=== PATIENT | female | born 1930 | race Caucasian/White ===

== ENCOUNTER 2017-07-19 23:34 | Inpatient (IN) ==
--- OUTSIDE RECORDS SUMMARY | 2017-07-20 01:23 | External Medical Summary ---
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 Problem Mitral Regurgitation 424.0 Active Problem Coronary Artery Disease 414.01 Active Problem Hypertension, Benign 401.1 Active Problem Cardiomegaly 429.3 Active Problem S/P Aortic Valve Replacement V43.3 Active Problem Hyperlipidemia 272.4 Active Problem Mitral valve regurgitation I34.0 Active Problem Pleural Effusion 511.9 Active Problem Tricuspid valve regurgitation, 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 Problem Palpitations 785.1 Active Problem CAD (coronary artery disease) I25.10 Active Problem LVH (left ventricular hypertrophy) I51.7 Active Problem Hypertension I10 Active Problem Dyspnea R06.00 Active Problem Palpitations R00.2 Active Problem S/P Mitral Valve Replacement V43.3 Active Problem Cardiac arrest 427.5 Active Assessment H/O mitral valve replacement Z95.2 Active Problem Cardiac arrest I46.9 Active Problem Shortness Of Breath 786.05 Active Assessment CHF (congestive heart failure) I50.9 Active Problem Aortic valve stenosis I35.0 Active Assessment Pacemaker Z95.0 Active Problem S/P AVR Z95.2 Active Problem Pleural effusion J90 Active Problem Hyperlipidemia E78.5 Active Assessment S/P AVR Z95.2 Active Problem Complete Heart Block 426.0 Active Assessment Aortic valve stenosis I35.0 Active Problem Pacemaker Z95.0 Active Assessment Hypertension I10 Active Problem Pulmonary Hypertension, Chronic, 416.9 Active Unspecified Assessment LVH (left ventricular hypertrophy) I51.7 Active Problem 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 Active Assessment Mitral valve regurgitation I34.0 Active Problem CHF (congestive heart failure) I50.9 Active Assessment CAD (coronary artery disease) I25.10 Active Problem H/O mitral valve replacement Z95.2 Active Problem Complete heart block I44.2 Active Problem Pulmonary hypertension I27.2 Active Medications Medication Code Code Instructions Start End Status Dosage System Date Date Potassium Chloride [facility] 26144-04 10 MEQ Orally 2 tablets 99-30 Twice a day Aspir-Low [facility] 30482-98 81 MG Orally 1 tablet 04-18 Once a day Amlodipine Besylate [facility] 30619-88 5 MG Orally 1 tablet 01-20 Once a day Haloperidol [facility] 09417-70 0.5 MG Orally 1 /2 51-01 Once a day tablets Hydrochlorothiazide [facility] 43439-70 25 MG Orally 1/2 tablet 56-01 Once a day Metoprolol Tartrate [facility] 93898-66 50MG Orally 1 10/22 18-01 Twice a day tablets Lisinopril [facility] 54015-83 20 MG Orally 1 tablet 68-01 Once a day Procedures Procedure Coding System Code Date Office Visit, Est Pt., Level 4 CPT-4 17352 Nov 24, 2015 [facility] Program PM Dual, Staff CPT-4 84878 Nov 24, 2015 Vital Signs Date/Time: Nov 24, 2015 BMI 23.23 Index Weight 127 lbs Height 62 in Cardiac Monitoring Heart Rate 86 /min Oximetry 98% % Blood Pressure Diastolic 84 mm Hg Blood Pressure Systolic 160 mm Hg Results No Known Results Summary Purpose eClinicalWorks Submission
--- OUTSIDE RECORDS SUMMARY | 2017-07-20 01:23 | External Medical Summary | Continuity of Care Document ---
:1930 Author Organization [facility] [employer] Phone Unavailable Care Team Providers Name Role Phone GABBY FIELDS DO Primary Care Physician Insurance Providers Guarantor Jac Moulton Address [address] [place] [address] Payer Blue Cross Plan 65 Select Policy Number [id number] Subscriber's Name Jac Moulton Relationship 01 Self / Same As Patient Group Number [id number] Effective Date 16 Payer [place] Medicare Policy Number [id number] Subscriber's Name Jac Moulton Relationship 01 Self / Same As Patient Effective Date 16 Advance Directives Directive Response Recorded Date/Time Patient Resuscitation Status Full Code 03/29/16 10:00am Advance Directives No 03/29/16 10:00am Living Will No 03/29/16 10:00am Health Care Power of [employer] Division Manager No 03/29/16 10:00am Problems No problem information available. Medications Current Home Medications Medication Dose Units Route Directions Days Qty Instructions Start Date Amlodipine Besylate 5 5 Mg Oral Daily 03/16/16 Mg Tab Aspirin (Aspirin 81) 81 Daily 03/16/16 Mg Tab Haloperidol (Bulk) 0.5 Mg Three Times A 03/16/16 (Haloperidol) 1 Pow Pow Day Hydrochlorothiazide Daily 03/28/16 12.5 Mg Tab Lisinopril 20 Mg Tab 20 Mg Oral Daily 03/16/16 Metoprolol Tartrate 50 25 Mg Oral Daily 03/16/16 Mg Tab Mirtazapine 15 Mg Tab 15 Mg Oral Daily 03/16/16 Potassium Chloride 10 10 Meq Oral Daily 03/16/16 Meq Inj Trimethoprim 100 Mg Tab 100 Mg Oral Daily 03/16/16 Social History Social History Problem Response Recorded Date/Time Onset Date Status Smoking Status Never smoker 03/29/2016 10:00am Not Applicable Not Applicable Query Response Start Date Stop Date Smoking Status Never smoker Hospital Discharge Instructions No hospital discharge instructions. Plan of Care Discharge Date 03/29/16 1:25pm Prescriptions See Medication Section Functional Status Query Response Date Recorded Overall Activities Daily Living Independ/No setup help March 29, 2016 10:00am Ability/Staff Support Memory Description Short term intact March 29, 2016 10:00am intermediate teacher intact Allergies, Adverse Reactions, Alerts Allergen Type Severity Reaction Status Last Updated Sulfa Antibiotics Allergy Unknown Active 03/22/16 Immunizations Query Response on File Recorded Date/Time Pneumonia Vaccine Received Yes 03/29/16 10:00am Had a Tetanus Toxoid Vaccination less than 10yrs Yes 03/29/16 10:00am ago Vital Signs Acute Vital Signs Vital Response Date/Time Blood Pressure 146/79 mm Hg 03/29/2016 1:13pm Blood Pressure Mean 102 mm Hg 03/29/2016 12:40pm Blood Pressure Mean 101 mm Hg 03/29/2016 1:13pm Temperature (Fahrenheit) 98.4 degrees F (96.0 - 99.9) 03/29/2016 12:43pm Temperature (Calculated Celsius) 36.54465 degrees C 03/29/2016 12:43pm Temperature Source Oral 03/29/2016 12:43pm Temp 98.4 degrees F (96.0 - 99.9) 03/29/2016 12:43pm Temperature (Calculated Celsius) 36.22966 degrees C 03/29/2016 12:43pm Pulse Pulse Rate (adult) 68 bpm (60 - 100) 03/29/2016 1:13pm Pulse Rate (adult) 70 bpm (60 - 100) 03/29/2016 12:40pm Respiratory Rate 16 breaths per minute (10 - 20) 03/29/2016 1:13pm Respiratory Rate 16 bpm (10 - 20) 03/29/2016 12:40pm Height (Feet) 5 ft 03/29/2016 10:00am Height (Inches) 0.0 in. 03/29/2016 10:00am Weight (Pounds) 127.0 lbs 03/29/2016 10:00am Height 5 ft 0 in 03/29/2016 10:00am Weight 127 lb 03/29/2016 10:00am Body Mass Index 24.8 kg/m^2 03/29/2016 10:00am Ambulatory Vital Signs Vital Response Date/Time Height 5 ft 03/22/2016 4:23pm Weight 128 lbs 03/22/2016 4:23pm Temperature, Oral 98.1 degrees F 03/22/2016 4:23pm Blood Pressure, Sitting, Left Arm 139/81 mm Hg 03/22/2016 4:23pm Pulse Rate 90 bpm 03/22/2016 4:23pm Respiration Rate 18 bpm 03/22/2016 4:23pm Body Surface Area 1.58 m2 03/22/2016 4:23pm Body Mass Index 25.0 kg/m2 03/22/2016 4:23pm Pulse Oximetry Pulse Oximetry 03/22/2016 4:23pm Results No known relevant diagnostic tests, laboratory data and/or discharge summary. Procedures Procedure Status Date Provider(s) BX BREAST 1ST LESION US IMAG Completed 03/16/16 BRANDON MULLIGAN M.D. Simple mastectomy of left breast Completed 03/29/16 BRANDON MULLIGAN M.D. Encounters Encounter Location Arrival/Admit Date Discharge/Depart Date Attending Provider Departed Venessa Rodríguez 03/29/16 10:00am 03/29/16 1:25pm BRANDON MULLIGAN Surgical [facility] Anneliese Anand M.D. Care Office Visit BRANDON MULLIGAN 03/22/16 4:00pm BRANDON MULLIGAN M.D. Registered Brandon Mulligan 03/22/16 4:00pm BRANDON MULLIGAN M.D. Departed Clinic Venessa Rodríguez 03/16/16 4:17pm 03/16/16 5:30pm BRANDON MULLIGAN Mem Anneliese Anand M.D. Office Visit BRANDON MULLIGAN 03/16/16 2:45pm BRANDON MULLIGAN M.D. Registered Venessa Rodríguez 03/16/16 12:02pm GABBY FIELDS [facility].
--- OUTSIDE RECORDS SUMMARY | 2017-07-20 01:23 | External Medical Summary ---
:1930 Author Organization [facility] Address [address] [place] [address] Care Team Providers Name Role Phone Amanda Correa Unavailable Unavailable PROBLEMS Type Condition ICD9-CM [id number] Onset Condition SNOMED Code Code Code Dates Status Problem S/P AVR Z95.2 Active 790892723729803 Problem Hyperlipidemia E78.5 Active 08405983 Problem Aortic valve I35.0 Active 05531143 stenosis Problem Atherosclerotic I25.10 Active 198555375761926 heart disease of [place] coronary artery without angina pectoris Problem Asystole I46.9 Active 845325922 Problem Palpitations R00.2 Active 87735067 Problem Pleural effusion J90 Active 06264479 Problem Cardiac arrest I46.9 Active 995282719 Problem Dyspnea R06.00 Active 828871461 Problem Complete heart I44.2 Active 49542466 block Problem Pulmonary I27.2 Active 16714122 hypertension Assessment Atherosclerotic I25.10 Dec, Active 967908394163372 heart disease of 2017 [place] coronary artery without angina pectoris Problem Pacemaker Z95.0 Active 254078575 Problem Mitral valve I34.0 Active 53000378 regurgitation Problem Tricuspid valve I36.1 Active 906355338 regurgitation, nonrheumatic Problem CHF (congestive I50.9 Active 55682652 heart failure) Problem Hypertension I10 Active 47080306 Problem H/O mitral valve Z95.2 Active 095110791133894 replacement Problem LVH (left I51.7 Active 1918558 ventricular hypertrophy) ALLERGIES Substance Reaction Event Type Date Status Sulfa Unknown Drug Allergy Dec, Active Iodine Unknown Drug Allergy Dec, Active SOCIAL HISTORY No smoking Hx information available PLAN OF CARE VITAL SIGNS Height 62 in 2017-01-14 Weight 126.00 lbs 2017-01-14 BMI 23.04 kg/m2 2017-01-14 Oximetry 97 % 2017-01-14 Heart Rate 74 /min 2017-01-14 Blood pressure systolic 120 mm Hg 2017-01-14 Blood pressure diastolic 68 mm Hg 2017-01-14 MEDICATIONS Medication Instructions Dosage Frequency Start End Duration Status Date Date Metoprolol Tartrate 50 Orally Twice a 1 1/2 12h Active MG day tablets Hydrochlorothiazide 25 Orally Once a 1 capsule 24h Active MG day Lisinopril 20 MG Orally Once a 1 tablet 24h Active day Hydralazine HCl 25 MG Orally Twice a 1 tablet 12h Active day Haloperidol 0.5 MG Orally Once a 1 tablet 24h Active day Potassium Chloride 10 Orally Twice a 2 tablets 12h Active MEQ day Amlodipine Besylate 5 Orally Once a 1 tablet 24h Active MG day Aspir-Low 81 MG Orally Once a 1 tablet 24h Active day RESULTS No Results PROCEDURES Procedure Date Ordered Related Diagnosis Body Site Ofc Program PM Dual, Staff January 14, 2017 Office Visit, Est Pt., Level 3 January 14, 2017 IMMUNIZATIONS No Known Immunizations
--- OUTSIDE RECORDS SUMMARY | 2017-07-20 01:23 | External Medical Summary ---
:1930 Author Organization [facility] Address [address] [place] [address] Care Team Providers Name Role Phone Amanda Correa Unavailable Unavailable PROBLEMS Type Condition ICD9-CM [id number] Onset Condition SNOMED Code Code Code Dates Status Problem S/P AVR Z95.2 Active 592087606349560 Problem Hyperlipidemia E78.5 Active 64264692 Problem Aortic valve I35.0 Active 91645885 stenosis Problem Atherosclerotic I25.10 Active 779318491928938 heart disease of [place] coronary artery without angina pectoris Problem Asystole I46.9 Active 581695713 Problem Palpitations R00.2 Active 46601510 Problem Pleural effusion J90 Active 32699908 Problem Cardiac arrest I46.9 Active 222461056 Problem Dyspnea R06.00 Active 656805659 Problem Complete heart I44.2 Active 03263589 block Problem Pulmonary I27.2 Active 79207627 hypertension Problem Pacemaker Z95.0 Active 779271545 Problem Mitral valve I34.0 Active 38103487 regurgitation Problem Tricuspid valve I36.1 Active 372758113 regurgitation, nonrheumatic Problem CHF (congestive I50.9 Active 28362700 heart failure) Problem Hypertension I10 Active 89299142 Problem H/O mitral valve Z95.2 Active 341861106009656 replacement Problem LVH (left I51.7 Active 6570125 ventricular hypertrophy) ALLERGIES Unknown Allergies SOCIAL HISTORY No smoking Hx information available PLAN OF CARE VITAL SIGNS MEDICATIONS Unknown Medications RESULTS No Results PROCEDURES No Known procedures IMMUNIZATIONS No Known Immunizations
--- OUTSIDE RECORDS SUMMARY | 2017-07-20 01:23 | External Medical Summary | Continuity of Care Document ---
:1930 Author Organization [facility] [employer] Phone Unavailable Care Team Providers Name Role Phone GABBY FIELDS DO Primary Care Physician Insurance Providers Guarantor Jac Moulton Address [address] [place] [address] Payer Blue Cross Plan 65 Select Policy Number [id number] Subscriber's Name Jac Moulton Relationship 01 Self / Same As Patient Group Number [id number] Effective Date 16 Payer [place] Medicare Policy Number [id number] Subscriber's Name Jac Moulton Relationship 01 Self / Same As Patient Effective Date 16 Problems No problem information available. Medications Current [...] Smoking Status Never smoker Hospital Discharge Instructions Current inpatient/outpatient. Discharge instructions are currently unavailable. Plan of Care Current inpatient/outpatient. The plan of care is currently unavailable Functional Status No functional status results. Allergies, Adverse Reactions, Alerts Allergen Type Severity Reaction Status Last Updated Sulfa Antibiotics ([id number]) Allergy Unknown Active 03/22/16 Immunizations No immunization records. Vital Signs Acute Vital Signs Vital Response Date/Time Blood Pressure 146/79 mm Hg 03/29/2016 1:13pm Blood Pressure Mean 102 mm Hg 03/29/2016 12:40pm Blood Pressure Mean 101 mm Hg 03/29/2016 1:13pm Temperature (Fahrenheit) 98.4 degrees F (96.0 - 99.9) 03/29/2016 12:43pm Temperature (Calculated Celsius) 36.07115 degrees C 03/29/2016 12:43pm Temperature Source Oral 03/29/2016 12:43pm Temp 98.4 degrees F (96.0 - 99.9) 03/29/2016 12:43pm Temperature (Calculated Celsius) 36.65444 degrees C 03/29/2016 12:43pm Pulse Pulse Rate (adult) 68 bpm (60 - 100) 03/29/2016 1:13pm Pulse Rate (adult) 70 bpm (60 - 100) 03/29/2016 12:40pm Respiratory Rate 16 breaths per minute (10 - 20) 03/29/2016 1:13pm Respiratory Rate 16 bpm (10 - 20) 03/29/2016 12:40pm Height (Feet) 5 ft 03/29/2016 10:00am Height (Inches) 0.0 in. 03/29/2016 10:00am Weight (Pounds) 127.0 lbs 03/29/2016 10:00am Ambulatory Vital Signs Vital Response Date/Time Height 5 ft 07/09/2016 2:17pm Weight 128 lbs 07/09/2016 2:17pm Temperature, Oral 98.1 degrees F 07/09/2016 2:17pm Blood Pressure, Sitting, Left Arm 111/71 mm Hg 07/09/2016 2:17pm Pulse Rate 80 bpm 07/09/2016 2:17pm Respiration Rate 16 bpm 07/09/2016 2:17pm Body Surface Area 1.58 m2 07/09/2016 2:17pm Body Mass Index 25.0 kg/m2 07/09/2016 2:17pm Pulse Oximetry Pulse Oximetry 07/09/2016 2:17pm Results Laboratory Results Test Name Result Units Flags Reference Collection Result Comments Date/Time Date/Time White Blood Count 6.6 K/uL 5.0-10.0 04/18/2016 04/18/2016 2:16pm 2:35pm Red Blood Count 4.21 M/uL 4.20-5.40 04/18/2016 04/18/2016 2:16pm 2:35pm Hemoglobin 12.8 g/dL 12.0-16.0 04/18/2016 04/18/2016 2:16pm 2:35pm Hematocrit 38.7 % 38.0-47.0 04/18/2016 04/18/2016 2:16pm 2:35pm Mean Corpuscular 91.9 fL 82.0-100.0 04/18/2016 04/18/2016 Volume 2:16pm 2:35pm Mean Corpuscular 30.4 pg 26.0-33.0 04/18/2016 04/18/2016 Hemoglobin 2:16pm 2:35pm Mean Corpuscular 33.1 g/dL 31.0-36.0 04/18/2016 04/18/2016 Hemoglobin Concent 2:16pm 2:35pm Red Cell 13.6 % 11.5-14.5 04/18/2016 04/18/2016 Distribution Width 2:16pm 2:35pm RDW Standard 46.0 fL 36.4-46.3 04/18/2016 04/18/2016 Deviation 2:16pm 2:35pm Platelet Count 233 K/uL 130-400 04/18/2016 04/18/2016 2:16pm 2:35pm Mean Platelet 9.8 fL 7.0-11.0 04/18/2016 04/18/2016 Volume 2:16pm 2:35pm Neutrophils (%) 63.0 % 42.0-75.0 04/18/2016 04/18/2016 (Auto) 2:16pm 2:35pm Lymphocytes (%) 23.5 % 16.0-44.0 04/18/2016 04/18/2016 (Auto) 2:16pm 2:35pm Monocytes (%) 9.9 % H 2.0-9.0 04/18/2016 04/18/2016 (Auto) 2:16pm 2:35pm Eosinophils (%) 2.0 % 0-7.0 04/18/2016 04/18/2016 (Auto) 2:16pm 2:35pm Basophils (%) 1.1 % H 0-1 04/18/2016 04/18/2016 (Auto) 2:16pm 2:35pm Immature 0.5 % 0-0.5 04/18/2016 04/18/2016 Granulocyte % 2:16pm 2:35pm (Auto) Nucleated Red Blood 0.0 /100WBC 0-0 04/18/2016 04/18/2016 Cells % 2:16pm 2:35pm Neutrophils # 4.1 K/uL 1.9-8.0 04/18/2016 04/18/2016 (Auto) 2:16pm 2:35pm Lymphocytes # 1.5 K/uL 0.9-5.2 04/18/2016 04/18/2016 (Auto) 2:16pm 2:35pm Monocytes # (Auto) 0.7 K/uL 0.16-1.0 04/18/2016 04/18/2016 2:16pm 2:35pm Eosinophils # 0.1 K/uL 0-0.8 04/18/2016 04/18/2016 (Auto) 2:16pm 2:35pm Basophils # (Auto) 0.1 K/uL 0-0.2 04/18/2016 04/18/2016 2:16pm 2:35pm Immature 0.03 K/uL 0-0.40 04/18/2016 04/18/2016 Granulocyte # 2:16pm 2:35pm (Auto) Nucleated Red Blood 0.00 K/uL 0.0-0.012 04/18/2016 04/18/2016 Cells # 2:16pm 2:35pm Random Glucose 118 mg/dL H 65-115 04/18/2016 04/18/2016 2:16pm 3:42pm Blood Urea Nitrogen 25 mg/dL 8-25 04/18/2016 04/18/2016 2:16pm 3:42pm Creatinine 0.76 mg/dL L 0.9-1.6 04/18/2016 04/18/2016 2:16pm 3:42pm Glomerular 71.82 mL/min 04/18/2016 04/18/2016 MULTIPLY RESULT BY 1.210 IF THE PATIENT IS -ITALIAN
Filtration Rate 2:16pm 3:42pm Units are mL/min/1.73 m2
Calc
> 60 Normal kidney function
30-59 Moderately decreased kidney function
15-29 Severely decreased kidney function
<15 End-stage kidney failure
BUN/Creatinine 32.9 04/18/2016 04/18/2016 Ratio 2:16pm 3:42pm Sodium Level 136 mEq/L 133-145 04/18/2016 04/18/2016 2:16pm 3:42pm Potassium Level 4.4 mEq/L 3.5-5.1 04/18/2016 04/18/2016 2:16pm 3:42pm Chloride Level 98 mEq/L 98-116 04/18/2016 04/18/2016 2:16pm 3:42pm Carbon Dioxide 32 mEq/L 22-34 04/18/2016 04/18/2016 Level 2:16pm 3:42pm Anion Gap 10.4 6-13 04/18/2016 04/18/2016 2:16pm 3:42pm Calcium Level 9.5 mg/dL 8.2-10.6 04/18/2016 04/18/2016 2:16pm 3:42pm Total Protein 7.3 gm/dL 6.0-8.4 04/18/2016 04/18/2016 2:16pm 3:42pm Albumin 4.0 gm/dL 3.2-5.0 04/18/2016 04/18/2016 2:16pm 3:42pm Globulin 3.3 gm/dL H 2.0-3.0 04/18/2016 04/18/2016 2:16pm 3:42pm Albumin/Globulin 1.2 L 1.4-2.4 04/18/2016 04/18/2016 Ratio 2:16pm 3:42pm Total Bilirubin 0.6 mg/dL 0.1-1.3 04/18/2016 04/18/2016 2:16pm 3:42pm Alkaline 90 U/L 35-125 04/18/2016 04/18/2016 Phosphatase 2:16pm 3:42pm Aspartate Amino 22 U/L 5-40 04/18/2016 04/18/2016 Transf (AST/SGOT) 2:16pm 3:42pm Alanine 17 U/L 5-40 04/18/2016 04/18/2016 Aminotransferase 2:16pm 3:42pm (ALT/SGPT) Procedures Procedure Status Date Provider(s) BX BREAST 1ST LESION US IMAG Completed 03/16/16 OSITO MULLIGAN M.D. PARTIAL MASTECTOMY Completed 03/29/16 OSITO MULLIGAN M.D. Encounters Encounter Location Arrival/Admit Date Discharge/Depart Date Attending Provider Office Visit OSITO MULLIGAN 07/09/16 2:15pm OSITO MULLIGAN M.D. Registered Osito Mulligan 07/09/16 2:15pm OSITO MULLIGAN M.D. Registered Venessa Rodríguez 04/18/16 2:25pm SARBJIT SUAREZ Mem. [facility] S. MAngel Discharged Venessa Rodríguez 04/18/16 2:16pm 07/27/16 11:59pm SARBJIT SUAREZ Recurring [facility]. [facility] Office Visit OSITO MULLIGAN 04/10/16 2:45pm OSITO MULLIGAN M.D. Departed Venessa Rodríguez 03/29/16 10:00am 03/29/16 1:25pm OSITO MULLIGAN Surgical Day Mem. Anneliese Anand M.D. Care Office Visit OSITO MULLIGAN 03/22/16 4:00pm OSITO MULLIGAN M.D. Departed Clinic Venessa Rodríguez 03/16/16 4:17pm 03/16/16 5:30pm OSITO MULLIGAN Mem. [facility] Office Visit SOITO MULLIGAN 03/16/16 2:45pm OSITO MULLIGAN M.D. 03/16/16 12:02pm GABBY FIELDS Referred [facility] N. DO Recent Diagnosis Encounter for examination following surgery
--- OUTSIDE RECORDS SUMMARY | 2017-07-20 01:23 | External Medical Summary ---
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 Active Assessment S/P Mitral Valve Replacement V43.3 Active Problem Pulmonary Hypertension, Chronic, 416.9 Active Unspecified Assessment Complete Heart Block 426.0 Active Assessment 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 Active Problem Complete Heart Block 426.0 Active Problem Shortness Of Breath 786.05 Active Problem Palpitations 785.1 Active Problem S/P Mitral Valve Replacement V43.3 Active Problem Cardiac arrest 427.5 Active Assessment Aortic Valve Stenosis 424.1 Active Problem Aortic Valve Stenosis 424.1 Active Assessment Hypertension, Benign 401.1 Active Assessment S/P Aortic Valve Replacement V43.3 Active Problem Tricuspid valve disorders, 424.2 Active specified as nonrheumatic Problem Coronary Artery Disease 414.01 Active Problem Congestive Heart Failure, 428.0 Active Unspecified Problem Hypertension, Benign 401.1 Active Problem Mitral Regurgitation 424.0 Active Problem Cardiomegaly 429.3 Active Medications Medication Code Code Instructions Start End Status Dosage System Date Date Metoprolol Tartrate [facility] 33858-59 50 MG Orally 1-1/2 33-01 Twice [place] [address]-48 20 MG Orally 1 tablet 68-01 [place] [address]-54 25 MG Orally 1/2 tablet 56-01 [place] [address]-63 5 MG Orally 1 tablet 01-20 Once a day Procedures Procedure Coding System Code Date Office Visit, Est Pt., Level 4 CPT-4 87739 May 18, 2015 Ofc Program PM Dual, Staff CPT-4 57123 May 18, 2015 Vital Signs Date/Time: May 18, 2015 BMI 22.68 Index Weight 124 lbs Height 62 in Cardiac Monitoring Heart Rate 86 /min Oximetry 94 % Blood Pressure Diastolic 62 mm Hg Blood Pressure Systolic 134 mm Hg Results No Known Results Summary Purpose eClinicalWorks Submission
--- OUTSIDE RECORDS SUMMARY | 2017-07-20 01:23 | External Medical Summary | Continuity of Care Document ---
:1930 Author Organization [facility] [employer] Phone Unavailable Care Team Providers Name Role Phone GABBY FIELDS DO Primary Care Physician Insurance Providers Guarantor Jac Moulton Address [address] [place] [address] Payer Blue [employer] Plan 65 Select Policy Number [id number] Subscriber's Name Jac Moulton Relationship 01 Self / Same As Patient Group Number [id number] Effective Date 16 Payer [employer] Medicare Policy Number [id number] Subscriber's Name Jac Moulton Relationship 01 Self [...] No hospital discharge instructions. Plan of Care Prescriptions See Medication Section Functional Status No functional status results. Allergies, Adverse Reactions, Alerts Allergen Type Severity Reaction Status Last Updated Sulfa Antibiotics ([id number]) Allergy Unknown Active 03/22/16 Immunizations No immunization records. Vital Signs Acute Vital Signs Vital Response Date/Time Blood Pressure 146/79 mm Hg 03/29/2016 1:13pm Blood Pressure Mean 102 mm Hg 03/29/2016 12:40pm Blood Pressure Mean 101 mm Hg 03/29/2016 1:13pm Temperature (Fahrenheit) 98.4 degrees F (96.0 - 99.9) 03/29/2016 12:43pm Temperature (Calculated Celsius) 36.14206 degrees C 03/29/2016 12:43pm Temperature Source Oral 03/29/2016 12:43pm Temp 98.4 degrees F (96.0 - 99.9) 03/29/2016 12:43pm Temperature (Calculated Celsius) 36.90987 degrees C 03/29/2016 12:43pm Pulse Pulse Rate [...] Result Comments Date/Time Date/Time White Blood Count 6.1 K/uL 5.0-10.0 10/25/2016 10/25/2016 1:44pm 2:17pm Red Blood Count 4.14 M/uL L 4.20-5.40 10/25/2016 10/25/2016 1:44pm 2:17pm Hemoglobin 12.7 g/dL 12.0-16.0 10/25/2016 10/25/2016 1:44pm 2:17pm Hematocrit 38.4 % 38.0-47.0 10/25/2016 10/25/2016 1:44pm 2:17pm Mean Corpuscular 92.8 fL 82.0-100.0 10/25/2016 10/25/2016 Volume 1:44pm 2:17pm Mean Corpuscular 30.7 pg 26.0-33.0 10/25/2016 10/25/2016 Hemoglobin 1:44pm 2:17pm Mean Corpuscular 33.1 g/dL 31.0-36.0 10/25/2016 10/25/2016 Hemoglobin Concent 1:44pm 2:17pm Red Cell 13.3 % 11.5-14.5 10/25/2016 10/25/2016 Distribution Width 1:44pm 2:17pm RDW Standard 45.4 fL 36.4-46.3 10/25/2016 10/25/2016 Deviation 1:44pm 2:17pm Platelet Count 202 K/uL 130-400 10/25/2016 10/25/2016 1:44pm 2:17pm Mean Platelet 9.8 fL 7.0-11.0 10/25/2016 10/25/2016 Volume 1:44pm 2:17pm Neutrophils (%) 65.1 % 42.0-75.0 10/25/2016 10/25/2016 (Auto) 1:44pm 2:17pm Lymphocytes (%) 22.6 % 16.0-44.0 10/25/2016 10/25/2016 (Auto) 1:44pm 2:17pm Monocytes (%) 9.7 % H 2.0-9.0 10/25/2016 10/25/2016 (Auto) 1:44pm 2:17pm Eosinophils (%) 1.3 % 0-7.0 10/25/2016 10/25/2016 (Auto) 1:44pm 2:17pm Basophils (%) 1.0 % 0-1 10/25/2016 10/25/2016 (Auto) 1:44pm 2:17pm Immature 0.3 % 0-0.5 10/25/2016 10/25/2016 Granulocyte % 1:44pm 2:17pm (Auto) Nucleated Red Blood 0.0 /100WBC 0-0 10/25/2016 10/25/2016 Cells % 1:44pm 2:17pm Neutrophils # 3.9 K/uL 1.9-8.0 10/25/2016 10/25/2016 (Auto) 1:44pm 2:17pm Lymphocytes # 1.4 K/uL 0.9-5.2 10/25/2016 10/25/2016 (Auto) 1:44pm 2:17pm Monocytes # (Auto) 0.6 K/uL 0.16-1.0 10/25/2016 10/25/2016 1:44pm 2:17pm Eosinophils # 0.1 K/uL 0-0.8 10/25/2016 10/25/2016 (Auto) 1:44pm 2:17pm Basophils # (Auto) 0.1 K/uL 0-0.2 10/25/2016 10/25/2016 1:44pm 2:17pm Immature 0.02 K/uL 0-0.40 10/25/2016 10/25/2016 Granulocyte # 1:44pm 2:17pm (Auto) Nucleated Red Blood 0.00 K/uL 0.0-0.012 10/25/2016 10/25/2016 Cells # 1:44pm 2:17pm Random Glucose 121 mg/dL H 65-115 10/25/2016 10/25/2016 1:44pm 2:28pm Blood Urea Nitrogen 28 mg/dL H 8-25 10/25/2016 10/25/2016 1:44pm 2:28pm Creatinine 0.77 mg/dL L 0.9-1.6 10/25/2016 10/25/2016 1:44pm 2:28pm Glomerular 70.75 mL/min 10/25/2016 10/25/2016 MULTIPLY RESULT BY 1.210 IF THE PATIENT IS -MACAN[place]
Filtration Rate 1:44pm 2:28pm Units are mL/min/1.73 m2
Calc
> 60 Normal kidney function
30-59 Moderately decreased kidney function
15-29 Severely decreased kidney function
<15 End-stage kidney failure
BUN/Creatinine 36.4 10/25/2016 10/25/2016 Ratio 1:44pm 2:28pm Sodium Level 136 mEq/L 133-145 10/25/2016 10/25/2016 1:44pm 2:28pm Potassium Level 4.2 mEq/L 3.5-5.1 10/25/2016 10/25/2016 1:44pm 2:28pm Chloride Level 101 mEq/L 98-116 10/25/2016 10/25/2016 1:44pm 2:28pm Carbon Dioxide 31 mEq/L 22-34 10/25/2016 10/25/2016 Level 1:44pm 2:28pm Anion Gap 8.2 6-13 10/25/2016 10/25/2016 1:44pm 2:28pm Calcium Level 9.0 mg/dL 8.2-10.6 10/25/2016 10/25/2016 1:44pm 2:28pm Total Protein 7.6 gm/dL 6.0-8.4 10/25/2016 10/25/2016 1:44pm 2:28pm Albumin 4.4 gm/dL 3.2-5.0 10/25/2016 10/25/2016 1:44pm 2:28pm Globulin 3.2 gm/dL H 2.0-3.0 10/25/2016 10/25/2016 1:44pm 2:28pm Albumin/Globulin 1.4 1.4-2.4 10/25/2016 10/25/2016 Ratio 1:44pm 2:28pm Total Bilirubin 0.4 mg/dL 0.1-1.3 10/25/2016 10/25/2016 1:44pm 2:28pm Alkaline 100 U/L 35-125 10/25/2016 10/25/2016 Phosphatase 1:44pm 2:28pm Aspartate Amino 23 U/L 5-40 10/25/2016 10/25/2016 Transf (AST/SGOT) 1:44pm 2:28pm Alanine 18 U/L 5-40 10/25/2016 10/25/2016 Aminotransferase 1:44pm 2:28pm (ALT/SGPT) Procedures Procedure Status Date Provider(s) BX BREAST 1ST LESION US IMAG Completed 03/16/16 OSITO MULLIGAN M.D. PARTIAL MASTECTOMY Completed 03/29/16 OSITO MULLIGAN M.D. Encounters Encounter Location Arrival/Admit Date Discharge/Depart Date Attending Provider Discharged Venessa Rodríguez 10/25/16 1:44pm 02/02/17 11:59pm SARBJIT SUAREZ Recurring [facility] S. M.D. Office Visit OSITO MULLIGAN 07/09/16 2:15pm OSITO MULLIGAN M.D. Registered Osito Mulligan 07/09/16 2:15pm OSITO MULLIGAN M.D. Registered Venessa Rodríguez 04/18/16 2:25pm SARBJIT SUAREZ [facility]. [facility] S. M.DRachana Discharged Venessa Rodríguez 04/18/16 2:16pm 07/27/16 11:59pm SARBJIT SUAREZ Recurring [facility] S. M.D. Office Visit OSITO MULLIGAN 04/10/16 2:45pm OSITO MULLIGAN M.D. Departed Venessa Rodríguez 03/29/16 10:00am 03/29/16 1:25pm OSITO MULLIGAN Surgical Day [facility] O M.Tanya Care Office Visit OSITO MULLIGAN 03/22/16 4:00pm OSITO MULLIGAN M.D. Departed Clinic Venessa Rodríguez 03/16/16 4:17pm 03/16/16 5:30pm [facility] OSITO MULLIGAN 03/16/16 2:45pm OSITO MULLIGAN M.D. 03/16/16 12:02pm GABBY FIELDS Referred [facility]. [facility] N. DO
--- OUTSIDE RECORDS SUMMARY | 2017-07-20 01:23 | External Medical Summary ---
:1930 Author Organization [facility] Address [address] [place] [address] Care Team Providers Name Role Phone Eliza Greenfield Unavailable Unavailable PROBLEMS Type Condition ICD9-CM Code [id number] Onset Condition SNOMED Code Code Dates Status Problem OA (osteoarthritis) M19.90 Active 978530542 Problem Valvular heart I38 Active 883129 disease Problem Hyperlipidemia E78.5 Active 85113916 Problem Insomnia, G47.00 Active 798474874 unspecified type Problem Psychosis F29 Active 05207488 Problem Depressive disorder F32.9 Active 48056459 Problem HTN (hypertension) I10 Active 94255734 Problem Alzheimers disease 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 64618400 Problem 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, possible Problem Hyperlipidemia 272.4 Active 73659885 Problem Valvular heart 424.90 Active 400203 disease Problem Osteoarthritis 715.90 Active 854023674 Problem [place] II diagnosis 799.9 Active 41657251 deferred Problem Unspecified 298.9 Active 50437691 psychosis Problem Varicose veins 454.9 Active 993724369 Problem Alzheimer's disease 331.0 Active 05921881 Problem HTN (hypertension) 401.9 Active 66683616 Problem Depressive 311 Active 39509776 disorder, not elsewhere classified ALLERGIES No Information SOCIAL HISTORY Never Assessed PLAN OF CARE VITAL SIGNS MEDICATIONS Unknown Medications RESULTS No Results PROCEDURES No Known procedures IMMUNIZATIONS No Known Immunizations MEDICAL (GENERAL) HISTORY Type Description Date Medical History Hypertension, Varicose Veins, valvular heart disease, hyperlipidemia, osteoarthritis, dysrhythmia, possibly atrial fibrillation (has a pacemaker) Surgical History 2 open heart surgeries - 2 valves, bladder, hysterectomy, surgery for intestine block, cataract surgery R eye Hospitalization History January 2013, [facility] for Psychosis NOS
--- OUTSIDE RECORDS SUMMARY | 2017-07-20 01:23 | External Medical Summary ---
:1930 Author Organization [employer] Care Team Providers Name Role Phone Eloisa Polanco Provider Role Unavailable Allergies, Adverse Reactions, Alerts Substance Reaction Event Type N.K.D.A. 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, possible Assessment Valvular heart disease I38 Active Assessment Hyperlipidemia E78.5 Active Problem Psychosis F29 Active Problem Valvular heart disease I38 Active Problem Hyperlipidemia E78.5 Active Problem Depressive disorder F32.9 Active Problem HTN (hypertension) I10 Active Assessment Psychosis F29 Active Problem Osteoarthritis 715.90 Active Assessment Depressive disorder F32.9 Active Assessment 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 Alzheimer's disease, possible Problem Varicose veins 454.9 Active Problem HTN (hypertension) 401.9 Active Problem Hyperlipidemia 272.4 Active Problem [place] II diagnosis deferred 799.9 Active Assessment OA (osteoarthritis) M19.90 Active Problem Valvular heart disease 424.90 Active Problem Unspecified psychosis 298.9 Active Medications Medication Code Code Instructions Start End Status Dosage System Date Date Hydrochlorothiazide NDC 22602-2 12.5 MG Orally 1 tablet 820-11 Once a day Lisinopril NDC 02131-0 20 MG Orally 1 tablet 268-01 Once a day Potassium Chloride NDC 39601-3 Orally Two 2 tablets 077-14 times daily Aspirin Childrens NDC 18006-1 81 MG Orally 1 tablet 218-07 Once a day Haloperidol NDC 99703-1 0.5MG Orally 2.5 tablets 327-01 Once a day at bedtime Amlodipine Besylate NDC 76004-9 5 MG Orally 1 tablet 101-20 Once a day Metoprolol Tartrate NDC 83827-6 50 MG Orally 1.5 tablets 733-01 Twice a day at breakfast and 1.5 tablets at HS Procedures Procedure Coding System Code Date Office Visit, Est Pt., Level 4 CPT-4 31944 Jul 16, 2016 Vital Signs Date/Time: Jul 16, 2016 Blood Pressure Diastolic 84 sit; 144 mm Hg Blood Pressure Systolic 156 mm Hg Weight 127.8 lbs Cardiac Monitoring Heart Rate 95/95 /min Results No Known Results Summary Purpose [employer] Submission
--- OUTSIDE RECORDS SUMMARY | 2017-07-20 01:23 | External Medical Summary ---
:1930 Author Organization [employer] Care Team Providers Name Role Phone Tiffany Kaur Provider Role Unavailable Allergies, Adverse Reactions, Alerts Substance Reaction Event Type N.K.D.A. Info Not Available Non Drug Allergy Problems Problem Type Condition Code Onset Dates Condition Status Assessment Unspecified psychosis 298.9 Active Problem Hyperlipidemia 272.4 Active Problem Osteoarthritis 715.90 Active Problem Alzheimer's disease 331.0 Active Problem Unspecified psychosis 298.9 Active Problem Depressive disorder, not elsewhere 311 Active classified Problem Varicose veins 454.9 Active Problem Valvular heart disease 424.90 Active Problem [place] II diagnosis deferred 799.9 Active Problem HTN (hypertension) 401.9 Active Assessment Osteoarthritis 715.90 Active Assessment Hyperlipidemia 272.4 Active Assessment HTN (hypertension) 401.9 Active Assessment [place] II diagnosis deferred 799.9 Active Assessment Valvular heart disease 424.90 Active Assessment Alzheimer's disease 331.0 Active Assessment Varicose veins 454.9 Active Assessment Depressive disorder, not elsewhere 311 Active classified Medications Medication Code Code Instructions Start End Status Dosage System Date Date Amlodipine Besylate NDC 05463-9 5 MG Orally 1 tablet 101-20 Once a day Hydrochlorothiazide NDC 21749-5 12.5 MG Orally 1 tablet 820-11 Once a day Metoprolol Tartrate NDC 25446-2 50 MG Orally 1.5 tablets 733-01 Twice a day at breakfast and 1.5 tablets at HS Haloperidol NDC 03736-6 0.5MG Orally take three 327-01 Once a day at tablets by bedtime mouth once daily at bedtime Lisinopril NDC 21729-4 20 MG Orally 1 tablet 268-01 Once a day Aspirin Childrens NDC 57808-5 81 MG Orally 1 tablet 218-07 Once a day Potassium Chloride NDC 89999-8 Orally Two 2 tablets 077-14 times daily Procedures Procedure Coding System Code Date Office Visit, Est Pt., Level 4 CPT-4 59062 Jun 13, 2015 Vital Signs Date/Time: Jun 13, 2015 Blood Pressure Diastolic 84 sit; 153 mm Hg Blood Pressure Systolic 153 mm Hg Weight 130 lbs Cardiac Monitoring Heart Rate 86/86 /min Results No Known Results Summary Purpose [employer] Submission
--- OUTSIDE RECORDS SUMMARY | 2017-07-20 01:23 | External Medical Summary ---
:1930 Author Organization [employer] Care Team Providers Name Role Phone Amanda Correa Provider Role Unavailable Allergies No Known Allergies Problems Problem Type Condition Code Onset Dates [...] V43.3 Active Problem Cardiac arrest 427.5 Active Problem Cardiac arrest I46.9 Active Problem Shortness Of Breath 786.05 Active Problem Aortic valve stenosis I35.0 Active Problem S/P AVR Z95.2 Active Problem Pleural effusion J90 Active Problem Hyperlipidemia E78.5 Active Problem Complete Heart Block 426.0 Active Problem Pacemaker Z95.0 Active Problem Pulmonary Hypertension, Chronic, 416.9 Active Unspecified Problem 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
--- OUTSIDE RECORDS SUMMARY | 2017-07-20 01:23 | External Medical Summary ---
:1930 [facility] Care Team Providers Name Role Phone Tiffany Kaur Provider Role Unavailable Allergies, Adverse Reactions, Alerts Substance Reaction Event Type N.K.D.A. 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 Alzheimer's disease, possible Assessment Depressive disorder F32.9 Active Assessment HTN (hypertension) I10 Active Problem Psychosis F29 Active Assessment Valvular heart disease I38 Active Problem Valvular heart disease I38 Active Problem Hyperlipidemia E78.5 Active Problem Depressive disorder F32.9 Active Problem HTN (hypertension) I10 Active Assessment Psychosis F29 Active Problem Osteoarthritis 715.90 Active Assessment 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 Alzheimer's disease, possible Assessment Alzheimers disease 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 Problem Varicose veins 454.9 Active Problem HTN (hypertension) 401.9 Active Problem Hyperlipidemia 272.4 Active Problem Valvular heart disease 424.90 Active Medications Medication Code Code Instructions Start End Status Dosage System Date Date Potassium Chloride NDC 50005-6 Orally Two 2 tablets 077-14 times daily Metoprolol Tartrate NDC 02005-1 50 MG Orally 1.5 tablets 733-01 Twice a day at breakfast and 1.5 tablets at HS Amlodipine Besylate NDC 67804-3 5 MG Orally 1 tablet 101-20 Once a day Aspirin Childrens NDC 73952-8 81 MG Orally 1 tablet 218-07 Once a day Lisinopril NDC 23950-1 20 MG Orally 1 tablet 268-01 Once a day Haloperidol NDC 79192-2 0.5MG Orally 2.5 tablets 327-01 Once a day at bedtime Hydrochlorothiazide [facility] 68849-7 12.5 MG Orally 1 tablet 820-11 Once a day Procedures Procedure Coding System Code Date Office Visit, Est Pt., Level 4 CPT-4 28836 January 02, 2016 Vital Signs Date/Time: January 02, 2016 Blood Pressure Diastolic 73 sit; 126 mm Hg Blood Pressure Systolic 135 mm Hg Weight 126.2 lbs Cardiac Monitoring Heart Rate 88/88 /min Results No Known Results Summary Purpose eClinicalWorks Submission
--- OUTSIDE RECORDS SUMMARY | 2017-07-20 01:23 | External Medical Summary ---
:1930 Author Organization [facility] Address [address] [place] [address] Care Team Providers Name Role Phone Eloisa Polanco Unavailable Unavailable PROBLEMS Type Condition ICD9-CM Code HJI22-HS Onset Condition SNOMED Code Code Dates Status Problem OA (osteoarthritis) M19.90 Active 629780121 Problem Valvular heart I38 Active 620489 disease Problem Hyperlipidemia E78.5 Active 41243038 Problem Insomnia, G47.00 Active 696274923 unspecified type Problem Psychosis F29 Active 89115517 Problem Depressive disorder F32.9 Active 31440716 Problem HTN (hypertension) I10 Active 83384261 Problem Alzheimers disease 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 26688089 Problem 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 899805790 neurocognitive disorder due to Alzheimer's disease, possible Problem Hyperlipidemia 272.4 Active 39352508 Problem Valvular heart 424.90 Active 038686 disease Problem Osteoarthritis 715.90 Active 013665859 Problem [place] II diagnosis 799.9 Active 66522102 deferred Problem Unspecified 298.9 Active 26697148 psychosis Problem Varicose veins 454.9 Active 453859424 Problem Alzheimer's disease 331.0 Active 38531851 Problem HTN (hypertension) 401.9 Active 17207143 Problem Depressive 311 Active 33439285 disorder, not elsewhere classified ALLERGIES Unknown Allergies SOCIAL HISTORY No smoking Hx information available PLAN OF CARE VITAL SIGNS MEDICATIONS Medication Instructions Dosage Frequency Start End Date Duration Status Date Haloperidol Orally Once a day 1 tablet 30 days Active 0.5MG at bedtime RESULTS No Results PROCEDURES No Known procedures IMMUNIZATIONS No Known Immunizations
--- OUTSIDE RECORDS SUMMARY | 2017-07-20 01:23 | External Medical Summary ---
:1930 Author Organization [facility] Address [address] [place] [address] Care Team Providers Name Role Phone Amanda Correa Unavailable Unavailable PROBLEMS Type Condition ICD9-CM [id number]-OS Onset Condition SNOMED Code Code Code Dates Status Problem LVH (left I51.7 Active 6784326 ventricular hypertrophy) Problem Aortic valve I35.0 Active 81151731 stenosis Problem S/P AVR Z95.2 Active 685509447550996 Problem Asystole I46.9 Active 394818607 Problem Cardiac arrest I46.9 Active 723595152 Problem Pleural effusion J90 Active 36723845 Problem Hyperlipidemia E78.5 Active 18397888 Problem Dyspnea R06.00 Active 090824053 Problem Palpitations R00.2 Active 52921623 Problem Complete heart I44.2 Active 48170256 block Problem Pulmonary I27.2 Active 99229064 hypertension Problem Pacemaker Z95.0 Active 912424342 Problem Mitral valve I34.0 Active 49170686 regurgitation Problem 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
--- OUTSIDE RECORDS SUMMARY | 2017-07-20 01:23 | External Medical Summary ---
:1930 Author Organization [employer] Care Team Providers Name Role Phone Amanda Correa Provider Role Unavailable Allergies No Known Allergies Problems Problem Type Condition ICD-9 Code Onset Dates Condition Status Problem S/P Aortic Valve Replacement V43.3 Active Problem Pleural Effusion 511.9 Active Problem Hyperlipidemia 272.4 Active Problem 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 Active Problem Pulmonary Hypertension, Chronic, 416.9 Active Unspecified Problem Complete Heart Block 426.0 Active Problem Shortness Of Breath 786.05 Active Problem Palpitations 785.1 Active Problem S/P Mitral Valve Replacement V43.3 Active Problem Cardiac arrest 427.5 Active Problem Aortic Valve Stenosis 424.1 Active Problem Tricuspid valve disorders, 424.2 Active specified as nonrheumatic Problem Coronary Artery Disease 414.01 Active Problem Congestive Heart Failure, 428.0 Active Unspecified Problem Hypertension, Benign 401.1 Active Problem Mitral Regurgitation 424.0 Active Problem Cardiomegaly 429.3 Active Medications No Known Medications Results No Known Results Summary Purpose [employer] Submission
--- OUTSIDE RECORDS SUMMARY | 2017-07-20 01:23 | External Medical Summary ---
:1930 Author Organization [employer] Care Team Providers Name Role Phone Tiffany Kaur Provider Role Unavailable Allergies No Known Allergies Problems Problem Type Condition Code Onset Dates Condition Status Assessment Depressive disorder, not elsewhere 311 Active classified Problem Hyperlipidemia 272.4 Active Problem Osteoarthritis 715.90 Active Problem Alzheimer's disease 331.0 Active Problem Unspecified psychosis 298.9 Active Problem Depressive disorder, not elsewhere 311 Active classified Problem Varicose veins 454.9 Active Problem Valvular heart disease 424.90 Active Problem [place] II diagnosis deferred 799.9 Active Problem HTN (hypertension) 401.9 Active Medications Medication Code System Code Instructions Start Date End Date Status Dosage Haloperidol [facility] 04658-603 0.5MG Orally Once take three 7-01 a day at bedtime tablets by mouth once daily at bedtime Results No Known Results Summary Purpose [employer]ClinicalWorks Submission
--- OUTSIDE RECORDS SUMMARY | 2017-07-20 01:23 | External Medical Summary ---
:1930 Author Organization [facility] Address [address] [place] [address] Care Team Providers Name Role Phone Eliza Greenfield Unavailable Unavailable PROBLEMS Type Condition ICD9-CM Code [id number] Onset Condition SNOMED Code Code Dates Status Problem OA (osteoarthritis) M19.90 Active 926217175 Problem Valvular heart I38 Active 085046 disease Problem Hyperlipidemia E78.5 Active 18034589 Problem Insomnia, G47.00 Active 045727467 unspecified type Problem Psychosis F29 Active 49507625 Problem Depressive disorder F32.9 Active 52871397 Problem HTN (hypertension) I10 Active 14014033 Problem Alzheimers disease 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 23174404 Problem 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 218671238 neurocognitive disorder due to Alzheimer's disease, possible Problem Hyperlipidemia 272.4 Active 99621327 Problem Valvular heart 424.90 Active 137876 disease Problem Osteoarthritis 715.90 Active 697481489 Problem [place] II diagnosis 799.9 Active 11688396 deferred Problem Unspecified 298.9 Active 03580643 psychosis Problem Varicose veins 454.9 Active 438262289 Problem Alzheimer's disease 331.0 Active 44285926 Problem HTN (hypertension) 401.9 Active 56327908 Problem Depressive 311 Active 73683893 disorder, not elsewhere classified ALLERGIES Substance Reaction Event Type Date Status N.K.D.A. Unknown Non Drug Allergy Apr, Unknown SOCIAL HISTORY No smoking Hx information available PLAN OF CARE Activity Details Follow Up 3 Months Reason:null VITAL SIGNS Weight 128.0 lbs 2017-05-20 Heart Rate 95/93 /min 2017-05-20 Blood pressure systolic 144 mm Hg 2017-05-20 Blood pressure diastolic 81 sit 151 mm Hg 2017-05-20 MEDICATIONS Medication Instructions Dosage Frequency Start End Duration Status Date Date Aspirin Childrens 81 Orally Once a 1 tablet 24h Active MG day Metoprolol Tartrate Orally Twice a 1.5 tablets 12h Active 50 MG day at breakfast and 1.5 tablets at HS Potassium Chloride 10 Orally Two 2 tablets Active MEQ times daily Lisinopril 20 MG Orally Once a 1 tablet 24h Active day Hydrochlorothiazide Orally Once a 1 tablet 24h Active 12.5 MG day HydrOXYzine HCl 25 MG Orally Daily 1-2 tablets 30 day(s) Active at bedtime Amlodipine Besylate 5 Orally Once a 1 tablet 24h Active MG day Haloperidol 0.5 mg Orally Once a 1 tablet 30 days Active day at bedtime RESULTS No Results PROCEDURES Procedure Date Ordered Related Diagnosis Body Site Office Visit, Est Pt., Level 4 May 20, 2017 IMMUNIZATIONS No Known Immunizations
--- OUTSIDE RECORDS SUMMARY | 2017-07-20 01:24 | External Medical Summary ---
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 Problem Hyperlipidemia E78.5 Active 98498113 Problem Insomnia, G47.00 Active 754376095 unspecified type Problem Psychosis F29 Active 95360288 Problem Depressive disorder F32.9 Active 14857106 Problem HTN (hypertension) I10 Active 49311190 Problem Alzheimers disease 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 75218931 Problem 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, possible Problem Hyperlipidemia 272.4 Active 70581696 Problem Valvular heart 424.90 Active 960100 disease Problem Osteoarthritis 715.90 Active 299622705 Problem [place] II diagnosis 799.9 Active 05628880 deferred Problem Unspecified 298.9 Active 21081220 psychosis Problem Varicose veins 454.9 Active 847328078 Problem Alzheimer's disease 331.0 Active 38907484 Problem HTN (hypertension) 401.9 Active 31899292 Problem Depressive 311 Active 38033028 disorder, not elsewhere classified ALLERGIES Unknown Allergies SOCIAL HISTORY No smoking Hx information available PLAN OF CARE VITAL SIGNS MEDICATIONS Unknown Medications RESULTS No Results PROCEDURES No Known procedures IMMUNIZATIONS No Known Immunizations
[2017-07-20] MEDS ORDERED: HALOPERIDOL 0.5 MG TABLET PO PRN (02:44)
[2017-07-20] MEDS ORDERED: HALOPERIDOL 5 MG/ML INJECTION IM PRN (02:44)
[2017-07-20] MEDS ORDERED: LORazepam 0.5 MG TABLET PO PRN (02:44)
--- NOTE | 2017-07-20 11:44 | History & Physical Report ---
<Sita Negron - Last Filed: 07/20/17 11:40> History of Present Illness Date: 07/20/17 Chief complaint: Confusion, Behavioral changes HPI: Anay is a pleasant 87 yo WF who was admitted following assessment at [facility] for behavioral changes and auditory hallucinations. She has been on Haldol, and the dose was decreased by 75% several months ago. Since then, her behaviors have continued to worsen to the point that she is very paranoid and suspicious of her family. She has been refusing to take her medication. She has also been reporting hearing 'spirits' that encourage her to go to a building in [place]. She has been admitted for further evaluation and stabilization of her mental health concerns. A medical management consult has been requested from our service. Review of Systems ROS unobtainable: due to mental status Review of systems: Patient is alert. She will not give me much information, so unable to obtain a ROS. Denies any acute pain. [facility] Patient Stated Medical History Dementia Yes Hypertension Yes Insomnia Surgical History: PPM Family History: None reported. Unable to obtain from pt. - Social History Smoking status: Never smoker Household members: spouse Current residence: Apartment/Private Home Medications Home Medications Medication Instructions Recorded Confirmed Type HydrOXYzine [Atarax] 25 mg PO HS PRN 07/20/17 07/20/17 History cephALEXin [Keflex] 500 mg PO TID 07/20/17 07/20/17 History Allergies Allergy/AdvReac Type Severity Reaction Status Date / Time No Known Allergies Allergy Verified 07/20/17 02:33 Exam Vital Signs: Temperature 97.6 F 07/20/17 09:27 Pulse Rate 85 07/20/17 09:27 Respiratory Rate 18 07/20/17 09:27 Blood Pressure 139/64 07/20/17 09:27 Pulse Oximetry 97 07/20/17 09:27 Height/Weight/BMI: Height 1.65 m Weight 55.7 kg Body Mass Index 20.4 - Constitutional Present: no acute distress, well nourished, thin - Routine HEENT Exam Head: Present: normocephalic, atraumatic Eye: Present: EOMI, PERRL ENT: Present: mucous membranes moist - Routine Neck Exam Present: supple, full ROM - Routine Respiratory Exam Present: CTA bilaterally. Absent: rales, rhonchi, wheezes, crackles - Routine Cardiovascular Exam Present: RRR, S1, S2, murmur - Routine Abdominal Exam Present: soft, normoactive bowel sounds, non distended, non tender - Routine Extremities Exam Present: edema (Chronic, Mild), non tender, normal capillary refill - Routine Back/Spine/Pelvis Exam Back/Spine: Present: full ROM - Routine Skin Exam Present: intact, dry, warm - Routine Neurological Exam Present: alert, moving all extremities. Absent: oriented X3 - Routine Psychiatric Exam Absent: normal affect, normal thought process, cooperative, good insight, good judgment Comments: She is calm, but unwilling to participate fully in exam. Results - Labs Labs: From [place] WBC 5.7 HGB 12.9 HCT 38.0 PLT 159 NA 135 K 3.7 Chl 102 BUN 26 SCr 0.84 Glu 188 UA + UTI Assessment and Plan (1) Dementia with behavioral disturbance Current visit: Yes Status: Acute (2) Paranoia Current visit: Yes Status: Acute (3) Auditory hallucinations Current visit: Yes Status: Acute (4) HTN (hypertension) Current visit: Yes Status: Chronic (5) Insomnia Current visit: Yes Status: Chronic (6) UTI (urinary tract infection) Current visit: Yes Status: Acute DVT Prophylaxis: other GI Prophylaxis: other Resuscitation Status: Full Code Assessment and Plan: Plan: PCP. Dr. Aram Jones 07/20/17 Admit to [facility] under the care of psychiatry for evaluation and management of her mental health concerns. She is safe for unit activities. Continue Keflex for UTI. I have reviewed [facility] records- Urine culture not resulted. BP is mildly high- monitor for now. Given LE mild edema, we could consider gentle diuresis. No documented hx of HF. She is currently refusing PO meds- she did get a dose of Ceftriaxone at - we may need to change to injectable if she does not take the medication. We will plan to recheck Saturday. Will continue to follow with you. Thank you for the Consult. - Time spent with patient Time with patient PN: 35 minutes Hospital Course Summary Disclaimer: The visit summary below is not to be considered part of the above Progress Note. Hospital Course: 07/20/17 11:57 07/20/17 Admit to [facility] under the care of psychiatry for evaluation and management of her mental health concerns. She is safe for unit activities. Continue Keflex for UTI. I have reviewed [facility] records- Urine culture not resulted. BP is mildly high- monitor for now. Given LE mild edema, we could consider gentle diuresis. No documented hx of HF. She is currently refusing PO meds- she did get a dose of Ceftriaxone at - we may need to change to injectable if she does not take the medication. We will plan to recheck Saturday. Will continue to follow with you. Thank you for the Consult. <Gerri Wooten - Last Filed: 07/20/17 17:30> History of Present Illness Date: 07/20/17 Exam Vital Signs: Temperature 97.1 F 07/20/17 16:23 Pulse Rate 91 07/20/17 16:23 Respiratory Rate 22 07/20/17 16:23 Blood Pressure 123/62 07/20/17 16:23 Pulse Oximetry 99 07/20/17 16:23 Height/Weight/BMI: Height 1.65 m Weight 55.7 kg Body Mass Index 20.4 Assessment and Plan (1) Dementia with behavioral disturbance Current visit: Yes Status: Acute (2) Paranoia Current visit: Yes Status: Acute (3) Auditory hallucinations Current visit: Yes Status: Acute (4) HTN (hypertension) Current visit: Yes Status: Chronic (5) Insomnia Current visit: Yes Status: Chronic (6) UTI (urinary tract infection) Current visit: Yes Status: Acute Assessment and Plan: I have independently evaluated and examined this patient. I reviewed the chart, the patient's history, and the PRESS OPERATOR ASSISTANT/PA's documented findings as above. We discussed and formulated the assessment and plan as above with additions as below: Mrs. Moulton was seen in the day room. She denied any concerns at the time of evaluation including dysuria or abdominal pain. She did not describe hallucinations or concerns about other locations. She reported that her blood pressure has always been perfect off medication and that she lives in [place], [place]. The patient was present and alert. Speech was fluent with a Romansh accent. Facial structure symmetric, EOMI, tongue midline. Respirations nonlabored, good airflow, breath sounds clear Regular rhythm, S1-S2 Abdomen soft, no suprapubic tenderness Sensation intact 4 extremities, MAEW with symmetric power, no tremor Degenerative changes in the small joints of the hands. [facility] records reviewed, no CT head or other imaging. Neuro exam unremarkable, will defer imaging to Dr. Pleitez. Pyuria noted, A1C and TSH ok. mild protein yue. malnutrition with prealb 14.7. ECG reviewed by myself-paced Add nutritional supplements; BP stable at this time. Monitor medication use. Hospital Course Summary Disclaimer: The visit summary below is not to be considered part of the above Progress Note.
--- NOTE | 2017-07-20 12:46 | 24 Hour Neuropsychiatic Eval ---
Date of Admission: 07/20/17 01:11 Chief complaint: "I have not been feeling well" History of Present Illness: HPI: 87 Y/O CF with a hx of dementia and frequent UTI's BB family from home for increasing confusion, AH, and self care failure. Family reports the pt has started refusing her Haldol and has increasing confusion, paranoia and AH over the past two weeks. On face to face the pt is guarded and is a poor historian. She is oriented x 2 but believes she is in [place]. She denies any S/i. STRESSORS: Pt has not been taking meds and son is concerned may not be dispensing them correctly. She also has a UTI PSYCH ROS: Pt does reports feeling depressed. She reports problems with sleep , energy and motivation and realized she is more confused which is concerning to her. She denies any kisha or psychosis at this time but states she has been talking to spirits. She does appear anxious. PAST PSYCH: Unclear at this time. Pt reportedly was cut back on her Haldol recently but her med list has not yet been verified. [facility] Patient Stated Medical History Dementia Yes Hypertension Yes Surgical History: PPM - Social History Smoking status: Never smoker Current residence: Apartment/Private Home Review of Systems - Psychiatric Psychiatric: Present: abnormal sleep pattern, anxiety, auditory hallucinations, behavioral changes, depression, hallucinations Mental Status Exam Vitals: Last Vital Signs Temp 97.6 F 07/20/17 09:27 Pulse 85 07/20/17 09:27 Resp 18 07/20/17 09:27 BP 139/64 07/20/17 09:27 Pulse Ox 97 07/20/17 09:27 Height: 1.65 m Weight: 55.7 kg - Mental Status Exam Muscle Strength/Tone: Normal Dressing: Casual Grooming: Good Attitude: Cooperative Motor Activity: Retardation Eye Contact: Fair Speech: Slowed Volume: Soft Rhythm: Appropriate Rhythm Orientation: Disoriented to place, Oriented to person, Oriented to time Mood: Depressed Affect: Anxious Rate of Thoughts: Delayed Thought Organization: [place] Associations: Flight of Ideas Abstract Reasoning: Poor abstract reasoning Thought Content: Delusions Perception/Psychotic: Hx psychosis, not current Fund of Knowledge: Poor fund of knowledge Memory: Poor-immediate Suicidal Ideation: None Homicidal Ideation: None Insight: Poor Judgement: Poor Impulse Control: Poor - Laboratory Laboratory Results - last 24 hr 07/20/17 07:50 Hemoglobin A1c 5.2 L Prealbumin 14.7 L TSH 3.87 Assessment and Plan (1) Major neurocognitive disorder Problem details: with behavioral disturbance Current visit: Yes Status: Acute
[2017-07-20] MEDS ORDERED: ACETAMINOPHEN 325 MG TABLET PO PRN (15:21)
[2017-07-20] MEDS: ACETAMINOPHEN 325 MG TABLET PO PRN (15:26)
--- NOTE | 2017-07-21 09:39 | Progress Note ---
Progress Note: [facility]- Urine cx reviewed. + E.Coli UTI, [place] sensitive. > 100k. Continue Keflex.
--- NOTE | 2017-07-21 11:30 | Neuropsych Progress Note ---
[facility] Subjective Date: 07/21/17 - Sujective/Severity of Illness Medications: Acetaminophen (Tylenol) 325 - 650 mg PO Q5H PRN PRN Reason: Discomfort Cephalexin HCl (Keflex) 500 mg PO TID JENNIFER Stop: 07/27/17 21:00 Last Admin: 07/21/17 08:48 Dose: 500 mg Haloperidol (Haldol) 0.5 mg PO Q6H PRN PRN Reason: Extreme agitation Haloperidol Lactate (Haldol) 0.5 mg IM Q6H PRN PRN Reason: Extreme agitation Hydroxyzine HCl (Atarax) 25 mg PO HS PRN PRN Reason: Insomnia Last Admin: 07/20/17 20:35 Dose: 25 mg Lorazepam (Ativan) 0.5 mg PO Q6H PRN PRN Reason: Extreme agitation Lorazepam (Ativan Inj) 0.5 mg IM Q6H PRN PRN Reason: Extreme agitation Subjective: Pt seen and chart examined. Nursing reports pt remains paranoid and delusional. Continues to talk to spirits and has not been eating well or drinking because she believes the water is poisoned. On face to face the pt is pleasant but guarded. She states she is doing well and voices no concerns. Has been taking meds Start Time: 11:00 Stop Time: 11:15 Mental Status Exam Vitals: Last Vital Signs Temp 97.1 F 07/21/17 09:00 Pulse 97 07/21/17 09:00 Resp 16 07/21/17 09:00 BP 146/67 H 07/21/17 09:00 Pulse Ox 98 07/21/17 09:00 Height: 1.65 m Weight: 55.7 kg - Mental Status Exam Muscle Strength/Tone: Normal Dressing: Casual Grooming: Good Attitude: Cooperative Motor Activity: Retardation Eye Contact: Fair Speech: Slowed Volume: Soft Rhythm: Appropriate Rhythm Orientation: Disoriented to place, Oriented to person, Oriented to time Mood: Depressed Rate of Thoughts: Delayed Thought Organization: [place] Associations: Flight of Ideas Abstract Reasoning: Poor abstract reasoning Thought Content: Delusions Perception/Psychotic: Hx psychosis, not current Fund of Knowledge: Poor fund of knowledge Memory: Poor-immediate Suicidal Ideation: None Homicidal Ideation: None Insight: Poor Judgement: Poor Impulse Control: Poor Assessment and Plan (1) Major neurocognitive disorder Problem details: with behavioral disturbance Current visit: Yes Status: Acute Hospital Course Summary Disclaimer: The visit summary below is not to be considered part of the above Progress Note. Hospital Course: 07/20/17 11:57 07/20/17 Admit to [facility] under the care of psychiatry for evaluation and management of her mental health concerns. She is safe for unit activities. Continue Keflex for UTI. I have reviewed [facility] records- Urine culture not resulted. BP is mildly high- monitor for now. Given LE mild edema, we could consider gentle diuresis. No documented hx of HF. She is currently refusing PO meds- she did get a dose of Ceftriaxone at - we may need to change to injectable if she does not take the medication. We will plan to recheck Saturday. Will continue to follow with you. Thank you for the Consult. 07/21/17 11:29 Pt remains paranoid and delusional. Will start Haldol 0.5mg PO BID.
[2017-07-21] MEDS: HALOPERIDOL 1 MG/0.5 ML ORAL LIQUID PO SCH (21:29)
[2017-07-22] MEDS: HALOPERIDOL 1 MG/0.5 ML ORAL LIQUID PO SCH ×2 (10:13→19:39)
[2017-07-22 10:36] VITALS: BMI 20.2
--- NOTE | 2017-07-22 23:19 | Neuropsych Progress Note ---
[facility] Subjective Date: 07/22/17 - Sujective/Severity of Illness Medications: Acetaminophen (Tylenol) 325 - 650 mg PO Q5H PRN PRN Reason: Discomfort Cephalexin HCl (Keflex) 500 mg PO TID [facility] Stop: 07/27/17 21:00 Last Admin: 07/22/17 19:39 Dose: 500 mg Haloperidol (Haldol) 0.5 mg PO Q6H PRN PRN Reason: Extreme agitation Haloperidol Decanoate (Haldol Liquid) 0.5 mg PO BID JENNIFER Last Admin: 07/22/17 19:39 Dose: 0.5 mg Haloperidol Lactate (Haldol) 0.5 mg IM Q6H PRN PRN Reason: Extreme agitation Haloperidol Lactate (Haldol) 0.5 mg IM BID PRN PRN Reason: If patient refuses PO Hydroxyzine HCl (Atarax) 25 mg PO HS PRN PRN Reason: Insomnia Last Admin: 07/22/17 19:40 Dose: 25 mg Lorazepam (Ativan) 0.5 mg PO Q6H PRN PRN Reason: Extreme agitation Last Admin: 07/22/17 14:10 Dose: 0.5 mg Lorazepam (Ativan Inj) 0.5 mg IM Q6H PRN PRN Reason: Extreme agitation Subjective: Patient seen and chart reviewed. Case discussed with treatment team. On interview, patient is not impolite but is guarded/paranoid. She is eating/ drinking only minimally as she is concerned that we/staff are attempting to poison her. She does accuse me of this during the interview as well. Patient denies any SI, HI or AVH. I spoke with patient's , who stated that she had been refusing medications at home and eating little. He agreed that we may give injections as necessary to ensure adherence with antipsychotic. Nursing staff report patient has been refusing medications. When offered a pill vs. injection, she agreed to take pill (Haldol) but then attempted to spit it out in drink. Nurse was able to get patient to take Keflex and Ativan earlier today. Patient has reported to staff that she has AH of spirits talking to her. Patient slept 4.5 hours overnight. VSS. Patient is eating well. Psychotropic PRNs required in the past 24 hours: Ativan 0.5mg PO x1. Start Time: 18:00 Stop Time: 18:20 Mental Status Exam Vitals: Last Vital Signs Temp 97.6 F 07/22/17 21:04 Pulse 89 07/22/17 22:53 Resp 14 07/22/17 22:53 BP 169/74 H 07/22/17 22:53 Pulse Ox 100 07/22/17 21:04 Height: 1.65 m Weight: 55.338 kg - Mental Status Exam Muscle Strength/Tone: Normal Dressing: Casual Grooming: Good Attitude: Uncooperative, Guarded, Suspicious Motor Activity: Retardation Eye Contact: Poor Speech: Slowed Volume: Soft Rhythm: Appropriate Rhythm Orientation: Disoriented to place, Oriented to person, Oriented to time Mood: Fearful Affect: Hostile Rate of Thoughts: Delayed Thought Organization: [place] Associations: Illogical Abstract Reasoning: Poor abstract reasoning Thought Content: Delusions, Paranoia Current Hallucinations: Auditory Language: Naming Intact Fund of Knowledge: Poor fund of knowledge Memory: Poor-immediate Suicidal Ideation: Denies Homicidal Ideation: Denies Insight: Poor Judgement: Poor Impulse Control: Poor - Laboratory Result Diagrams: 07/22/17 06:59 07/22/17 06:59 Laboratory Results - last 24 hr 07/20/17 07/20/17 07/22/17 07:50 07:50 06:59 WBC 6.0 RBC 4.10 Hgb 12.4 Hct 37.0 MCV 90.2 MCH 30.2 MCHC 33.5 RDW Std Deviation 44.3 Plt Count 183 MPV 10.5 Immature Gran % (Auto) 0.3 Neut % (Auto) 59.4 Lymph % (Auto) 23.8 [place] % (Auto) 13.5 H Eos % (Auto) 2.5 Baso % (Auto) 0.5 Neut # (Auto) 3.6 Lymph # (Auto) 1.4 [place] # (Auto) 0.8 Eos # (Auto) 0.2 Baso # (Auto) 0.0 Abs Immat Gran (auto) 0.02 Turbidity Sodium Potassium Chloride Carbon Dioxide Anion Gap BUN Creatinine GFR Calculation BUN/Creatinine Ratio Glucose Calculated Osmolality Calcium Total Bilirubin Icterus Index AST ALT Alkaline Phosphatase Total Protein Albumin Globulin Albumin/Globulin Ratio Vitamin B12 > 1000 H Folate > 20.0 H Specimen Hemolysis RPR Non-reactive 07/22/17 06:59 WBC RBC Hgb Hct MCV MCH MCHC RDW Std Deviation Plt Count MPV Immature Gran % (Auto) Neut % (Auto) Lymph % (Auto) [place] % (Auto) Eos % (Auto) Baso % (Auto) Neut # (Auto) Lymph # (Auto) [place] # (Auto) Eos # (Auto) Baso # (Auto) Abs Immat Gran (auto) Turbidity < 20 Sodium 141 Potassium 4.0 Chloride 106 Carbon Dioxide 30 Anion Gap 5 BUN 18.0 H Creatinine 0.7 GFR Calculation 79 BUN/Creatinine Ratio 26 Glucose 100 Calculated Osmolality 273 Calcium 9.1 Total Bilirubin 0.60 Icterus Index < 2 AST 30 ALT 37 Alkaline Phosphatase 88 Total Protein 6.7 Albumin 3.3 L Globulin 3.4 Albumin/Globulin Ratio 1.0 L Vitamin B12 Folate Specimen Hemolysis < 15 RPR Assessment and Plan (1) Major neurocognitive disorder Problem details: with behavioral disturbance Current visit: Yes Status: Acute Hospital Course Summary Disclaimer: The visit summary below is not to be considered part of the above Progress Note. Hospital Course: 07/20/17 11:57 07/20/17 Admit to [facility] under the care of psychiatry for evaluation and management of her mental health concerns. She is safe for unit activities. Continue Keflex for UTI. I have reviewed [facility] records- Urine culture not resulted. BP is mildly high- monitor for now. Given LE mild edema, we could consider gentle diuresis. No documented hx of HF. She is currently refusing PO meds- she did get a dose of Ceftriaxone at - we may need to change to injectable if she does not take the medication. We will plan to recheck Saturday. Will continue to follow with you. Thank you for the Consult. 07/21/17 11:29 Pt remains paranoid and delusional. Will start Haldol 0.5mg PO BID. 07/22/17 Psych: Continue Haldol 0.5mg PO BID. Discussed risks/benefits with and obtained informed consent to continue Haldol, which she has tolerated well before. Discussed with giving injections to ensure adherence and he agreed to give IM Haldol if patient refuses PO. Hospitalist treating UTI as above. Have asked nursing to provide prepackaged food/drink as available to ensure adequate PO intake and prevent dehydration. Monitor mood, behavior and response to treatment.
[2017-07-23] MEDS: HALOPERIDOL 1 MG/0.5 ML ORAL LIQUID PO SCH ×3 (04:11→20:03)
--- NOTE | 2017-07-23 18:22 | Neuropsych Progress Note ---
[facility] Subjective Date: 07/23/17 - Sujective/Severity of Illness Medications: Acetaminophen (Tylenol) 325 - 650 mg PO Q5H PRN PRN Reason: Discomfort Cephalexin HCl (Keflex) 500 mg PO TID PENDING SALE TO [facility] Stop: 07/27/17 21:00 Last Admin: 07/23/17 15:31 Dose: 500 mg Haloperidol (Haldol) 0.5 mg PO Q6H PRN PRN Reason: Extreme agitation Haloperidol Decanoate (Haldol Liquid) 0.5 mg PO BID JENNIFER Last Admin: 07/23/17 09:14 Dose: 0.5 mg Haloperidol Lactate (Haldol) 0.5 mg IM Q6H PRN PRN Reason: Extreme agitation Haloperidol Lactate (Haldol) 0.5 mg IM BID PRN PRN Reason: If patient refuses PO Hydroxyzine HCl (Atarax) 25 mg PO HS PRN PRN Reason: Insomnia Last Admin: 07/22/17 19:40 Dose: 25 mg Lorazepam (Ativan) 0.5 mg PO Q6H PRN PRN Reason: Extreme agitation Last Admin: 07/22/17 14:10 Dose: 0.5 mg Lorazepam (Ativan Inj) 0.5 mg IM Q6H PRN PRN Reason: Extreme agitation Subjective: Patient seen and chart reviewed. Case discussed with treatment team. On interview, patient is paranoid and accuses everyone of trying to poison her. Her son is at her bedside and attempts to talk her out of delusional thoughts to no avail; I explained the nature of her delusions and treatment plan to her son. She accuses me of trying to poison her as well and of being "the top demon. " She will drink bottled water brought by her family and has been adherent with medications (mouth checks done after) per nursing staff. Patient denies any SI or HI. She does endorse AH of spirits talking to her and telling her how we are trying to poison her. I spoke with patient's on 07/22, who stated that she had been refusing medications at home and eating little. He agreed that we may give injections as necessary to ensure adherence with antipsychotic. Patient slept 7.5 hours overnight. VSS. Patient is not eating well as she is paranoid re: food. Encourage prepackaged food/drink to avoid dehydration. Psychotropic PRNs required in the past 24 hours: None. Start Time: 17:00 Stop Time: 17:20 Mental Status Exam Vitals: Last Vital Signs Temp 99.0 F 07/23/17 14:00 Pulse 89 07/23/17 14:00 Resp 22 07/23/17 14:00 BP 149/67 H 07/23/17 14:00 Pulse Ox 99 07/23/17 14:00 Height: 1.65 m Weight: 55.338 kg - Mental Status Exam Muscle Strength/Tone: Normal Dressing: Casual Grooming: Good Attitude: Uncooperative, Guarded, Suspicious Motor Activity: Retardation Eye Contact: Poor Speech: Slowed Volume: Soft Rhythm: Appropriate Rhythm Orientation: Disoriented to place, Disoriented to situation, Oriented to person , Oriented to time (Month and year only) Mood: Irritable, Fearful Affect: Hostile Rate of Thoughts: Delayed Thought Organization: Disorganized, [place] Associations: Illogical Abstract Reasoning: Poor abstract reasoning Thought Content: Delusions, Paranoia Perception/Psychotic: Psychotic Current Hallucinations: Auditory Language: Naming Impaired Fund of Knowledge: Poor fund of knowledge Memory: Poor-immediate Suicidal Ideation: Denies Homicidal Ideation: Denies Insight: Poor Judgement: Poor Impulse Control: Poor - Laboratory Result Diagrams: 07/22/17 06:59 07/22/17 06:59 Laboratory Results - last 24 hr 07/20/17 07:50 Triglycerides 64 Cholesterol 160 LDL Cholesterol, Calc 96.2 VLDL Cholesterol 12.8 HDL Cholesterol 51 Cholesterol/HDL Ratio 3.1 Assessment and Plan (1) Major neurocognitive disorder Problem details: with behavioral disturbance Current visit: Yes Status: Acute Hospital Course Summary Disclaimer: The visit summary below is not to be considered part of the above Progress Note. Hospital Course: 07/20/17 11:57 07/20/17 Admit to [facility] under the care of psychiatry for evaluation and management of her mental health concerns. She is safe for unit activities. Continue Keflex for UTI. I have reviewed [facility] records- Urine culture not resulted. BP is mildly high- monitor for now. Given LE mild edema, we could consider gentle diuresis. No documented hx of HF. She is currently refusing PO meds- she did get a dose of Ceftriaxone at - we may need to change to injectable if she does not take the medication. We will plan to recheck Saturday. Will continue to follow with you. Thank you for the Consult. 07/21/17 11:29 Pt remains paranoid and delusional. Will start Haldol 0.5mg PO BID. 07/22/17 Psych: Continue Haldol 0.5mg PO BID. Discussed risks/benefits with and obtained informed consent to continue Haldol, which she has tolerated well before. Discussed with giving injections to ensure adherence and he agreed to give IM Haldol if patient refuses PO. Hospitalist treating UTI as above. Have asked nursing to provide prepackaged food/drink as available to ensure adequate PO intake and prevent dehydration. Monitor mood, behavior and response to treatment. 07/23/17 Psych: Continue current care with mouth checks and giving patient option between PO and IM antipsychotic. Monitor symptoms as patient is adherent with psychotropic meds. Continue steps to minimize risk of dehydration.
[2017-07-24] MEDS ORDERED: INFLUENZA VAC High Dose 2017-18 (Fluzone HD*) (>=65yo) 0.5ml IM ONE (08:49)
[2017-07-24] MEDS ORDERED: BISACODYL 10 MG SUPPOSITORY RECTALLY PRN (10:30)
[2017-07-24] MEDS: HALOPERIDOL 1 MG/0.5 ML ORAL LIQUID PO SCH ×3 (10:37→21:18)
[2017-07-24] MEDS: HALOPERIDOL 5 MG/ML INJECTION IM PRN (21:28)
--- NOTE | 2017-07-24 21:40 | Neuropsych Progress Note ---
[facility] Subjective Date: 07/24/17 - Sujective/Severity of Illness Medications: Acetaminophen (Tylenol) 325 - 650 mg PO Q5H PRN PRN Reason: Discomfort Bisacodyl (Dulcolax) 10 mg RECTALLY DAILY PRN PRN Reason: Constipation Last Admin: 07/24/17 17:28 Dose: 10 mg Cephalexin HCl (Keflex) 500 mg PO TID JENNIFER Stop: 07/27/17 21:00 Last Admin: 07/24/17 21:18 Dose: Not Given Haloperidol (Haldol) 0.5 mg PO Q6H PRN PRN Reason: Extreme agitation Haloperidol Decanoate (Haldol Liquid) 0.5 mg PO BID JENNIFER Last Admin: 07/24/17 21:18 Dose: Not Given Haloperidol Lactate (Haldol) 0.5 mg IM Q6H PRN PRN Reason: Extreme agitation Haloperidol Lactate (Haldol) 0.5 mg IM BID PRN PRN Reason: If patient refuses PO Last Admin: 07/24/17 21:28 Dose: 0.5 mg Hydroxyzine HCl (Atarax) 25 mg PO HS PRN PRN Reason: Insomnia Last Admin: 07/22/17 19:40 Dose: 25 mg Lorazepam (Ativan) 0.5 mg PO Q6H PRN PRN Reason: Extreme agitation Last Admin: 07/22/17 14:10 Dose: 0.5 mg Lorazepam (Ativan Inj) 0.5 mg IM Q6H PRN PRN Reason: Extreme agitation Subjective: Patient seen and chart reviewed. Case discussed with treatment team. On interview, patient is paranoid and accuses everyone of trying to poison her. She does remember seeing me at [facility] and then yesterday without prompting. She will drink bottled water and eat food brought by her family and has been adherent with medications (mouth checks done after) per nursing staff. Patient denies any SI or HI. She does endorse AH of spirits talking to her and telling her how we are trying to poison her. I spoke with patient's on 07/22, who stated that she had been refusing medications at home and eating little. He agreed that we may give injections as necessary to ensure adherence with antipsychotic. Patient was not given IM antipsychotic this AM and so I asked nursing staff to give her a total of 1mg Haldol IM tonight with plan to continue 0.5mg IM BID tomorrow (if she refuses PO). Will discuss giving IM antibiotics with hospitalist as patient is refusing PO antibiotics. Nursing staff report patient wanted to get dressed overnight because she was going to (due to being poisoned) but then was later found naked in her room in the night. Patient slept 8.5 hours overnight. VSS. Encourage prepackaged food/drink to avoid dehydration. Psychotropic PRNs required in the past 24 hours: None. Start Time: 18:20 Stop Time: 18:40 Mental Status Exam Vitals: Last Vital Signs Temp 98.2 F 07/24/17 21:25 Pulse 98 07/24/17 21:25 Resp 16 07/24/17 21:25 BP 154/79 H 07/24/17 21:25 Pulse Ox 98 07/24/17 21:25 Height: 1.65 m Weight: 55.338 kg - Mental Status Exam Muscle Strength/Tone: Normal Dressing: Casual Grooming: Fair Attitude: Uncooperative, Guarded, Suspicious Motor Activity: Retardation Eye Contact: Poor Speech: Slowed Volume: Soft Rhythm: Appropriate Rhythm Orientation: Disoriented to place, Disoriented to situation, Oriented to person , Oriented to time (Month and year only) Mood: Irritable (Irritable affect), Fearful Rate of Thoughts: Delayed Thought Organization: Disorganized, [place] Associations: Illogical Abstract Reasoning: Poor abstract reasoning Thought Content: Delusions, Paranoia Perception/Psychotic: Psychotic Current Hallucinations: Auditory Language: Naming Impaired Fund of Knowledge: Poor fund of knowledge Memory: Poor-immediate Suicidal Ideation: Denies Homicidal Ideation: Denies Insight: Poor Judgement: Poor Impulse Control: Poor - Laboratory Result Diagrams: 07/22/17 06:59 07/22/17 06:59 Assessment and Plan (1) Major neurocognitive disorder Problem details: with behavioral disturbance Current visit: Yes Status: Acute Hospital Course Summary Disclaimer: The visit summary below is not to be considered part of the above Progress Note. Hospital Course: 07/20/17 11:57 07/20/17 Admit to [facility] under the care of psychiatry for evaluation and management of her mental health concerns. She is safe for unit activities. Continue Keflex for UTI. I have reviewed [facility] records- Urine culture not resulted. BP is mildly high- monitor for now. Given LE mild edema, we could consider gentle diuresis. No documented hx of HF. She is currently refusing PO meds- she did get a dose of Ceftriaxone at - we may need to change to injectable if she does not take the medication. We will plan to recheck Saturday. Will continue to follow with you. Thank you for the Consult. 07/21/17 11:29 Pt remains paranoid and delusional. Will start Haldol 0.5mg PO BID. 07/22/17 Psych: Continue Haldol 0.5mg PO BID. Discussed risks/benefits with and obtained informed consent to continue Haldol, which she has tolerated well before. Discussed with giving injections to ensure adherence and he agreed to give IM Haldol if patient refuses PO. Hospitalist treating UTI as above. Have asked nursing to provide prepackaged food/drink as available to ensure adequate PO intake and prevent dehydration. Monitor mood, behavior and response to treatment. 07/23/17 Psych: Continue current care with mouth checks and giving patient option between PO and IM antipsychotic. Monitor symptoms as patient is adherent with psychotropic meds. Continue steps to minimize risk of dehydration. 07/24/17 Psych: Have asked nursing staff to ensure IM administration of Haldol if patient refuses and to give make-up dose for missed dose this morning. May consider increasing total daily dose of Haldol tomorrow. Will discuss possible IM antibiotics with hospitalist as patient is refusing PO.
[2017-07-25] MEDS: HALOPERIDOL 1 MG/0.5 ML ORAL LIQUID PO SCH ×2 (11:12→20:53)
--- NOTE | 2017-07-25 21:05 | Neuropsych Progress Note ---
[facility] Subjective Date: 07/25/17 - Sujective/Severity of Illness Medications: Acetaminophen (Tylenol) 325 - 650 mg PO Q5H PRN PRN Reason: Discomfort Bisacodyl (Dulcolax) 10 mg RECTALLY DAILY PRN PRN Reason: Constipation Last Admin: 07/24/17 17:28 Dose: 10 mg Cephalexin HCl (Keflex) 500 mg PO TID JENNIFER Stop: 07/27/17 21:00 Last Admin: 07/25/17 20:53 Dose: 500 mg Haloperidol (Haldol) 0.5 mg PO Q6H PRN PRN Reason: Extreme agitation Haloperidol Decanoate (Haldol Liquid) 0.5 mg PO BID JENNIFER Last Admin: 07/25/17 20:53 Dose: 0.5 mg Haloperidol Lactate (Haldol) 0.5 mg IM Q6H PRN PRN Reason: Extreme agitation Haloperidol Lactate (Haldol) 0.5 mg IM BID PRN PRN Reason: If patient refuses PO Last Admin: 07/24/17 21:28 Dose: 0.5 mg Hydroxyzine HCl (Atarax) 25 mg PO HS PRN PRN Reason: Insomnia Last Admin: 07/22/17 19:40 Dose: 25 mg Lorazepam (Ativan) 0.5 mg PO Q6H PRN PRN Reason: Extreme agitation Last Admin: 07/22/17 14:10 Dose: 0.5 mg Lorazepam (Ativan Inj) 0.5 mg IM Q6H PRN PRN Reason: Extreme agitation Subjective: Patient seen and chart reviewed. Case discussed with treatment team. On interview, patient is paranoid and refusing most of dinner, though she will eat prepackaged food (chips, milk carton). Seems to be dehydrated due to little , dark urine. Discussed with dietary, who will assist in providing prepackaged foods and wrapped foods from kitchen in an effort to help her feel more comfortable eating. Patient is now getting IM Haldol if she refuses PO. She was reportedly refusing meds at home as well and believed was attempting to poison her. Patient denies any SI or HI. She does endorse AH of spirits talking to her and telling her how we are trying to poison her. Patient slept well overnight. VSS. Encourage prepackaged food/drink to avoid dehydration. Psychotropic PRNs required in the past 24 hours: None. Start Time: 18:00 Stop Time: 18:20 Mental Status Exam Vitals: Last Vital Signs Temp 97.4 F 07/25/17 16:00 Pulse 97 07/25/17 16:00 Resp 18 07/25/17 16:00 BP 131/59 07/25/17 16:00 Pulse Ox 99 07/25/17 16:00 Height: 1.65 m Weight: 55.338 kg - Mental Status Exam Muscle Strength/Tone: Normal Dressing: Casual Grooming: Fair Attitude: Uncooperative, Guarded, Suspicious Motor Activity: Retardation Eye Contact: Poor Speech: Slowed Volume: Soft Rhythm: Appropriate Rhythm Orientation: Disoriented to place, Disoriented to situation, Oriented to person , Oriented to time (Month and year only) Mood: Irritable (Irritable affect), Fearful Rate of Thoughts: Delayed Thought Organization: Disorganized, [place] Associations: Illogical Abstract Reasoning: Poor abstract reasoning Thought Content: Delusions, Paranoia Perception/Psychotic: Psychotic Current Hallucinations: Auditory Language: Naming Impaired Fund of Knowledge: Poor fund of knowledge Memory: Poor-immediate Suicidal Ideation: Denies Homicidal Ideation: Denies Insight: Poor Judgement: Poor Impulse Control: Poor - Laboratory Result Diagrams: 07/22/17 06:59 07/22/17 06:59 Laboratory Results - last 24 hr 07/25/17 05:17 Ur Collection Type Urine, clean catch Urine Color Yellow Urine Clarity Clear Urine pH 5.5 Ur Specific [place] 1.010 L Urine Protein Negative Urine Glucose (UA) Negative Urine Ketones Negative Urine Occult Blood Trace-intact Urine Nitrate Negative Urine Bilirubin Negative Urine Urobilinogen 1.0 Ur Leukocyte Esterase 1+ A Urine RBC None seen Urine WBC 5-10 H Ur Squamous Epith Cells 5-10 Urine Bacteria None seen Ur Culture Indicated? Cult not indicated Assessment and Plan (1) Major neurocognitive disorder Problem details: with behavioral disturbance Current visit: Yes Status: Acute Hospital Course Summary Disclaimer: The visit summary below is not to be considered part of the above Progress Note. Hospital Course: 07/20/17 11:57 07/20/17 Admit to [facility] under the care of psychiatry for evaluation and management of her mental health concerns. She is safe for unit activities. Continue Keflex for UTI. I have reviewed [facility] records- Urine culture not resulted. BP is mildly high- monitor for now. Given LE mild edema, we could consider gentle diuresis. No documented hx of HF. She is currently refusing PO meds- she did get a dose of Ceftriaxone at - we may need to change to injectable if she does not take the medication. We will plan to recheck Saturday. Will continue to follow with you. Thank you for the Consult. 07/21/17 11:29 Pt remains paranoid and delusional. Will start Haldol 0.5mg PO BID. 07/22/17 Psych: Continue Haldol 0.5mg PO BID. Discussed risks/benefits with and obtained informed consent to continue Haldol, which she has tolerated well before. Discussed with giving injections to ensure adherence and he agreed to give IM Haldol if patient refuses PO. Hospitalist treating UTI as above. Have asked nursing to provide prepackaged food/drink as available to ensure adequate PO intake and prevent dehydration. Monitor mood, behavior and response to treatment. 07/23/17 Psych: Continue current care with mouth checks and giving patient option between PO and IM antipsychotic. Monitor symptoms as patient is adherent with psychotropic meds. Continue steps to minimize risk of dehydration. 07/24/17 Psych: Have asked nursing staff to ensure IM administration of Haldol if patient refuses and to give make-up dose for missed dose this morning. May consider increasing total daily dose of Haldol tomorrow. Will discuss possible IM antibiotics with hospitalist as patient is refusing PO. 07/25/17 Psych: Need to ensure patient is eating/drinking adequately and make effort to provide as much prepackaged food as possible while she reliably gets Haldol (IM if PO refused). Hospitalist is not planning further antibiotic treatment. Monitor mood, behavior and response to treatment.
[2017-07-26] MEDS: HALOPERIDOL 1 MG/0.5 ML ORAL LIQUID PO SCH ×2 (11:35→19:43)
--- NOTE | 2017-07-26 19:42 | Neuropsych Progress Note ---
[facility] Subjective Date: 07/26/17 - Sujective/Severity of Illness Medications: Acetaminophen (Tylenol) 325 - 650 mg PO Q5H PRN PRN Reason: Discomfort Bisacodyl (Dulcolax) 10 mg RECTALLY DAILY PRN PRN Reason: Constipation Last Admin: 07/24/17 17:28 Dose: 10 mg Haloperidol (Haldol) 0.5 mg PO Q6H PRN PRN Reason: Extreme agitation Haloperidol Decanoate (Haldol Liquid) 0.5 mg PO BID JENNIFER Last Admin: 07/26/17 11:35 Dose: 0.5 mg Haloperidol Lactate (Haldol) 0.5 mg IM Q6H PRN PRN Reason: Extreme agitation Haloperidol Lactate (Haldol) 0.5 mg IM BID PRN PRN Reason: If patient refuses PO Last Admin: 07/24/17 21:28 Dose: 0.5 mg Hydroxyzine HCl (Atarax) 25 mg PO HS PRN PRN Reason: Insomnia Last Admin: 07/22/17 19:40 Dose: 25 mg Lorazepam (Ativan) 0.5 mg PO Q6H PRN PRN Reason: Extreme agitation Last Admin: 07/22/17 14:10 Dose: 0.5 mg Lorazepam (Ativan Inj) 0.5 mg IM Q6H PRN PRN Reason: Extreme agitation Subjective: Patient seen and chart reviewed. Case discussed with treatment team. On interview, patient continues to be paranoid and speak little to me (as she believes I am also attempting to feed her rat poison). However, we have observed a significant increase in her PO intake, some foods prepackaged but foods such as her dinner tray as well that are not prepackaged. This tells me that her paranoia is decreasing with ensured adherence with Haldol via mouth checks and injections if necessary. Patient denies any SI or HI. She has endorsed AH of spirits talking to her and telling her how we are trying to poison her - however, does not answer my interview questions. Patient slept well overnight. VSS. Encourage prepackaged food/drink to avoid dehydration. Psychotropic PRNs required in the past 24 hours: None. Start Time: 17:20 Stop Time: 17:40 Mental Status Exam Vitals: Last Vital Signs Temp 96.8 F 07/26/17 16:51 Pulse 86 07/26/17 16:51 Resp 16 07/26/17 16:51 BP 164/73 H 07/26/17 16:51 Pulse Ox 100 07/26/17 16:51 Height: 1.65 m Weight: 55.338 kg - Mental Status Exam Muscle Strength/Tone: Normal Dressing: Casual Grooming: Fair Attitude: Uncooperative, Guarded, Suspicious Motor Activity: Retardation Eye Contact: Poor Speech: Slowed Volume: Soft Rhythm: Appropriate Rhythm Orientation: Disoriented to place, Disoriented to situation, Oriented to person , Oriented to time (Month and year only) Mood: Irritable (Irritable affect) Rate of Thoughts: Delayed Thought Organization: Organized, [place] Associations: Illogical Abstract Reasoning: Poor abstract reasoning Thought Content: Delusions, Paranoia Perception/Psychotic: Psychotic Current Hallucinations: Auditory (possible) Language: Naming Impaired Fund of Knowledge: Poor fund of knowledge Memory: Poor-immediate Suicidal Ideation: Denies Homicidal Ideation: Denies Insight: Poor Judgement: Poor Impulse Control: Poor (though improving) - Laboratory Result Diagrams: 07/22/17 06:59 07/22/17 06:59 Assessment and Plan (1) Major neurocognitive disorder Problem details: with behavioral disturbance Current visit: Yes Status: Acute Hospital Course Summary Disclaimer: The visit summary below is not to be considered part of the above Progress Note. Hospital Course: 07/20/17 11:57 07/20/17 Admit to [facility] under the care of psychiatry for evaluation and management of her mental health concerns. She is safe for unit activities. Continue Keflex for UTI. I have reviewed [facility] records- Urine culture not resulted. BP is mildly high- monitor for now. Given LE mild edema, we could consider gentle diuresis. No documented hx of HF. She is currently refusing PO meds- she did get a dose of Ceftriaxone at - we may need to change to injectable if she does not take the medication. We will plan to recheck Saturday. Will continue to follow with you. Thank you for the Consult. 07/21/17 11:29 Pt remains paranoid and delusional. Will start Haldol 0.5mg PO BID. 07/22/17 Psych: Continue Haldol 0.5mg PO BID. Discussed risks/benefits with and obtained informed consent to continue Haldol, which she has tolerated well before. Discussed with giving injections to ensure adherence and he agreed to give IM Haldol if patient refuses PO. Hospitalist treating UTI as above. Have asked nursing to provide prepackaged food/drink as available to ensure adequate PO intake and prevent dehydration. Monitor mood, behavior and response to treatment. 07/23/17 Psych: Continue current care with mouth checks and giving patient option between PO and IM antipsychotic. Monitor symptoms as patient is adherent with psychotropic meds. Continue steps to minimize risk of dehydration. 07/24/17 Psych: Have asked nursing staff to ensure IM administration of Haldol if patient refuses and to give make-up dose for missed dose this morning. May consider increasing total daily dose of Haldol tomorrow. Will discuss possible IM antibiotics with hospitalist as patient is refusing PO. 07/25/17 Psych: Need to ensure patient is eating/drinking adequately and make effort to provide as much prepackaged food as possible while she reliably gets Haldol (IM if PO refused). Hospitalist is not planning further antibiotic treatment. Monitor mood, behavior and response to treatment. 07/26/17 Psych: Patient has increased PO intake and is now eating some foods that are not prepackaged, which shows me Haldol is effective. Continue mouth checks and IM injections if necessary. Continue to monitor symptoms and may increase Haldol over weekend as she was previously stabilized on a total of 1.5mg daily.
[2017-07-27] MEDS: HALOPERIDOL 1 MG/0.5 ML ORAL LIQUID PO SCH ×2 (10:21→10:38)
[2017-07-27] MEDS: HALOPERIDOL 5 MG/ML INJECTION IM PRN (10:37)
--- NOTE | 2017-07-27 10:43 | Neuropsych Progress Note ---
[facility] Subjective Date: 07/28/17 - Sujective/Severity of Illness Medications: Acetaminophen (Tylenol) 325 - 650 mg PO Q5H PRN PRN Reason: Discomfort Bisacodyl (Dulcolax) 10 mg RECTALLY DAILY PRN PRN Reason: Constipation Last Admin: 07/24/17 17:28 Dose: 10 mg Haloperidol (Haldol) 0.5 mg PO Q6H PRN PRN Reason: Extreme agitation Haloperidol Decanoate (Haldol Liquid) 0.5 mg PO BID JENNIFER Last Admin: 07/27/17 10:38 Dose: Not Given Haloperidol Lactate (Haldol) 0.5 mg IM Q6H PRN PRN Reason: Extreme agitation Haloperidol Lactate (Haldol) 0.5 mg IM BID PRN PRN Reason: If patient refuses PO Last Admin: 07/27/17 10:37 Dose: 0.5 mg Hydroxyzine HCl (Atarax) 25 mg PO HS PRN PRN Reason: Insomnia Last Admin: 07/26/17 19:43 Dose: 25 mg Lorazepam (Ativan) 0.5 mg PO Q6H PRN PRN Reason: Extreme agitation Last Admin: 07/22/17 14:10 Dose: 0.5 mg Lorazepam (Ativan Inj) 0.5 mg IM Q6H PRN PRN Reason: Extreme agitation Subjective: Patient seen and chart reviewed. Case discussed with treatment team. On interview, patient continues to be paranoid but is a little less irritable. She is willing to eat some food (though she still tells me there is rat poison in it). She describes her mood as "not too good" but does not answer most other questions. We have observed a significant increase in her PO intake, some foods prepackaged but foods such as her dinner tray as well that are not prepackaged. This tells me that her paranoia is decreasing with ensured adherence with Haldol via mouth checks and injections if necessary. Per staff, she has seemed less paranoid and less perseverative on delusions with them. Patient denies any SI or HI. She has endorsed AH of spirits talking to her and telling her how we are trying to poison her - however, does not answer my question about this today. Patient slept 7 hours overnight. VSS. Encourage prepackaged food/drink to avoid dehydration. Psychotropic PRNs required in the past 24 hours: None. Start Time: 11:10 Stop Time: 11:30 Mental Status Exam Vitals: Last Vital Signs Temp 98.2 F 07/27/17 08:00 Pulse 95 07/27/17 08:00 Resp 20 07/27/17 08:00 BP 169/71 H 07/27/17 08:00 Pulse Ox 98 07/27/17 08:00 Height: 1.65 m Weight: 55.338 kg - Mental Status Exam Muscle Strength/Tone: Normal Dressing: Casual Grooming: Fair Attitude: Uncooperative, Guarded, Suspicious Motor Activity: Retardation Eye Contact: Poor Speech: Slowed Volume: Soft Rhythm: Appropriate Rhythm Orientation: Disoriented to place, Disoriented to situation, Oriented to person , Oriented to time (Month and year only) Mood: Other ("Not too good") Affect: Hostile (less than previous) Rate of Thoughts: Delayed Thought Organization: Organized, [place] Associations: Illogical Abstract Reasoning: Poor abstract reasoning Thought Content: Delusions, Paranoia Perception/Psychotic: Psychotic Current Hallucinations: Auditory (possible) Language: Naming Impaired Fund of Knowledge: Poor fund of knowledge Memory: Poor-immediate Suicidal Ideation: Denies Homicidal Ideation: Denies Insight: Poor Judgement: Poor Impulse Control: Poor (though improving) - Laboratory Result Diagrams: 07/22/17 06:59 07/22/17 06:59 Assessment and Plan (1) Major neurocognitive disorder Problem details: with behavioral disturbance Current visit: Yes Status: Acute Hospital Course Summary Disclaimer: The visit summary below is not to be considered part of the above Progress Note. Hospital Course: 07/20/17 11:57 07/20/17 Admit to [facility] under the care of psychiatry for evaluation and management of her mental health concerns. She is safe for unit activities. Continue Keflex for UTI. I have reviewed [facility] records- Urine culture not resulted. BP is mildly high- monitor for now. Given LE mild edema, we could consider gentle diuresis. No documented hx of HF. She is currently refusing PO meds- she did get a dose of Ceftriaxone at - we may need to change to injectable if she does not take the medication. We will plan to recheck Saturday. Will continue to follow with you. Thank you for the Consult. 07/21/17 11:29 Pt remains paranoid and delusional. Will start Haldol 0.5mg PO BID. 07/22/17 Psych: Continue Haldol 0.5mg PO BID. Discussed risks/benefits with and obtained informed consent to continue Haldol, which she has tolerated well before. Discussed with giving injections to ensure adherence and he agreed to give IM Haldol if patient refuses PO. Hospitalist treating UTI as above. Have asked nursing to provide prepackaged food/drink as available to ensure adequate PO intake and prevent dehydration. Monitor mood, behavior and response to treatment. 07/23/17 Psych: Continue current care with mouth checks and giving patient option between PO and IM antipsychotic. Monitor symptoms as patient is adherent with psychotropic meds. Continue steps to minimize risk of dehydration. 07/24/17 Psych: Have asked nursing staff to ensure IM administration of Haldol if patient refuses and to give make-up dose for missed dose this morning. May consider increasing total daily dose of Haldol tomorrow. Will discuss possible IM antibiotics with hospitalist as patient is refusing PO. 07/25/17 Psych: Need to ensure patient is eating/drinking adequately and make effort to provide as much prepackaged food as possible while she reliably gets Haldol (IM if PO refused). Hospitalist is not planning further antibiotic treatment. Monitor mood, behavior and response to treatment. 07/26/17 Psych: Patient has increased PO intake and is now eating some foods that are not prepackaged, which shows me Haldol is effective. Continue mouth checks and IM injections if necessary. Continue to monitor symptoms and may increase Haldol over weekend as she was previously stabilized on a total of 1.5mg daily. 07/27/17 Psych: Patient improving overall and increasing PO intake, not as perseverative/delusional on unit though continues to be with me. Will plan to increase Haldol tomorrow.
[2017-07-28] MEDS: HALOPERIDOL 1 MG/0.5 ML ORAL LIQUID PO SCH ×2 (06:23→21:07)
--- NOTE | 2017-07-28 15:44 | Neuropsych Progress Note ---
[facility] Subjective Date: 07/28/17 - Sujective/Severity of Illness Medications: Acetaminophen (Tylenol) 325 - 650 mg PO Q5H PRN PRN Reason: Discomfort Bisacodyl (Dulcolax) 10 mg RECTALLY DAILY PRN PRN Reason: Constipation Last Admin: 07/24/17 17:28 Dose: 10 mg Haloperidol (Haldol) 0.5 mg PO Q6H PRN PRN Reason: Extreme agitation Haloperidol Decanoate (Haldol Liquid) 0.5 mg PO BID JENNIFER Last Admin: 07/28/17 06:23 Dose: Not Given Haloperidol Lactate (Haldol) 0.5 mg IM Q6H PRN PRN Reason: Extreme agitation Haloperidol Lactate (Haldol) 0.5 mg IM BID PRN PRN Reason: If patient refuses PO Last Admin: 07/27/17 10:37 Dose: 0.5 mg Hydroxyzine HCl (Atarax) 25 mg PO HS PRN PRN Reason: Insomnia Last Admin: 07/26/17 19:43 Dose: 25 mg Lorazepam (Ativan) 0.5 mg PO Q6H PRN PRN Reason: Extreme agitation Last Admin: 07/22/17 14:10 Dose: 0.5 mg Lorazepam (Ativan Inj) 0.5 mg IM Q6H PRN PRN Reason: Extreme agitation Subjective: Patient seen and chart reviewed. On interview, patient is eating and her oldest son is there beside her; we reviewed progress and treatment plan. He agrees she has made some progress as well but he feels she is mildly suspicious even of him. She continues to talk about being poisoned but has been eating more regularly, even food from the cafeteria. She denies SI but says it would be better if she were just gone instead of being poisoned. She continues to endorse AH of voices telling her we are poisoning her but denies command hallucinations. Patient denies any HI. Patient denies any adverse side effects related to psychotropic medications. Nursing staff report patient attempted to spit out HS meds again and has been more difficult to reassure over the past 24 hours. Patient slept 11 hours overnight. VSS. Psychotropic PRNs required in the past 24 hours: none. Start Time: 13:40 Stop Time: 14:00 Mental Status Exam Vitals: Last Vital Signs Temp 98.9 F 07/28/17 14:53 Pulse 94 07/28/17 14:53 Resp 14 07/28/17 14:53 BP 131/66 07/28/17 14:53 Pulse Ox 99 07/28/17 14:53 Height: 1.65 m Weight: 55.338 kg - Mental Status Exam Muscle Strength/Tone: Normal Dressing: Casual Grooming: Fair Attitude: Guarded, Suspicious, Other (more cooperative than previously) Motor Activity: Retardation Eye Contact: Fair Speech: Slowed Volume: Soft Rhythm: Appropriate Rhythm Orientation: Disoriented to place, Disoriented to situation, Oriented to person , Oriented to time (Month and year only) Mood: Other ("Not too good") Affect: Hostile (less than previous) Rate of Thoughts: Delayed Thought Organization: Perseverations (on being poisoned), [place] Associations: Illogical Abstract Reasoning: Poor abstract reasoning Thought Content: Delusions, Paranoia Perception/Psychotic: Psychotic Current Hallucinations: Auditory (continues to endorse; non-command) Language: Naming Impaired Fund of Knowledge: Poor fund of knowledge Memory: Poor-immediate Suicidal Ideation: Denies Homicidal Ideation: Denies Insight: Poor Judgement: Poor Impulse Control: Poor (though improving) - Laboratory Result Diagrams: 07/22/17 06:59 07/22/17 06:59 Assessment and Plan (1) Major neurocognitive disorder Problem details: with behavioral disturbance Current visit: Yes Status: Acute Hospital Course Summary Disclaimer: The visit summary below is not to be considered part of the above Progress Note. Hospital Course: 07/20/17 11:57 07/20/17 Admit to [facility] under the care of psychiatry for evaluation and management of her mental health concerns. She is safe for unit activities. Continue Keflex for UTI. I have reviewed [facility] records- Urine culture not resulted. BP is mildly high- monitor for now. Given LE mild edema, we could consider gentle diuresis. No documented hx of HF. She is currently refusing PO meds- she did get a dose of Ceftriaxone at - we may need to change to injectable if she does not take the medication. We will plan to recheck Saturday. Will continue to follow with you. Thank you for the Consult. 07/21/17 11:29 Pt remains paranoid and delusional. Will start Haldol 0.5mg PO BID. 07/22/17 Psych: Continue Haldol 0.5mg PO BID. Discussed risks/benefits with and obtained informed consent to continue Haldol, which she has tolerated well before. Discussed with giving injections to ensure adherence and he agreed to give IM Haldol if patient refuses PO. Hospitalist treating UTI as above. Have asked nursing to provide prepackaged food/drink as available to ensure adequate PO intake and prevent dehydration. Monitor mood, behavior and response to treatment. 07/23/17 Psych: Continue current care with mouth checks and giving patient option between PO and IM antipsychotic. Monitor symptoms as patient is adherent with psychotropic meds. Continue steps to minimize risk of dehydration. 07/24/17 Psych: Have asked nursing staff to ensure IM administration of Haldol if patient refuses and to give make-up dose for missed dose this morning. May consider increasing total daily dose of Haldol tomorrow. Will discuss possible IM antibiotics with hospitalist as patient is refusing PO. 07/25/17 Psych: Need to ensure patient is eating/drinking adequately and make effort to provide as much prepackaged food as possible while she reliably gets Haldol (IM if PO refused). Hospitalist is not planning further antibiotic treatment. Monitor mood, behavior and response to treatment. 07/26/17 Psych: Patient has increased PO intake and is now eating some foods that are not prepackaged, which shows me Haldol is effective. Continue mouth checks and IM injections if necessary. Continue to monitor symptoms and may increase Haldol over weekend as she was previously stabilized on a total of 1.5mg daily. 07/27/17 Psych: Patient improving overall and increasing PO intake, not as perseverative/delusional on unit though continues to be with me. Will plan to increase Haldol tomorrow. 07/28/17 Psych: Increase Haldol to 0.5mg in AM and 1mg at HS; patient to be given IM meds if she refuses PO. Monitor mood, behavior and response.
[2017-07-28] MEDS ORDERED: HALOPERIDOL 5 MG/ML INJECTION IM PRN ×2 (15:47→15:48)
[2017-07-29] MEDS: HALOPERIDOL 1 MG/0.5 ML ORAL LIQUID PO SCH ×2 (09:01→20:43)
[2017-07-29] MEDS ORDERED: BENZTROPINE 1 MG TABLET PO ONE (19:26)
--- NOTE | 2017-07-29 22:06 | Neuropsych Progress Note ---
[facility] Subjective Date: 07/30/17 - Sujective/Severity of Illness Medications: Acetaminophen (Tylenol) 325 - 650 mg PO Q5H PRN PRN Reason: Discomfort Benztropine Mesylate (Cogentin) 0.5 mg PO O ONE Stop: 07/29/17 19:27 Last Admin: 07/29/17 20:43 Dose: 0.5 mg Bisacodyl (Dulcolax) 10 mg RECTALLY DAILY PRN PRN Reason: Constipation Last Admin: 07/24/17 17:28 Dose: 10 mg Haloperidol (Haldol) 0.5 mg PO Q6H PRN PRN Reason: Extreme agitation Haloperidol Decanoate (Haldol Liquid) 1 mg PO HS JENNIFER Last Admin: 07/29/17 20:43 Dose: 1 mg Haloperidol Decanoate (Haldol Liquid) 0.5 mg PO DAILY [facility] Last Admin: 07/29/17 09:01 Dose: 0.5 mg Haloperidol Lactate (Haldol) 0.5 mg IM Q6H PRN PRN Reason: Extreme agitation Haloperidol Lactate (Haldol) 1 mg IM HS PRN PRN Reason: If patient refuses PO Haloperidol Lactate (Haldol) 0.5 mg IM DAILY PRN PRN Reason: If patient refuses PO Hydroxyzine HCl (Atarax) 25 mg PO HS PRN PRN Reason: Insomnia Last Admin: 07/28/17 21:06 Dose: 25 mg Lorazepam (Ativan) 0.5 mg PO Q6H PRN PRN Reason: Extreme agitation Last Admin: 07/22/17 14:10 Dose: 0.5 mg Lorazepam (Ativan Inj) 0.5 mg IM Q6H PRN PRN Reason: Extreme agitation Subjective: Patient seen and chart reviewed. On interview, patient is eating dinner (more than seen previously). She is more engaging with me tonight (though still being slightly paranoid) and allows me to examine her (previously she has always kept arms very close to her and crossed in hostile fashion). Patient complains of some difficulty swallowing and seems to have mild stiffness on exam of UEs - will give Cogentin 0.5mg PO and watch for improvement. She continues to talk about being poisoned but has been eating more regularly, even food from the cafeteria. She denies SI or HI. She continues to endorse AH of voices telling her we are poisoning her but denies command hallucinations. Nursing staff report patient slept quite late this morning and then refused lunch due to it being poisoned. Patient slept 11 hours overnight. VSS. Psychotropic PRNs required in the past 24 hours: none. Start Time: 18:00 Stop Time: 18:20 Mental Status Exam Vitals: Last Vital Signs Temp 97.4 F 07/29/17 14:00 Pulse 83 07/29/17 14:00 Resp 16 07/29/17 14:00 BP 157/68 H 07/29/17 14:00 Pulse Ox 99 07/29/17 14:00 Height: 1.65 m Weight: 55.1 kg - Mental Status Exam Muscle Strength/Tone: Normal Dressing: Casual Grooming: Fair Attitude: Guarded, Suspicious, Other (more cooperative than previously) Motor Activity: Retardation Eye Contact: Fair Speech: Slowed Volume: Soft Rhythm: Appropriate Rhythm Orientation: Disoriented to place, Disoriented to situation, Oriented to person , Oriented to time (Month and year only) Mood: Other ("Not good") Affect: Hostile (improved from previous) Rate of Thoughts: Delayed Thought Organization: Perseverations (on being poisoned), [place] Associations: Illogical Abstract Reasoning: Poor abstract reasoning Thought Content: Delusions, Paranoia Perception/Psychotic: Psychotic Current Hallucinations: Auditory (continues to endorse; non-command) Language: Naming Impaired Fund of Knowledge: Poor fund of knowledge Memory: Poor-immediate Suicidal Ideation: Denies Homicidal Ideation: Denies Insight: Poor Judgement: Poor Impulse Control: Fair - Laboratory Result Diagrams: 07/22/17 06:59 07/22/17 06:59 Assessment and Plan (1) Major neurocognitive disorder Problem details: with behavioral disturbance Current visit: Yes Status: Acute Hospital Course Summary Disclaimer: The visit summary below is not to be considered part of the above Progress Note. Hospital Course: 07/20/17 11:57 07/20/17 Admit to [facility] under the care of psychiatry for evaluation and management of her mental health concerns. She is safe for unit activities. Continue Keflex for UTI. I have reviewed [facility] records- Urine culture not resulted. BP is mildly high- monitor for now. Given LE mild edema, we could consider gentle diuresis. No documented hx of HF. She is currently refusing PO meds- she did get a dose of Ceftriaxone at - we may need to change to injectable if she does not take the medication. We will plan to recheck Saturday. Will continue to follow with you. Thank you for the Consult. 07/21/17 11:29 Pt remains paranoid and delusional. Will start Haldol 0.5mg PO BID. 07/22/17 Psych: Continue Haldol 0.5mg PO BID. Discussed risks/benefits with and obtained informed consent to continue Haldol, which she has tolerated well before. Discussed with giving injections to ensure adherence and he agreed to give IM Haldol if patient refuses PO. Hospitalist treating UTI as above. Have asked nursing to provide prepackaged food/drink as available to ensure adequate PO intake and prevent dehydration. Monitor mood, behavior and response to treatment. 07/23/17 Psych: Continue current care with mouth checks and giving patient option between PO and IM antipsychotic. Monitor symptoms as patient is adherent with psychotropic meds. Continue steps to minimize risk of dehydration. 07/24/17 Psych: Have asked nursing staff to ensure IM administration of Haldol if patient refuses and to give make-up dose for missed dose this morning. May consider increasing total daily dose of Haldol tomorrow. Will discuss possible IM antibiotics with hospitalist as patient is refusing PO. 07/25/17 Psych: Need to ensure patient is eating/drinking adequately and make effort to provide as much prepackaged food as possible while she reliably gets Haldol (IM if PO refused). Hospitalist is not planning further antibiotic treatment. Monitor mood, behavior and response to treatment. 07/26/17 Psych: Patient has increased PO intake and is now eating some foods that are not prepackaged, which shows me Haldol is effective. Continue mouth checks and IM injections if necessary. Continue to monitor symptoms and may increase Haldol over weekend as she was previously stabilized on a total of 1.5mg daily. 07/27/17 Psych: Patient improving overall and increasing PO intake, not as perseverative/delusional on unit though continues to be with me. Will plan to increase Haldol tomorrow. 07/28/17 Psych: Increase Haldol to 0.5mg in AM and 1mg at HS; patient to be given IM meds if she refuses PO. Monitor mood, behavior and response. 07/29/17 Psych: Will give Cogentin 0.5mg PO x1 now to see if possible EPS resolves. Continue current care otherwise in the time being. If does have EPS, will need to decide whether to add concomitant Cogentin or change to 2nd generation antipsychotic.
[2017-07-30] MEDS: HALOPERIDOL 1 MG/0.5 ML ORAL LIQUID PO SCH ×2 (10:17→20:17)
[2017-07-30] MEDS ORDERED: BENZTROPINE 1 MG TABLET PO ONE (17:15)
--- NOTE | 2017-07-30 17:25 | Progress Note ---
Subjective: Patient is seen today sitting at the breakfast table. For the most part she is confused. She speaks very softly and is difficult to understand. She does report that she is not eating because she thinks someone is poisoning her food. She has no other complaints at this time other than right knee pain. Objective Vital signs: Temperature 96.5 F L 07/30/17 08:00 Pulse Rate 91 07/30/17 08:00 Respiratory Rate 20 07/30/17 08:00 Blood Pressure 146/69 H 07/30/17 08:00 Pulse Oximetry 99 07/30/17 08:00 Height/Weight/BMI: Height 1.65 m Weight 55.1 kg Body Mass Index 20.2 - Constitutional Present: no acute distress, well developed, thin - Routine Respiratory Exam Present: CTA bilaterally. Absent: wheezes - Routine Cardiovascular Exam Present: RRR, S1, S2. Absent: murmur - Routine Abdominal Exam Present: soft, normoactive bowel sounds, non distended. Absent: tenderness - Routine Extremities Exam Present: no edema, normal capillary refill - Routine Skin Exam Present: dry, warm - Routine Neurological Exam Present: alert. Absent: oriented X3 - Routine Lymphatic Exam Lymphatic: Absent: adenopathy - Routine Psychiatric Exam Present: normal affect Results - Labs CBC & Chem 7: 07/22/17 06:59 07/22/17 06:59 Assessment and Plan (1) Dementia with behavioral disturbance Current visit: Yes Status: Acute (2) Paranoia Current visit: Yes Status: Acute (3) Auditory hallucinations Current visit: Yes Status: Acute (4) HTN (hypertension) Current visit: Yes Status: Chronic (5) Insomnia Current visit: Yes Status: Chronic (6) UTI (urinary tract infection) Current visit: Yes Status: Acute Assessment and Plan: Impression Dementia with behavioral disturbance Paranoia Auditory hallucinations Hypertension Insomnia Plan Overall patient is stable. Her previous labs are normal. I see no reason to repeat any labs at this time. Her blood pressures average 150s/70s. Given her age, I don't feel intervention is necessary at this point. Will continue to follow patient throughout her stay. Hospital Course Summary Disclaimer: The visit summary below is not to be considered part of the above Progress Note. Hospital Course: Impression Dementia with behavioral disturbance Paranoia Auditory hallucinations Hypertension Insomnia 07/20/17 Admit to [facility] under the care of psychiatry for evaluation and management of her mental health concerns. She is safe for unit activities. I have reviewed [facility] records- Urine culture not resulted. BP is mildly high- monitor for now. Given LE mild edema, we could consider gentle diuresis. No documented hx of HF. She is currently refusing PO meds- she did get a dose of Ceftriaxone at - we may need to change to injectable if she does not take the medication. 07/21/17 11:29 Pt remains paranoid and delusional. Will start Haldol 0.5mg PO BID. 07/22/17 Psych: Continue Haldol 0.5mg PO BID. Discussed risks/benefits with and obtained informed consent to continue Haldol, which she has tolerated well before. Discussed with giving injections to ensure adherence and he agreed to give IM Haldol if patient refuses PO. Hospitalist treating UTI as above. Have asked nursing to provide prepackaged food/drink as available to ensure adequate PO intake and prevent dehydration. Monitor mood, behavior and response to treatment. 07/23/17 Psych: Continue current care with mouth checks and giving patient option between PO and IM antipsychotic. Monitor symptoms as patient is adherent with psychotropic meds. Continue steps to minimize risk of dehydration. 07/24/17 Psych: Have asked nursing staff to ensure IM administration of Haldol if patient refuses and to give make-up dose for missed dose this morning. May consider increasing total daily dose of Haldol tomorrow. Will discuss possible IM antibiotics with hospitalist as patient is refusing PO. 07/25/17 Psych: Need to ensure patient is eating/drinking adequately and make effort to provide as much prepackaged food as possible while she reliably gets Haldol (IM if PO refused). Hospitalist is not planning further antibiotic treatment. Monitor mood, behavior and response to treatment. 07/26/17 Psych: Patient has increased PO intake and is now eating some foods that are not prepackaged, which shows me Haldol is effective. Continue mouth checks and IM injections if necessary. Continue to monitor symptoms and may increase Haldol over weekend as she was previously stabilized on a total of 1.5mg daily. 07/27/17 Psych: Patient improving overall and increasing PO intake, not as perseverative/delusional on unit though continues to be with me. Will plan to increase Haldol tomorrow. 07/28/17 Psych: Increase Haldol to 0.5mg in AM and 1mg at HS; patient to be given IM meds if she refuses PO. Monitor mood, behavior and response. 07/30/17 17:25 Overall patient is stable. Her previous labs are normal. I see no reason to repeat any labs at this time. Her blood pressures average 150s/70s. Given her age, I don't feel intervention is necessary at this point. Will continue to follow patient throughout her stay.
--- NOTE | 2017-07-30 22:33 | Neuropsych Progress Note ---
[facility] Subjective Date: 07/30/17 - Sujective/Severity of Illness Medications: Acetaminophen (Tylenol) 325 - 650 mg PO Q5H PRN PRN Reason: Discomfort Bisacodyl (Dulcolax) 10 mg RECTALLY DAILY PRN PRN Reason: Constipation Last Admin: 07/24/17 17:28 Dose: 10 mg Haloperidol (Haldol) 0.5 mg PO Q6H PRN PRN Reason: Extreme agitation Haloperidol Decanoate (Haldol Liquid) 1 mg PO HS JENNIFER Last Admin: 07/30/17 20:17 Dose: 1 mg Haloperidol Decanoate (Haldol Liquid) 0.5 mg PO DAILY JENN[facility]ER Last Admin: 07/30/17 10:17 Dose: Not Given Haloperidol Lactate (Haldol) 0.5 mg IM Q6H PRN PRN Reason: Extreme agitation Haloperidol Lactate (Haldol) 1 mg IM HS PRN PRN Reason: If patient refuses PO Haloperidol Lactate (Haldol) 0.5 mg IM DAILY PRN PRN Reason: If patient refuses PO Last Admin: 07/30/17 10:15 Dose: 0.5 mg Hydroxyzine HCl (Atarax) 25 mg PO HS PRN PRN Reason: Insomnia Last Admin: 07/28/17 21:06 Dose: 25 mg Lorazepam (Ativan) 0.5 mg PO Q6H PRN PRN Reason: Extreme agitation Last Admin: 07/22/17 14:10 Dose: 0.5 mg Lorazepam (Ativan Inj) 0.5 mg IM Q6H PRN PRN Reason: Extreme agitation Subjective: Patient seen and chart reviewed. On interview, patient is eating dinner (more than seen previously). She is more engaging with me tonight (though still being slightly paranoid) and allows me to examine her (first allowed me to yesterday). she states she is eating because this is her last meal and the place will be blown up soon, including me. Patient states the odd sensation in her throat has resolved but still appears to have mild stiffness on exam of UEs - will give Cogentin 0.5mg PO again and watch for improvement as it was not documented last evening. She continues to talk about being poisoned but has been eating more regularly, even food from the cafeteria. She denies SI or HI. She now denies AH as she has previously reported. Patient slept well overnight. VSS. Nursing notes from today: "Pt was cooperative with assessment, cares and more cooperative with medications than in previous shifts. Pt did have to have her medication given IM the first time today after giving her the option to take the medication by mouth. Pt ate much better today having little for breakfast and 50% of her meal for lunch and the same for dinner. Pt is still speaking under her breath that all the food is poisoned. No PRN medications have been given today. Pt is currently in the dining room with staff present." Start Time: 18:00 Stop Time: 18:20 Mental Status Exam Vitals: Last Vital Signs Temp 98.4 F 07/30/17 20:56 Pulse 84 07/30/17 20:56 Resp 20 07/30/17 20:56 BP 151/67 H 07/30/17 20:56 Pulse Ox 99 07/30/17 20:56 Height: 1.65 m Weight: 55.1 kg - Mental Status Exam Muscle Strength/Tone: Normal Dressing: Casual Grooming: Fair Attitude: Guarded, Suspicious, Other (more cooperative than previously) Motor Activity: Retardation Eye Contact: Fair Speech: Slowed Volume: Soft Rhythm: Appropriate Rhythm Orientation: Disoriented to situation, Oriented to person, Oriented to place, Oriented to time (Month and year only) Mood: Other ("sad", restricted affect but is not hostile as previously) Rate of Thoughts: Delayed Thought Organization: Perseverations (on being poisoned), [place] Associations: Illogical Abstract Reasoning: Poor abstract reasoning Thought Content: Delusions, Paranoia Perception/Psychotic: Psychotic Current Hallucinations: Auditory (continues to endorse; non-command) Language: Naming Impaired Fund of Knowledge: Poor fund of knowledge Memory: Poor-immediate Suicidal Ideation: Denies Homicidal Ideation: Denies Insight: Poor Judgement: Poor Impulse Control: Fair - Laboratory Result Diagrams: 07/22/17 06:59 07/22/17 06:59 Assessment and Plan (1) Major neurocognitive disorder Problem details: with behavioral disturbance Current visit: Yes Status: Acute Hospital Course Summary Disclaimer: The visit summary below is not to be considered part of the above Progress Note. Hospital Course: 07/20/17 11:57 07/20/17 Admit to [facility] under the care of psychiatry for evaluation and management of her mental health concerns. She is safe for unit activities. Continue Keflex for UTI. I have reviewed [facility] records- Urine culture not resulted. BP is mildly high- monitor for now. Given LE mild edema, we could consider gentle diuresis. No documented hx of HF. She is currently refusing PO meds- she did get a dose of Ceftriaxone at - we may need to change to injectable if she does not take the medication. We will plan to recheck Saturday. Will continue to follow with you. Thank you for the Consult. 07/21/17 11:29 Pt remains paranoid and delusional. Will start Haldol 0.5mg PO BID. 07/22/17 Psych: Continue Haldol 0.5mg PO BID. Discussed risks/benefits with and obtained informed consent to continue Haldol, which she has tolerated well before. Discussed with giving injections to ensure adherence and he agreed to give IM Haldol if patient refuses PO. Hospitalist treating UTI as above. Have asked nursing to provide prepackaged food/drink as available to ensure adequate PO intake and prevent dehydration. Monitor mood, behavior and response to treatment. 07/23/17 Psych: Continue current care with mouth checks and giving patient option between PO and IM antipsychotic. Monitor symptoms as patient is adherent with psychotropic meds. Continue steps to minimize risk of dehydration. 07/24/17 Psych: Have asked nursing staff to ensure IM administration of Haldol if patient refuses and to give make-up dose for missed dose this morning. May consider increasing total daily dose of Haldol tomorrow. Will discuss possible IM antibiotics with hospitalist as patient is refusing PO. 07/25/17 Psych: Need to ensure patient is eating/drinking adequately and make effort to provide as much prepackaged food as possible while she reliably gets Haldol (IM if PO refused). Hospitalist is not planning further antibiotic treatment. Monitor mood, behavior and response to treatment. 07/26/17 Psych: Patient has increased PO intake and is now eating some foods that are not prepackaged, which shows me Haldol is effective. Continue mouth checks and IM injections if necessary. Continue to monitor symptoms and may increase Haldol over weekend as she was previously stabilized on a total of 1.5mg daily. 07/27/17 Psych: Patient improving overall and increasing PO intake, not as perseverative/delusional on unit though continues to be with me. Will plan to increase Haldol tomorrow. 07/28/17 Psych: Increase Haldol to 0.5mg in AM and 1mg at HS; patient to be given IM meds if she refuses PO. Monitor mood, behavior and response. 07/29/17 Psych: Will give Cogentin 0.5mg PO x1 now to see if possible EPS resolves. Continue current care otherwise in the time being. If does have EPS, will need to decide whether to add concomitant Cogentin or change to 2nd generation antipsychotic. 07/30/17 Psych: Will again challenge with Cogentin and decide whether 2nd generation antipsychotic may be appropriate; will review all other possible medical records re: previous diagnoses, treatment.
[2017-07-31] MEDS: HALOPERIDOL 1 MG/0.5 ML ORAL LIQUID PO SCH ×3 (09:31→21:34)
[2017-07-31] MEDS: Bisacodyl EC TAB 5 MG TABLET PO PRN (16:56)
--- NOTE | 2017-07-31 18:06 | Neuropsych Progress Note ---
[facility] Subjective Date: 07/31/17 - Sujective/Severity of Illness Medications: Acetaminophen (Tylenol) 325 - 650 mg PO Q5H PRN PRN Reason: Discomfort Bisacodyl (Dulcolax) 10 mg RECTALLY DAILY PRN PRN Reason: Constipation Last Admin: 07/24/17 17:28 Dose: 10 mg Bisacodyl (Dulcolax) 10 mg PO DAILY PRN PRN Reason: Constipation Last Admin: 07/31/17 16:56 Dose: 10 mg Haloperidol (Haldol) 0.5 mg PO Q6H PRN PRN Reason: Extreme agitation Haloperidol Decanoate (Haldol Liquid) 1 mg PO HS JENNIFER Last Admin: 07/30/17 20:17 Dose: 1 mg Haloperidol Decanoate (Haldol Liquid) 0.5 mg PO DAILY JENNIFER Last Admin: 07/31/17 09:31 Dose: 0.5 mg Haloperidol Lactate (Haldol) 0.5 mg IM Q6H PRN PRN Reason: Extreme agitation Haloperidol Lactate (Haldol) 1 mg IM HS PRN PRN Reason: If patient refuses PO Haloperidol Lactate (Haldol) 0.5 mg IM DAILY PRN PRN Reason: If patient refuses PO Last Admin: 07/30/17 10:15 Dose: 0.5 mg Hydroxyzine HCl (Atarax) 25 mg PO HS PRN PRN Reason: Insomnia Last Admin: 07/28/17 21:06 Dose: 25 mg Lorazepam (Ativan) 0.5 mg PO Q6H PRN PRN Reason: Extreme agitation Last Admin: 07/22/17 14:10 Dose: 0.5 mg Lorazepam (Ativan Inj) 0.5 mg IM Q6H PRN PRN Reason: Extreme agitation Subjective: Patient seen and chart reviewed. Case discussed with treatment team. On interview, patient will speak and engage with me even though she believes everyone here is poisoning her food to keep her sick in the hospital so we can make more money. Patient allows me to examine her UE and does seem to have some possible EPS - will now schedule Cogentin and monitor. Reviewed records from patient's hospitalization in January 2013; she was stabilized on Haldol 0.5mg PO q AM and 1mg PO q HS at that time. SLUMS was 20/ 30 at that time. We are limited in treatment options as patient often refuses PO and has to be given IM medication, though a second generation antipsychotic would be preferable. Her family has asked that we do not hide any medication in her food/drink so as not to reinforce her delusions. Patient denies any SI or HI. She continues to endorse AH of spirits talking to her. Nursing staff report patient still seems to be limiting PO intake due to contaminatory delusions. Patient slept well overnight. VSS. Psychotropic PRNs required in the past 24 hours: none. Start Time: 17:40 Stop Time: 18:00 Mental Status Exam Vitals: Last Vital Signs Temp 97.1 F 07/31/17 08:00 Pulse 88 07/31/17 08:00 Resp 16 07/31/17 08:00 BP 164/77 H 07/31/17 08:00 Pulse Ox 99 07/31/17 08:00 Height: 1.65 m Weight: 51.8 kg - Mental Status Exam Muscle Strength/Tone: Normal Dressing: Casual Grooming: Fair Attitude: Suspicious, Other (more cooperative than previously) Motor Activity: Retardation Eye Contact: Fair Speech: Slowed Volume: Soft Rhythm: Appropriate Rhythm Orientation: Disoriented to situation, Oriented to person, Oriented to place, Oriented to time (Month and year only) Mood: Other (Irritable affect, mildly hostile) Rate of Thoughts: Delayed Thought Organization: Perseverations (on being poisoned), [place] Associations: Illogical Abstract Reasoning: Poor abstract reasoning Thought Content: Delusions, Paranoia Perception/Psychotic: Psychotic Current Hallucinations: Auditory (continues to endorse; non-command) Language: Naming Impaired Fund of Knowledge: Poor fund of knowledge Memory: Poor-immediate Suicidal Ideation: Denies Homicidal Ideation: Denies Insight: Poor Judgement: Poor Impulse Control: Fair - Laboratory Result Diagrams: 07/22/17 06:59 07/22/17 06:59 Assessment and Plan (1) 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 Hospital Course: 07/20/17 11:57 07/20/17 Admit to [facility] under the care of psychiatry for evaluation and management of her mental health concerns. She is safe for unit activities. Continue Keflex for UTI. I have reviewed [facility] records- Urine culture not resulted. BP is mildly high- monitor for now. Given LE mild edema, we could consider gentle diuresis. No documented hx of HF. She is currently refusing PO meds- she did get a dose of Ceftriaxone at - we may need to change to injectable if she does not take the medication. We will plan to recheck Saturday. Will continue to follow with you. Thank you for the Consult. 07/21/17 11:29 Pt remains paranoid and delusional. Will start Haldol 0.5mg PO BID. 07/22/17 Psych: Continue Haldol 0.5mg PO BID. Discussed risks/benefits with and obtained informed consent to continue Haldol, which she has tolerated well before. Discussed with giving injections to ensure adherence and he agreed to give IM Haldol if patient refuses PO. Hospitalist treating UTI as above. Have asked nursing to provide prepackaged food/drink as available to ensure adequate PO intake and prevent dehydration. Monitor mood, behavior and response to treatment. 07/23/17 Psych: Continue current care with mouth checks and giving patient option between PO and IM antipsychotic. Monitor symptoms as patient is adherent with psychotropic meds. Continue steps to minimize risk of dehydration. 07/24/17 Psych: Have asked nursing staff to ensure IM administration of Haldol if patient refuses and to give make-up dose for missed dose this morning. May consider increasing total daily dose of Haldol tomorrow. Will discuss possible IM antibiotics with hospitalist as patient is refusing PO. 07/25/17 Psych: Need to ensure patient is eating/drinking adequately and make effort to provide as much prepackaged food as possible while she reliably gets Haldol (IM if PO refused). Hospitalist is not planning further antibiotic treatment. Monitor mood, behavior and response to treatment. 07/26/17 Psych: Patient has increased PO intake and is now eating some foods that are not prepackaged, which shows me Haldol is effective. Continue mouth checks and IM injections if necessary. Continue to monitor symptoms and may increase Haldol over weekend as she was previously stabilized on a total of 1.5mg daily. 07/27/17 Psych: Patient improving overall and increasing PO intake, not as perseverative/delusional on unit though continues to be with me. Will plan to increase Haldol tomorrow. 07/28/17 Psych: Increase Haldol to 0.5mg in AM and 1mg at HS; patient to be given IM meds if she refuses PO. Monitor mood, behavior and response. 07/29/17 Psych: Will give Cogentin 0.5mg PO x1 now to see if possible EPS resolves. Continue current care otherwise in the time being. If does have EPS, will need to decide whether to add concomitant Cogentin or change to 2nd generation antipsychotic. 07/30/17 Psych: Will again challenge with Cogentin and decide whether 2nd generation antipsychotic may be appropriate; will review all other possible medical records re: previous diagnoses, treatment. 07/31/17 Psych: Will continue current antipsychotic dose as still requiring IM at times though 2nd generation would be preferable if she were willingly adherent. Family has asked that we not put medications in food. Will schedule Cogentin 0.5mg PO BID and monitor for EPS. Will check EKG to monitor QTc for the time being. Patient improving as evidenced by willingness to eat some and engage more during interview, but progress is slow. Dose limited by possible EPS right now.
[2017-07-31] MEDS: BENZTROPINE 1 MG TABLET PO SCH ×2 (20:15→21:35)
[2017-08-01] MEDS: HALOPERIDOL 1 MG/0.5 ML ORAL LIQUID PO SCH ×2 (08:07→21:50)
[2017-08-01] MEDS: BENZTROPINE 1 MG TABLET PO SCH ×2 (08:07→21:49)
[2017-08-01] MEDS: Bisacodyl EC TAB 5 MG TABLET PO PRN (12:07)
--- NOTE | 2017-08-01 18:02 | Neuropsych Progress Note ---
[facility] Subjective Date: 08/01/17 - Sujective/Severity of Illness Medications: Acetaminophen (Tylenol) 325 - 650 mg PO Q5H PRN PRN Reason: Discomfort Benztropine Mesylate (Cogentin) 0.5 mg PO BID [facility] Last Admin: 08/01/17 08:07 Dose: 0.5 mg Bisacodyl (Dulcolax) 10 mg RECTALLY DAILY PRN PRN Reason: Constipation Last Admin: 07/24/17 17:28 Dose: 10 mg Bisacodyl (Dulcolax) 10 mg PO DAILY PRN PRN Reason: Constipation Last Admin: 08/01/17 12:07 Dose: 10 mg Haloperidol (Haldol) 0.5 mg PO Q6H PRN PRN Reason: Extreme agitation Haloperidol Decanoate (Haldol Liquid) 1 mg PO HS [facility] Last Admin: 07/31/17 21:34 Dose: Not Given Haloperidol Decanoate (Haldol Liquid) 0.5 mg PO DAILY [facility] Last Admin: 08/01/17 08:07 Dose: 0.5 mg Haloperidol Lactate (Haldol) 0.5 mg IM Q6H PRN PRN Reason: Extreme agitation Haloperidol Lactate (Haldol) 1 mg IM HS PRN PRN Reason: If patient refuses PO Last Admin: 07/31/17 21:00 Dose: 1 mg Haloperidol Lactate (Haldol) 0.5 mg IM DAILY PRN PRN Reason: If patient refuses PO Last Admin: 07/30/17 10:15 Dose: 0.5 mg Hydroxyzine HCl (Atarax) 25 mg PO HS PRN PRN Reason: Insomnia Last Admin: 07/28/17 21:06 Dose: 25 mg Lorazepam (Ativan) 0.5 mg PO Q6H PRN PRN Reason: Extreme agitation Last Admin: 07/22/17 14:10 Dose: 0.5 mg Lorazepam (Ativan Inj) 0.5 mg IM Q6H PRN PRN Reason: Extreme agitation Subjective: Patient seen and chart reviewed. Case discussed with treatment team. On interview, patient will speak and engage with me even though she believes everyone here is poisoning her (food, spraying clothing, etc). On one hand she is improving by willingness to engage, participated in SW group today, willing to eat some, etc. but paranoid delusions seem unchanged since admission and she still requires Haldol to be given IM sometimes. No difference in movement noticed with scheduled Cogentin today so will d/c for now and monitor. Reviewed records from patient's hospitalization in January 2013; she was stabilized on Haldol 0.5mg PO q AM and 1mg PO q HS at that time. SLUMS was 20/ 30 at that time. We are limited in treatment options as patient often refuses PO and has to be given IM medication at times, though a second generation antipsychotic would be preferable. Her family has asked that we do not hide any medication in her food/drink so as not to reinforce her delusions. Patient denies any SI or HI. She continues to endorse AH of spirits talking to her. Nursing staff report patient still seems to be limiting PO intake due to contaminatory delusions. Patient slept 8 overnight. VSS. Psychotropic PRNs required in the past 24 hours : none. Start Time: 16:20 Stop Time: 16:40 Mental Status Exam Vitals: Last Vital Signs Temp 97.2 F 08/01/17 16:00 Pulse 87 08/01/17 16:00 Resp 15 08/01/17 16:00 BP 160/77 H 08/01/17 16:00 Pulse Ox 100 08/01/17 16:00 Height: 1.65 m Weight: 51.8 kg - Mental Status Exam Muscle Strength/Tone: Rigid (mild - does not seem to be EPS) Dressing: Casual Grooming: Fair Attitude: Suspicious, Other (more cooperative than previously) Motor Activity: Retardation Eye Contact: Fair Speech: Slowed Volume: Soft Rhythm: Appropriate Rhythm Orientation: Disoriented to situation, Oriented to person, Oriented to place, Oriented to time (Month and year only) Mood: Other (Irritable affect, mildly hostile) Rate of Thoughts: Delayed Thought Organization: Perseverations (on being poisoned), [place] Associations: Illogical Abstract Reasoning: Poor abstract reasoning Thought Content: Delusions, Paranoia Perception/Psychotic: Psychotic Current Hallucinations: Auditory (continues to endorse; non-command) Language: Naming Impaired Fund of Knowledge: Poor fund of knowledge Memory: Poor-immediate Suicidal Ideation: Denies Homicidal Ideation: Denies Insight: Poor Judgement: Poor Impulse Control: Fair - Laboratory Result Diagrams: 07/22/17 06:59 07/22/17 06:59 Assessment and Plan (1) 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 Hospital Course: 07/20/17 11:57 07/20/17 Admit to [facility] under the care of psychiatry for evaluation and management of her mental health concerns. She is safe for unit activities. Continue Keflex for UTI. I have reviewed [facility] records- Urine culture not resulted. BP is mildly high- monitor for now. Given LE mild edema, we could consider gentle diuresis. No documented hx of HF. She is currently refusing PO meds- she did get a dose of Ceftriaxone at - we may need to change to injectable if she does not take the medication. We will plan to recheck Saturday. Will continue to follow with you. Thank you for the Consult. 07/21/17 11:29 Pt remains paranoid and delusional. Will start Haldol 0.5mg PO BID. 07/22/17 Psych: Continue Haldol 0.5mg PO BID. Discussed risks/benefits with and obtained informed consent to continue Haldol, which she has tolerated well before. Discussed with giving injections to ensure adherence and he agreed to give IM Haldol if patient refuses PO. Hospitalist treating UTI as above. Have asked nursing to provide prepackaged food/drink as available to ensure adequate PO intake and prevent dehydration. Monitor mood, behavior and response to treatment. 07/23/17 Psych: Continue current care with mouth checks and giving patient option between PO and IM antipsychotic. Monitor symptoms as patient is adherent with psychotropic meds. Continue steps to minimize risk of dehydration. 07/24/17 Psych: Have asked nursing staff to ensure IM administration of Haldol if patient refuses and to give make-up dose for missed dose this morning. May consider increasing total daily dose of Haldol tomorrow. Will discuss possible IM antibiotics with hospitalist as patient is refusing PO. 07/25/17 Psych: Need to ensure patient is eating/drinking adequately and make effort to provide as much prepackaged food as possible while she reliably gets Haldol (IM if PO refused). Hospitalist is not planning further antibiotic treatment. Monitor mood, behavior and response to treatment. 07/26/17 Psych: Patient has increased PO intake and is now eating some foods that are not prepackaged, which shows me Haldol is effective. Continue mouth checks and IM injections if necessary. Continue to monitor symptoms and may increase Haldol over weekend as she was previously stabilized on a total of 1.5mg daily. 07/27/17 Psych: Patient improving overall and increasing PO intake, not as perseverative/delusional on unit though continues to be with me. Will plan to increase Haldol tomorrow. 07/28/17 Psych: Increase Haldol to 0.5mg in AM and 1mg at HS; patient to be given IM meds if she refuses PO. Monitor mood, behavior and response. 07/29/17 Psych: Will give Cogentin 0.5mg PO x1 now to see if possible EPS resolves. Continue current care otherwise in the time being. If does have EPS, will need to decide whether to add concomitant Cogentin or change to 2nd generation antipsychotic. 07/30/17 Psych: Will again challenge with Cogentin and decide whether 2nd generation antipsychotic may be appropriate; will review all other possible medical records re: previous diagnoses, treatment. 07/31/17 Psych: Will continue current antipsychotic dose as still requiring IM at times though 2nd generation would be preferable if she were willingly adherent. Family has asked that we not put medications in food. Will schedule Cogentin 0.5mg PO BID and monitor for EPS. Will check EKG to monitor QTc for the time being. Patient improving as evidenced by willingness to eat some and engage more during interview, but progress is slow. Dose limited by possible EPS right now. 08/01/17 Psych: Will discontinue scheduled Cogentin as patient does not seem to have EPS but will continue to monitor as I increase Haldol to 1mg PO BID. Patient to be given IM if refuses PO. Will f/u on EKG ordered 07/31.
[2017-08-01] MEDS ORDERED: HALOPERIDOL 5 MG/ML INJECTION IM PRN (18:05)
[2017-08-02] MEDS: BENZTROPINE 1 MG TABLET PO SCH ×3 (09:19→19:45)
[2017-08-02] MEDS: HALOPERIDOL 1 MG/0.5 ML ORAL LIQUID PO SCH ×3 (09:20→19:46)
--- NOTE | 2017-08-02 10:12 | Progress Note ---
Subjective: Anay is seen today in follow up while she is getting dressed. She is has no complaints of pain or shortness of breath. Nursing staff reports patient is somewhat resistant to Po intake at times and she states it is "posion". BP remains mildly elevated. Objective Vital signs: Temperature 98.2 F 08/02/17 08:00 Pulse Rate 89 08/02/17 08:00 Respiratory Rate 16 08/02/17 08:00 Blood Pressure 170/68 H 08/02/17 08:00 Pulse Oximetry 91 08/02/17 08:00 Height/Weight/BMI: Height 1.65 m Weight 52.5 kg Body Mass Index 20.2 - Constitutional Present: no acute distress, well nourished, well developed - Routine HEENT Exam Eye: Present: EOMI ENT: Present: mucous membranes moist, dentition normal - Routine Respiratory Exam Present: CTA bilaterally. Absent: wheezes - Routine Cardiovascular Exam Present: RRR, S1, S2. Absent: murmur - Routine Abdominal Exam Present: soft, normoactive bowel sounds, non distended. Absent: tenderness - Routine Extremities Exam Present: normal capillary refill - Routine Skin Exam Present: intact, dry, warm - Routine Neurological Exam Present: alert, CN II-XII intact, moving all extremities - Routine Lymphatic Exam Lymphatic: Absent: adenopathy - Routine Psychiatric Exam Present: cooperative Results - Labs CBC & Chem 7: 07/22/17 06:59 07/22/17 06:59 Assessment and Plan (1) Dementia with behavioral disturbance Current visit: Yes Status: Acute (2) Paranoia Current visit: Yes Status: Acute (3) Auditory hallucinations Current visit: Yes Status: Acute (4) HTN (hypertension) Current visit: Yes Status: Chronic (5) Insomnia Current visit: Yes Status: Chronic (6) UTI (urinary tract infection) Current visit: Yes Status: Acute Assessment and Plan: Impression Dementia with behavioral disturbance Paranoia Auditory hallucinations Hypertension Insomnia Plan Overall patient is medically stable. BP remains 150- 170's systolic. At this point would not treat given age. Prealbumin low- encourage nutritional supplementation Psychiatric notes reviewed Hospital Course Summary Disclaimer: The visit summary below is not to be considered part of the above Progress Note. Hospital Course: 07/20/17 11:57 07/20/17 Admit to [facility] under the care of psychiatry for evaluation and management of her mental health concerns. She is safe for unit activities. Continue Keflex for UTI. I have reviewed [facility] records- Urine culture not resulted. BP is mildly high- monitor for now. Given LE mild edema, we could consider gentle diuresis. No documented hx of HF. She is currently refusing PO meds- she did get a dose of Ceftriaxone at - we may need to change to injectable if she does not take the medication. We will plan to recheck Saturday. Will continue to follow with you. Thank you for the Consult. 07/21/17 11:29 Pt remains paranoid and delusional. Will start Haldol 0.5mg PO BID. 07/22/17 Psych: Continue Haldol 0.5mg PO BID. Discussed risks/benefits with and obtained informed consent to continue Haldol, which she has tolerated well before. Discussed with giving injections to ensure adherence and he agreed to give IM Haldol if patient refuses PO. Hospitalist treating UTI as above. Have asked nursing to provide prepackaged food/drink as available to ensure adequate PO intake and prevent dehydration. Monitor mood, behavior and response to treatment. 07/23/17 Psych: Continue current care with mouth checks and giving patient option between PO and IM antipsychotic. Monitor symptoms as patient is adherent with psychotropic meds. Continue steps to minimize risk of dehydration. 07/24/17 Psych: Have asked nursing staff to ensure IM administration of Haldol if patient refuses and to give make-up dose for missed dose this morning. May consider increasing total daily dose of Haldol tomorrow. Will discuss possible IM antibiotics with hospitalist as patient is refusing PO. 07/25/17 Psych: Need to ensure patient is eating/drinking adequately and make effort to provide as much prepackaged food as possible while she reliably gets Haldol (IM if PO refused). Hospitalist is not planning further antibiotic treatment. Monitor mood, behavior and response to treatment. 07/26/17 Psych: Patient has increased PO intake and is now eating some foods that are not prepackaged, which shows me Haldol is effective. Continue mouth checks and IM injections if necessary. Continue to monitor symptoms and may increase Haldol over weekend as she was previously stabilized on a total of 1.5mg daily. 07/27/17 Psych: Patient improving overall and increasing PO intake, not as perseverative/delusional on unit though continues to be with me. Will plan to increase Haldol tomorrow. 07/28/17 Psych: Increase Haldol to 0.5mg in AM and 1mg at HS; patient to be given IM meds if she refuses PO. Monitor mood, behavior and response. 07/29/17 Psych: Will give Cogentin 0.5mg PO x1 now to see if possible EPS resolves. Continue current care otherwise in the time being. If does have EPS, will need to decide whether to add concomitant Cogentin or change to 2nd generation antipsychotic. 07/30/17 Psych: Will again challenge with Cogentin and decide whether 2nd generation antipsychotic may be appropriate; will review all other possible medical records re: previous diagnoses, treatment. 07/31/17 Psych: Will continue current antipsychotic dose as still requiring IM at times though 2nd generation would be preferable if she were willingly adherent. Family has asked that we not put medications in food. Will schedule Cogentin 0.5mg PO BID and monitor for EPS. Will check EKG to monitor QTc for the time being. Patient improving as evidenced by willingness to eat some and engage more during interview, but progress is slow. Dose limited by possible EPS right now. 08/01/17 Psych: Will discontinue scheduled Cogentin as patient does not seem to have EPS but will continue to monitor as I increase Haldol to 1mg PO BID. Patient to be given IM if refuses PO. Will f/u on EKG ordered 07/31.
--- NOTE | 2017-08-02 17:44 | Neuropsych Progress Note ---
[facility] Subjective Date: 08/02/17 - Sujective/Severity of Illness Medications: Acetaminophen (Tylenol) 325 - 650 mg PO Q5H PRN PRN Reason: Discomfort Benztropine Mesylate (Cogentin) 0.5 mg PO BID [facility] Last Admin: 08/02/17 09:39 Dose: Not Given Bisacodyl (Dulcolax) 10 mg RECTALLY DAILY PRN PRN Reason: Constipation Last Admin: 07/24/17 17:28 Dose: 10 mg Bisacodyl (Dulcolax) 10 mg PO DAILY PRN PRN Reason: Constipation Last Admin: 08/01/17 12:07 Dose: 10 mg Haloperidol (Haldol) 0.5 mg PO Q6H PRN PRN Reason: Extreme agitation Haloperidol Decanoate (Haldol Liquid) 1 mg PO BID [facility] Last Admin: 08/02/17 09:53 Dose: Not Given Haloperidol Lactate (Haldol) 0.5 mg IM Q6H PRN PRN Reason: Extreme agitation Haloperidol Lactate (Haldol) 1 mg IM BID PRN PRN Reason: If patient refuses PO Last Admin: 08/02/17 09:33 Dose: 1 mg Lorazepam (Ativan) 0.5 mg PO Q6H PRN PRN Reason: Extreme agitation Last Admin: 07/22/17 14:10 Dose: 0.5 mg Lorazepam (Ativan Inj) 0.5 mg IM Q6H PRN PRN Reason: Extreme agitation Subjective: Patient seen and chart reviewed. Case discussed with treatment team. On interview, patient will speak and engage with me even though she believes everyone here is poisoning her (food, spraying clothing, etc). On one hand she is improving by willingness to engage, participated in SW group today, willing to eat some, etc. but paranoid delusions seem unchanged since admission and she still requires Haldol to be given IM sometimes. Patient has still gotten Cogentin and EPS improved today - will continue. Reviewed records from patient's hospitalization in January 2013; she was stabilized on Haldol 0.5mg PO q AM and 1mg PO q HS at that time. SLUMS was 20/ 30 at that time. It was documented in clinic notes that SLUMS was 16/30 in October 2016. Attempted to repeat SLUMS today and patient refused to participate. Family meeting held with patient's 2 sons. Ulices is acting as medical DPOA and spokesperson for family. Reviewed diagnosis, treatment plan as well as prognosis. They agree there has been some improvement as she is less perseverative about delusions. They state that patient's is also developing dementia and they are not able to manage at home independently any longer, and would like for us to look into options for placement after discharge. We are limited in treatment options as patient often refuses PO and has to be given IM medication at times, though a second generation antipsychotic would be preferable. Her family has asked that we do not hide any medication in her food/drink so as not to reinforce her delusions. Patient denies any SI or HI. She continues to endorse AH of spirits talking to her. Nursing staff report patient still seems to be limiting PO intake due to contaminatory delusions but speaks about it less frequently than before. Patient slept well overnight. VSS. Psychotropic PRNs required in the past 24 hours: none. Start Time: 16:00 Stop Time: 16:50 Mental Status Exam Vitals: Last Vital Signs Temp 98.2 F 08/02/17 16:00 Pulse 84 08/02/17 16:00 Resp 16 08/02/17 16:00 BP 149/69 H 08/02/17 16:00 Pulse Ox 100 08/02/17 16:00 Height: 1.65 m Weight: 52.5 kg - Mental Status Exam Muscle Strength/Tone: Normal (with scheduled Cogentin) Dressing: Casual Grooming: Fair Attitude: Suspicious, Other (more cooperative than previously) Motor Activity: Retardation Eye Contact: Fair Speech: Slowed Volume: Soft Rhythm: Appropriate Rhythm Orientation: Disoriented to situation, Oriented to person, Oriented to place, Oriented to time (Month and year only) Mood: Other (Reporst mood is "not good," Restricted affect but less hostile today) Rate of Thoughts: Delayed Thought Organization: Perseverations (on being poisoned), [place] Associations: Illogical Abstract Reasoning: Poor abstract reasoning Thought Content: Delusions, Paranoia Perception/Psychotic: Psychotic Current Hallucinations: Auditory (continues to endorse; non-command) Language: Naming Impaired Fund of Knowledge: Poor fund of knowledge (will not participate in [employer] - last documented [employer] in October 2016) Memory: Poor-immediate Suicidal Ideation: Denies Homicidal Ideation: Denies Insight: Poor Judgement: Poor Impulse Control: Fair - Laboratory Result Diagrams: 07/22/17 06:59 07/22/17 06:59 Assessment and Plan (1) Major neurocognitive disorder Problem details: with behavioral disturbance, Alzheimer's, moderate severity Current visit: Yes Status: Acute Hospital Course Summary Disclaimer: The visit summary below is not to be considered part of the above Progress Note. Hospital Course: 07/20/17 11:57 07/20/17 Admit to [facility] under the care of psychiatry for evaluation and management of her mental health concerns. She is safe for unit activities. Continue Keflex for UTI. I have reviewed [facility] records- Urine culture not resulted. BP is mildly high- monitor for now. Given LE mild edema, we could consider gentle diuresis. No documented hx of HF. She is currently refusing PO meds- she did get a dose of Ceftriaxone at - we may need to change to injectable if she does not take the medication. We will plan to recheck Saturday. Will continue to follow with you. Thank you for the Consult. 07/21/17 11:29 Pt remains paranoid and delusional. Will start Haldol 0.5mg PO BID. 07/22/17 Psych: Continue Haldol 0.5mg PO BID. Discussed risks/benefits with and obtained informed consent to continue Haldol, which she has tolerated well before. Discussed with giving injections to ensure adherence and he agreed to give IM Haldol if patient refuses PO. Hospitalist treating UTI as above. Have asked nursing to provide prepackaged food/drink as available to ensure adequate PO intake and prevent dehydration. Monitor mood, behavior and response to treatment. 07/23/17 Psych: Continue current care with mouth checks and giving patient option between PO and IM antipsychotic. Monitor symptoms as patient is adherent with psychotropic meds. Continue steps to minimize risk of dehydration. 07/24/17 Psych: Have asked nursing staff to ensure IM administration of Haldol if patient refuses and to give make-up dose for missed dose this morning. May consider increasing total daily dose of Haldol tomorrow. Will discuss possible IM antibiotics with hospitalist as patient is refusing PO. 07/25/17 Psych: Need to ensure patient is eating/drinking adequately and make effort to provide as much prepackaged food as possible while she reliably gets Haldol (IM if PO refused). Hospitalist is not planning further antibiotic treatment. Monitor mood, behavior and response to treatment. 07/26/17 Psych: Patient has increased PO intake and is now eating some foods that are not prepackaged, which shows me Haldol is effective. Continue mouth checks and IM injections if necessary. Continue to monitor symptoms and may increase Haldol over weekend as she was previously stabilized on a total of 1.5mg daily. 07/27/17 Psych: Patient improving overall and increasing PO intake, not as perseverative/delusional on unit though continues to be with me. Will plan to increase Haldol tomorrow. 07/28/17 Psych: Increase Haldol to 0.5mg in AM and 1mg at HS; patient to be given IM meds if she refuses PO. Monitor mood, behavior and response. 07/29/17 Psych: Will give Cogentin 0.5mg PO x1 now to see if possible EPS resolves. Continue current care otherwise in the time being. If does have EPS, will need to decide whether to add concomitant Cogentin or change to 2nd generation antipsychotic. 07/30/17 Psych: Will again challenge with Cogentin and decide whether 2nd generation antipsychotic may be appropriate; will review all other possible medical records re: previous diagnoses, treatment. 07/31/17 Psych: Will continue current antipsychotic dose as still requiring IM at times though 2nd generation would be preferable if she were willingly adherent. Family has asked that we not put medications in food. Will schedule Cogentin 0.5mg PO BID and monitor for EPS. Will check EKG to monitor QTc for the time being. Patient improving as evidenced by willingness to eat some and engage more during interview, but progress is slow. Dose limited by possible EPS right now. 08/01/17 Psych: Increase Haldol to 1mg PO BID. Patient to be given IM if refuses PO. Will f/u on EKG ordered 07/31. 08/02/17 Psych: Continue Haldol 1mg PO BID as well as Cogentin 0.5mg PO BID due to EPS. Patient to be given IM if refuses PO.
[2017-08-03] MEDS: BENZTROPINE 1 MG TABLET PO SCH ×2 (08:20→19:41)
[2017-08-03] MEDS: HALOPERIDOL 1 MG/0.5 ML ORAL LIQUID PO SCH ×2 (08:21→19:41)
--- NOTE | 2017-08-03 10:23 | Neuropsych Progress Note ---
[facility] Subjective Date: 08/03/17 - Sujective/Severity of Illness Medications: Acetaminophen (Tylenol) 325 - 650 mg PO Q5H PRN PRN Reason: Discomfort Benztropine Mesylate (Cogentin) 0.5 mg PO BID [facility] Last Admin: 08/03/17 08:20 Dose: 0.5 mg Bisacodyl (Dulcolax) 10 mg RECTALLY DAILY PRN PRN Reason: Constipation Last Admin: 07/24/17 17:28 Dose: 10 mg Bisacodyl (Dulcolax) 10 mg PO DAILY PRN PRN Reason: Constipation Last Admin: 08/01/17 12:07 Dose: 10 mg Haloperidol (Haldol) 0.5 mg PO Q6H PRN PRN Reason: Extreme agitation Haloperidol Decanoate (Haldol Liquid) 1 mg PO BID [facility] Last Admin: 08/03/17 08:21 Dose: 1 mg Haloperidol Lactate (Haldol) 0.5 mg IM Q6H PRN PRN Reason: Extreme agitation Haloperidol Lactate (Haldol) 1 mg IM BID PRN PRN Reason: If patient refuses PO Last Admin: 08/02/17 09:33 Dose: 1 mg Lorazepam (Ativan) 0.5 mg PO Q6H PRN PRN Reason: Extreme agitation Last Admin: 07/22/17 14:10 Dose: 0.5 mg Lorazepam (Ativan Inj) 0.5 mg IM Q6H PRN PRN Reason: Extreme agitation Subjective: Patient seen and chart reviewed. Nursing reports pt remains paranoid and delusional. Continues to believe the food and water is poisoned. She did take her meds yesterday. On face to face the pt remains paranoid. Believes the staff is poisoning the food to keep people here longer so they can make money on them. She reports her mood is stable. She denies any pain. Start Time: 10:15 Stop Time: 10:30 Mental Status Exam Vitals: Last Vital Signs Temp 97.7 F 08/03/17 08:00 Pulse 89 08/03/17 08:00 Resp 16 08/03/17 08:00 BP 137/72 08/03/17 08:00 Pulse Ox 97 08/03/17 08:00 Height: 1.65 m Weight: 52.5 kg - Mental Status Exam Muscle Strength/Tone: Normal (with scheduled Cogentin) Dressing: Casual Grooming: Fair Attitude: Suspicious, Other (more cooperative than previously) Motor Activity: Retardation Eye Contact: Fair Speech: Slowed Volume: Soft Rhythm: Appropriate Rhythm Orientation: Disoriented to situation, Oriented to person, Oriented to place, Oriented to time (Month and year only) Mood: Other (Reporst mood is "not good," Restricted affect but less hostile today) Rate of Thoughts: Delayed Thought Organization: Perseverations (on being poisoned), [place] Associations: Illogical Abstract Reasoning: Poor abstract reasoning Thought Content: Delusions, Paranoia Perception/Psychotic: Psychotic Current Hallucinations: Auditory (continues to endorse; non-command) Language: Naming Impaired Fund of Knowledge: Poor fund of knowledge (will not participate in [employer] - last documented [employer] in October 2016) Memory: Poor-immediate Suicidal Ideation: Denies Homicidal Ideation: Denies Insight: Poor Judgement: Poor Impulse Control: Fair - Laboratory Result Diagrams: 07/22/17 06:59 07/22/17 06:59 Assessment and Plan (1) Major neurocognitive disorder Problem details: with behavioral disturbance, Alzheimer's, moderate severity Current visit: Yes Status: Acute Hospital Course Summary Disclaimer: The visit summary below is not to be considered part of the above Progress Note. Hospital Course: 07/20/17 11:57 07/20/17 Admit to [facility] under the care of psychiatry for evaluation and management of her mental health concerns. She is safe for unit activities. Continue Keflex for UTI. I have reviewed [facility] records- Urine culture not resulted. BP is mildly high- monitor for now. Given LE mild edema, we could consider gentle diuresis. No documented hx of HF. She is currently refusing PO meds- she did get a dose of Ceftriaxone at - we may need to change to injectable if she does not take the medication. We will plan to recheck Saturday. Will continue to follow with you. Thank you for the Consult. 07/21/17 11:29 Pt remains paranoid and delusional. Will start Haldol 0.5mg PO BID. 07/22/17 Psych: Continue Haldol 0.5mg PO BID. Discussed risks/benefits with and obtained informed consent to continue Haldol, which she has tolerated well before. Discussed with giving injections to ensure adherence and he agreed to give IM Haldol if patient refuses PO. Hospitalist treating UTI as above. Have asked nursing to provide prepackaged food/drink as available to ensure adequate PO intake and prevent dehydration. Monitor mood, behavior and response to treatment. 07/23/17 Psych: Continue current care with mouth checks and giving patient option between PO and IM antipsychotic. Monitor symptoms as patient is adherent with psychotropic meds. Continue steps to minimize risk of dehydration. 07/24/17 Psych: Have asked nursing staff to ensure IM administration of Haldol if patient refuses and to give make-up dose for missed dose this morning. May consider increasing total daily dose of Haldol tomorrow. Will discuss possible IM antibiotics with hospitalist as patient is refusing PO. 07/25/17 Psych: Need to ensure patient is eating/drinking adequately and make effort to provide as much prepackaged food as possible while she reliably gets Haldol (IM if PO refused). Hospitalist is not planning further antibiotic treatment. Monitor mood, behavior and response to treatment. 07/26/17 Psych: Patient has increased PO intake and is now eating some foods that are not prepackaged, which shows me Haldol is effective. Continue mouth checks and IM injections if necessary. Continue to monitor symptoms and may increase Haldol over weekend as she was previously stabilized on a total of 1.5mg daily. 07/27/17 Psych: Patient improving overall and increasing PO intake, not as perseverative/delusional on unit though continues to be with me. Will plan to increase Haldol tomorrow. 07/28/17 Psych: Increase Haldol to 0.5mg in AM and 1mg at HS; patient to be given IM meds if she refuses PO. Monitor mood, behavior and response. 07/29/17 Psych: Will give Cogentin 0.5mg PO x1 now to see if possible EPS resolves. Continue current care otherwise in the time being. If does have EPS, will need to decide whether to add concomitant Cogentin or change to 2nd generation antipsychotic. 07/30/17 Psych: Will again challenge with Cogentin and decide whether 2nd generation antipsychotic may be appropriate; will review all other possible medical records re: previous diagnoses, treatment. 07/31/17 Psych: Will continue current antipsychotic dose as still requiring IM at times though 2nd generation would be preferable if she were willingly adherent. Family has asked that we not put medications in food. Will schedule Cogentin 0.5mg PO BID and monitor for EPS. Will check EKG to monitor QTc for the time being. Patient improving as evidenced by willingness to eat some and engage more during interview, but progress is slow. Dose limited by possible EPS right now. 08/01/17 Psych: Increase Haldol to 1mg PO BID. Patient to be given IM if refuses PO. Will f/u on EKG ordered 07/31. 08/02/17 Psych: Continue Haldol 1mg PO BID as well as Cogentin 0.5mg PO BID due to EPS. Patient to be given IM if refuses PO. 08/03/17 10:23 Remains paranoid with poor appetite. Continue current care
[2017-08-04] MEDS: BENZTROPINE 1 MG TABLET PO SCH ×3 (01:12→20:21)
--- NOTE | 2017-08-04 10:44 | Neuropsych Progress Note ---
[facility] Subjective Date: 08/04/17 - Sujective/Severity of Illness Medications: Acetaminophen (Tylenol) 325 - 650 mg PO Q5H PRN PRN Reason: Discomfort Benztropine Mesylate (Cogentin) 0.5 mg PO BID [facility] Last Admin: 08/04/17 01:12 Dose: Not Given Bisacodyl (Dulcolax) 10 mg RECTALLY DAILY PRN PRN Reason: Constipation Last Admin: 07/24/17 17:28 Dose: 10 mg Bisacodyl (Dulcolax) 10 mg PO DAILY PRN PRN Reason: Constipation Last Admin: 08/01/17 12:07 Dose: 10 mg Haloperidol (Haldol) 0.5 mg PO Q6H PRN PRN Reason: Extreme agitation Haloperidol Decanoate (Haldol Liquid) 1 mg PO BID [facility] Last Admin: 08/03/17 19:41 Dose: 1 mg Haloperidol Lactate (Haldol) 0.5 mg IM Q6H PRN PRN Reason: Extreme agitation Haloperidol Lactate (Haldol) 1 mg IM BID PRN PRN Reason: If patient refuses PO Last Admin: 08/02/17 09:33 Dose: 1 mg Lorazepam (Ativan) 0.5 mg PO Q6H PRN PRN Reason: Extreme agitation Last Admin: 07/22/17 14:10 Dose: 0.5 mg Lorazepam (Ativan Inj) 0.5 mg IM Q6H PRN PRN Reason: Extreme agitation Subjective: Patient seen and chart reviewed. Nursing reports pt remains paranoid and believes staff is poisoning her food and her appetite is poor. Slept well and no behaviors noted. On face to face the pt is seen resting in bed. She states she does believe staff is poisoning the food but states she will continue to take her meds. Denies pain. Start Time: 10:15 Stop Time: 10:30 Mental Status Exam Vitals: Last Vital Signs Temp 97.6 F 08/03/17 21:24 Pulse 80 08/03/17 21:24 Resp 18 08/03/17 21:24 BP 163/69 H 08/03/17 21:24 Pulse Ox 98 08/03/17 21:24 Height: 1.65 m Weight: 52.5 kg - Mental Status Exam Muscle Strength/Tone: Normal (with scheduled Cogentin) Dressing: Casual Grooming: Fair Attitude: Suspicious, Other (more cooperative than previously) Motor Activity: Retardation Eye Contact: Fair Speech: Slowed Volume: Soft Rhythm: Appropriate Rhythm Orientation: Disoriented to situation, Oriented to person, Oriented to place, Oriented to time (Month and year only) Mood: Other (Reporst mood is "not good," Restricted affect but less hostile today) Rate of Thoughts: Delayed Thought Organization: Perseverations (on being poisoned), [place] Associations: Illogical Abstract Reasoning: Poor abstract reasoning Thought Content: Delusions, Paranoia Perception/Psychotic: Psychotic Current Hallucinations: Auditory (continues to endorse; non-command) Language: Naming Impaired Fund of Knowledge: Poor fund of knowledge (will not participate in [employer] - last documented Ruck[employer] in October 2016) Memory: Poor-immediate Suicidal Ideation: Denies Homicidal Ideation: Denies Insight: Poor Judgement: Poor Impulse Control: Fair - Laboratory Result Diagrams: 07/22/17 06:59 07/22/17 06:59 Laboratory Results - last 24 hr 08/03/17 19:45 Ur Collection Type Urine, clean catch Urine Color Yellow Urine Clarity Cloudy Urine pH 5.0 Ur Specific [place] 1.025 Urine Protein Trace A Urine Glucose (UA) Negative Urine Ketones 1+ A Urine Occult Blood 1+ A Urine Nitrate Negative Urine Bilirubin 1+ A Urine Urobilinogen 1.0 Ur Leukocyte Esterase 2+ A Urine RBC 5-10 H Urine WBC 50-200 H Urine WBC Clumps Few Ur Squamous Epith Cells >50 Ur Transition Epith Cell 0-1 Urine Bacteria 1+ H Ur Culture Indicated? Cult not indicated Assessment and Plan (1) Major neurocognitive disorder Problem details: with behavioral disturbance, Alzheimer's, moderate severity Current visit: Yes Status: Acute Hospital Course Summary Disclaimer: The visit summary below is not to be considered part of the above Progress Note. Hospital Course: 07/20/17 11:57 07/20/17 Admit to [facility] under the care of psychiatry for evaluation and management of her mental health concerns. She is safe for unit activities. Continue Keflex for UTI. I have reviewed [facility] records- Urine culture not resulted. BP is mildly high- monitor for now. Given LE mild edema, we could consider gentle diuresis. No documented hx of HF. She is currently refusing PO meds- she did get a dose of Ceftriaxone at - we may need to change to injectable if she does not take the medication. We will plan to recheck Saturday. Will continue to follow with you. Thank you for the Consult. 07/21/17 11:29 Pt remains paranoid and delusional. Will start Haldol 0.5mg PO BID. 07/22/17 Psych: Continue Haldol 0.5mg PO BID. Discussed risks/benefits with and obtained informed consent to continue Haldol, which she has tolerated well before. Discussed with giving injections to ensure adherence and he agreed to give IM Haldol if patient refuses PO. Hospitalist treating UTI as above. Have asked nursing to provide prepackaged food/drink as available to ensure adequate PO intake and prevent dehydration. Monitor mood, behavior and response to treatment. 07/23/17 Psych: Continue current care with mouth checks and giving patient option between PO and IM antipsychotic. Monitor symptoms as patient is adherent with psychotropic meds. Continue steps to minimize risk of dehydration. 07/24/17 Psych: Have asked nursing staff to ensure IM administration of Haldol if patient refuses and to give make-up dose for missed dose this morning. May consider increasing total daily dose of Haldol tomorrow. Will discuss possible IM antibiotics with hospitalist as patient is refusing PO. 07/25/17 Psych: Need to ensure patient is eating/drinking adequately and make effort to provide as much prepackaged food as possible while she reliably gets Haldol (IM if PO refused). Hospitalist is not planning further antibiotic treatment. Monitor mood, behavior and response to treatment. 07/26/17 Psych: Patient has increased PO intake and is now eating some foods that are not prepackaged, which shows me Haldol is effective. Continue mouth checks and IM injections if necessary. Continue to monitor symptoms and may increase Haldol over weekend as she was previously stabilized on a total of 1.5mg daily. 07/27/17 Psych: Patient improving overall and increasing PO intake, not as perseverative/delusional on unit though continues to be with me. Will plan to increase Haldol tomorrow. 07/28/17 Psych: Increase Haldol to 0.5mg in AM and 1mg at HS; patient to be given IM meds if she refuses PO. Monitor mood, behavior and response. 07/29/17 Psych: Will give Cogentin 0.5mg PO x1 now to see if possible EPS resolves. Continue current care otherwise in the time being. If does have EPS, will need to decide whether to add concomitant Cogentin or change to 2nd generation antipsychotic. 07/30/17 Psych: Will again challenge with Cogentin and decide whether 2nd generation antipsychotic may be appropriate; will review all other possible medical records re: previous diagnoses, treatment. 07/31/17 Psych: Will continue current antipsychotic dose as still requiring IM at times though 2nd generation would be preferable if she were willingly adherent. Family has asked that we not put medications in food. Will schedule Cogentin 0.5mg PO BID and monitor for EPS. Will check EKG to monitor QTc for the time being. Patient improving as evidenced by willingness to eat some and engage more during interview, but progress is slow. Dose limited by possible EPS right now. 08/01/17 Psych: Increase Haldol to 1mg PO BID. Patient to be given IM if refuses PO. Will f/u on EKG ordered 07/31. 08/02/17 Psych: Continue Haldol 1mg PO BID as well as Cogentin 0.5mg PO BID due to EPS. Patient to be given IM if refuses PO. 08/03/17 10:23 Remains paranoid with poor appetite. Continue current care 08/04/17 10:43 Pt remains paranoid with poor appetite. Continue current care
[2017-08-04] MEDS: HALOPERIDOL 1 MG/0.5 ML ORAL LIQUID PO SCH ×2 (11:46→20:22)
--- NOTE | 2017-08-04 17:03 | Progress Note ---
Subjective: Patient is seen in follow up. She has been ambulating in [place] with staff. She is alert, but will not talk to me. Appears very suspicious. Her chart is reviewed. she continues to express that her food and meds are poisoned. Objective Vital signs: Temperature 97.2 F 08/04/17 16:00 Pulse Rate 89 08/04/17 16:00 Respiratory Rate 20 08/04/17 16:00 Blood Pressure 163/79 H 08/04/17 16:00 Pulse Oximetry 100 08/04/17 16:00 Height/Weight/BMI: Height 1.65 m Weight 52.5 kg Body Mass Index 20.2 - Constitutional Present: no acute distress, thin - Routine HEENT Exam Head: Present: normocephalic, atraumatic Eye: Present: EOMI, PERRL - Routine Respiratory Exam Present: CTA bilaterally. Absent: rhonchi, wheezes, crackles - Routine Cardiovascular Exam Present: RRR, S1, S2 - Routine Abdominal Exam Present: soft, non distended. Absent: rebound, guarding - Routine Extremities Exam Present: no edema, non tender - Routine Musculoskeletal Exam Musculoskeletal: Present: no clubbing or cyanosis, normal strength, moving extremities well - Routine Skin Exam Present: intact, dry, warm - Routine Neurological Exam Present: alert, abnormal gait - Routine Psychiatric Exam Present: paranoid. Absent: normal affect, cooperative Results - Labs CBC & Chem 7: 07/22/17 06:59 07/22/17 06:59 Labs: Abnormal Lab Results 08/03/17 19:45 Ur Collection Type Urine, clean catch Urine Color Yellow Urine Clarity Cloudy Urine pH 5.0 Ur Specific [place] 1.025 Urine Protein Trace A Urine Glucose (UA) Negative Urine Ketones 1+ A Urine Occult Blood 1+ A Urine Nitrate Negative Urine Bilirubin 1+ A Urine Urobilinogen 1.0 Ur Leukocyte Esterase 2+ A Urine RBC 5-10 H Urine WBC 50-200 H Urine WBC Clumps Few Ur Squamous Epith Cells >50 Ur Transition Epith Cell 0-1 Urine Bacteria 1+ H Ur Culture Indicated? Cult not indicated Assessment and Plan (1) Dementia with behavioral disturbance Current visit: Yes Status: Acute (2) Paranoia Current visit: Yes Status: Acute (3) Auditory hallucinations Current visit: Yes Status: Acute (4) HTN (hypertension) Current visit: Yes Status: Chronic (5) Insomnia Current visit: Yes Status: Chronic (6) UTI (urinary tract infection) Current visit: Yes Status: Acute Resuscitation Status: Full Code Assessment and Plan: Impression Dementia with behavioral disturbance Paranoia Auditory hallucinations Hypertension Insomnia Plan Patient continues to have fairly significant HTN. Will start low dose metoprolol- unsure if she will take, It appears she may have a UTI, but urine is not a good clean catch. Will order another UA to confirm. She remains paranoid. Weight continues to trend down- encourage PO intake. Add Megace as she is down almost 10 pounds in the last two weeks. Repeat labs in AM. Hospital Course Summary Disclaimer: The visit summary below is not to be considered part of the above Progress Note. Hospital Course: 07/20/17 11:57 07/20/17 Admit to [facility] under the care of psychiatry for evaluation and management of her mental health concerns. She is safe for unit activities. Continue Keflex for UTI. I have reviewed [facility] records- Urine culture not resulted. BP is mildly high- monitor for now. Given LE mild edema, we could consider gentle diuresis. No documented hx of HF. She is currently refusing PO meds- she did get a dose of Ceftriaxone at - we may need to change to injectable if she does not take the medication. We will plan to recheck Saturday. Will continue to follow with you. Thank you for the Consult. 07/21/17 11:29 Pt remains paranoid and delusional. Will start Haldol 0.5mg PO BID. 07/22/17 Psych: Continue Haldol 0.5mg PO BID. Discussed risks/benefits with and obtained informed consent to continue Haldol, which she has tolerated well before. Discussed with giving injections to ensure adherence and he agreed to give IM Haldol if patient refuses PO. Hospitalist treating UTI as above. Have asked nursing to provide prepackaged food/drink as available to ensure adequate PO intake and prevent dehydration. Monitor mood, behavior and response to treatment. 07/23/17 Psych: Continue current care with mouth checks and giving patient option between PO and IM antipsychotic. Monitor symptoms as patient is adherent with psychotropic meds. Continue steps to minimize risk of dehydration. 07/24/17 Psych: Have asked nursing staff to ensure IM administration of Haldol if patient refuses and to give make-up dose for missed dose this morning. May consider increasing total daily dose of Haldol tomorrow. Will discuss possible IM antibiotics with hospitalist as patient is refusing PO. 07/25/17 Psych: Need to ensure patient is eating/drinking adequately and make effort to provide as much prepackaged food as possible while she reliably gets Haldol (IM if PO refused). Hospitalist is not planning further antibiotic treatment. Monitor mood, behavior and response to treatment. 07/26/17 Psych: Patient has increased PO intake and is now eating some foods that are not prepackaged, which shows me Haldol is effective. Continue mouth checks and IM injections if necessary. Continue to monitor symptoms and may increase Haldol over weekend as she was previously stabilized on a total of 1.5mg daily. 07/27/17 Psych: Patient improving overall and increasing PO intake, not as perseverative/delusional on unit though continues to be with me. Will plan to increase Haldol tomorrow. 07/28/17 Psych: Increase Haldol to 0.5mg in AM and 1mg at HS; patient to be given IM meds if she refuses PO. Monitor mood, behavior and response. 07/29/17 Psych: Will give Cogentin 0.5mg PO x1 now to see if possible EPS resolves. Continue current care otherwise in the time being. If does have EPS, will need to decide whether to add concomitant Cogentin or change to 2nd generation antipsychotic. 07/30/17 Psych: Will again challenge with Cogentin and decide whether 2nd generation antipsychotic may be appropriate; will review all other possible medical records re: previous diagnoses, treatment. 07/31/17 Psych: Will continue current antipsychotic dose as still requiring IM at times though 2nd generation would be preferable if she were willingly adherent. Family has asked that we not put medications in food. Will schedule Cogentin 0.5mg PO BID and monitor for EPS. Will check EKG to monitor QTc for the time being. Patient improving as evidenced by willingness to eat some and engage more during interview, but progress is slow. Dose limited by possible EPS right now. 08/01/17 Psych: Increase Haldol to 1mg PO BID. Patient to be given IM if refuses PO. Will f/u on EKG ordered 07/31. 08/02/17 Psych: Continue Haldol 1mg PO BID as well as Cogentin 0.5mg PO BID due to EPS. Patient to be given IM if refuses PO. 08/03/17 10:23 Remains paranoid with poor appetite. Continue current care 08/04/17 10:43 Pt remains paranoid with poor appetite. Continue current care 08/04/17 17:05 Patient continues to have fairly significant HTN. Will start low dose metoprolol- unsure if she will take, It appears she may have a UTI, but urine is not a good clean catch. Will order another UA to confirm. She remains paranoid. Weight continues to trend down- encourage PO intake. Repeat labs in AM.
[2017-08-05] MEDS: BENZTROPINE 1 MG TABLET PO SCH ×3 (08:00→22:51)
[2017-08-05] MEDS: HALOPERIDOL 1 MG/0.5 ML ORAL LIQUID PO SCH ×2 (08:01→10:20)
[2017-08-05] MEDS: MEGESTROL 800mg/20ml ORAL LIQUID PO SCH (08:02)
--- NOTE | 2017-08-05 08:08 | Progress Note ---
<Gretel Chahal - Last Filed: 08/05/17 08:06> Progress Note: Potassium low at 3.5. Previously 4.0. Give Kcl 20 mEq once today. Repeat BMP later this week. She was started on Megace yesterday. UA that was previously ordered is canceled as pt has no urinary sxs or other sxs to suggest need for UA. She likely has asymptomatic bacteruria which doesn't require tx. Her BP's are reasonable for an 87 y.o. and she is refusing meds. DC metoprolol. <Nash Tineo - Last Filed: 08/05/17 17:08> Progress Note: Nursing called. BP in 180s. No orthostatic drop. Will try low dose Norvasc 2.5mg daily. Less likely to cause orthostasis than metoprolol.
[2017-08-05] MEDS ORDERED: HALOPERIDOL 1 MG/0.5 ML ORAL LIQUID PO PRN (10:15)
[2017-08-05] MEDS: HALOPERIDOL 1 MG TABLET PO SCH ×3 (10:19→22:51)
--- NOTE | 2017-08-05 17:25 | Neuropsych Progress Note ---
[facility] Subjective Date: 08/05/17 - Sujective/Severity of Illness Medications: Acetaminophen (Tylenol) 325 - 650 mg PO Q5H PRN PRN Reason: Discomfort Amlodipine Besylate (Norvasc) 2.5 mg PO DAILY [facility] Benztropine Mesylate (Cogentin) 0.5 mg PO BID [facility] Last Admin: 08/05/17 08:00 Dose: 0.5 mg Bisacodyl (Dulcolax) 10 mg RECTALLY DAILY PRN PRN Reason: Constipation Last Admin: 07/24/17 17:28 Dose: 10 mg Bisacodyl (Dulcolax) 10 mg PO DAILY PRN PRN Reason: Constipation Last Admin: 08/01/17 12:07 Dose: 10 mg Haloperidol (Haldol) 0.5 mg PO Q6H PRN PRN Reason: Extreme agitation Haloperidol (Haldol) 1 mg PO BID [facility] Last Admin: 08/05/17 10:19 Dose: 1 mg Haloperidol Decanoate (Haldol Liquid) 1 mg PO BID PRN PRN Reason: IF PT REQUESTS LIQUID Haloperidol Lactate (Haldol) 0.5 mg IM Q6H PRN PRN Reason: Extreme agitation Haloperidol Lactate (Haldol) 1 mg IM BID PRN PRN Reason: If patient refuses PO Last Admin: 08/02/17 09:33 Dose: 1 mg Lorazepam (Ativan) 0.5 mg PO Q6H PRN PRN Reason: Extreme agitation Last Admin: 07/22/17 14:10 Dose: 0.5 mg Lorazepam (Ativan Inj) 0.5 mg IM Q6H PRN PRN Reason: Extreme agitation Megestrol Acetate (Megace) 400 mg PO DAILY [facility] Last Admin: 08/05/17 08:02 Dose: Not Given Subjective: Patient seen and chart reviewed.Nursing reports pt did a little better today. Staff ate with pt and she ate 75% of lunch and took her meds. Sleeping well. On face to face the pt is paranoid and confused. She reports that this senior grant writer is demon possessed and that there were soldiers in the building. She denies any pain. Tolerating meds Start Time: 17:15 Stop Time: 17:30 Mental Status Exam Vitals: Last Vital Signs Temp 97.0 F 08/05/17 16:00 Pulse 89 08/05/17 16:00 Resp 20 08/05/17 16:00 BP 182/79 H 08/05/17 16:00 Pulse Ox 99 08/05/17 16:00 Height: 1.65 m Weight: 52.5 kg - Mental Status Exam Muscle Strength/Tone: Normal (with scheduled Cogentin) Dressing: Casual Grooming: Fair Attitude: Suspicious, Other (more cooperative than previously) Motor Activity: Retardation Eye Contact: Fair Speech: Slowed Volume: Soft Rhythm: Appropriate Rhythm Orientation: Disoriented to situation, Oriented to person, Oriented to place, Oriented to time (Month and year only) Mood: Other (Reporst mood is "not good," Restricted affect but less hostile today) Rate of Thoughts: Delayed Thought Organization: Perseverations (on being poisoned), [place] Associations: Illogical Abstract Reasoning: Poor abstract reasoning Thought Content: Delusions, Paranoia Perception/Psychotic: Psychotic Current Hallucinations: Auditory (continues to endorse; non-command) Language: Naming Impaired Fund of Knowledge: Poor fund of knowledge (will not participate in [employer] - last documented [employer] in October 2016) Memory: Poor-immediate Suicidal Ideation: Denies Homicidal Ideation: Denies Insight: Poor Judgement: Poor Impulse Control: Fair - Laboratory Result Diagrams: 08/05/17 06:18 08/05/17 06:18 Laboratory Results - last 24 hr 08/05/17 08/05/17 06:18 06:18 WBC 4.4 L RBC 3.96 L Hgb 11.9 L Hct 36.3 MCV 91.7 MCH 30.1 MCHC 32.8 RDW Std Deviation 45.2 Plt Count 179 MPV 10.5 Immature Gran % (Auto) 0.0 Neut % (Auto) 58.3 Lymph % (Auto) 25.7 [place] % (Auto) 11.9 H Eos % (Auto) 3.4 Baso % (Auto) 0.7 Neut # (Auto) 2.6 Lymph # (Auto) 1.1 [place] # (Auto) 0.5 Eos # (Auto) 0.2 Baso # (Auto) 0.0 Abs Immat Gran (auto) 0.00 Turbidity < 20 Sodium 143 Potassium 3.5 L Chloride 107 Carbon Dioxide 31 H Anion Gap 5 BUN 12.0 Creatinine 0.6 L GFR Calculation 94 BUN/Creatinine Ratio 20 Glucose 92 Calculated Osmolality 275 Calcium 8.8 Phosphorus 3.2 Magnesium 1.8 Icterus Index < 2 Albumin 3.1 L Specimen Hemolysis < 15 Assessment and Plan (1) Major neurocognitive disorder Problem details: with behavioral disturbance, Alzheimer's, moderate severity Current visit: Yes Status: Acute Hospital Course Summary Disclaimer: The visit summary below is not to be considered part of the above Progress Note. Hospital Course: 07/20/17 11:57 07/20/17 Admit to [facility] under the care of psychiatry for evaluation and management of her mental health concerns. She is safe for unit activities. Continue Keflex for UTI. I have reviewed [facility] records- Urine culture not resulted. BP is mildly high- monitor for now. Given LE mild edema, we could consider gentle diuresis. No documented hx of HF. She is currently refusing PO meds- she did get a dose of Ceftriaxone at - we may need to change to injectable if she does not take the medication. We will plan to recheck Saturday. Will continue to follow with you. Thank you for the Consult. 07/21/17 11:29 Pt remains paranoid and delusional. Will start Haldol 0.5mg PO BID. 07/22/17 Psych: Continue Haldol 0.5mg PO BID. Discussed risks/benefits with and obtained informed consent to continue Haldol, which she has tolerated well before. Discussed with giving injections to ensure adherence and he agreed to give IM Haldol if patient refuses PO. Hospitalist treating UTI as above. Have asked nursing to provide prepackaged food/drink as available to ensure adequate PO intake and prevent dehydration. Monitor mood, behavior and response to treatment. 07/23/17 Psych: Continue current care with mouth checks and giving patient option between PO and IM antipsychotic. Monitor symptoms as patient is adherent with psychotropic meds. Continue steps to minimize risk of dehydration. 07/24/17 Psych: Have asked nursing staff to ensure IM administration of Haldol if patient refuses and to give make-up dose for missed dose this morning. May consider increasing total daily dose of Haldol tomorrow. Will discuss possible IM antibiotics with hospitalist as patient is refusing PO. 07/25/17 Psych: Need to ensure patient is eating/drinking adequately and make effort to provide as much prepackaged food as possible while she reliably gets Haldol (IM if PO refused). Hospitalist is not planning further antibiotic treatment. Monitor mood, behavior and response to treatment. 07/26/17 Psych: Patient has increased PO intake and is now eating some foods that are not prepackaged, which shows me Haldol is effective. Continue mouth checks and IM injections if necessary. Continue to monitor symptoms and may increase Haldol over weekend as she was previously stabilized on a total of 1.5mg daily. 07/27/17 Psych: Patient improving overall and increasing PO intake, not as perseverative/delusional on unit though continues to be with me. Will plan to increase Haldol tomorrow. 07/28/17 Psych: Increase Haldol to 0.5mg in AM and 1mg at HS; patient to be given IM meds if she refuses PO. Monitor mood, behavior and response. 07/29/17 Psych: Will give Cogentin 0.5mg PO x1 now to see if possible EPS resolves. Continue current care otherwise in the time being. If does have EPS, will need to decide whether to add concomitant Cogentin or change to 2nd generation antipsychotic. 07/30/17 Psych: Will again challenge with Cogentin and decide whether 2nd generation antipsychotic may be appropriate; will review all other possible medical records re: previous diagnoses, treatment. 07/31/17 Psych: Will continue current antipsychotic dose as still requiring IM at times though 2nd generation would be preferable if she were willingly adherent. Family has asked that we not put medications in food. Will schedule Cogentin 0.5mg PO BID and monitor for EPS. Will check EKG to monitor QTc for the time being. Patient improving as evidenced by willingness to eat some and engage more during interview, but progress is slow. Dose limited by possible EPS right now. 08/01/17 Psych: Increase Haldol to 1mg PO BID. Patient to be given IM if refuses PO. Will f/u on EKG ordered 07/31. 08/02/17 Psych: Continue Haldol 1mg PO BID as well as Cogentin 0.5mg PO BID due to EPS. Patient to be given IM if refuses PO. 08/03/17 10:23 Remains paranoid with poor appetite. Continue current care 08/04/17 10:43 Pt remains paranoid with poor appetite. Continue current care 08/04/17 17:05 Patient continues to have fairly significant HTN. Will start low dose metoprolol- unsure if she will take, It appears she may have a UTI, but urine is not a good clean catch. Will order another UA to confirm. She remains paranoid. Weight continues to trend down- encourage PO intake. Repeat labs in AM. 08/05/17 17:24 Eating better but remains paranoid. Continue current care
[2017-08-05] MEDS: AMLODIPINE 2.5 MG TABLET PO SCH (17:47)
[2017-08-06] MEDS: AMLODIPINE 2.5 MG TABLET PO SCH (09:45)
[2017-08-06] MEDS: BENZTROPINE 1 MG TABLET PO SCH ×2 (09:45→21:25)
[2017-08-06] MEDS: HALOPERIDOL 1 MG TABLET PO SCH ×2 (09:46→21:26)
[2017-08-06] MEDS: MEGESTROL 800mg/20ml ORAL LIQUID PO SCH (09:46)
--- NOTE | 2017-08-06 16:46 | Neuropsych Progress Note ---
[facility] Subjective Date: 08/06/17 - Sujective/Severity of Illness Medications: Acetaminophen (Tylenol) 325 - 650 mg PO Q5H PRN PRN Reason: Discomfort Amlodipine Besylate (Norvasc) 2.5 mg PO DAILY [facility] Last Admin: 08/06/17 09:45 Dose: 2.5 mg Benztropine Mesylate (Cogentin) 0.5 mg PO BID [facility] Last Admin: 08/06/17 09:45 Dose: 0.5 mg Bisacodyl (Dulcolax) 10 mg RECTALLY DAILY PRN PRN Reason: Constipation Last Admin: 07/24/17 17:28 Dose: 10 mg Bisacodyl (Dulcolax) 10 mg PO DAILY PRN PRN Reason: Constipation Last Admin: 08/01/17 12:07 Dose: 10 mg Haloperidol (Haldol) 0.5 mg PO Q6H PRN PRN Reason: Extreme agitation Haloperidol (Haldol) 1 mg PO BID [facility] Last Admin: 08/06/17 09:46 Dose: 1 mg Haloperidol Decanoate (Haldol Liquid) 1 mg PO BID PRN PRN Reason: IF PT REQUESTS LIQUID Last Admin: 08/05/17 20:05 Dose: 1 mg Haloperidol Lactate (Haldol) 0.5 mg IM Q6H PRN PRN Reason: Extreme agitation Haloperidol Lactate (Haldol) 1 mg IM BID PRN PRN Reason: If patient refuses PO Last Admin: 08/02/17 09:33 Dose: 1 mg Lorazepam (Ativan) 0.5 mg PO Q6H PRN PRN Reason: Extreme agitation Last Admin: 07/22/17 14:10 Dose: 0.5 mg Lorazepam (Ativan Inj) 0.5 mg IM Q6H PRN PRN Reason: Extreme agitation Megestrol Acetate (Megace) 400 mg PO DAILY [facility] Last Admin: 08/06/17 09:46 Dose: 400 mg Subjective: Patient seen and chart reviewed. Nursing reports pt slept well and no behaviors noted. Remains paranoid and has poor appetite. On face to face the pt is pleasant but guarded. She states she is doing well and voices no concerns. Continues to believe we are poisoning the food but seems less concerned about it. Compliant with meds. Denies pain. Start Time: 16:30 Stop Time: 16:45 Mental Status Exam Vitals: Last Vital Signs Temp 97.2 F 08/06/17 16:00 Pulse 85 08/06/17 16:00 Resp 18 08/06/17 16:00 BP 129/78 08/06/17 16:00 Pulse Ox 99 08/06/17 16:00 Height: 1.65 m Weight: 52.5 kg - Mental Status Exam Muscle Strength/Tone: Normal (with scheduled Cogentin) Dressing: Casual Grooming: Fair Attitude: Suspicious, Other (more cooperative than previously) Motor Activity: Retardation Eye Contact: Fair Speech: Slowed Volume: Soft Rhythm: Appropriate Rhythm Orientation: Disoriented to situation, Oriented to person, Oriented to place, Oriented to time (Month and year only) Mood: Other (Reporst mood is "not good," Restricted affect but less hostile today) Rate of Thoughts: Delayed Thought Organization: Perseverations (on being poisoned), [place] Associations: Illogical Abstract Reasoning: Poor abstract reasoning Thought Content: Delusions, Paranoia Perception/Psychotic: Psychotic Current Hallucinations: Auditory (continues to endorse; non-command) Language: Naming Impaired Fund of Knowledge: Poor fund of knowledge (will not participate in [employer] - last documented [employer] in October 2016) Memory: Poor-immediate Suicidal Ideation: Denies Homicidal Ideation: Denies Insight: Poor Judgement: Poor Impulse Control: Fair - Laboratory Result Diagrams: 08/05/17 06:18 08/05/17 06:18 Assessment and Plan (1) Major neurocognitive disorder Problem details: with behavioral disturbance, Alzheimer's, moderate severity Current visit: Yes Status: Acute Hospital Course Summary Disclaimer: The visit summary below is not to be considered part of the above Progress Note. Hospital Course: 07/20/17 11:57 07/20/17 Admit to [facility] under the care of psychiatry for evaluation and management of her mental health concerns. She is safe for unit activities. Continue Keflex for UTI. I have reviewed [facility] records- Urine culture not resulted. BP is mildly high- monitor for now. Given LE mild edema, we could consider gentle diuresis. No documented hx of HF. She is currently refusing PO meds- she did get a dose of Ceftriaxone at - we may need to change to injectable if she does not take the medication. We will plan to recheck Saturday. Will continue to follow with you. Thank you for the Consult. 07/21/17 11:29 Pt remains paranoid and delusional. Will start Haldol 0.5mg PO BID. 07/22/17 Psych: Continue Haldol 0.5mg PO BID. Discussed risks/benefits with and obtained informed consent to continue Haldol, which she has tolerated well before. Discussed with giving injections to ensure adherence and he agreed to give IM Haldol if patient refuses PO. Hospitalist treating UTI as above. Have asked nursing to provide prepackaged food/drink as available to ensure adequate PO intake and prevent dehydration. Monitor mood, behavior and response to treatment. 07/23/17 Psych: Continue current care with mouth checks and giving patient option between PO and IM antipsychotic. Monitor symptoms as patient is adherent with psychotropic meds. Continue steps to minimize risk of dehydration. 07/24/17 Psych: Have asked nursing staff to ensure IM administration of Haldol if patient refuses and to give make-up dose for missed dose this morning. May consider increasing total daily dose of Haldol tomorrow. Will discuss possible IM antibiotics with hospitalist as patient is refusing PO. 07/25/17 Psych: Need to ensure patient is eating/drinking adequately and make effort to provide as much prepackaged food as possible while she reliably gets Haldol (IM if PO refused). Hospitalist is not planning further antibiotic treatment. Monitor mood, behavior and response to treatment. 07/26/17 Psych: Patient has increased PO intake and is now eating some foods that are not prepackaged, which shows me Haldol is effective. Continue mouth checks and IM injections if necessary. Continue to monitor symptoms and may increase Haldol over weekend as she was previously stabilized on a total of 1.5mg daily. 07/27/17 Psych: Patient improving overall and increasing PO intake, not as perseverative/delusional on unit though continues to be with me. Will plan to increase Haldol tomorrow. 07/28/17 Psych: Increase Haldol to 0.5mg in AM and 1mg at HS; patient to be given IM meds if she refuses PO. Monitor mood, behavior and response. 07/29/17 Psych: Will give Cogentin 0.5mg PO x1 now to see if possible EPS resolves. Continue current care otherwise in the time being. If does have EPS, will need to decide whether to add concomitant Cogentin or change to 2nd generation antipsychotic. 07/30/17 Psych: Will again challenge with Cogentin and decide whether 2nd generation antipsychotic may be appropriate; will review all other possible medical records re: previous diagnoses, treatment. 07/31/17 Psych: Will continue current antipsychotic dose as still requiring IM at times though 2nd generation would be preferable if she were willingly adherent. Family has asked that we not put medications in food. Will schedule Cogentin 0.5mg PO BID and monitor for EPS. Will check EKG to monitor QTc for the time being. Patient improving as evidenced by willingness to eat some and engage more during interview, but progress is slow. Dose limited by possible EPS right now. 08/01/17 Psych: Increase Haldol to 1mg PO BID. Patient to be given IM if refuses PO. Will f/u on EKG ordered 07/31. 08/02/17 Psych: Continue Haldol 1mg PO BID as well as Cogentin 0.5mg PO BID due to EPS. Patient to be given IM if refuses PO. 08/03/17 10:23 Remains paranoid with poor appetite. Continue current care 08/04/17 10:43 Pt remains paranoid with poor appetite. Continue current care 08/04/17 17:05 Patient continues to have fairly significant HTN. Will start low dose metoprolol- unsure if she will take, It appears she may have a UTI, but urine is not a good clean catch. Will order another UA to confirm. She remains paranoid. Weight continues to trend down- encourage PO intake. Repeat labs in AM. 08/05/17 17:24 Eating better but remains paranoid. Continue current care 08/06/17 16:46 Remains paranoid. Continue current care
[2017-08-07] MEDS: BENZTROPINE 1 MG TABLET PO SCH ×2 (09:39→20:44)
[2017-08-07] MEDS: HALOPERIDOL 1 MG TABLET PO SCH ×2 (09:40→20:44)
[2017-08-07] MEDS: MEGESTROL 800mg/20ml ORAL LIQUID PO SCH (09:40)
[2017-08-07] MEDS: AMLODIPINE 2.5 MG TABLET PO SCH (09:50)
--- NOTE | 2017-08-07 19:55 | Neuropsych Progress Note ---
[facility] Subjective Date: 08/07/17 - Sujective/Severity of Illness Medications: Acetaminophen (Tylenol) 325 - 650 mg PO Q5H PRN PRN Reason: Discomfort Amlodipine Besylate (Norvasc) 2.5 mg PO DAILY [facility] Last Admin: 08/07/17 09:50 Dose: 2.5 mg Benztropine Mesylate (Cogentin) 0.5 mg PO BID [facility] Last Admin: 08/07/17 09:39 Dose: 0.5 mg Bisacodyl (Dulcolax) 10 mg RECTALLY DAILY PRN PRN Reason: Constipation Last Admin: 07/24/17 17:28 Dose: 10 mg Bisacodyl (Dulcolax) 10 mg PO DAILY PRN PRN Reason: Constipation Last Admin: 08/01/17 12:07 Dose: 10 mg Haloperidol (Haldol) 0.5 mg PO Q6H PRN PRN Reason: Extreme agitation Haloperidol (Haldol) 1 mg PO BID [facility] Last Admin: 08/07/17 09:40 Dose: 1 mg Haloperidol Decanoate (Haldol Liquid) 1 mg PO BID PRN PRN Reason: IF PT REQUESTS LIQUID Last Admin: 08/05/17 20:05 Dose: 1 mg Haloperidol Lactate (Haldol) 0.5 mg IM Q6H PRN PRN Reason: Extreme agitation Haloperidol Lactate (Haldol) 1 mg IM BID PRN PRN Reason: If patient refuses PO Last Admin: 08/02/17 09:33 Dose: 1 mg Lorazepam (Ativan) 0.5 mg PO Q6H PRN PRN Reason: Extreme agitation Last Admin: 07/22/17 14:10 Dose: 0.5 mg Lorazepam (Ativan Inj) 0.5 mg IM Q6H PRN PRN Reason: Extreme agitation Megestrol Acetate (Megace) 400 mg PO DAILY [facility] Last Admin: 08/07/17 09:40 Dose: 400 mg Subjective: Patient seen and chart reviewed. Nursing reports pt slept well and no behaviors noted. Remains paranoid and has poor appetite. On face to face the pt states she is doing well. She states she continues to believe the food is poisoned and now her blood is poisoned. She denies feeling depressed and she reports tolerating her meds Start Time: 17:00 Stop Time: 17:15 Mental Status Exam Vitals: Last Vital Signs Temp 97.7 F 08/07/17 16:00 Pulse 91 08/07/17 16:00 Resp 18 08/07/17 16:00 BP 133/69 08/07/17 16:00 Pulse Ox 100 08/07/17 16:00 Height: 1.65 m Weight: 52.5 kg - Mental Status Exam Muscle Strength/Tone: Normal (with scheduled Cogentin) Dressing: Casual Grooming: Fair Attitude: Suspicious, Other (more cooperative than previously) Motor Activity: Retardation Eye Contact: Fair Speech: Slowed Volume: Soft Rhythm: Appropriate Rhythm Orientation: Disoriented to situation, Oriented to person, Oriented to place, Oriented to time (Month and year only) Mood: Other (Reporst mood is "not good," Restricted affect but less hostile today) Rate of Thoughts: Delayed Thought Organization: Perseverations (on being poisoned), [place] Associations: Illogical Abstract Reasoning: Poor abstract reasoning Thought Content: Delusions, Paranoia Perception/Psychotic: Psychotic Current Hallucinations: Auditory (continues to endorse; non-command) Language: Naming Impaired Fund of Knowledge: Poor fund of knowledge (will not participate in [employer] - last documented [employer] in October 2016) Memory: Poor-immediate Suicidal Ideation: Denies Homicidal Ideation: Denies Insight: Poor Judgement: Poor Impulse Control: Fair - Laboratory Result Diagrams: 08/05/17 06:18 08/05/17 06:18 Assessment and Plan (1) Major neurocognitive disorder Problem details: with behavioral disturbance, Alzheimer's, moderate severity Current visit: Yes Status: Acute Hospital Course Summary Disclaimer: The visit summary below is not to be considered part of the above Progress Note. Hospital Course: 07/20/17 11:57 07/20/17 Admit to [facility] under the care of psychiatry for evaluation and management of her mental health concerns. She is safe for unit activities. Continue Keflex for UTI. I have reviewed [facility] records- Urine culture not resulted. BP is mildly high- monitor for now. Given LE mild edema, we could consider gentle diuresis. No documented hx of HF. She is currently refusing PO meds- she did get a dose of Ceftriaxone at - we may need to change to injectable if she does not take the medication. We will plan to recheck Saturday. Will continue to follow with you. Thank you for the Consult. 07/21/17 11:29 Pt remains paranoid and delusional. Will start Haldol 0.5mg PO BID. 07/22/17 Psych: Continue Haldol 0.5mg PO BID. Discussed risks/benefits with and obtained informed consent to continue Haldol, which she has tolerated well before. Discussed with giving injections to ensure adherence and he agreed to give IM Haldol if patient refuses PO. Hospitalist treating UTI as above. Have asked nursing to provide prepackaged food/drink as available to ensure adequate PO intake and prevent dehydration. Monitor mood, behavior and response to treatment. 07/23/17 Psych: Continue current care with mouth checks and giving patient option between PO and IM antipsychotic. Monitor symptoms as patient is adherent with psychotropic meds. Continue steps to minimize risk of dehydration. 07/24/17 Psych: Have asked nursing staff to ensure IM administration of Haldol if patient refuses and to give make-up dose for missed dose this morning. May consider increasing total daily dose of Haldol tomorrow. Will discuss possible IM antibiotics with hospitalist as patient is refusing PO. 07/25/17 Psych: Need to ensure patient is eating/drinking adequately and make effort to provide as much prepackaged food as possible while she reliably gets Haldol (IM if PO refused). Hospitalist is not planning further antibiotic treatment. Monitor mood, behavior and response to treatment. 07/26/17 Psych: Patient has increased PO intake and is now eating some foods that are not prepackaged, which shows me Haldol is effective. Continue mouth checks and IM injections if necessary. Continue to monitor symptoms and may increase Haldol over weekend as she was previously stabilized on a total of 1.5mg daily. 07/27/17 Psych: Patient improving overall and increasing PO intake, not as perseverative/delusional on unit though continues to be with me. Will plan to increase Haldol tomorrow. 07/28/17 Psych: Increase Haldol to 0.5mg in AM and 1mg at HS; patient to be given IM meds if she refuses PO. Monitor mood, behavior and response. 07/29/17 Psych: Will give Cogentin 0.5mg PO x1 now to see if possible EPS resolves. Continue current care otherwise in the time being. If does have EPS, will need to decide whether to add concomitant Cogentin or change to 2nd generation antipsychotic. 07/30/17 Psych: Will again challenge with Cogentin and decide whether 2nd generation antipsychotic may be appropriate; will review all other possible medical records re: previous diagnoses, treatment. 07/31/17 Psych: Will continue current antipsychotic dose as still requiring IM at times though 2nd generation would be preferable if she were willingly adherent. Family has asked that we not put medications in food. Will schedule Cogentin 0.5mg PO BID and monitor for EPS. Will check EKG to monitor QTc for the time being. Patient improving as evidenced by willingness to eat some and engage more during interview, but progress is slow. Dose limited by possible EPS right now. 08/01/17 Psych: Increase Haldol to 1mg PO BID. Patient to be given IM if refuses PO. Will f/u on EKG ordered 07/31. 08/02/17 Psych: Continue Haldol 1mg PO BID as well as Cogentin 0.5mg PO BID due to EPS. Patient to be given IM if refuses PO. 08/03/17 10:23 Remains paranoid with poor appetite. Continue current care 08/04/17 10:43 Pt remains paranoid with poor appetite. Continue current care 08/04/17 17:05 Patient continues to have fairly significant HTN. Will start low dose metoprolol- unsure if she will take, It appears she may have a UTI, but urine is not a good clean catch. Will order another UA to confirm. She remains paranoid. Weight continues to trend down- encourage PO intake. Repeat labs in AM. 08/05/17 17:24 Eating better but remains paranoid. Continue current care 08/06/17 16:46 Remains paranoid. Continue current care 08/07/17 19:55 Remains paranoid. Continue Haldol
[2017-08-08] MEDS ORDERED: TRAZODONE 50 MG TABLET PO ONE (01:38)
[2017-08-08] MEDS: AMLODIPINE 2.5 MG TABLET PO SCH (11:53)
[2017-08-08] MEDS: BENZTROPINE 1 MG TABLET PO SCH ×2 (11:53→20:00)
[2017-08-08] MEDS: HALOPERIDOL 1 MG TABLET PO SCH ×2 (11:54→20:01)
[2017-08-08] MEDS: MEGESTROL 800mg/20ml ORAL LIQUID PO SCH (11:54)
--- NOTE | 2017-08-08 19:40 | Neuropsych Progress Note ---
[facility] Subjective Date: 08/08/17 - Sujective/Severity of Illness Medications: Acetaminophen (Tylenol) 325 - 650 mg PO Q5H PRN PRN Reason: Discomfort Amlodipine Besylate (Norvasc) 2.5 mg PO DAILY [facility] Last Admin: 08/08/17 11:53 Dose: 2.5 mg Benztropine Mesylate (Cogentin) 0.5 mg PO BID [facility] Last Admin: 08/08/17 11:53 Dose: 0.5 mg Bisacodyl (Dulcolax) 10 mg RECTALLY DAILY PRN PRN Reason: Constipation Last Admin: 07/24/17 17:28 Dose: 10 mg Bisacodyl (Dulcolax) 10 mg PO DAILY PRN PRN Reason: Constipation Last Admin: 08/01/17 12:07 Dose: 10 mg Haloperidol (Haldol) 0.5 mg PO Q6H PRN PRN Reason: Extreme agitation Haloperidol (Haldol) 1 mg PO BID [facility] Last Admin: 08/08/17 11:54 Dose: 1 mg Haloperidol Decanoate (Haldol Liquid) 1 mg PO BID PRN PRN Reason: IF PT REQUESTS LIQUID Last Admin: 08/05/17 20:05 Dose: 1 mg Haloperidol Lactate (Haldol) 0.5 mg IM Q6H PRN PRN Reason: Extreme agitation Haloperidol Lactate (Haldol) 1 mg IM BID PRN PRN Reason: If patient refuses PO Last Admin: 08/02/17 09:33 Dose: 1 mg Lorazepam (Ativan) 0.5 mg PO Q6H PRN PRN Reason: Extreme agitation Last Admin: 07/22/17 14:10 Dose: 0.5 mg Lorazepam (Ativan Inj) 0.5 mg IM Q6H PRN PRN Reason: Extreme agitation Megestrol Acetate (Megace) 400 mg PO DAILY [facility] Last Admin: 08/08/17 11:54 Dose: 400 mg Subjective: Patient seen and chart reviewed. Nursing reports pt ate a little better today. Pt continues to be hesitant to take meds but has been compliant. Had some issues falling asleep. On face to face the pt is pleasant but confused. She denies any pain. Remains paranoid but appears less focused on it. Tolerating meds Start Time: 17:45 Stop Time: 18:00 Mental Status Exam Vitals: Last Vital Signs Temp 97.6 F 08/08/17 16:00 Pulse 79 08/08/17 16:00 Resp 18 08/08/17 16:00 BP 127/66 08/08/17 16:00 Pulse Ox 99 08/08/17 16:00 Height: 1.65 m Weight: 52.5 kg - Mental Status Exam Muscle Strength/Tone: Normal (with scheduled Cogentin) Dressing: Casual Grooming: Fair Attitude: Suspicious, Other (more cooperative than previously) Motor Activity: Retardation Eye Contact: Fair Speech: Slowed Volume: Soft Rhythm: Appropriate Rhythm Orientation: Disoriented to situation, Oriented to person, Oriented to place, Oriented to time (Month and year only) Mood: Other (Reporst mood is "not good," Restricted affect but less hostile today) Rate of Thoughts: Delayed Thought Organization: Perseverations (on being poisoned), [place] Associations: Illogical Abstract Reasoning: Poor abstract reasoning Thought Content: Delusions, Paranoia Perception/Psychotic: Psychotic Current Hallucinations: Auditory (continues to endorse; non-command) Language: Naming Impaired Fund of Knowledge: Poor fund of knowledge (will not participate in [employer] - last documented [employer] in October 2016) Memory: Poor-immediate Suicidal Ideation: Denies Homicidal Ideation: Denies Insight: Poor Judgement: Poor Impulse Control: Fair - Laboratory Result Diagrams: 08/05/17 06:18 08/08/17 05:47 Laboratory Results - last 24 hr 08/08/17 05:47 Turbidity < 20 Sodium 143 Potassium 3.9 Chloride 109 H Carbon Dioxide 29 Anion Gap 5 BUN 15.0 Creatinine 0.7 GFR Calculation 79 BUN/Creatinine Ratio 21 Glucose 94 Calculated Osmolality 276 Calcium 8.8 Icterus Index < 2 Specimen Hemolysis < 15 Assessment and Plan (1) Major neurocognitive disorder Problem details: with behavioral disturbance, Alzheimer's, moderate severity Current visit: Yes Status: Acute Hospital Course Summary Disclaimer: The visit summary below is not to be considered part of the above Progress Note. Hospital Course: 07/20/17 11:57 07/20/17 Admit to [facility] under the care of psychiatry for evaluation and management of her mental health concerns. She is safe for unit activities. Continue Keflex for UTI. I have reviewed [facility] records- Urine culture not resulted. BP is mildly high- monitor for now. Given LE mild edema, we could consider gentle diuresis. No documented hx of HF. She is currently refusing PO meds- she did get a dose of Ceftriaxone at - we may need to change to injectable if she does not take the medication. We will plan to recheck Saturday. Will continue to follow with you. Thank you for the Consult. 07/21/17 11:29 Pt remains paranoid and delusional. Will start Haldol 0.5mg PO BID. 07/22/17 Psych: Continue Haldol 0.5mg PO BID. Discussed risks/benefits with and obtained informed consent to continue Haldol, which she has tolerated well before. Discussed with giving injections to ensure adherence and he agreed to give IM Haldol if patient refuses PO. Hospitalist treating UTI as above. Have asked nursing to provide prepackaged food/drink as available to ensure adequate PO intake and prevent dehydration. Monitor mood, behavior and response to treatment. 07/23/17 Psych: Continue current care with mouth checks and giving patient option between PO and IM antipsychotic. Monitor symptoms as patient is adherent with psychotropic meds. Continue steps to minimize risk of dehydration. 07/24/17 Psych: Have asked nursing staff to ensure IM administration of Haldol if patient refuses and to give make-up dose for missed dose this morning. May consider increasing total daily dose of Haldol tomorrow. Will discuss possible IM antibiotics with hospitalist as patient is refusing PO. 07/25/17 Psych: Need to ensure patient is eating/drinking adequately and make effort to provide as much prepackaged food as possible while she reliably gets Haldol (IM if PO refused). Hospitalist is not planning further antibiotic treatment. Monitor mood, behavior and response to treatment. 07/26/17 Psych: Patient has increased PO intake and is now eating some foods that are not prepackaged, which shows me Haldol is effective. Continue mouth checks and IM injections if necessary. Continue to monitor symptoms and may increase Haldol over weekend as she was previously stabilized on a total of 1.5mg daily. 07/27/17 Psych: Patient improving overall and increasing PO intake, not as perseverative/delusional on unit though continues to be with me. Will plan to increase Haldol tomorrow. 07/28/17 Psych: Increase Haldol to 0.5mg in AM and 1mg at HS; patient to be given IM meds if she refuses PO. Monitor mood, behavior and response. 07/29/17 Psych: Will give Cogentin 0.5mg PO x1 now to see if possible EPS resolves. Continue current care otherwise in the time being. If does have EPS, will need to decide whether to add concomitant Cogentin or change to 2nd generation antipsychotic. 07/30/17 Psych: Will again challenge with Cogentin and decide whether 2nd generation antipsychotic may be appropriate; will review all other possible medical records re: previous diagnoses, treatment. 07/31/17 Psych: Will continue current antipsychotic dose as still requiring IM at times though 2nd generation would be preferable if she were willingly adherent. Family has asked that we not put medications in food. Will schedule Cogentin 0.5mg PO BID and monitor for EPS. Will check EKG to monitor QTc for the time being. Patient improving as evidenced by willingness to eat some and engage more during interview, but progress is slow. Dose limited by possible EPS right now. 08/01/17 Psych: Increase Haldol to 1mg PO BID. Patient to be given IM if refuses PO. Will f/u on EKG ordered 07/31. 08/02/17 Psych: Continue Haldol 1mg PO BID as well as Cogentin 0.5mg PO BID due to EPS. Patient to be given IM if refuses PO. 08/03/17 10:23 Remains paranoid with poor appetite. Continue current care 08/04/17 10:43 Pt remains paranoid with poor appetite. Continue current care 08/04/17 17:05 Patient continues to have fairly significant HTN. Will start low dose metoprolol- unsure if she will take, It appears she may have a UTI, but urine is not a good clean catch. Will order another UA to confirm. She remains paranoid. Weight continues to trend down- encourage PO intake. Repeat labs in AM. 08/05/17 17:24 Eating better but remains paranoid. Continue current care 08/06/17 16:46 Remains paranoid. Continue current care 08/07/17 19:55 Remains paranoid. Continue Haldol 08/08/17 19:39 Pt remains paranoid. I do not want to increase Haldol at this time due to fear of increased EPS but will continue Haldol due to fear of compliance issues. Recommend Second Generation antipsychotic when compliance issues improve and as an OP
[2017-08-09] MEDS: BENZTROPINE 1 MG TABLET PO SCH ×2 (08:26→20:07)
[2017-08-09] MEDS: AMLODIPINE 2.5 MG TABLET PO SCH (08:26)
[2017-08-09] MEDS: HALOPERIDOL 1 MG TABLET PO SCH ×2 (08:27→20:07)
[2017-08-09] MEDS: MEGESTROL 800mg/20ml ORAL LIQUID PO SCH (08:27)
[2017-08-09] MEDS: Bisacodyl EC TAB 5 MG TABLET PO PRN (13:14)
--- NOTE | 2017-08-09 18:18 | Progress Note ---
Progress Note: Patient's chart reviewed - nurses notes, labs, vitals and psych notes. NO concerns or changes at this time. Will schedule CBC for 08/12 to f-u low hgb.
--- NOTE | 2017-08-09 18:24 | Neuropsych Progress Note ---
[facility] Subjective Date: 08/09/17 - Sujective/Severity of Illness Medications: Acetaminophen (Tylenol) 325 - 650 mg PO Q5H PRN PRN Reason: Discomfort Amlodipine Besylate (Norvasc) 2.5 mg PO DAILY [facility] Last Admin: 08/09/17 08:26 Dose: 2.5 mg Benztropine Mesylate (Cogentin) 0.5 mg PO BID [facility] Last Admin: 08/09/17 08:26 Dose: 0.5 mg Bisacodyl (Dulcolax) 10 mg RECTALLY DAILY PRN PRN Reason: Constipation Last Admin: 07/24/17 17:28 Dose: 10 mg Bisacodyl (Dulcolax) 10 mg PO DAILY PRN PRN Reason: Constipation Last Admin: 08/09/17 13:14 Dose: 10 mg Haloperidol (Haldol) 0.5 mg PO Q6H PRN PRN Reason: Extreme agitation Haloperidol (Haldol) 1 mg PO BID [facility] Last Admin: 08/09/17 08:27 Dose: 1 mg Haloperidol Decanoate (Haldol Liquid) 1 mg PO BID PRN PRN Reason: IF PT REQUESTS LIQUID Last Admin: 08/05/17 20:05 Dose: 1 mg Haloperidol Lactate (Haldol) 0.5 mg IM Q6H PRN PRN Reason: Extreme agitation Haloperidol Lactate (Haldol) 1 mg IM BID PRN PRN Reason: If patient refuses PO Last Admin: 08/02/17 09:33 Dose: 1 mg Lorazepam (Ativan) 0.5 mg PO Q6H PRN PRN Reason: Extreme agitation Last Admin: 07/22/17 14:10 Dose: 0.5 mg Lorazepam (Ativan Inj) 0.5 mg IM Q6H PRN PRN Reason: Extreme agitation Megestrol Acetate (Megace) 400 mg PO DAILY [facility] Last Admin: 08/09/17 08:27 Dose: 400 mg Subjective: Patient seen and chart reviewed. Nursing reports pt remains paranoid and delusional. She did eat supper well tonight that the family brought in. On face to face the pt states she is doing well and voices no concerns. Tolerating meds. Remains paranoid Start Time: 18:15 Stop Time: 18:30 Mental Status Exam Vitals: Last Vital Signs Temp 98.1 F 08/09/17 16:00 Pulse 89 08/09/17 16:00 Resp 18 08/09/17 16:00 BP 137/71 08/09/17 16:00 Pulse Ox 99 08/09/17 16:00 Height: 1.65 m Weight: 53.8 kg - Mental Status Exam Muscle Strength/Tone: Normal (with scheduled Cogentin) Dressing: Casual Grooming: Fair Attitude: Suspicious, Other (more cooperative than previously) Motor Activity: Retardation Eye Contact: Fair Speech: Slowed Volume: Soft Rhythm: Appropriate Rhythm Orientation: Disoriented to situation, Oriented to person, Oriented to place, Oriented to time (Month and year only) Mood: Other (Reporst mood is "not good," Restricted affect but less hostile today) Rate of Thoughts: Delayed Thought Organization: Perseverations (on being poisoned), [place] Associations: Illogical Abstract Reasoning: Poor abstract reasoning Thought Content: Delusions, Paranoia Perception/Psychotic: Psychotic Current Hallucinations: Auditory (continues to endorse; non-command) Language: Naming Impaired Fund of Knowledge: Poor fund of knowledge (will not participate in [employer] - last documented [employer] in October 2016) Memory: Poor-immediate Suicidal Ideation: Denies Homicidal Ideation: Denies Insight: Poor Judgement: Poor Impulse Control: Fair - Laboratory Result Diagrams: 08/05/17 06:18 08/08/17 05:47 Assessment and Plan (1) Major neurocognitive disorder Problem details: with behavioral disturbance, Alzheimer's, moderate severity Current visit: Yes Status: Acute Hospital Course Summary Disclaimer: The visit summary below is not to be considered part of the above Progress Note. Hospital Course: 07/20/17 11:57 07/20/17 Admit to [facility] under the care of psychiatry for evaluation and management of her mental health concerns. She is safe for unit activities. Continue Keflex for UTI. I have reviewed [facility] records- Urine culture not resulted. BP is mildly high- monitor for now. Given LE mild edema, we could consider gentle diuresis. No documented hx of HF. She is currently refusing PO meds- she did get a dose of Ceftriaxone at - we may need to change to injectable if she does not take the medication. We will plan to recheck Saturday. Will continue to follow with you. Thank you for the Consult. 07/21/17 11:29 Pt remains paranoid and delusional. Will start Haldol 0.5mg PO BID. 07/22/17 Psych: Continue Haldol 0.5mg PO BID. Discussed risks/benefits with and obtained informed consent to continue Haldol, which she has tolerated well before. Discussed with giving injections to ensure adherence and he agreed to give IM Haldol if patient refuses PO. Hospitalist treating UTI as above. Have asked nursing to provide prepackaged food/drink as available to ensure adequate PO intake and prevent dehydration. Monitor mood, behavior and response to treatment. 07/23/17 Psych: Continue current care with mouth checks and giving patient option between PO and IM antipsychotic. Monitor symptoms as patient is adherent with psychotropic meds. Continue steps to minimize risk of dehydration. 07/24/17 Psych: Have asked nursing staff to ensure IM administration of Haldol if patient refuses and to give make-up dose for missed dose this morning. May consider increasing total daily dose of Haldol tomorrow. Will discuss possible IM antibiotics with hospitalist as patient is refusing PO. 07/25/17 Psych: Need to ensure patient is eating/drinking adequately and make effort to provide as much prepackaged food as possible while she reliably gets Haldol (IM if PO refused). Hospitalist is not planning further antibiotic treatment. Monitor mood, behavior and response to treatment. 07/26/17 Psych: Patient has increased PO intake and is now eating some foods that are not prepackaged, which shows me Haldol is effective. Continue mouth checks and IM injections if necessary. Continue to monitor symptoms and may increase Haldol over weekend as she was previously stabilized on a total of 1.5mg daily. 07/27/17 Psych: Patient improving overall and increasing PO intake, not as perseverative/delusional on unit though continues to be with me. Will plan to increase Haldol tomorrow. 07/28/17 Psych: Increase Haldol to 0.5mg in AM and 1mg at HS; patient to be given IM meds if she refuses PO. Monitor mood, behavior and response. 07/29/17 Psych: Will give Cogentin 0.5mg PO x1 now to see if possible EPS resolves. Continue current care otherwise in the time being. If does have EPS, will need to decide whether to add concomitant Cogentin or change to 2nd generation antipsychotic. 07/30/17 Psych: Will again challenge with Cogentin and decide whether 2nd generation antipsychotic may be appropriate; will review all other possible medical records re: previous diagnoses, treatment. 07/31/17 Psych: Will continue current antipsychotic dose as still requiring IM at times though 2nd generation would be preferable if she were willingly adherent. Family has asked that we not put medications in food. Will schedule Cogentin 0.5mg PO BID and monitor for EPS. Will check EKG to monitor QTc for the time being. Patient improving as evidenced by willingness to eat some and engage more during interview, but progress is slow. Dose limited by possible EPS right now. 08/01/17 Psych: Increase Haldol to 1mg PO BID. Patient to be given IM if refuses PO. Will f/u on EKG ordered 07/31. 08/02/17 Psych: Continue Haldol 1mg PO BID as well as Cogentin 0.5mg PO BID due to EPS. Patient to be given IM if refuses PO. 08/03/17 10:23 Remains paranoid with poor appetite. Continue current care 08/04/17 10:43 Pt remains paranoid with poor appetite. Continue current care 08/04/17 17:05 Patient continues to have fairly significant HTN. Will start low dose metoprolol- unsure if she will take, It appears she may have a UTI, but urine is not a good clean catch. Will order another UA to confirm. She remains paranoid. Weight continues to trend down- encourage PO intake. Repeat labs in AM. 08/05/17 17:24 Eating better but remains paranoid. Continue current care 08/06/17 16:46 Remains paranoid. Continue current care 08/07/17 19:55 Remains paranoid. Continue Haldol 08/08/17 19:39 Pt remains paranoid. I do not want to increase Haldol at this time due to fear of increased EPS but will continue Haldol due to fear of compliance issues. Recommend Second Generation antipsychotic when compliance issues improve and as an OP 08/09/17 18:24 Continue current care
[2017-08-10] MEDS: AMLODIPINE 2.5 MG TABLET PO SCH (09:04)
[2017-08-10] MEDS: BENZTROPINE 1 MG TABLET PO SCH ×2 (09:04→20:03)
[2017-08-10] MEDS: HALOPERIDOL 1 MG TABLET PO SCH ×2 (09:05→20:03)
[2017-08-10] MEDS: MEGESTROL 800mg/20ml ORAL LIQUID PO SCH (09:15)
--- NOTE | 2017-08-10 11:00 | Neuropsych Progress Note ---
[facility] Subjective Date: 08/10/17 - Sujective/Severity of Illness Medications: Acetaminophen (Tylenol) 325 - 650 mg PO Q5H PRN PRN Reason: Discomfort Amlodipine Besylate (Norvasc) 2.5 mg PO DAILY [facility] Last Admin: 08/10/17 09:04 Dose: 2.5 mg Benztropine Mesylate (Cogentin) 0.5 mg PO BID [facility] Last Admin: 08/10/17 09:04 Dose: 0.5 mg Bisacodyl (Dulcolax) 10 mg RECTALLY DAILY PRN PRN Reason: Constipation Last Admin: 07/24/17 17:28 Dose: 10 mg Bisacodyl (Dulcolax) 10 mg PO DAILY PRN PRN Reason: Constipation Last Admin: 08/09/17 13:14 Dose: 10 mg Haloperidol (Haldol) 0.5 mg PO Q6H PRN PRN Reason: Extreme agitation Haloperidol (Haldol) 1 mg PO BID [facility] Last Admin: 08/10/17 09:05 Dose: 1 mg Haloperidol Decanoate (Haldol Liquid) 1 mg PO BID PRN PRN Reason: IF PT REQUESTS LIQUID Last Admin: 08/05/17 20:05 Dose: 1 mg Haloperidol Lactate (Haldol) 0.5 mg IM Q6H PRN PRN Reason: Extreme agitation Haloperidol Lactate (Haldol) 1 mg IM BID PRN PRN Reason: If patient refuses PO Last Admin: 08/02/17 09:33 Dose: 1 mg Lorazepam (Ativan) 0.5 mg PO Q6H PRN PRN Reason: Extreme agitation Last Admin: 07/22/17 14:10 Dose: 0.5 mg Lorazepam (Ativan Inj) 0.5 mg IM Q6H PRN PRN Reason: Extreme agitation Megestrol Acetate (Megace) 400 mg PO DAILY [facility] Last Admin: 08/10/17 09:15 Dose: Not Given Subjective: Patient seen and chart reviewed. Nursing reports pt remains paranoid and delusional. Sleeping well and appetite is fair. Did take her meds with some reassurance. On face to face the pt states she is doing well. She is slow to respond and continues to talk about staff poisoning the food and drinks. Denies S/I. Start Time: 09:30 Stop Time: 09:45 Mental Status Exam Vitals: Last Vital Signs Temp 97.4 F 08/10/17 08:00 Pulse 89 08/10/17 08:00 Resp 20 08/10/17 08:00 BP 126/76 08/10/17 08:00 Pulse Ox 100 08/10/17 08:00 Height: 1.65 m Weight: 53.8 kg - Mental Status Exam Muscle Strength/Tone: Normal (with scheduled Cogentin) Dressing: Casual Grooming: Fair Attitude: Suspicious, Other (more cooperative than previously) Motor Activity: Retardation Eye Contact: Fair Speech: Slowed Volume: Soft Rhythm: Appropriate Rhythm Orientation: Disoriented to situation, Oriented to person, Oriented to place, Oriented to time (Month and year only) Mood: Other (Reporst mood is "not good," Restricted affect but less hostile today) Rate of Thoughts: Delayed Thought Organization: Perseverations (on being poisoned), [place] Associations: Illogical Abstract Reasoning: Poor abstract reasoning Thought Content: Delusions, Paranoia Perception/Psychotic: Psychotic Current Hallucinations: Auditory (continues to endorse; non-command) Language: Naming Impaired Fund of Knowledge: Poor fund of knowledge (will not participate in [place] - last documented [place] in October 2016) Memory: Poor-immediate Suicidal Ideation: Denies Homicidal Ideation: Denies Insight: Poor Judgement: Poor Impulse Control: Fair - Laboratory Result Diagrams: 08/05/17 06:18 08/08/17 05:47 Assessment and Plan (1) Major neurocognitive disorder Problem details: with behavioral disturbance, Alzheimer's, moderate severity Current visit: Yes Status: Acute Hospital Course Summary Disclaimer: The visit summary below is not to be considered part of the above Progress Note. Hospital Course: 07/20/17 11:57 07/20/17 Admit to [facility] under the care of psychiatry for evaluation and management of her mental health concerns. She is safe for unit activities. Continue Keflex for UTI. I have reviewed [facility] records- Urine culture not resulted. BP is mildly high- monitor for now. Given LE mild edema, we could consider gentle diuresis. No documented hx of HF. She is currently refusing PO meds- she did get a dose of Ceftriaxone at - we may need to change to injectable if she does not take the medication. We will plan to recheck Saturday. Will continue to follow with you. Thank you for the Consult. 07/21/17 11:29 Pt remains paranoid and delusional. Will start Haldol 0.5mg PO BID. 07/22/17 Psych: Continue Haldol 0.5mg PO BID. Discussed risks/benefits with and obtained informed consent to continue Haldol, which she has tolerated well before. Discussed with giving injections to ensure adherence and he agreed to give IM Haldol if patient refuses PO. Hospitalist treating UTI as above. Have asked nursing to provide prepackaged food/drink as available to ensure adequate PO intake and prevent dehydration. Monitor mood, behavior and response to treatment. 07/23/17 Psych: Continue current care with mouth checks and giving patient option between PO and IM antipsychotic. Monitor symptoms as patient is adherent with psychotropic meds. Continue steps to minimize risk of dehydration. 07/24/17 Psych: Have asked nursing staff to ensure IM administration of Haldol if patient refuses and to give make-up dose for missed dose this morning. May consider increasing total daily dose of Haldol tomorrow. Will discuss possible IM antibiotics with hospitalist as patient is refusing PO. 07/25/17 Psych: Need to ensure patient is eating/drinking adequately and make effort to provide as much prepackaged food as possible while she reliably gets Haldol (IM if PO refused). Hospitalist is not planning further antibiotic treatment. Monitor mood, behavior and response to treatment. 07/26/17 Psych: Patient has increased PO intake and is now eating some foods that are not prepackaged, which shows me Haldol is effective. Continue mouth checks and IM injections if necessary. Continue to monitor symptoms and may increase Haldol over weekend as she was previously stabilized on a total of 1.5mg daily. 07/27/17 Psych: Patient improving overall and increasing PO intake, not as perseverative/delusional on unit though continues to be with me. Will plan to increase Haldol tomorrow. 07/28/17 Psych: Increase Haldol to 0.5mg in AM and 1mg at HS; patient to be given IM meds if she refuses PO. Monitor mood, behavior and response. 07/29/17 Psych: Will give Cogentin 0.5mg PO x1 now to see if possible EPS resolves. Continue current care otherwise in the time being. If does have EPS, will need to decide whether to add concomitant Cogentin or change to 2nd generation antipsychotic. 07/30/17 Psych: Will again challenge with Cogentin and decide whether 2nd generation antipsychotic may be appropriate; will review all other possible medical records re: previous diagnoses, treatment. 07/31/17 Psych: Will continue current antipsychotic dose as still requiring IM at times though 2nd generation would be preferable if she were willingly adherent. Family has asked that we not put medications in food. Will schedule Cogentin 0.5mg PO BID and monitor for EPS. Will check EKG to monitor QTc for the time being. Patient improving as evidenced by willingness to eat some and engage more during interview, but progress is slow. Dose limited by possible EPS right now. 08/01/17 Psych: Increase Haldol to 1mg PO BID. Patient to be given IM if refuses PO. Will f/u on EKG ordered 07/31. 08/02/17 Psych: Continue Haldol 1mg PO BID as well as Cogentin 0.5mg PO BID due to EPS. Patient to be given IM if refuses PO. 08/03/17 10:23 Remains paranoid with poor appetite. Continue current care 08/04/17 10:43 Pt remains paranoid with poor appetite. Continue current care 08/04/17 17:05 Patient continues to have fairly significant HTN. Will start low dose metoprolol- unsure if she will take, It appears she may have a UTI, but urine is not a good clean catch. Will order another UA to confirm. She remains paranoid. Weight continues to trend down- encourage PO intake. Repeat labs in AM. 08/05/17 17:24 Eating better but remains paranoid. Continue current care 08/06/17 16:46 Remains paranoid. Continue current care 08/07/17 19:55 Remains paranoid. Continue Haldol 08/08/17 19:39 Pt remains paranoid. I do not want to increase Haldol at this time due to fear of increased EPS but will continue Haldol due to fear of compliance issues. Recommend Second Generation antipsychotic when compliance issues improve and as an OP 08/09/17 18:24 Continue current care 08/10/17 10:59 Pt remains paranoid. Continue current care
[2017-08-11] MEDS: BENZTROPINE 1 MG TABLET PO SCH ×2 (09:25→19:46)
[2017-08-11] MEDS: HALOPERIDOL 1 MG TABLET PO SCH ×2 (09:25→19:46)
[2017-08-11] MEDS: AMLODIPINE 2.5 MG TABLET PO SCH (09:25)
[2017-08-11] MEDS: MEGESTROL 800mg/20ml ORAL LIQUID PO SCH (09:26)
--- NOTE | 2017-08-11 11:57 | Neuropsych Progress Note ---
[facility] Subjective Date: 08/11/17 - Sujective/Severity of Illness Medications: Acetaminophen (Tylenol) 325 - 650 mg PO Q5H PRN PRN Reason: Discomfort Amlodipine Besylate (Norvasc) 2.5 mg PO DAILY [facility] Last Admin: 08/11/17 09:25 Dose: 2.5 mg Benztropine Mesylate (Cogentin) 0.5 mg PO BID [facility] Last Admin: 08/11/17 09:25 Dose: 0.5 mg Bisacodyl (Dulcolax) 10 mg RECTALLY DAILY PRN PRN Reason: Constipation Last Admin: 07/24/17 17:28 Dose: 10 mg Bisacodyl (Dulcolax) 10 mg PO DAILY PRN PRN Reason: Constipation Last Admin: 08/09/17 13:14 Dose: 10 mg Haloperidol (Haldol) 0.5 mg PO Q6H PRN PRN Reason: Extreme agitation Haloperidol (Haldol) 1 mg PO BID [facility] Last Admin: 08/11/17 09:25 Dose: 1 mg Haloperidol Decanoate (Haldol Liquid) 1 mg PO BID PRN PRN Reason: IF PT REQUESTS LIQUID Last Admin: 08/05/17 20:05 Dose: 1 mg Haloperidol Lactate (Haldol) 0.5 mg IM Q6H PRN PRN Reason: Extreme agitation Haloperidol Lactate (Haldol) 1 mg IM BID PRN PRN Reason: If patient refuses PO Last Admin: 08/02/17 09:33 Dose: 1 mg Lorazepam (Ativan) 0.5 mg PO Q6H PRN PRN Reason: Extreme agitation Last Admin: 07/22/17 14:10 Dose: 0.5 mg Lorazepam (Ativan Inj) 0.5 mg IM Q6H PRN PRN Reason: Extreme agitation Megestrol Acetate (Megace) 400 mg PO DAILY [facility] Last Admin: 08/11/17 09:26 Dose: Not Given Subjective: Patient seen and chart reviewed. Nursing reports pt remains paranoid and delusional but is sleeping well and no behaviors noted. Family has been bringing in meals and she is eating well. On face to face the pt is guarded. She states she is doingwell. She is slow to respond to questions. Denies S/I. Tolerating meds Start Time: 11:15 Stop Time: 11:30 Mental Status Exam Vitals: Last Vital Signs Temp 98.2 F 08/10/17 20:49 Pulse 84 08/11/17 08:00 Resp 18 08/11/17 08:00 BP 126/54 08/11/17 08:00 Pulse Ox 99 08/11/17 08:00 Height: 1.65 m Weight: 54.3 kg - Mental Status Exam Muscle Strength/Tone: Normal (with scheduled Cogentin) Dressing: Casual Grooming: Fair Attitude: Suspicious, Other (more cooperative than previously) Motor Activity: Retardation Eye Contact: Fair Speech: Slowed Volume: Soft Rhythm: Appropriate Rhythm Orientation: Disoriented to situation, Oriented to person, Oriented to place, Oriented to time (Month and year only) Mood: Other (Reporst mood is "not good," Restricted affect but less hostile today) Rate of Thoughts: Delayed Thought Organization: Perseverations (on being poisoned), [place] Associations: Illogical Abstract Reasoning: Poor abstract reasoning Thought Content: Delusions, Paranoia Perception/Psychotic: Psychotic Current Hallucinations: Auditory (continues to endorse; non-command) Language: Naming Impaired Fund of Knowledge: Poor fund of knowledge (will not participate in [place] - last documented [facility] in October 2016) Memory: Poor-immediate Suicidal Ideation: Denies Homicidal Ideation: Denies Insight: Poor Judgement: Poor Impulse Control: Fair - Laboratory Result Diagrams: 08/05/17 06:18 08/08/17 05:47 Assessment and Plan (1) Major neurocognitive disorder Problem details: with behavioral disturbance, Alzheimer's, moderate severity Current visit: Yes Status: Acute Hospital Course Summary Disclaimer: The visit summary below is not to be considered part of the above Progress Note. Hospital Course: 07/20/17 11:57 07/20/17 Admit to [facility] under the care of psychiatry for evaluation and management of her mental health concerns. She is safe for unit activities. Continue Keflex for UTI. I have reviewed [facility] records- Urine culture not resulted. BP is mildly high- monitor for now. Given LE mild edema, we could consider gentle diuresis. No documented hx of HF. She is currently refusing PO meds- she did get a dose of Ceftriaxone at - we may need to change to injectable if she does not take the medication. We will plan to recheck Saturday. Will continue to follow with you. Thank you for the Consult. 07/21/17 11:29 Pt remains paranoid and delusional. Will start Haldol 0.5mg PO BID. 07/22/17 Psych: Continue Haldol 0.5mg PO BID. Discussed risks/benefits with and obtained informed consent to continue Haldol, which she has tolerated well before. Discussed with giving injections to ensure adherence and he agreed to give IM Haldol if patient refuses PO. Hospitalist treating UTI as above. Have asked nursing to provide prepackaged food/drink as available to ensure adequate PO intake and prevent dehydration. Monitor mood, behavior and response to treatment. 07/23/17 Psych: Continue current care with mouth checks and giving patient option between PO and IM antipsychotic. Monitor symptoms as patient is adherent with psychotropic meds. Continue steps to minimize risk of dehydration. 07/24/17 Psych: Have asked nursing staff to ensure IM administration of Haldol if patient refuses and to give make-up dose for missed dose this morning. May consider increasing total daily dose of Haldol tomorrow. Will discuss possible IM antibiotics with hospitalist as patient is refusing PO. 07/25/17 Psych: Need to ensure patient is eating/drinking adequately and make effort to provide as much prepackaged food as possible while she reliably gets Haldol (IM if PO refused). Hospitalist is not planning further antibiotic treatment. Monitor mood, behavior and response to treatment. 07/26/17 Psych: Patient has increased PO intake and is now eating some foods that are not prepackaged, which shows me Haldol is effective. Continue mouth checks and IM injections if necessary. Continue to monitor symptoms and may increase Haldol over weekend as she was previously stabilized on a total of 1.5mg daily. 07/27/17 Psych: Patient improving overall and increasing PO intake, not as perseverative/delusional on unit though continues to be with me. Will plan to increase Haldol tomorrow. 07/28/17 Psych: Increase Haldol to 0.5mg in AM and 1mg at HS; patient to be given IM meds if she refuses PO. Monitor mood, behavior and response. 07/29/17 Psych: Will give Cogentin 0.5mg PO x1 now to see if possible EPS resolves. Continue current care otherwise in the time being. If does have EPS, will need to decide whether to add concomitant Cogentin or change to 2nd generation antipsychotic. 07/30/17 Psych: Will again challenge with Cogentin and decide whether 2nd generation antipsychotic may be appropriate; will review all other possible medical records re: previous diagnoses, treatment. 07/31/17 Psych: Will continue current antipsychotic dose as still requiring IM at times though 2nd generation would be preferable if she were willingly adherent. Family has asked that we not put medications in food. Will schedule Cogentin 0.5mg PO BID and monitor for EPS. Will check EKG to monitor QTc for the time being. Patient improving as evidenced by willingness to eat some and engage more during interview, but progress is slow. Dose limited by possible EPS right now. 08/01/17 Psych: Increase Haldol to 1mg PO BID. Patient to be given IM if refuses PO. Will f/u on EKG ordered 07/31. 08/02/17 Psych: Continue Haldol 1mg PO BID as well as Cogentin 0.5mg PO BID due to EPS. Patient to be given IM if refuses PO. 08/03/17 10:23 Remains paranoid with poor appetite. Continue current care 08/04/17 10:43 Pt remains paranoid with poor appetite. Continue current care 08/04/17 17:05 Patient continues to have fairly significant HTN. Will start low dose metoprolol- unsure if she will take, It appears she may have a UTI, but urine is not a good clean catch. Will order another UA to confirm. She remains paranoid. Weight continues to trend down- encourage PO intake. Repeat labs in AM. 08/05/17 17:24 Eating better but remains paranoid. Continue current care 08/06/17 16:46 Remains paranoid. Continue current care 08/07/17 19:55 Remains paranoid. Continue Haldol 08/08/17 19:39 Pt remains paranoid. I do not want to increase Haldol at this time due to fear of increased EPS but will continue Haldol due to fear of compliance issues. Recommend Second Generation antipsychotic when compliance issues improve and as an OP 08/09/17 18:24 Continue current care 08/10/17 10:59 Pt remains paranoid. Continue current care 08/11/17 11:57 Remains paranoid. Continue Haldol and will look to switch to second generation when compliance improves
[2017-08-12] MEDS: HALOPERIDOL 1 MG TABLET PO SCH ×3 (05:41→19:54)
[2017-08-12] MEDS: BENZTROPINE 1 MG TABLET PO SCH ×3 (05:41→19:54)
[2017-08-12] MEDS: MEGESTROL 800mg/20ml ORAL LIQUID PO SCH (08:22)
[2017-08-12] MEDS: AMLODIPINE 2.5 MG TABLET PO SCH (08:22)
--- NOTE | 2017-08-12 18:59 | Neuropsych Progress Note ---
[facility] Subjective Date: 08/12/17 - Sujective/Severity of Illness Medications: Acetaminophen (Tylenol) 325 - 650 mg PO Q5H PRN PRN Reason: Discomfort Amlodipine Besylate (Norvasc) 2.5 mg PO DAILY [facility] Last Admin: 08/12/17 08:22 Dose: 2.5 mg Benztropine Mesylate (Cogentin) 0.5 mg PO BID [facility] Last Admin: 08/12/17 08:22 Dose: 0.5 mg Bisacodyl (Dulcolax) 10 mg RECTALLY DAILY PRN PRN Reason: Constipation Last Admin: 07/24/17 17:28 Dose: 10 mg Bisacodyl (Dulcolax) 10 mg PO DAILY PRN PRN Reason: Constipation Last Admin: 08/09/17 13:14 Dose: 10 mg Haloperidol (Haldol) 0.5 mg PO Q6H PRN PRN Reason: Extreme agitation Haloperidol (Haldol) 1 mg PO BID [facility] Last Admin: 08/12/17 08:22 Dose: 1 mg Haloperidol Decanoate (Haldol Liquid) 1 mg PO BID PRN PRN Reason: IF PT REQUESTS LIQUID Last Admin: 08/05/17 20:05 Dose: 1 mg Haloperidol Lactate (Haldol) 0.5 mg IM Q6H PRN PRN Reason: Extreme agitation Haloperidol Lactate (Haldol) 1 mg IM BID PRN PRN Reason: If patient refuses PO Last Admin: 08/02/17 09:33 Dose: 1 mg Lorazepam (Ativan) 0.5 mg PO Q6H PRN PRN Reason: Extreme agitation Last Admin: 07/22/17 14:10 Dose: 0.5 mg Lorazepam (Ativan Inj) 0.5 mg IM Q6H PRN PRN Reason: Extreme agitation Megestrol Acetate (Megace) 400 mg PO DAILY [facility] Last Admin: 08/12/17 08:22 Dose: 400 mg Subjective: Patient seen and chart reviewed. Nursing reports pt remains paranoid but did eat better today with some reassurance. Has done well on the unit. On face to face the pt appears a little brighter today and her speech is more spontaneous. She remains guarded but voices no concerns. Tolerating meds Start Time: 17:30 Stop Time: 17:45 Mental Status Exam Vitals: Last Vital Signs Temp 96.9 F 08/12/17 15:53 Pulse 86 08/12/17 15:53 Resp 16 08/12/17 15:53 BP 142/67 H 08/12/17 15:53 Pulse Ox 100 08/12/17 15:53 Height: 1.65 m Weight: 54.3 kg - Mental Status Exam Muscle Strength/Tone: Normal (with scheduled Cogentin) Dressing: Casual Grooming: Fair Attitude: Suspicious, Other (more cooperative than previously) Motor Activity: Retardation Eye Contact: Fair Speech: Slowed Volume: Soft Rhythm: Appropriate Rhythm Orientation: Disoriented to situation, Oriented to person, Oriented to place, Oriented to time (Month and year only) Mood: Other (Reporst mood is "not good," Restricted affect but less hostile today) Rate of Thoughts: Delayed Thought Organization: Perseverations (on being poisoned), [place] Associations: Illogical Abstract Reasoning: Poor abstract reasoning Thought Content: Delusions, Paranoia Perception/Psychotic: Psychotic Current Hallucinations: Auditory (continues to endorse; non-command) Language: Naming Impaired Fund of Knowledge: Poor fund of knowledge (will not participate in [employer] - last documented [employer] in October 2016) Memory: Poor-immediate Suicidal Ideation: Denies Homicidal Ideation: Denies Insight: Poor Judgement: Poor Impulse Control: Fair - Laboratory Result Diagrams: 08/12/17 06:59 08/08/17 05:47 Laboratory Results - last 24 hr 08/12/17 06:59 WBC 4.9 RBC 3.71 L Hgb 11.1 L Hct 34.1 L MCV 91.9 MCH 29.9 MCHC 32.6 RDW Std Deviation 46.9 Plt Count 176 MPV 10.3 Immature Gran % (Auto) 0.2 Neut % (Auto) 48.6 Lymph % (Auto) 32.3 [place] % (Auto) 14.0 H Eos % (Auto) 3.7 Baso % (Auto) 1.2 Neut # (Auto) 2.4 Lymph # (Auto) 1.6 [place] # (Auto) 0.7 Eos # (Auto) 0.2 Baso # (Auto) 0.1 Abs Immat Gran (auto) 0.01 Assessment and Plan (1) Major neurocognitive disorder Problem details: with behavioral disturbance, Alzheimer's, moderate severity Current visit: Yes Status: Acute Hospital Course Summary Disclaimer: The visit summary below is not to be considered part of the above Progress Note. Hospital Course: 07/20/17 11:57 07/20/17 Admit to [facility] under the care of psychiatry for evaluation and management of her mental health concerns. She is safe for unit activities. Continue Keflex for UTI. I have reviewed [facility] records- Urine culture not resulted. BP is mildly high- monitor for now. Given LE mild edema, we could consider gentle diuresis. No documented hx of HF. She is currently refusing PO meds- she did get a dose of Ceftriaxone at - we may need to change to injectable if she does not take the medication. We will plan to recheck Saturday. Will continue to follow with you. Thank you for the Consult. 07/21/17 11:29 Pt remains paranoid and delusional. Will start Haldol 0.5mg PO BID. 07/22/17 Psych: Continue Haldol 0.5mg PO BID. Discussed risks/benefits with and obtained informed consent to continue Haldol, which she has tolerated well before. Discussed with giving injections to ensure adherence and he agreed to give IM Haldol if patient refuses PO. Hospitalist treating UTI as above. Have asked nursing to provide prepackaged food/drink as available to ensure adequate PO intake and prevent dehydration. Monitor mood, behavior and response to treatment. 07/23/17 Psych: Continue current care with mouth checks and giving patient option between PO and IM antipsychotic. Monitor symptoms as patient is adherent with psychotropic meds. Continue steps to minimize risk of dehydration. 07/24/17 Psych: Have asked nursing staff to ensure IM administration of Haldol if patient refuses and to give make-up dose for missed dose this morning. May consider increasing total daily dose of Haldol tomorrow. Will discuss possible IM antibiotics with hospitalist as patient is refusing PO. 07/25/17 Psych: Need to ensure patient is eating/drinking adequately and make effort to provide as much prepackaged food as possible while she reliably gets Haldol (IM if PO refused). Hospitalist is not planning further antibiotic treatment. Monitor mood, behavior and response to treatment. 07/26/17 Psych: Patient has increased PO intake and is now eating some foods that are not prepackaged, which shows me Haldol is effective. Continue mouth checks and IM injections if necessary. Continue to monitor symptoms and may increase Haldol over weekend as she was previously stabilized on a total of 1.5mg daily. 07/27/17 Psych: Patient improving overall and increasing PO intake, not as perseverative/delusional on unit though continues to be with me. Will plan to increase Haldol tomorrow. 07/28/17 Psych: Increase Haldol to 0.5mg in AM and 1mg at HS; patient to be given IM meds if she refuses PO. Monitor mood, behavior and response. 07/29/17 Psych: Will give Cogentin 0.5mg PO x1 now to see if possible EPS resolves. Continue current care otherwise in the time being. If does have EPS, will need to decide whether to add concomitant Cogentin or change to 2nd generation antipsychotic. 07/30/17 Psych: Will again challenge with Cogentin and decide whether 2nd generation antipsychotic may be appropriate; will review all other possible medical records re: previous diagnoses, treatment. 07/31/17 Psych: Will continue current antipsychotic dose as still requiring IM at times though 2nd generation would be preferable if she were willingly adherent. Family has asked that we not put medications in food. Will schedule Cogentin 0.5mg PO BID and monitor for EPS. Will check EKG to monitor QTc for the time being. Patient improving as evidenced by willingness to eat some and engage more during interview, but progress is slow. Dose limited by possible EPS right now. 08/01/17 Psych: Increase Haldol to 1mg PO BID. Patient to be given IM if refuses PO. Will f/u on EKG ordered 07/31. 08/02/17 Psych: Continue Haldol 1mg PO BID as well as Cogentin 0.5mg PO BID due to EPS. Patient to be given IM if refuses PO. 08/03/17 10:23 Remains paranoid with poor appetite. Continue current care 08/04/17 10:43 Pt remains paranoid with poor appetite. Continue current care 08/04/17 17:05 Patient continues to have fairly significant HTN. Will start low dose metoprolol- unsure if she will take, It appears she may have a UTI, but urine is not a good clean catch. Will order another UA to confirm. She remains paranoid. Weight continues to trend down- encourage PO intake. Repeat labs in AM. 08/05/17 17:24 Eating better but remains paranoid. Continue current care 08/06/17 16:46 Remains paranoid. Continue current care 08/07/17 19:55 Remains paranoid. Continue Haldol 08/08/17 19:39 Pt remains paranoid. I do not want to increase Haldol at this time due to fear of increased EPS but will continue Haldol due to fear of compliance issues. Recommend Second Generation antipsychotic when compliance issues improve and as an OP 08/09/17 18:24 Continue current care 08/10/17 10:59 Pt remains paranoid. Continue current care 08/11/17 11:57 Remains paranoid. Continue Haldol and will look to switch to second generation when compliance improves 08/12/17 18:58 Remains paranoid but slightly improved today. Continue current care
[2017-08-13] MEDS: BENZTROPINE 1 MG TABLET PO SCH ×3 (06:37→20:11)
[2017-08-13] MEDS: HALOPERIDOL 1 MG TABLET PO SCH ×3 (06:37→20:11)
[2017-08-13] MEDS: AMLODIPINE 2.5 MG TABLET PO SCH (08:38)
[2017-08-13] MEDS: MEGESTROL 800mg/20ml ORAL LIQUID PO SCH (08:41)
--- NOTE | 2017-08-13 10:43 | Progress Note ---
- Date 08/13/17 Subjective: Patient was resting in bed but opened her eyes and said "Good Morning" when I entered the room. She did not say anything further. She was in no acute distress. She slept well last night and has been cooperative with cares. Oral intake is variable. Nursing staff deny seeing any new urinary symptoms such as urgency, complaints of burning, or frequency. She has a history of hesitancy. Objective Vital signs: Temperature 97.1 F 08/13/17 08:00 Pulse Rate 99 08/13/17 08:00 Respiratory Rate 16 08/13/17 08:00 Blood Pressure 156/72 H 08/13/17 08:00 Pulse Oximetry 99 08/13/17 08:00 Height/Weight/BMI: Height 1.65 m Weight 54.3 kg Body Mass Index 20.2 - Constitutional Present: no acute distress - Routine HEENT Exam ENT: Present: mucous membranes dry - Routine Respiratory Exam Present: CTA bilaterally - Routine Cardiovascular Exam Present: RRR, S1, S2 - Routine Abdominal Exam Present: soft, normoactive bowel sounds, non distended, non tender - Routine Extremities Exam Present: no edema - Routine Skin Exam Present: intact, dry, warm - Routine Neurological Exam Present: alert - Routine Psychiatric Exam Present: cooperative Results - Labs CBC & Chem 7: 08/12/17 06:59 08/08/17 05:47 Assessment and Plan (1) Dementia with behavioral disturbance Current visit: Yes Status: Acute (2) Paranoia Current visit: Yes Status: Acute (3) Auditory hallucinations Current visit: Yes Status: Acute (4) Insomnia Current visit: Yes Status: Chronic (5) UTI (urinary tract infection) Current visit: Yes Status: Acute Assessment and Plan: Impression Dementia with behavioral disturbance Paranoia Auditory hallucinations Hypertension Insomnia Mild normocytic anemia Plan BP is moderately elevated but improved from earlier in hospitalization. Continue low-dose amlodipine. No urinary sx [place] [facility] [place]. Weight is increasing since starting Megace. Recent labs are stable - hgb slightly low at 11.1. Dr. Pleitez's notes reviewed - continue Haldol; paranoia slightly improved. Hospital Course Summary Disclaimer: The visit summary below is not to be considered part of the above Progress Note. Hospital Course: 07/20/17 11:57 07/20/17 Admit to [facility] under the care of psychiatry for evaluation and management of her mental health concerns. She is safe for unit activities. Continue Keflex for UTI. I have reviewed [facility] records- Urine culture not resulted. BP is mildly high- monitor for now. Given LE mild edema, we could consider gentle diuresis. No documented hx of HF. She is currently refusing PO meds- she did get a dose of Ceftriaxone at - we may need to change to injectable if she does not take the medication. We will plan to recheck Saturday. Will continue to follow with you. Thank you for the Consult. 07/21/17 11:29 Pt remains paranoid and delusional. Will start Haldol 0.5mg PO BID. 07/22/17 Psych: Continue Haldol 0.5mg PO BID. Discussed risks/benefits with and obtained informed consent to continue Haldol, which she has tolerated well before. Discussed with giving injections to ensure adherence and he agreed to give IM Haldol if patient refuses PO. Hospitalist treating UTI as above. Have asked nursing to provide prepackaged food/drink as available to ensure adequate PO intake and prevent dehydration. Monitor mood, behavior and response to treatment. 07/23/17 Psych: Continue current care with mouth checks and giving patient option between PO and IM antipsychotic. Monitor symptoms as patient is adherent with psychotropic meds. Continue steps to minimize risk of dehydration. 07/24/17 Psych: Have asked nursing staff to ensure IM administration of Haldol if patient refuses and to give make-up dose for missed dose this morning. May consider increasing total daily dose of Haldol tomorrow. Will discuss possible IM antibiotics with hospitalist as patient is refusing PO. 07/25/17 Psych: Need to ensure patient is eating/drinking adequately and make effort to provide as much prepackaged food as possible while she reliably gets Haldol (IM if PO refused). Hospitalist is not planning further antibiotic treatment. Monitor mood, behavior and response to treatment. 07/26/17 Psych: Patient has increased PO intake and is now eating some foods that are not prepackaged, which shows me Haldol is effective. Continue mouth checks and IM injections if necessary. Continue to monitor symptoms and may increase Haldol over weekend as she was previously stabilized on a total of 1.5mg daily. 07/27/17 Psych: Patient improving overall and increasing PO intake, not as perseverative/delusional on unit though continues to be with me. Will plan to increase Haldol tomorrow. 07/28/17 Psych: Increase Haldol to 0.5mg in AM and 1mg at HS; patient to be given IM meds if she refuses PO. Monitor mood, behavior and response. 07/29/17 Psych: Will give Cogentin 0.5mg PO x1 now to see if possible EPS resolves. Continue current care otherwise in the time being. If does have EPS, will need to decide whether to add concomitant Cogentin or change to 2nd generation antipsychotic. 07/30/17 Psych: Will again challenge with Cogentin and decide whether 2nd generation antipsychotic may be appropriate; will review all other possible medical records re: previous diagnoses, treatment. 07/31/17 Psych: Will continue current antipsychotic dose as still requiring IM at times though 2nd generation would be preferable if she were willingly adherent. Family has asked that we not put medications in food. Will schedule Cogentin 0.5mg PO BID and monitor for EPS. Will check EKG to monitor QTc for the time being. Patient improving as evidenced by willingness to eat some and engage more during interview, but progress is slow. Dose limited by possible EPS right now. 08/01/17 Psych: Increase Haldol to 1mg PO BID. Patient to be given IM if refuses PO. Will f/u on EKG ordered 07/31. 08/02/17 Psych: Continue Haldol 1mg PO BID as well as Cogentin 0.5mg PO BID due to EPS. Patient to be given IM if refuses PO. 08/03/17 10:23 Remains paranoid with poor appetite. Continue current care 08/04/17 10:43 Pt remains paranoid with poor appetite. Continue current care 08/04/17 17:05 Patient continues to have fairly significant HTN. Will start low dose metoprolol- unsure if she will take, It appears she may have a UTI, but urine is not a good clean catch. Will order another UA to confirm. She remains paranoid. Weight continues to trend down- encourage PO intake. Repeat labs in AM. 08/05/17 17:24 Eating better but remains paranoid. Continue current care 08/06/17 16:46 Remains paranoid. Continue current care 08/07/17 19:55 Remains paranoid. Continue Haldol 08/08/17 19:39 Pt remains paranoid. I do not want to increase Haldol at this time due to fear of increased EPS but will continue Haldol due to fear of compliance issues. Recommend Second Generation antipsychotic when compliance issues improve and as an OP 08/09/17 18:24 Continue current care 08/10/17 10:59 Pt remains paranoid. Continue current care 08/11/17 11:57 Remains paranoid. Continue Haldol and will look to switch to second generation when compliance improves 08/12/17 18:58 Remains paranoid but slightly improved today. Continue current care 08/13/17 BP is moderately elevated but improved from earlier in hospitalization. Continue low-dose amlodipine. No urinary sx per [facility] staff. Weight is increasing since starting Megace. Recent labs are stable - hgb slightly low at 11.1.
--- NOTE | 2017-08-13 18:56 | Neuropsych Progress Note ---
[facility] Subjective Date: 08/13/17 - Sujective/Severity of Illness Medications: Acetaminophen (Tylenol) 325 - 650 mg PO Q5H PRN PRN Reason: Discomfort Amlodipine Besylate (Norvasc) 2.5 mg PO DAILY [facility] Last Admin: 08/13/17 08:38 Dose: 2.5 mg Benztropine Mesylate (Cogentin) 0.5 mg PO BID [facility] Last Admin: 08/13/17 08:37 Dose: 0.5 mg Bisacodyl (Dulcolax) 10 mg RECTALLY DAILY PRN PRN Reason: Constipation Last Admin: 07/24/17 17:28 Dose: 10 mg Bisacodyl (Dulcolax) 10 mg PO DAILY PRN PRN Reason: Constipation Last Admin: 08/09/17 13:14 Dose: 10 mg Haloperidol (Haldol) 0.5 mg PO Q6H PRN PRN Reason: Extreme agitation Haloperidol (Haldol) 1 mg PO BID [facility] Last Admin: 08/13/17 08:37 Dose: 1 mg Haloperidol Decanoate (Haldol Liquid) 1 mg PO BID PRN PRN Reason: IF PT REQUESTS LIQUID Last Admin: 08/05/17 20:05 Dose: 1 mg Haloperidol Lactate (Haldol) 0.5 mg IM Q6H PRN PRN Reason: Extreme agitation Haloperidol Lactate (Haldol) 1 mg IM BID PRN PRN Reason: If patient refuses PO Last Admin: 08/02/17 09:33 Dose: 1 mg Lorazepam (Ativan) 0.5 mg PO Q6H PRN PRN Reason: Extreme agitation Last Admin: 07/22/17 14:10 Dose: 0.5 mg Lorazepam (Ativan Inj) 0.5 mg IM Q6H PRN PRN Reason: Extreme agitation Megestrol Acetate (Megace) 400 mg PO DAILY [facility] Last Admin: 08/13/17 08:41 Dose: Not Given Subjective: Patient seen and chart reviewed. Nursing reports pt remains paranoid but did eat better today. Has done well on the unit. On face to face the pt states she is feeling okay. She is pleasant but guarded. Denies feeling depressed. Denies S/I but remains paranoid Start Time: 18:00 Stop Time: 18:15 Mental Status Exam Vitals: Last Vital Signs Temp 98.7 F 08/13/17 16:00 Pulse 87 08/13/17 16:00 Resp 16 08/13/17 16:00 BP 143/58 H 08/13/17 16:00 Pulse Ox 98 08/13/17 16:00 Height: 1.65 m Weight: 54.3 kg - Mental Status Exam Muscle Strength/Tone: Normal (with scheduled Cogentin) Dressing: Casual Grooming: Fair Attitude: Suspicious, Other (more cooperative than previously) Motor Activity: Retardation Eye Contact: Fair Speech: Slowed Volume: Soft Rhythm: Appropriate Rhythm Orientation: Disoriented to situation, Oriented to person, Oriented to place, Oriented to time (Month and year only) Mood: Other (Reporst mood is "not good," Restricted affect but less hostile today) Rate of Thoughts: Delayed Thought Organization: Perseverations (on being poisoned), [place] Associations: Illogical Abstract Reasoning: Poor abstract reasoning Thought Content: Delusions, Paranoia Perception/Psychotic: Psychotic Current Hallucinations: Auditory (continues to endorse; non-command) Language: Naming Impaired Fund of Knowledge: Poor fund of knowledge (will not participate in [employer]unch - last documented [employer]Munch in October 2016) Memory: Poor-immediate Suicidal Ideation: Denies Homicidal Ideation: Denies Insight: Poor Judgement: Poor Impulse Control: Fair - Laboratory Result Diagrams: 08/12/17 06:59 08/08/17 05:47 Assessment and Plan (1) Major neurocognitive disorder Problem details: with behavioral disturbance, Alzheimer's, moderate severity Current visit: Yes Status: Acute Hospital Course Summary Disclaimer: The visit summary below is not to be considered part of the above Progress Note. Hospital Course: 07/20/17 11:57 07/20/17 Admit to [facility] under the care of psychiatry for evaluation and management of her mental health concerns. She is safe for unit activities. Continue Keflex for UTI. I have reviewed [facility] records- Urine culture not resulted. BP is mildly high- monitor for now. Given LE mild edema, we could consider gentle diuresis. No documented hx of HF. She is currently refusing PO meds- she did get a dose of Ceftriaxone at - we may need to change to injectable if she does not take the medication. We will plan to recheck Saturday. Will continue to follow with you. Thank you for the Consult. 07/21/17 11:29 Pt remains paranoid and delusional. Will start Haldol 0.5mg PO BID. 07/22/17 Psych: Continue Haldol 0.5mg PO BID. Discussed risks/benefits with and obtained informed consent to continue Haldol, which she has tolerated well before. Discussed with giving injections to ensure adherence and he agreed to give IM Haldol if patient refuses PO. Hospitalist treating UTI as above. Have asked nursing to provide prepackaged food/drink as available to ensure adequate PO intake and prevent dehydration. Monitor mood, behavior and response to treatment. 07/23/17 Psych: Continue current care with mouth checks and giving patient option between PO and IM antipsychotic. Monitor symptoms as patient is adherent with psychotropic meds. Continue steps to minimize risk of dehydration. 07/24/17 Psych: Have asked nursing staff to ensure IM administration of Haldol if patient refuses and to give make-up dose for missed dose this morning. May consider increasing total daily dose of Haldol tomorrow. Will discuss possible IM antibiotics with hospitalist as patient is refusing PO. 07/25/17 Psych: Need to ensure patient is eating/drinking adequately and make effort to provide as much prepackaged food as possible while she reliably gets Haldol (IM if PO refused). Hospitalist is not planning further antibiotic treatment. Monitor mood, behavior and response to treatment. 07/26/17 Psych: Patient has increased PO intake and is now eating some foods that are not prepackaged, which shows me Haldol is effective. Continue mouth checks and IM injections if necessary. Continue to monitor symptoms and may increase Haldol over weekend as she was previously stabilized on a total of 1.5mg daily. 07/27/17 Psych: Patient improving overall and increasing PO intake, not as perseverative/delusional on unit though continues to be with me. Will plan to increase Haldol tomorrow. 07/28/17 Psych: Increase Haldol to 0.5mg in AM and 1mg at HS; patient to be given IM meds if she refuses PO. Monitor mood, behavior and response. 07/29/17 Psych: Will give Cogentin 0.5mg PO x1 now to see if possible EPS resolves. Continue current care otherwise in the time being. If does have EPS, will need to decide whether to add concomitant Cogentin or change to 2nd generation antipsychotic. 07/30/17 Psych: Will again challenge with Cogentin and decide whether 2nd generation antipsychotic may be appropriate; will review all other possible medical records re: previous diagnoses, treatment. 07/31/17 Psych: Will continue current antipsychotic dose as still requiring IM at times though 2nd generation would be preferable if she were willingly adherent. Family has asked that we not put medications in food. Will schedule Cogentin 0.5mg PO BID and monitor for EPS. Will check EKG to monitor QTc for the time being. Patient improving as evidenced by willingness to eat some and engage more during interview, but progress is slow. Dose limited by possible EPS right now. 08/01/17 Psych: Increase Haldol to 1mg PO BID. Patient to be given IM if refuses PO. Will f/u on EKG ordered 07/31. 08/02/17 Psych: Continue Haldol 1mg PO BID as well as Cogentin 0.5mg PO BID due to EPS. Patient to be given IM if refuses PO. 08/03/17 10:23 Remains paranoid with poor appetite. Continue current care 08/04/17 10:43 Pt remains paranoid with poor appetite. Continue current care 08/04/17 17:05 Patient continues to have fairly significant HTN. Will start low dose metoprolol- unsure if she will take, It appears she may have a UTI, but urine is not a good clean catch. Will order another UA to confirm. She remains paranoid. Weight continues to trend down- encourage PO intake. Repeat labs in AM. 08/05/17 17:24 Eating better but remains paranoid. Continue current care 08/06/17 16:46 Remains paranoid. Continue current care 08/07/17 19:55 Remains paranoid. Continue Haldol 08/08/17 19:39 Pt remains paranoid. I do not want to increase Haldol at this time due to fear of increased EPS but will continue Haldol due to fear of compliance issues. Recommend Second Generation antipsychotic when compliance issues improve and as an OP 08/09/17 18:24 Continue current care 08/10/17 10:59 Pt remains paranoid. Continue current care 08/11/17 11:57 Remains paranoid. Continue Haldol and will look to switch to second generation when compliance improves 08/12/17 18:58 Remains paranoid but slightly improved today. Continue current care 08/13/17 BP is moderately elevated but improved from earlier in hospitalization. Continue low-dose amlodipine. No urinary sx per ns staff. Weight is increasing since starting Megace. Recent labs are stable - hgb slightly low at 11.1. 08/13/17 18:56 Remains paranoid. Continue current care
[2017-08-14] MEDS: BENZTROPINE 1 MG TABLET PO SCH ×2 (08:09→20:05)
[2017-08-14] MEDS: AMLODIPINE 2.5 MG TABLET PO SCH (08:09)
[2017-08-14] MEDS: MEGESTROL 800mg/20ml ORAL LIQUID PO SCH (08:14)
[2017-08-14] MEDS: HALOPERIDOL 1 MG TABLET PO SCH ×2 (08:14→20:05)
--- NOTE | 2017-08-14 18:06 | Neuropsych Progress Note ---
[facility] Subjective Date: 08/14/17 - Sujective/Severity of Illness Medications: Acetaminophen (Tylenol) 325 - 650 mg PO Q5H PRN PRN Reason: Discomfort Amlodipine Besylate (Norvasc) 2.5 mg PO DAILY [facility] Last Admin: 08/14/17 08:09 Dose: 2.5 mg Benztropine Mesylate (Cogentin) 0.5 mg PO BID [facility] Last Admin: 08/14/17 08:09 Dose: 0.5 mg Bisacodyl (Dulcolax) 10 mg RECTALLY DAILY PRN PRN Reason: Constipation Last Admin: 07/24/17 17:28 Dose: 10 mg Bisacodyl (Dulcolax) 10 mg PO DAILY PRN PRN Reason: Constipation Last Admin: 08/09/17 13:14 Dose: 10 mg Haloperidol (Haldol) 0.5 mg PO Q6H PRN PRN Reason: Extreme agitation Haloperidol (Haldol) 1 mg PO BID [facility] Last Admin: 08/14/17 08:14 Dose: 1 mg Haloperidol Decanoate (Haldol Liquid) 1 mg PO BID PRN PRN Reason: IF PT REQUESTS LIQUID Last Admin: 08/05/17 20:05 Dose: 1 mg Haloperidol Lactate (Haldol) 0.5 mg IM Q6H PRN PRN Reason: Extreme agitation Haloperidol Lactate (Haldol) 1 mg IM BID PRN PRN Reason: If patient refuses PO Last Admin: 08/02/17 09:33 Dose: 1 mg Lorazepam (Ativan) 0.5 mg PO Q6H PRN PRN Reason: Extreme agitation Last Admin: 07/22/17 14:10 Dose: 0.5 mg Lorazepam (Ativan Inj) 0.5 mg IM Q6H PRN PRN Reason: Extreme agitation Megestrol Acetate (Megace) 400 mg PO DAILY [facility] Last Admin: 08/14/17 08:14 Dose: 400 mg Subjective: Patient seen and chart reviewed. Nursing reports pt has eaten pretty well today and has talked less about being poisoned. On face to face the pt is pleasant but some what guarded. She remains paranoid but seems less focused on it. Denies S/I. Tolerating meds Start Time: 17:30 Stop Time: 17:45 Mental Status Exam Vitals: Last Vital Signs Temp 97.6 F 08/14/17 16:00 Pulse 81 08/14/17 16:00 Resp 22 08/14/17 16:00 BP 130/65 08/14/17 16:00 Pulse Ox 100 08/14/17 16:00 Height: 1.65 m Weight: 54.4 kg - Mental Status Exam Muscle Strength/Tone: Normal (with scheduled Cogentin) Dressing: Casual Grooming: Fair Attitude: Suspicious, Other (more cooperative than previously) Motor Activity: Retardation Eye Contact: Fair Speech: Slowed Volume: Soft Rhythm: Appropriate Rhythm Orientation: Disoriented to situation, Oriented to person, Oriented to place, Oriented to time (Month and year only) Mood: Other (Reporst mood is "not good," Restricted affect but less hostile today) Rate of Thoughts: Delayed Thought Organization: Perseverations (on being poisoned), [place] Associations: Illogical Abstract Reasoning: Poor abstract reasoning Thought Content: Delusions, Paranoia Perception/Psychotic: Psychotic Current Hallucinations: Auditory (continues to endorse; non-command) Language: Naming Impaired Fund of Knowledge: Poor fund of knowledge (will not participate in Workspace - last documented Workspace in October 2016) Memory: Poor-immediate Suicidal Ideation: Denies Homicidal Ideation: Denies Insight: Poor Judgement: Poor Impulse Control: Fair - Laboratory Result Diagrams: 08/12/17 06:59 08/08/17 05:47 Assessment and Plan (1) Major neurocognitive disorder Problem details: with behavioral disturbance, Alzheimer's, moderate severity Current visit: Yes Status: Acute Hospital Course Summary Disclaimer: The visit summary below is not to be considered part of the above Progress Note. Hospital Course: 07/20/17 11:57 07/20/17 Admit to [facility] under the care of psychiatry for evaluation and management of her mental health concerns. She is safe for unit activities. Continue Keflex for UTI. I have reviewed [facility] records- Urine culture not resulted. BP is mildly high- monitor for now. Given LE mild edema, we could consider gentle diuresis. No documented hx of HF. She is currently refusing PO meds- she did get a dose of Ceftriaxone at - we may need to change to injectable if she does not take the medication. We will plan to recheck Saturday. Will continue to follow with you. Thank you for the Consult. 07/21/17 11:29 Pt remains paranoid and delusional. Will start Haldol 0.5mg PO BID. 07/22/17 Psych: Continue Haldol 0.5mg PO BID. Discussed risks/benefits with and obtained informed consent to continue Haldol, which she has tolerated well before. Discussed with giving injections to ensure adherence and he agreed to give IM Haldol if patient refuses PO. Hospitalist treating UTI as above. Have asked nursing to provide prepackaged food/drink as available to ensure adequate PO intake and prevent dehydration. Monitor mood, behavior and response to treatment. 07/23/17 Psych: Continue current care with mouth checks and giving patient option between PO and IM antipsychotic. Monitor symptoms as patient is adherent with psychotropic meds. Continue steps to minimize risk of dehydration. 07/24/17 Psych: Have asked nursing staff to ensure IM administration of Haldol if patient refuses and to give make-up dose for missed dose this morning. May consider increasing total daily dose of Haldol tomorrow. Will discuss possible IM antibiotics with hospitalist as patient is refusing PO. 07/25/17 Psych: Need to ensure patient is eating/drinking adequately and make effort to provide as much prepackaged food as possible while she reliably gets Haldol (IM if PO refused). Hospitalist is not planning further antibiotic treatment. Monitor mood, behavior and response to treatment. 07/26/17 Psych: Patient has increased PO intake and is now eating some foods that are not prepackaged, which shows me Haldol is effective. Continue mouth checks and IM injections if necessary. Continue to monitor symptoms and may increase Haldol over weekend as she was previously stabilized on a total of 1.5mg daily. 07/27/17 Psych: Patient improving overall and increasing PO intake, not as perseverative/delusional on unit though continues to be with me. Will plan to increase Haldol tomorrow. 07/28/17 Psych: Increase Haldol to 0.5mg in AM and 1mg at HS; patient to be given IM meds if she refuses PO. Monitor mood, behavior and response. 07/29/17 Psych: Will give Cogentin 0.5mg PO x1 now to see if possible EPS resolves. Continue current care otherwise in the time being. If does have EPS, will need to decide whether to add concomitant Cogentin or change to 2nd generation antipsychotic. 07/30/17 Psych: Will again challenge with Cogentin and decide whether 2nd generation antipsychotic may be appropriate; will review all other possible medical records re: previous diagnoses, treatment. 07/31/17 Psych: Will continue current antipsychotic dose as still requiring IM at times though 2nd generation would be preferable if she were willingly adherent. Family has asked that we not put medications in food. Will schedule Cogentin 0.5mg PO BID and monitor for EPS. Will check EKG to monitor QTc for the time being. Patient improving as evidenced by willingness to eat some and engage more during interview, but progress is slow. Dose limited by possible EPS right now. 08/01/17 Psych: Increase Haldol to 1mg PO BID. Patient to be given IM if refuses PO. Will f/u on EKG ordered 07/31. 08/02/17 Psych: Continue Haldol 1mg PO BID as well as Cogentin 0.5mg PO BID due to EPS. Patient to be given IM if refuses PO. 08/03/17 10:23 Remains paranoid with poor appetite. Continue current care 08/04/17 10:43 Pt remains paranoid with poor appetite. Continue current care 08/04/17 17:05 Patient continues to have fairly significant HTN. Will start low dose metoprolol- unsure if she will take, It appears she may have a UTI, but urine is not a good clean catch. Will order another UA to confirm. She remains paranoid. Weight continues to trend down- encourage PO intake. Repeat labs in AM. 08/05/17 17:24 Eating better but remains paranoid. Continue current care 08/06/17 16:46 Remains paranoid. Continue current care 08/07/17 19:55 Remains paranoid. Continue Haldol 08/08/17 19:39 Pt remains paranoid. I do not want to increase Haldol at this time due to fear of increased EPS but will continue Haldol due to fear of compliance issues. Recommend Second Generation antipsychotic when compliance issues improve and as an OP 08/09/17 18:24 Continue current care 08/10/17 10:59 Pt remains paranoid. Continue current care 08/11/17 11:57 Remains paranoid. Continue Haldol and will look to switch to second generation when compliance improves 08/12/17 18:58 Remains paranoid but slightly improved today. Continue current care 08/13/17 BP is moderately elevated but improved from earlier in hospitalization. Continue low-dose amlodipine. No urinary sx per [facility] staff. Weight is increasing since starting Megace. Recent labs are stable - hgb slightly low at 11.1. 08/13/17 18:56 Remains paranoid. Continue current care 08/14/17 18:05 Remaisn paranoid but improved. Continue current care
[2017-08-15] MEDS: BENZTROPINE 1 MG TABLET PO SCH ×2 (08:43→19:55)
[2017-08-15] MEDS: HALOPERIDOL 1 MG TABLET PO SCH ×2 (08:43→19:55)
[2017-08-15] MEDS: AMLODIPINE 2.5 MG TABLET PO SCH (08:44)
[2017-08-15] MEDS: MEGESTROL 800mg/20ml ORAL LIQUID PO SCH (08:44)
--- NOTE | 2017-08-15 19:33 | Neuropsych Progress Note ---
[facility] Subjective Date: 08/15/17 - Sujective/Severity of Illness Medications: Acetaminophen (Tylenol) 325 - 650 mg PO Q5H PRN PRN Reason: Discomfort Amlodipine Besylate (Norvasc) 2.5 mg PO DAILY [facility] Last Admin: 08/15/17 08:44 Dose: 2.5 mg Benztropine Mesylate (Cogentin) 0.5 mg PO BID [facility] Last Admin: 08/15/17 08:43 Dose: 0.5 mg Bisacodyl (Dulcolax) 10 mg RECTALLY DAILY PRN PRN Reason: Constipation Last Admin: 07/24/17 17:28 Dose: 10 mg Bisacodyl (Dulcolax) 10 mg PO DAILY PRN PRN Reason: Constipation Last Admin: 08/09/17 13:14 Dose: 10 mg Haloperidol (Haldol) 0.5 mg PO Q6H PRN PRN Reason: Extreme agitation Haloperidol (Haldol) 1 mg PO BID [facility] Last Admin: 08/15/17 08:43 Dose: 1 mg Haloperidol Decanoate (Haldol Liquid) 1 mg PO BID PRN PRN Reason: IF PT REQUESTS LIQUID Last Admin: 08/05/17 20:05 Dose: 1 mg Haloperidol Lactate (Haldol) 0.5 mg IM Q6H PRN PRN Reason: Extreme agitation Haloperidol Lactate (Haldol) 1 mg IM BID PRN PRN Reason: If patient refuses PO Last Admin: 08/02/17 09:33 Dose: 1 mg Lorazepam (Ativan) 0.5 mg PO Q6H PRN PRN Reason: Extreme agitation Last Admin: 07/22/17 14:10 Dose: 0.5 mg Lorazepam (Ativan Inj) 0.5 mg IM Q6H PRN PRN Reason: Extreme agitation Megestrol Acetate (Megace) 400 mg PO DAILY [facility] Last Admin: 08/15/17 08:44 Dose: Not Given Subjective: Patient seen and chart reviewed. Nursing reports pt has eaten pretty well today and has appeared less paranoid. On face to face the pt appears brighter and voices no concerns. She is pleasant and has been out of her room more. Tolerating meds Start Time: 18:00 Stop Time: 18:15 Mental Status Exam Vitals: Last Vital Signs Temp 97.6 F 08/15/17 16:00 Pulse 85 10/26/17 16:00 Resp 16 08/15/17 16:00 BP 156/70 H 08/15/17 16:00 Pulse Ox 100 08/15/17 16:00 Height: 1.65 m Weight: 54.4 kg - Mental Status Exam Muscle Strength/Tone: Normal (with scheduled Cogentin) Dressing: Casual Grooming: Fair Attitude: Suspicious, Other (more cooperative than previously) Motor Activity: Retardation Eye Contact: Fair Speech: Slowed Volume: Soft Rhythm: Appropriate Rhythm Orientation: Disoriented to situation, Oriented to person, Oriented to place, Oriented to time (Month and year only) Mood: Other (Reporst mood is "not good," Restricted affect but less hostile today) Rate of Thoughts: Delayed Thought Organization: Perseverations (on being poisoned), [place] Associations: Illogical Abstract Reasoning: Poor abstract reasoning Thought Content: Delusions, Paranoia Perception/Psychotic: Psychotic Current Hallucinations: Auditory (continues to endorse; non-command) Language: Naming Impaired Fund of Knowledge: Poor fund of knowledge (will not participate in [employer] - last documented [employer] in October 2016) Memory: Poor-immediate Suicidal Ideation: Denies Homicidal Ideation: Denies Insight: Poor Judgement: Poor Impulse Control: Fair - Laboratory Result Diagrams: 08/12/17 06:59 08/08/17 05:47 Assessment and Plan (1) Major neurocognitive disorder Problem details: with behavioral disturbance, Alzheimer's, moderate severity Current visit: Yes Status: Acute Hospital Course Summary Disclaimer: The visit summary below is not to be considered part of the above Progress Note. Hospital Course: 07/20/17 11:57 07/20/17 Admit to [facility] under the care of psychiatry for evaluation and management of her mental health concerns. She is safe for unit activities. Continue Keflex for UTI. I have reviewed [facility] records- Urine culture not resulted. BP is mildly high- monitor for now. Given LE mild edema, we could consider gentle diuresis. No documented hx of HF. She is currently refusing PO meds- she did get a dose of Ceftriaxone at - we may need to change to injectable if she does not take the medication. We will plan to recheck Saturday. Will continue to follow with you. Thank you for the Consult. 07/21/17 11:29 Pt remains paranoid and delusional. Will start Haldol 0.5mg PO BID. 07/22/17 Psych: Continue Haldol 0.5mg PO BID. Discussed risks/benefits with and obtained informed consent to continue Haldol, which she has tolerated well before. Discussed with giving injections to ensure adherence and he agreed to give IM Haldol if patient refuses PO. Hospitalist treating UTI as above. Have asked nursing to provide prepackaged food/drink as available to ensure adequate PO intake and prevent dehydration. Monitor mood, behavior and response to treatment. 07/23/17 Psych: Continue current care with mouth checks and giving patient option between PO and IM antipsychotic. Monitor symptoms as patient is adherent with psychotropic meds. Continue steps to minimize risk of dehydration. 07/24/17 Psych: Have asked nursing staff to ensure IM administration of Haldol if patient refuses and to give make-up dose for missed dose this morning. May consider increasing total daily dose of Haldol tomorrow. Will discuss possible IM antibiotics with hospitalist as patient is refusing PO. 07/25/17 Psych: Need to ensure patient is eating/drinking adequately and make effort to provide as much prepackaged food as possible while she reliably gets Haldol (IM if PO refused). Hospitalist is not planning further antibiotic treatment. Monitor mood, behavior and response to treatment. 07/26/17 Psych: Patient has increased PO intake and is now eating some foods that are not prepackaged, which shows me Haldol is effective. Continue mouth checks and IM injections if necessary. Continue to monitor symptoms and may increase Haldol over weekend as she was previously stabilized on a total of 1.5mg daily. 07/27/17 Psych: Patient improving overall and increasing PO intake, not as perseverative/delusional on unit though continues to be with me. Will plan to increase Haldol tomorrow. 07/28/17 Psych: Increase Haldol to 0.5mg in AM and 1mg at HS; patient to be given IM meds if she refuses PO. Monitor mood, behavior and response. 07/29/17 Psych: Will give Cogentin 0.5mg PO x1 now to see if possible EPS resolves. Continue current care otherwise in the time being. If does have EPS, will need to decide whether to add concomitant Cogentin or change to 2nd generation antipsychotic. 07/30/17 Psych: Will again challenge with Cogentin and decide whether 2nd generation antipsychotic may be appropriate; will review all other possible medical records re: previous diagnoses, treatment. 07/31/17 Psych: Will continue current antipsychotic dose as still requiring IM at times though 2nd generation would be preferable if she were willingly adherent. Family has asked that we not put medications in food. Will schedule Cogentin 0.5mg PO BID and monitor for EPS. Will check EKG to monitor QTc for the time being. Patient improving as evidenced by willingness to eat some and engage more during interview, but progress is slow. Dose limited by possible EPS right now. 08/01/17 Psych: Increase Haldol to 1mg PO BID. Patient to be given IM if refuses PO. Will f/u on EKG ordered 07/31. 08/02/17 Psych: Continue Haldol 1mg PO BID as well as Cogentin 0.5mg PO BID due to EPS. Patient to be given IM if refuses PO. 08/03/17 10:23 Remains paranoid with poor appetite. Continue current care 08/04/17 10:43 Pt remains paranoid with poor appetite. Continue current care 08/04/17 17:05 Patient continues to have fairly significant HTN. Will start low dose metoprolol- unsure if she will take, It appears she may have a UTI, but urine is not a good clean catch. Will order another UA to confirm. She remains paranoid. Weight continues to trend down- encourage PO intake. Repeat labs in AM. 08/05/17 17:24 Eating better but remains paranoid. Continue current care 08/06/17 16:46 Remains paranoid. Continue current care 08/07/17 19:55 Remains paranoid. Continue Haldol 08/08/17 19:39 Pt remains paranoid. I do not want to increase Haldol at this time due to fear of increased EPS but will continue Haldol due to fear of compliance issues. Recommend Second Generation antipsychotic when compliance issues improve and as an OP 08/09/17 18:24 Continue current care 08/10/17 10:59 Pt remains paranoid. Continue current care 08/11/17 11:57 Remains paranoid. Continue Haldol and will look to switch to second generation when compliance improves 08/12/17 18:58 Remains paranoid but slightly improved today. Continue current care 08/13/17 BP is moderately elevated but improved from earlier in hospitalization. Continue low-dose amlodipine. No urinary sx per nsg staff. Weight is increasing since starting Megace. Recent labs are stable - hgb slightly low at 11.1. 08/13/17 18:56 Remains paranoid. Continue current care 08/14/17 18:05 Remaisn paranoid but improved. Continue current care 08/15/17 19:33 Improved slightly. Continue current care
[2017-08-16] MEDS: HALOPERIDOL 1 MG TABLET PO SCH ×3 (01:32→19:38)
[2017-08-16] MEDS: BENZTROPINE 1 MG TABLET PO SCH ×3 (01:32→19:35)
[2017-08-16] MEDS: AMLODIPINE 2.5 MG TABLET PO SCH (08:18)
[2017-08-16] MEDS: MEGESTROL 800mg/20ml ORAL LIQUID PO SCH (08:19)
--- NOTE | 2017-08-16 14:49 | Progress Note ---
- Date 08/16/17 Subjective: Anay was resting in bed. She mentioned something about "poison" (she spoke in a whisper and it was difficult to hear). She complained of feeling "sleepy" and stated that she hardly slept last night. No chest pain or dyspnea, cough/ congestion, abdominal pain or GI complaints. Objective Vital signs: Temperature 97.6 F 08/16/17 08:00 Pulse Rate 95 08/16/17 08:00 Respiratory Rate 16 08/16/17 08:00 Blood Pressure 125/65 08/16/17 08:00 Pulse Oximetry 99 08/16/17 08:00 Height/Weight/BMI: Height 1.65 m Weight 54.4 kg Body Mass Index 20.2 - Constitutional Present: no acute distress, well nourished, well developed - Routine HEENT Exam ENT: Present: oropharynx clear - Routine Respiratory Exam Present: CTA bilaterally - Routine Cardiovascular Exam Present: RRR, S1, S2, murmur (2/6) - Routine Abdominal Exam Present: soft, normoactive bowel sounds, non distended, non tender - Routine Extremities Exam Present: no edema - Routine Skin Exam Present: intact, dry, warm - Routine Neurological Exam Present: alert - Routine Psychiatric Exam Present: paranoid Results - Labs CBC & Chem 7: 08/12/17 06:59 08/08/17 05:47 Assessment and Plan (1) Dementia with behavioral disturbance Current visit: Yes Status: Acute (2) Paranoia Current visit: Yes Status: Acute (3) Auditory hallucinations Current visit: Yes Status: Acute (4) Insomnia Current visit: Yes Status: Chronic (5) UTI (urinary tract infection) Current visit: Yes Status: Acute Assessment and Plan: Impression Dementia with behavioral disturbance Paranoia Auditory hallucinations Hypertension Insomnia Mild normocytic anemia Plan BP is moderately elevated but overall under decent control given her age - continue low-dose amlodipine. Medically stable. Dr. Pleitez's notes reviewed. Hospital Course Summary Disclaimer: The visit summary below is not to be considered part of the above Progress Note. Hospital Course: 07/20/17 11:57 07/20/17 Admit to [facility] under the care of psychiatry for evaluation and management of her mental health concerns. She is safe for unit activities. Continue Keflex for UTI. I have reviewed [facility] records- Urine culture not resulted. BP is mildly high- monitor for now. Given LE mild edema, we could consider gentle diuresis. No documented hx of HF. She is currently refusing PO meds- she did get a dose of Ceftriaxone at - we may need to change to injectable if she does not take the medication. We will plan to recheck Saturday. Will continue to follow with you. Thank you for the Consult. 07/21/17 11:29 Pt remains paranoid and delusional. Will start Haldol 0.5mg PO BID. 07/22/17 Psych: Continue Haldol 0.5mg PO BID. Discussed risks/benefits with and obtained informed consent to continue Haldol, which she has tolerated well before. Discussed with giving injections to ensure adherence and he agreed to give IM Haldol if patient refuses PO. Hospitalist treating UTI as above. Have asked nursing to provide prepackaged food/drink as available to ensure adequate PO intake and prevent dehydration. Monitor mood, behavior and response to treatment. 07/23/17 Psych: Continue current care with mouth checks and giving patient option between PO and IM antipsychotic. Monitor symptoms as patient is adherent with psychotropic meds. Continue steps to minimize risk of dehydration. 07/24/17 Psych: Have asked nursing staff to ensure IM administration of Haldol if patient refuses and to give make-up dose for missed dose this morning. May consider increasing total daily dose of Haldol tomorrow. Will discuss possible IM antibiotics with hospitalist as patient is refusing PO. 07/25/17 Psych: Need to ensure patient is eating/drinking adequately and make effort to provide as much prepackaged food as possible while she reliably gets Haldol (IM if PO refused). Hospitalist is not planning further antibiotic treatment. Monitor mood, behavior and response to treatment. 07/26/17 Psych: Patient has increased PO intake and is now eating some foods that are not prepackaged, which shows me Haldol is effective. Continue mouth checks and IM injections if necessary. Continue to monitor symptoms and may increase Haldol over weekend as she was previously stabilized on a total of 1.5mg daily. 07/27/17 Psych: Patient improving overall and increasing PO intake, not as perseverative/delusional on unit though continues to be with me. Will plan to increase Haldol tomorrow. 07/28/17 Psych: Increase Haldol to 0.5mg in AM and 1mg at HS; patient to be given IM meds if she refuses PO. Monitor mood, behavior and response. 07/29/17 Psych: Will give Cogentin 0.5mg PO x1 now to see if possible EPS resolves. Continue current care otherwise in the time being. If does have EPS, will need to decide whether to add concomitant Cogentin or change to 2nd generation antipsychotic. 07/30/17 Psych: Will again challenge with Cogentin and decide whether 2nd generation antipsychotic may be appropriate; will review all other possible medical records re: previous diagnoses, treatment. 07/31/17 Psych: Will continue current antipsychotic dose as still requiring IM at times though 2nd generation would be preferable if she were willingly adherent. Family has asked that we not put medications in food. Will schedule Cogentin 0.5mg PO BID and monitor for EPS. Will check EKG to monitor QTc for the time being. Patient improving as evidenced by willingness to eat some and engage more during interview, but progress is slow. Dose limited by possible EPS right now. 08/01/17 Psych: Increase Haldol to 1mg PO BID. Patient to be given IM if refuses PO. Will f/u on EKG ordered 07/31. 08/02/17 Psych: Continue Haldol 1mg PO BID as well as Cogentin 0.5mg PO BID due to EPS. Patient to be given IM if refuses PO. 08/03/17 10:23 Remains paranoid with poor appetite. Continue current care 08/04/17 10:43 Pt remains paranoid with poor appetite. Continue current care 08/04/17 17:05 Patient continues to have fairly significant HTN. Will start low dose metoprolol- unsure if she will take, It appears she may have a UTI, but urine is not a good clean catch. Will order another UA to confirm. She remains paranoid. Weight continues to trend down- encourage PO intake. Repeat labs in AM. 08/05/17 17:24 Eating better but remains paranoid. Continue current care 08/06/17 16:46 Remains paranoid. Continue current care 08/07/17 19:55 Remains paranoid. Continue Haldol 08/08/17 19:39 Pt remains paranoid. I do not want to increase Haldol at this time due to fear of increased EPS but will continue Haldol due to fear of compliance issues. Recommend Second Generation antipsychotic when compliance issues improve and as an OP 08/09/17 18:24 Continue current care 08/10/17 10:59 Pt remains paranoid. Continue current care 08/11/17 11:57 Remains paranoid. Continue Haldol and will look to switch to second generation when compliance improves 08/12/17 18:58 Remains paranoid but slightly improved today. Continue current care 08/13/17 BP is moderately elevated but improved from earlier in hospitalization. Continue low-dose amlodipine. No urinary sx per nsg staff. Weight is increasing since starting Megace. Recent labs are stable - hgb slightly low at 11.1. 08/13/17 18:56 Remains paranoid. Continue current care 08/14/17 18:05 Remaisn paranoid but improved. Continue current care 08/15/17 19:33 Improved slightly. Continue current care
--- NOTE | 2017-08-16 18:52 | Neuropsych Progress Note ---
[facility] Subjective Date: 08/16/17 - Sujective/Severity of Illness Medications: Acetaminophen (Tylenol) 325 - 650 mg PO Q5H PRN PRN Reason: Discomfort Amlodipine Besylate (Norvasc) 2.5 mg PO DAILY [facility] Last Admin: 08/16/17 08:18 Dose: 2.5 mg Benztropine Mesylate (Cogentin) 0.5 mg PO BID [facility] Last Admin: 08/16/17 08:18 Dose: 0.5 mg Bisacodyl (Dulcolax) 10 mg RECTALLY DAILY PRN PRN Reason: Constipation Last Admin: 07/24/17 17:28 Dose: 10 mg Bisacodyl (Dulcolax) 10 mg PO DAILY PRN PRN Reason: Constipation Last Admin: 08/09/17 13:14 Dose: 10 mg Haloperidol (Haldol) 0.5 mg PO Q6H PRN PRN Reason: Extreme agitation Haloperidol (Haldol) 1 mg PO BID [facility] Last Admin: 08/16/17 08:18 Dose: 1 mg Haloperidol Decanoate (Haldol Liquid) 1 mg PO BID PRN PRN Reason: IF PT REQUESTS LIQUID Last Admin: 08/05/17 20:05 Dose: 1 mg Haloperidol Lactate (Haldol) 0.5 mg IM Q6H PRN PRN Reason: Extreme agitation Haloperidol Lactate (Haldol) 1 mg IM BID PRN PRN Reason: If patient refuses PO Last Admin: 08/02/17 09:33 Dose: 1 mg Lorazepam (Ativan) 0.5 mg PO Q6H PRN PRN Reason: Extreme agitation Last Admin: 07/22/17 14:10 Dose: 0.5 mg Lorazepam (Ativan Inj) 0.5 mg IM Q6H PRN PRN Reason: Extreme agitation Megestrol Acetate (Megace) 400 mg PO DAILY [facility] Last Admin: 08/16/17 08:19 Dose: Not Given Subjective: Patient seen and chart reviewed. Nursing reports pt has eaten pretty well today and has appeared less paranoid. On face to face the pt is brighter and less guarded. She remains paranoid at times but it appears improved. She denies depression or S/I. Denies AH. Tolerating meds Start Time: 17:15 Stop Time: 17:30 Mental Status Exam Vitals: Last Vital Signs Temp 98.2 F 08/16/17 16:00 Pulse 86 08/16/17 16:00 Resp 16 08/16/17 16:00 BP 139/69 08/16/17 16:00 Pulse Ox 99 08/16/17 16:00 Height: 1.65 m Weight: 54.4 kg - Mental Status Exam Muscle Strength/Tone: Normal (with scheduled Cogentin) Dressing: Casual Grooming: Fair Attitude: Suspicious, Other (more cooperative than previously) Motor Activity: Retardation Eye Contact: Fair Speech: Slowed Volume: Soft Rhythm: Appropriate Rhythm Orientation: Disoriented to situation, Oriented to person, Oriented to place, Oriented to time (Month and year only) Mood: Other (Reporst mood is "not good," Restricted affect but less hostile today) Rate of Thoughts: Delayed Thought Organization: Perseverations (on being poisoned), [place] Associations: Illogical Abstract Reasoning: Poor abstract reasoning Thought Content: Delusions, Paranoia Perception/Psychotic: Psychotic Current Hallucinations: Auditory (continues to endorse; non-command) Language: Naming Impaired Fund of Knowledge: Poor fund of knowledge (will not participate in Novelo - last documented Novelo in October 2016) Memory: Poor-immediate Suicidal Ideation: Denies Homicidal Ideation: Denies Insight: Poor Judgement: Poor Impulse Control: Fair - Laboratory Result Diagrams: 08/12/17 06:59 08/08/17 05:47 Assessment and Plan (1) Major neurocognitive disorder Problem details: with behavioral disturbance, Alzheimer's, moderate severity Current visit: Yes Status: Acute Hospital Course Summary Disclaimer: The visit summary below is not to be considered part of the above Progress Note. Hospital Course: 07/20/17 11:57 07/20/17 Admit to [facility] under the care of psychiatry for evaluation and management of her mental health concerns. She is safe for unit activities. Continue Keflex for UTI. I have reviewed [facility] records- Urine culture not resulted. BP is mildly high- monitor for now. Given LE mild edema, we could consider gentle diuresis. No documented hx of HF. She is currently refusing PO meds- she did get a dose of Ceftriaxone at - we may need to change to injectable if she does not take the medication. We will plan to recheck Saturday. Will continue to follow with you. Thank you for the Consult. 07/21/17 11:29 Pt remains paranoid and delusional. Will start Haldol 0.5mg PO BID. 07/22/17 Psych: Continue Haldol 0.5mg PO BID. Discussed risks/benefits with and obtained informed consent to continue Haldol, which she has tolerated well before. Discussed with giving injections to ensure adherence and he agreed to give IM Haldol if patient refuses PO. Hospitalist treating UTI as above. Have asked nursing to provide prepackaged food/drink as available to ensure adequate PO intake and prevent dehydration. Monitor mood, behavior and response to treatment. 07/23/17 Psych: Continue current care with mouth checks and giving patient option between PO and IM antipsychotic. Monitor symptoms as patient is adherent with psychotropic meds. Continue steps to minimize risk of dehydration. 07/24/17 Psych: Have asked nursing staff to ensure IM administration of Haldol if patient refuses and to give make-up dose for missed dose this morning. May consider increasing total daily dose of Haldol tomorrow. Will discuss possible IM antibiotics with hospitalist as patient is refusing PO. 07/25/17 Psych: Need to ensure patient is eating/drinking adequately and make effort to provide as much prepackaged food as possible while she reliably gets Haldol (IM if PO refused). Hospitalist is not planning further antibiotic treatment. Monitor mood, behavior and response to treatment. 07/26/17 Psych: Patient has increased PO intake and is now eating some foods that are not prepackaged, which shows me Haldol is effective. Continue mouth checks and IM injections if necessary. Continue to monitor symptoms and may increase Haldol over weekend as she was previously stabilized on a total of 1.5mg daily. 07/27/17 Psych: Patient improving overall and increasing PO intake, not as perseverative/delusional on unit though continues to be with me. Will plan to increase Haldol tomorrow. 07/28/17 Psych: Increase Haldol to 0.5mg in AM and 1mg at HS; patient to be given IM meds if she refuses PO. Monitor mood, behavior and response. 07/29/17 Psych: Will give Cogentin 0.5mg PO x1 now to see if possible EPS resolves. Continue current care otherwise in the time being. If does have EPS, will need to decide whether to add concomitant Cogentin or change to 2nd generation antipsychotic. 07/30/17 Psych: Will again challenge with Cogentin and decide whether 2nd generation antipsychotic may be appropriate; will review all other possible medical records re: previous diagnoses, treatment. 07/31/17 Psych: Will continue current antipsychotic dose as still requiring IM at times though 2nd generation would be preferable if she were willingly adherent. Family has asked that we not put medications in food. Will schedule Cogentin 0.5mg PO BID and monitor for EPS. Will check EKG to monitor QTc for the time being. Patient improving as evidenced by willingness to eat some and engage more during interview, but progress is slow. Dose limited by possible EPS right now. 08/01/17 Psych: Increase Haldol to 1mg PO BID. Patient to be given IM if refuses PO. Will f/u on EKG ordered 07/31. 08/02/17 Psych: Continue Haldol 1mg PO BID as well as Cogentin 0.5mg PO BID due to EPS. Patient to be given IM if refuses PO. 08/03/17 10:23 Remains paranoid with poor appetite. Continue current care 08/04/17 10:43 Pt remains paranoid with poor appetite. Continue current care 08/04/17 17:05 Patient continues to have fairly significant HTN. Will start low dose metoprolol- unsure if she will take, It appears she may have a UTI, but urine is not a good clean catch. Will order another UA to confirm. She remains paranoid. Weight continues to trend down- encourage PO intake. Repeat labs in AM. 08/05/17 17:24 Eating better but remains paranoid. Continue current care 08/06/17 16:46 Remains paranoid. Continue current care 08/07/17 19:55 Remains paranoid. Continue Haldol 08/08/17 19:39 Pt remains paranoid. I do not want to increase Haldol at this time due to fear of increased EPS but will continue Haldol due to fear of compliance issues. Recommend Second Generation antipsychotic when compliance issues improve and as an OP 08/09/17 18:24 Continue current care 08/10/17 10:59 Pt remains paranoid. Continue current care 08/11/17 11:57 Remains paranoid. Continue Haldol and will look to switch to second generation when compliance improves 08/12/17 18:58 Remains paranoid but slightly improved today. Continue current care 08/13/17 BP is moderately elevated but improved from earlier in hospitalization. Continue low-dose amlodipine. No urinary sx per nsg staff. Weight is increasing since starting Megace. Recent labs are stable - hgb slightly low at 11.1. 08/13/17 18:56 Remains paranoid. Continue current care 08/14/17 18:05 Remaisn paranoid but improved. Continue current care 08/15/17 19:33 Improved slightly. Continue current care 08/16/17 18:52 Continues to improve. Continue current care
[2017-08-17] MEDS: HALOPERIDOL 1 MG TABLET PO SCH ×2 (08:18→20:21)
[2017-08-17] MEDS: BENZTROPINE 1 MG TABLET PO SCH ×3 (08:18→20:23)
[2017-08-17] MEDS: AMLODIPINE 2.5 MG TABLET PO SCH (08:18)
[2017-08-17] MEDS: MEGESTROL 800mg/20ml ORAL LIQUID PO SCH (08:45)
--- NOTE | 2017-08-17 12:33 | Neuropsych Progress Note ---
[facility] Subjective Date: 08/17/17 - Sujective/Severity of Illness Medications: Acetaminophen (Tylenol) 325 - 650 mg PO Q5H PRN PRN Reason: Discomfort Amlodipine Besylate (Norvasc) 2.5 mg PO DAILY [facility] Last Admin: 08/17/17 08:18 Dose: 2.5 mg Benztropine Mesylate (Cogentin) 0.5 mg PO BID [facility] Last Admin: 08/17/17 08:18 Dose: 0.5 mg Bisacodyl (Dulcolax) 10 mg RECTALLY DAILY PRN PRN Reason: Constipation Last Admin: 07/24/17 17:28 Dose: 10 mg Bisacodyl (Dulcolax) 10 mg PO DAILY PRN PRN Reason: Constipation Last Admin: 08/09/17 13:14 Dose: 10 mg Haloperidol (Haldol) 0.5 mg PO Q6H PRN PRN Reason: Extreme agitation Haloperidol (Haldol) 1 mg PO BID [facility] Last Admin: 08/17/17 08:18 Dose: 1 mg Haloperidol Decanoate (Haldol Liquid) 1 mg PO BID PRN PRN Reason: IF PT REQUESTS LIQUID Last Admin: 08/05/17 20:05 Dose: 1 mg Haloperidol Lactate (Haldol) 0.5 mg IM Q6H PRN PRN Reason: Extreme agitation Haloperidol Lactate (Haldol) 1 mg IM BID PRN PRN Reason: If patient refuses PO Last Admin: 08/02/17 09:33 Dose: 1 mg Lorazepam (Ativan) 0.5 mg PO Q6H PRN PRN Reason: Extreme agitation Last Admin: 07/22/17 14:10 Dose: 0.5 mg Lorazepam (Ativan Inj) 0.5 mg IM Q6H PRN PRN Reason: Extreme agitation Megestrol Acetate (Megace) 400 mg PO DAILY [facility] Last Admin: 08/17/17 08:45 Dose: Not Given Subjective: Patient seen and chart reviewed. Nursing reports pt continues to improve. Sleeping well and appetite continues to improve. Less focused on paranoia. On face to face the pt states she is doing well. She denies pain and voices no concerns at this time. Tolerating meds Start Time: 11:45 Stop Time: 12:00 Mental Status Exam Vitals: Last Vital Signs Temp 97.8 F 08/17/17 08:00 Pulse 97 08/17/17 08:00 Resp 20 08/17/17 08:00 BP 125/66 08/17/17 08:00 Pulse Ox 100 08/17/17 08:00 Height: 1.65 m Weight: 54.4 kg - Mental Status Exam Muscle Strength/Tone: Normal (with scheduled Cogentin) Dressing: Casual Grooming: Fair Attitude: Suspicious, Other (more cooperative than previously) Motor Activity: Retardation Eye Contact: Fair Speech: Slowed Volume: Soft Rhythm: Appropriate Rhythm Orientation: Disoriented to situation, Oriented to person, Oriented to place, Oriented to time (Month and year only) Mood: Other (Reporst mood is "not good," Restricted affect but less hostile today) Rate of Thoughts: Delayed Thought Organization: Perseverations (on being poisoned), [place] Associations: Illogical Abstract Reasoning: Poor abstract reasoning Thought Content: Delusions, Paranoia Perception/Psychotic: Psychotic Current Hallucinations: Auditory (continues to endorse; non-command) Language: Naming Impaired Fund of Knowledge: Poor fund of knowledge (will not participate in kidthing - last documented kidthing in October 2016) Memory: Poor-immediate Suicidal Ideation: Denies Homicidal Ideation: Denies Insight: Poor Judgement: Poor Impulse Control: Fair - Laboratory Result Diagrams: 08/12/17 06:59 08/08/17 05:47 Assessment and Plan (1) Major neurocognitive disorder Problem details: with behavioral disturbance, Alzheimer's, moderate severity Current visit: Yes Status: Acute Hospital Course Summary Disclaimer: The visit summary below is not to be considered part of the above Progress Note. Hospital Course: 07/20/17 11:57 07/20/17 Admit to [facility] under the care of psychiatry for evaluation and management of her mental health concerns. She is safe for unit activities. Continue Keflex for UTI. I have reviewed [facility] records- Urine culture not resulted. BP is mildly high- monitor for now. Given LE mild edema, we could consider gentle diuresis. No documented hx of HF. She is currently refusing PO meds- she did get a dose of Ceftriaxone at - we may need to change to injectable if she does not take the medication. We will plan to recheck Saturday. Will continue to follow with you. Thank you for the Consult. 07/21/17 11:29 Pt remains paranoid and delusional. Will start Haldol 0.5mg PO BID. 07/22/17 Psych: Continue Haldol 0.5mg PO BID. Discussed risks/benefits with and obtained informed consent to continue Haldol, which she has tolerated well before. Discussed with giving injections to ensure adherence and he agreed to give IM Haldol if patient refuses PO. Hospitalist treating UTI as above. Have asked nursing to provide prepackaged food/drink as available to ensure adequate PO intake and prevent dehydration. Monitor mood, behavior and response to treatment. 07/23/17 Psych: Continue current care with mouth checks and giving patient option between PO and IM antipsychotic. Monitor symptoms as patient is adherent with psychotropic meds. Continue steps to minimize risk of dehydration. 07/24/17 Psych: Have asked nursing staff to ensure IM administration of Haldol if patient refuses and to give make-up dose for missed dose this morning. May consider increasing total daily dose of Haldol tomorrow. Will discuss possible IM antibiotics with hospitalist as patient is refusing PO. 07/25/17 Psych: Need to ensure patient is eating/drinking adequately and make effort to provide as much prepackaged food as possible while she reliably gets Haldol (IM if PO refused). Hospitalist is not planning further antibiotic treatment. Monitor mood, behavior and response to treatment. 07/26/17 Psych: Patient has increased PO intake and is now eating some foods that are not prepackaged, which shows me Haldol is effective. Continue mouth checks and IM injections if necessary. Continue to monitor symptoms and may increase Haldol over weekend as she was previously stabilized on a total of 1.5mg daily. 07/27/17 Psych: Patient improving overall and increasing PO intake, not as perseverative/delusional on unit though continues to be with me. Will plan to increase Haldol tomorrow. 07/28/17 Psych: Increase Haldol to 0.5mg in AM and 1mg at HS; patient to be given IM meds if she refuses PO. Monitor mood, behavior and response. 07/29/17 Psych: Will give Cogentin 0.5mg PO x1 now to see if possible EPS resolves. Continue current care otherwise in the time being. If does have EPS, will need to decide whether to add concomitant Cogentin or change to 2nd generation antipsychotic. 07/30/17 Psych: Will again challenge with Cogentin and decide whether 2nd generation antipsychotic may be appropriate; will review all other possible medical records re: previous diagnoses, treatment. 07/31/17 Psych: Will continue current antipsychotic dose as still requiring IM at times though 2nd generation would be preferable if she were willingly adherent. Family has asked that we not put medications in food. Will schedule Cogentin 0.5mg PO BID and monitor for EPS. Will check EKG to monitor QTc for the time being. Patient improving as evidenced by willingness to eat some and engage more during interview, but progress is slow. Dose limited by possible EPS right now. 08/01/17 Psych: Increase Haldol to 1mg PO BID. Patient to be given IM if refuses PO. Will f/u on EKG ordered 07/31. 08/02/17 Psych: Continue Haldol 1mg PO BID as well as Cogentin 0.5mg PO BID due to EPS. Patient to be given IM if refuses PO. 08/03/17 10:23 Remains paranoid with poor appetite. Continue current care 08/04/17 10:43 Pt remains paranoid with poor appetite. Continue current care 08/04/17 17:05 Patient continues to have fairly significant HTN. Will start low dose metoprolol- unsure if she will take, It appears she may have a UTI, but urine is not a good clean catch. Will order another UA to confirm. She remains paranoid. Weight continues to trend down- encourage PO intake. Repeat labs in AM. 08/05/17 17:24 Eating better but remains paranoid. Continue current care 08/06/17 16:46 Remains paranoid. Continue current care 08/07/17 19:55 Remains paranoid. Continue Haldol 08/08/17 19:39 Pt remains paranoid. I do not want to increase Haldol at this time due to fear of increased EPS but will continue Haldol due to fear of compliance issues. Recommend Second Generation antipsychotic when compliance issues improve and as an OP 08/09/17 18:24 Continue current care 08/10/17 10:59 Pt remains paranoid. Continue current care 08/11/17 11:57 Remains paranoid. Continue Haldol and will look to switch to second generation when compliance improves 08/12/17 18:58 Remains paranoid but slightly improved today. Continue current care 08/13/17 BP is moderately elevated but improved from earlier in hospitalization. Continue low-dose amlodipine. No urinary sx per nsg staff. Weight is increasing since starting Megace. Recent labs are stable - hgb slightly low at 11.1. 08/13/17 18:56 Remains paranoid. Continue current care 08/14/17 18:05 Remaisn paranoid but improved. Continue current care 08/15/17 19:33 Improved slightly. Continue current care 08/16/17 18:52 Continues to improve. Continue current care 08/17/17 12:33 Contineus to improve. Continue current care
[2017-08-18] MEDS: AMLODIPINE 2.5 MG TABLET PO SCH (09:52)
[2017-08-18] MEDS: BENZTROPINE 1 MG TABLET PO SCH ×2 (09:52→21:43)
[2017-08-18] MEDS: HALOPERIDOL 1 MG TABLET PO SCH ×2 (09:52→21:43)
--- NOTE | 2017-08-18 12:28 | Neuropsych Progress Note ---
[facility] Subjective Date: 08/18/17 - Sujective/Severity of Illness Medications: Acetaminophen (Tylenol) 325 - 650 mg PO Q5H PRN PRN Reason: Discomfort Amlodipine Besylate (Norvasc) 2.5 mg PO DAILY [facility] Last Admin: 08/18/17 09:52 Dose: 2.5 mg Benztropine Mesylate (Cogentin) 0.5 mg PO BID [facility] Last Admin: 08/18/17 09:52 Dose: 0.5 mg Bisacodyl (Dulcolax) 10 mg RECTALLY DAILY PRN PRN Reason: Constipation Last Admin: 07/24/17 17:28 Dose: 10 mg Bisacodyl (Dulcolax) 10 mg PO DAILY PRN PRN Reason: Constipation Last Admin: 08/09/17 13:14 Dose: 10 mg Haloperidol (Haldol) 0.5 mg PO Q6H PRN PRN Reason: Extreme agitation Haloperidol (Haldol) 1 mg PO BID [facility] Last Admin: 08/18/17 09:52 Dose: 1 mg Haloperidol Decanoate (Haldol Liquid) 1 mg PO BID PRN PRN Reason: IF PT REQUESTS LIQUID Last Admin: 08/05/17 20:05 Dose: 1 mg Haloperidol Lactate (Haldol) 0.5 mg IM Q6H PRN PRN Reason: Extreme agitation Haloperidol Lactate (Haldol) 1 mg IM BID PRN PRN Reason: If patient refuses PO Last Admin: 08/02/17 09:33 Dose: 1 mg Lorazepam (Ativan) 0.5 mg PO Q6H PRN PRN Reason: Extreme agitation Last Admin: 07/22/17 14:10 Dose: 0.5 mg Lorazepam (Ativan Inj) 0.5 mg IM Q6H PRN PRN Reason: Extreme agitation Subjective: Patient seen and chart reviewed. Nursing reports pt continues to improve. Sleeping well and appetite continues to improve. Less focused on paranoia. On face to face the pt is resting in bed. She states she is doing well and voices no concerns. Has been compliant with meds and tolerating meds well Start Time: 12:15 Stop Time: 12:30 Mental Status Exam Vitals: Last Vital Signs Temp 98.0 F 08/18/17 08:00 Pulse 95 08/18/17 08:00 Resp 20 08/18/17 08:00 BP 161/77 H 08/18/17 08:00 Pulse Ox 99 08/18/17 08:00 Height: 1.65 m Weight: 54.4 kg - Mental Status Exam Muscle Strength/Tone: Normal (with scheduled Cogentin) Dressing: Casual Grooming: Fair Attitude: Suspicious, Other (more cooperative than previously) Motor Activity: Retardation Eye Contact: Fair Speech: Slowed Volume: Soft Rhythm: Appropriate Rhythm Orientation: Disoriented to situation, Oriented to person, Oriented to place, Oriented to time (Month and year only) Mood: Other (Reporst mood is "not good," Restricted affect but less hostile today) Rate of Thoughts: Delayed Thought Organization: Perseverations (on being poisoned), [place] Associations: Illogical Abstract Reasoning: Poor abstract reasoning Thought Content: Delusions, Paranoia Perception/Psychotic: Psychotic Current Hallucinations: Auditory (continues to endorse; non-command) Language: Naming Impaired Fund of Knowledge: Poor fund of knowledge (will not participate in [facility] - last documented [facility] in October 2016) Memory: Poor-immediate Suicidal Ideation: Denies Homicidal Ideation: Denies Insight: Poor Judgement: Poor Impulse Control: Fair - Laboratory Result Diagrams: 08/12/17 06:59 08/08/17 05:47 Assessment and Plan (1) Major neurocognitive disorder Problem details: with behavioral disturbance, Alzheimer's, moderate severity Current visit: Yes Status: Acute Hospital Course Summary Disclaimer: The visit summary below is not to be considered part of the above Progress Note. Hospital Course: 07/20/17 11:57 07/20/17 Admit to [facility] under the care of psychiatry for evaluation and management of her mental health concerns. She is safe for unit activities. Continue Keflex for UTI. I have reviewed [facility] records- Urine culture not resulted. BP is mildly high- monitor for now. Given LE mild edema, we could consider gentle diuresis. No documented hx of HF. She is currently refusing PO meds- she did get a dose of Ceftriaxone at - we may need to change to injectable if she does not take the medication. We will plan to recheck Saturday. Will continue to follow with you. Thank you for the Consult. 07/21/17 11:29 Pt remains paranoid and delusional. Will start Haldol 0.5mg PO BID. 07/22/17 Psych: Continue Haldol 0.5mg PO BID. Discussed risks/benefits with and obtained informed consent to continue Haldol, which she has tolerated well before. Discussed with giving injections to ensure adherence and he agreed to give IM Haldol if patient refuses PO. Hospitalist treating UTI as above. Have asked nursing to provide prepackaged food/drink as available to ensure adequate PO intake and prevent dehydration. Monitor mood, behavior and response to treatment. 07/23/17 Psych: Continue current care with mouth checks and giving patient option between PO and IM antipsychotic. Monitor symptoms as patient is adherent with psychotropic meds. Continue steps to minimize risk of dehydration. 07/24/17 Psych: Have asked nursing staff to ensure IM administration of Haldol if patient refuses and to give make-up dose for missed dose this morning. May consider increasing total daily dose of Haldol tomorrow. Will discuss possible IM antibiotics with hospitalist as patient is refusing PO. 07/25/17 Psych: Need to ensure patient is eating/drinking adequately and make effort to provide as much prepackaged food as possible while she reliably gets Haldol (IM if PO refused). Hospitalist is not planning further antibiotic treatment. Monitor mood, behavior and response to treatment. 07/26/17 Psych: Patient has increased PO intake and is now eating some foods that are not prepackaged, which shows me Haldol is effective. Continue mouth checks and IM injections if necessary. Continue to monitor symptoms and may increase Haldol over weekend as she was previously stabilized on a total of 1.5mg daily. 07/27/17 Psych: Patient improving overall and increasing PO intake, not as perseverative/delusional on unit though continues to be with me. Will plan to increase Haldol tomorrow. 07/28/17 Psych: Increase Haldol to 0.5mg in AM and 1mg at HS; patient to be given IM meds if she refuses PO. Monitor mood, behavior and response. 07/29/17 Psych: Will give Cogentin 0.5mg PO x1 now to see if possible EPS resolves. Continue current care otherwise in the time being. If does have EPS, will need to decide whether to add concomitant Cogentin or change to 2nd generation antipsychotic. 07/30/17 Psych: Will again challenge with Cogentin and decide whether 2nd generation antipsychotic may be appropriate; will review all other possible medical records re: previous diagnoses, treatment. 07/31/17 Psych: Will continue current antipsychotic dose as still requiring IM at times though 2nd generation would be preferable if she were willingly adherent. Family has asked that we not put medications in food. Will schedule Cogentin 0.5mg PO BID and monitor for EPS. Will check EKG to monitor QTc for the time being. Patient improving as evidenced by willingness to eat some and engage more during interview, but progress is slow. Dose limited by possible EPS right now. 08/01/17 Psych: Increase Haldol to 1mg PO BID. Patient to be given IM if refuses PO. Will f/u on EKG ordered 07/31. 08/02/17 Psych: Continue Haldol 1mg PO BID as well as Cogentin 0.5mg PO BID due to EPS. Patient to be given IM if refuses PO. 08/03/17 10:23 Remains paranoid with poor appetite. Continue current care 08/04/17 10:43 Pt remains paranoid with poor appetite. Continue current care 08/04/17 17:05 Patient continues to have fairly significant HTN. Will start low dose metoprolol- unsure if she will take, It appears she may have a UTI, but urine is not a good clean catch. Will order another UA to confirm. She remains paranoid. Weight continues to trend down- encourage PO intake. Repeat labs in AM. 08/05/17 17:24 Eating better but remains paranoid. Continue current care 08/06/17 16:46 Remains paranoid. Continue current care 08/07/17 19:55 Remains paranoid. Continue Haldol 08/08/17 19:39 Pt remains paranoid. I do not want to increase Haldol at this time due to fear of increased EPS but will continue Haldol due to fear of compliance issues. Recommend Second Generation antipsychotic when compliance issues improve and as an OP 08/09/17 18:24 Continue current care 08/10/17 10:59 Pt remains paranoid. Continue current care 08/11/17 11:57 Remains paranoid. Continue Haldol and will look to switch to second generation when compliance improves 08/12/17 18:58 Remains paranoid but slightly improved today. Continue current care 08/13/17 BP is moderately elevated but improved from earlier in hospitalization. Continue low-dose amlodipine. No urinary sx per [facility] staff. Weight is increasing since starting Megace. Recent labs are stable - hgb slightly low at 11.1. 08/13/17 18:56 Remains paranoid. Continue current care 08/14/17 18:05 Remaisn paranoid but improved. Continue current care 08/15/17 19:33 Improved slightly. Continue current care 08/16/17 18:52 Continues to improve. Continue current care 08/17/17 12:33 Contineus to improve. Continue current care 08/18/17 12:28 Continues to improve slightly. Continue current care
[2017-08-19] MEDS: HALOPERIDOL 1 MG TABLET PO SCH ×2 (09:26→20:18)
[2017-08-19] MEDS: AMLODIPINE 2.5 MG TABLET PO SCH (09:26)
[2017-08-19] MEDS: BENZTROPINE 1 MG TABLET PO SCH ×4 (09:26→20:27)
--- NOTE | 2017-08-19 21:35 | Neuropsych Progress Note ---
[facility] Subjective Date: 08/19/17 - Sujective/Severity of Illness Medications: Acetaminophen (Tylenol) 325 - 650 mg PO Q5H PRN PRN Reason: Discomfort Amlodipine Besylate (Norvasc) 2.5 mg PO DAILY [facility] Last Admin: 08/19/17 09:26 Dose: 2.5 mg Benztropine Mesylate (Cogentin) 0.5 mg PO BID [facility] Last Admin: 08/19/17 20:27 Dose: Not Given Bisacodyl (Dulcolax) 10 mg RECTALLY DAILY PRN PRN Reason: Constipation Last Admin: 07/24/17 17:28 Dose: 10 mg Bisacodyl (Dulcolax) 10 mg PO DAILY PRN PRN Reason: Constipation Last Admin: 08/09/17 13:14 Dose: 10 mg Haloperidol (Haldol) 0.5 mg PO Q6H PRN PRN Reason: Extreme agitation Haloperidol (Haldol) 1 mg PO BID [facility] Last Admin: 08/19/17 20:18 Dose: 1 mg Haloperidol Decanoate (Haldol Liquid) 1 mg PO BID PRN PRN Reason: IF PT REQUESTS LIQUID Last Admin: 08/05/17 20:05 Dose: 1 mg Haloperidol Lactate (Haldol) 0.5 mg IM Q6H PRN PRN Reason: Extreme agitation Haloperidol Lactate (Haldol) 1 mg IM BID PRN PRN Reason: If patient refuses PO Last Admin: 08/02/17 09:33 Dose: 1 mg Lorazepam (Ativan) 0.5 mg PO Q6H PRN PRN Reason: Extreme agitation Last Admin: 07/22/17 14:10 Dose: 0.5 mg Lorazepam (Ativan Inj) 0.5 mg IM Q6H PRN PRN Reason: Extreme agitation Subjective: Patient seen and chart reviewed. Nursing reports pt continues to improve. Sleeping well and appetite continues to improve. On face to face the pt has a brighter affect. She is paranoid but it is improved. She denies S/I or AH. Tolerating meds Start Time: 18:30 Stop Time: 18:45 Mental Status Exam Vitals: Last Vital Signs Temp 98.5 F 08/19/17 16:00 Pulse 94 08/19/17 16:00 Resp 20 08/19/17 16:00 BP 166/76 H 08/19/17 16:00 Pulse Ox 100 08/19/17 16:00 Height: 1.65 m Weight: 54.4 kg - Mental Status Exam Muscle Strength/Tone: Normal (with scheduled Cogentin) Dressing: Casual Grooming: Fair Attitude: Suspicious, Other (more cooperative than previously) Motor Activity: Retardation Eye Contact: Fair Speech: Slowed Volume: Soft Rhythm: Appropriate Rhythm Orientation: Disoriented to situation, Oriented to person, Oriented to place, Oriented to time (Month and year only) Mood: Other (Reporst mood is "not good," Restricted affect but less hostile today) Rate of Thoughts: Delayed Thought Organization: Perseverations (on being poisoned), [place] Associations: Illogical Abstract Reasoning: Poor abstract reasoning Thought Content: Delusions, Paranoia Perception/Psychotic: Psychotic Current Hallucinations: Auditory (continues to endorse; non-command) Language: Naming Impaired Fund of Knowledge: Poor fund of knowledge (will not participate in [employer] - last documented [facility] in October 2016) Memory: Poor-immediate Suicidal Ideation: Denies Homicidal Ideation: Denies Insight: Poor Judgement: Poor Impulse Control: Fair - Laboratory Result Diagrams: 08/19/17 07:05 08/19/17 07:04 Laboratory Results - last 24 hr 08/19/17 08/19/17 07:04 07:05 WBC 5.3 RBC 3.56 L Hgb 10.8 L Hct 32.6 L MCV 91.6 MCH 30.3 MCHC 33.1 RDW Std Deviation 45.9 Plt Count 186 MPV 10.4 Immature Gran % (Auto) 0.2 Neut % (Auto) 57.5 Lymph % (Auto) 27.2 [place] % (Auto) 12.1 H Eos % (Auto) 2.1 Baso % (Auto) 0.9 Neut # (Auto) 3.1 Lymph # (Auto) 1.4 [place] # (Auto) 0.6 Eos # (Auto) 0.1 Baso # (Auto) 0.1 Abs Immat Gran (auto) 0.01 Turbidity < 20 Sodium 142 Potassium 3.8 Chloride 111 H Carbon Dioxide 26 Anion Gap 5 BUN 16.0 Creatinine 0.7 GFR Calculation 79 BUN/Creatinine Ratio 23 Glucose 88 Calculated Osmolality 273 Calcium 8.6 Icterus Index < 2 Specimen Hemolysis < 15 Assessment and Plan (1) Major neurocognitive disorder Problem details: with behavioral disturbance, Alzheimer's, moderate severity Current visit: Yes Status: Acute Hospital Course Summary Disclaimer: The visit summary below is not to be considered part of the above Progress Note. Hospital Course: 07/20/17 11:57 07/20/17 Admit to [facility] under the care of psychiatry for evaluation and management of her mental health concerns. She is safe for unit activities. Continue Keflex for UTI. I have reviewed [facility] records- Urine culture not resulted. BP is mildly high- monitor for now. Given LE mild edema, we could consider gentle diuresis. No documented hx of HF. She is currently refusing PO meds- she did get a dose of Ceftriaxone at - we may need to change to injectable if she does not take the medication. We will plan to recheck Saturday. Will continue to follow with you. Thank you for the Consult. 07/21/17 11:29 Pt remains paranoid and delusional. Will start Haldol 0.5mg PO BID. 07/22/17 Psych: Continue Haldol 0.5mg PO BID. Discussed risks/benefits with and obtained informed consent to continue Haldol, which she has tolerated well before. Discussed with giving injections to ensure adherence and he agreed to give IM Haldol if patient refuses PO. Hospitalist treating UTI as above. Have asked nursing to provide prepackaged food/drink as available to ensure adequate PO intake and prevent dehydration. Monitor mood, behavior and response to treatment. 07/23/17 Psych: Continue current care with mouth checks and giving patient option between PO and IM antipsychotic. Monitor symptoms as patient is adherent with psychotropic meds. Continue steps to minimize risk of dehydration. 07/24/17 Psych: Have asked nursing staff to ensure IM administration of Haldol if patient refuses and to give make-up dose for missed dose this morning. May consider increasing total daily dose of Haldol tomorrow. Will discuss possible IM antibiotics with hospitalist as patient is refusing PO. 07/25/17 Psych: Need to ensure patient is eating/drinking adequately and make effort to provide as much prepackaged food as possible while she reliably gets Haldol (IM if PO refused). Hospitalist is not planning further antibiotic treatment. Monitor mood, behavior and response to treatment. 07/26/17 Psych: Patient has increased PO intake and is now eating some foods that are not prepackaged, which shows me Haldol is effective. Continue mouth checks and IM injections if necessary. Continue to monitor symptoms and may increase Haldol over weekend as she was previously stabilized on a total of 1.5mg daily. 07/27/17 Psych: Patient improving overall and increasing PO intake, not as perseverative/delusional on unit though continues to be with me. Will plan to increase Haldol tomorrow. 07/28/17 Psych: Increase Haldol to 0.5mg in AM and 1mg at HS; patient to be given IM meds if she refuses PO. Monitor mood, behavior and response. 07/29/17 Psych: Will give Cogentin 0.5mg PO x1 now to see if possible EPS resolves. Continue current care otherwise in the time being. If does have EPS, will need to decide whether to add concomitant Cogentin or change to 2nd generation antipsychotic. 07/30/17 Psych: Will again challenge with Cogentin and decide whether 2nd generation antipsychotic may be appropriate; will review all other possible medical records re: previous diagnoses, treatment. 07/31/17 Psych: Will continue current antipsychotic dose as still requiring IM at times though 2nd generation would be preferable if she were willingly adherent. Family has asked that we not put medications in food. Will schedule Cogentin 0.5mg PO BID and monitor for EPS. Will check EKG to monitor QTc for the time being. Patient improving as evidenced by willingness to eat some and engage more during interview, but progress is slow. Dose limited by possible EPS right now. 08/01/17 Psych: Increase Haldol to 1mg PO BID. Patient to be given IM if refuses PO. Will f/u on EKG ordered 07/31. 08/02/17 Psych: Continue Haldol 1mg PO BID as well as Cogentin 0.5mg PO BID due to EPS. Patient to be given IM if refuses PO. 08/03/17 10:23 Remains paranoid with poor appetite. Continue current care 08/04/17 10:43 Pt remains paranoid with poor appetite. Continue current care 08/04/17 17:05 Patient continues to have fairly significant HTN. Will start low dose metoprolol- unsure if she will take, It appears she may have a UTI, but urine is not a good clean catch. Will order another UA to confirm. She remains paranoid. Weight continues to trend down- encourage PO intake. Repeat labs in AM. 08/05/17 17:24 Eating better but remains paranoid. Continue current care 08/06/17 16:46 Remains paranoid. Continue current care 08/07/17 19:55 Remains paranoid. Continue Haldol 08/08/17 19:39 Pt remains paranoid. I do not want to increase Haldol at this time due to fear of increased EPS but will continue Haldol due to fear of compliance issues. Recommend Second Generation antipsychotic when compliance issues improve and as an OP 08/09/17 18:24 Continue current care 08/10/17 10:59 Pt remains paranoid. Continue current care 08/11/17 11:57 Remains paranoid. Continue Haldol and will look to switch to second generation when compliance improves 08/12/17 18:58 Remains paranoid but slightly improved today. Continue current care 08/13/17 BP is moderately elevated but improved from earlier in hospitalization. Continue low-dose amlodipine. No urinary sx per [facility] staff. Weight is increasing since starting Megace. Recent labs are stable - hgb slightly low at 11.1. 08/13/17 18:56 Remains paranoid. Continue current care 08/14/17 18:05 Remaisn paranoid but improved. Continue current care 08/15/17 19:33 Improved slightly. Continue current care 08/16/17 18:52 Continues to improve. Continue current care 08/17/17 12:33 Contineus to improve. Continue current care 08/18/17 12:28 Continues to improve slightly. Continue current care 08/19/17 21:34 Continues to improve. Continue current care
[2017-08-20] MEDS: AMLODIPINE 2.5 MG TABLET PO SCH (08:44)
[2017-08-20] MEDS: HALOPERIDOL 1 MG TABLET PO SCH ×3 (08:45→23:43)
[2017-08-20] MEDS: BENZTROPINE 1 MG TABLET PO SCH ×3 (08:49→23:43)
[2017-08-20] MEDS ORDERED: FUROSEMIDE 20 MG TABLET PO ONE (09:49)
--- NOTE | 2017-08-20 09:52 | Progress Note ---
- Date 08/20/17 Subjective: Patient was just waking up for the day. She was in good spirits. She denied any c/o such as chest pain, dyspnea, abdominal pain or GI complaints. She was initially lying down in bed but she quickly sat up, then stood up and began walking to the bathroom with her FWW. Last night refused cogentin b/c she thought it was poison. Objective Vital signs: Temperature 97.9 F 08/20/17 08:00 Pulse Rate 98 08/20/17 08:00 Respiratory Rate 16 08/20/17 08:00 Blood Pressure 175/76 H 08/20/17 08:00 Pulse Oximetry 99 08/20/17 08:00 Height/Weight/BMI: Height 1.65 m Weight 54.4 kg Body Mass Index 20.2 - Constitutional Present: no acute distress, well nourished, well developed - Routine HEENT Exam Head: Present: normocephalic - Routine Respiratory Exam Present: CTA bilaterally - Routine Cardiovascular Exam Present: RRR, S1, S2 - Routine Abdominal Exam Present: soft, normoactive bowel sounds - Routine Extremities Exam Present: edema (1+ b/l lower ext) - Routine Skin Exam Present: intact, dry, warm - Routine Neurological Exam Present: alert - Routine Psychiatric Exam Present: cooperative Results - Labs CBC & Chem 7: 08/19/17 07:05 08/19/17 07:04 Assessment and Plan (1) Dementia with behavioral disturbance Current visit: Yes Status: Acute (2) Paranoia Current visit: Yes Status: Acute (3) Auditory hallucinations Current visit: Yes Status: Acute (4) Insomnia Current visit: Yes Status: Chronic (5) UTI (urinary tract infection) Current visit: Yes Status: Acute Assessment and Plan: Impression Dementia with behavioral disturbance Paranoia Auditory hallucinations Hypertension Insomnia Mild normocytic anemia Plan BP has been increasing and now she has 1+ b/l edema - will give Lasix 20 mg PO + KDur 20 mEq today - start daily weights; consider increasing amlodipine but with LE swelling may want to opt for another antiHTN med. Repeat UA (one on the was not a clean catch (>[address] Pleitez's notes reviewed. Hospital Course Summary Disclaimer: The visit summary below is not to be considered part of the above Progress Note. Hospital Course: 07/20/17 11:57 9/30/17 Admit to [facility] under the care of psychiatry for evaluation and management of her mental health concerns. She is safe for unit activities. Continue Keflex for UTI. I have reviewed [facility] records- Urine culture not resulted. BP is mildly high- monitor for now. Given LE mild edema, we could consider gentle diuresis. No documented hx of HF. She is currently refusing PO meds- she did get a dose of Ceftriaxone at - we may need to change to injectable if she does not take the medication. We will plan to recheck Saturday. Will continue to follow with you. Thank you for the Consult. 07/21/17 11:29 Pt remains paranoid and delusional. Will start Haldol 0.5mg PO BID. 07/22/17 Psych: Continue Haldol 0.5mg PO BID. Discussed risks/benefits with and obtained informed consent to continue Haldol, which she has tolerated well before. Discussed with giving injections to ensure adherence and he agreed to give IM Haldol if patient refuses PO. Hospitalist treating UTI as above. Have asked nursing to provide prepackaged food/drink as available to ensure adequate PO intake and prevent dehydration. Monitor mood, behavior and response to treatment. 07/23/17 Psych: Continue current care with mouth checks and giving patient option between PO and IM antipsychotic. Monitor symptoms as patient is adherent with psychotropic meds. Continue steps to minimize risk of dehydration. 07/24/17 Psych: Have asked nursing staff to ensure IM administration of Haldol if patient refuses and to give make-up dose for missed dose this morning. May consider increasing total daily dose of Haldol tomorrow. Will discuss possible IM antibiotics with hospitalist as patient is refusing PO. 07/25/17 Psych: Need to ensure patient is eating/drinking adequately and make effort to provide as much prepackaged food as possible while she reliably gets Haldol (IM if PO refused). Hospitalist is not planning further antibiotic treatment. Monitor mood, behavior and response to treatment. 07/26/17 Psych: Patient has increased PO intake and is now eating some foods that are not prepackaged, which shows me Haldol is effective. Continue mouth checks and IM injections if necessary. Continue to monitor symptoms and may increase Haldol over weekend as she was previously stabilized on a total of 1.5mg daily. 07/27/17 Psych: Patient improving overall and increasing PO intake, not as perseverative/delusional on unit though continues to be with me. Will plan to increase Haldol tomorrow. 07/28/17 Psych: Increase Haldol to 0.5mg in AM and 1mg at HS; patient to be given IM meds if she refuses PO. Monitor mood, behavior and response. 07/29/17 Psych: Will give Cogentin 0.5mg PO x1 now to see if possible EPS resolves. Continue current care otherwise in the time being. If does have EPS, will need to decide whether to add concomitant Cogentin or change to 2nd generation antipsychotic. 07/30/17 Psych: Will again challenge with Cogentin and decide whether 2nd generation antipsychotic may be appropriate; will review all other possible medical records re: previous diagnoses, treatment. 07/31/17 Psych: Will continue current antipsychotic dose as still requiring IM at times though 2nd generation would be preferable if she were willingly adherent. Family has asked that we not put medications in food. Will schedule Cogentin 0.5mg PO BID and monitor for EPS. Will check EKG to monitor QTc for the time being. Patient improving as evidenced by willingness to eat some and engage more during interview, but progress is slow. Dose limited by possible EPS right now. 08/01/17 Psych: Increase Haldol to 1mg PO BID. Patient to be given IM if refuses PO. Will f/u on EKG ordered 07/31. 08/02/17 Psych: Continue Haldol 1mg PO BID as well as Cogentin 0.5mg PO BID due to EPS. Patient to be given IM if refuses PO. 08/03/17 10:23 Remains paranoid with poor appetite. Continue current care 08/04/17 10:43 Pt remains paranoid with poor appetite. Continue current care 08/04/17 17:05 Patient continues to have fairly significant HTN. Will start low dose metoprolol- unsure if she will take, It appears she may have a UTI, but urine is not a good clean catch. Will order another UA to confirm. She remains paranoid. Weight continues to trend down- encourage PO intake. Repeat labs in AM. 08/05/17 17:24 Eating better but remains paranoid. Continue current care 08/06/17 16:46 Remains paranoid. Continue current care 08/07/17 19:55 Remains paranoid. Continue Haldol 08/08/17 19:39 Pt remains paranoid. I do not want to increase Haldol at this time due to fear of increased EPS but will continue Haldol due to fear of compliance issues. Recommend Second Generation antipsychotic when compliance issues improve and as an OP 08/09/17 18:24 Continue current care 08/10/17 10:59 Pt remains paranoid. Continue current care 08/11/17 11:57 Remains paranoid. Continue Haldol and will look to switch to second generation when compliance improves 08/12/17 18:58 Remains paranoid but slightly improved today. Continue current care 08/13/17 BP is moderately elevated but improved from earlier in hospitalization. Continue low-dose amlodipine. No urinary sx per nsg staff. Weight is increasing since starting Megace. Recent labs are stable - hgb slightly low at 11.1. 08/13/17 18:56 Remains paranoid. Continue current care 08/14/17 18:05 Remaisn paranoid but improved. Continue current care 08/15/17 19:33 Improved slightly. Continue current care 08/16/17 18:52 Continues to improve. Continue current care 08/17/17 12:33 Contineus to improve. Continue current care 08/18/17 12:28 Continues to improve slightly. Continue current care 08/19/17 21:34 Continues to improve. Continue current care 08/20/17 BP has been increasing and now she has 1+ b/l edema - will give Lasix 20 mg PO + KDur 20 mEq today - start daily weights; consider increasing amlodipine but with LE swelling may want to opt for another antiHTN med. Repeat UA (one on the was not a clean catch (>[address] Pleitez's notes reviewed.
--- NOTE | 2017-08-20 17:19 | Neuropsych Progress Note ---
[facility] Subjective Date: 08/20/17 - Sujective/Severity of Illness Medications: Acetaminophen (Tylenol) 325 - 650 mg PO Q5H PRN PRN Reason: Discomfort Amlodipine Besylate (Norvasc) 2.5 mg PO DAILY [facility] Last Admin: 08/20/17 08:44 Dose: 2.5 mg Benztropine Mesylate (Cogentin) 0.5 mg PO BID [facility] Last Admin: 08/20/17 08:49 Dose: Not Given Bisacodyl (Dulcolax) 10 mg RECTALLY DAILY PRN PRN Reason: Constipation Last Admin: 07/24/17 17:28 Dose: 10 mg Bisacodyl (Dulcolax) 10 mg PO DAILY PRN PRN Reason: Constipation Last Admin: 08/09/17 13:14 Dose: 10 mg Haloperidol (Haldol) 0.5 mg PO Q6H PRN PRN Reason: Extreme agitation Haloperidol (Haldol) 1 mg PO BID [facility] Last Admin: 08/20/17 08:45 Dose: 1 mg Haloperidol Decanoate (Haldol Liquid) 1 mg PO BID PRN PRN Reason: IF PT REQUESTS LIQUID Last Admin: 08/05/17 20:05 Dose: 1 mg Haloperidol Lactate (Haldol) 0.5 mg IM Q6H PRN PRN Reason: Extreme agitation Haloperidol Lactate (Haldol) 1 mg IM BID PRN PRN Reason: If patient refuses PO Last Admin: 08/02/17 09:33 Dose: 1 mg Lorazepam (Ativan) 0.5 mg PO Q6H PRN PRN Reason: Extreme agitation Last Admin: 07/22/17 14:10 Dose: 0.5 mg Lorazepam (Ativan Inj) 0.5 mg IM Q6H PRN PRN Reason: Extreme agitation Subjective: Patient seen and chart reviewed. Nursing reports pt continues to improve. Sleeping and eating well. On face to face the pt states she is doing well. She is pleasant and has a right affect. She denies any S/I. Some paranoia but improved. Tolerating meds and has been compliant Start Time: 18:15 Stop Time: 18:30 Mental Status Exam Vitals: Last Vital Signs Temp 97.9 F 08/20/17 08:00 Pulse 98 08/20/17 08:00 Resp 16 08/20/17 08:00 BP 175/76 H 08/20/17 08:00 Pulse Ox 99 08/20/17 08:00 Height: 1.65 m Weight: 54.4 kg - Mental Status Exam Muscle Strength/Tone: Normal (with scheduled Cogentin) Dressing: Casual Grooming: Fair Attitude: Suspicious, Other (more cooperative than previously) Motor Activity: Retardation Eye Contact: Fair Speech: Slowed Volume: Soft Rhythm: Appropriate Rhythm Orientation: Disoriented to situation, Oriented to person, Oriented to place, Oriented to time (Month and year only) Mood: Other (Reporst mood is "not good," Restricted affect but less hostile today) Rate of Thoughts: Delayed Thought Organization: Perseverations (on being poisoned), [place] Associations: Illogical Abstract Reasoning: Poor abstract reasoning Thought Content: Delusions, Paranoia Perception/Psychotic: Psychotic Current Hallucinations: Auditory (continues to endorse; non-command) Language: Naming Impaired Fund of Knowledge: Poor fund of knowledge (will not participate in SnapMD - last documented SnapMD in October 2016) Memory: Poor-immediate Suicidal Ideation: Denies Homicidal Ideation: Denies Insight: Poor Judgement: Poor Impulse Control: Fair - Laboratory Result Diagrams: 08/19/17 07:05 08/19/17 07:04 Laboratory Results - last 24 hr 08/20/17 16:31 Ur Collection Type Urine, clean catch Urine Color Yellow Urine Clarity Clear Urine pH 6.5 Ur Specific [place] 1.015 Urine Protein Negative Urine Glucose (UA) Negative Urine Ketones Negative Urine Occult Blood Trace-intact Urine Nitrate Negative Urine Bilirubin Negative Urine Urobilinogen 0.2 Ur Leukocyte Esterase Negative Urine RBC None seen Urine WBC 0-1 Ur Squamous Epith Cells 0-5 Urine Bacteria None seen Ur Culture Indicated? Cult not indicated Assessment and Plan (1) Major neurocognitive disorder Problem details: with behavioral disturbance, Alzheimer's, moderate severity Current visit: Yes Status: Acute Hospital Course Summary Disclaimer: The visit summary below is not to be considered part of the above Progress Note. Hospital Course: 07/20/17 11:57 07/20/17 Admit to [facility] under the care of psychiatry for evaluation and management of her mental health concerns. She is safe for unit activities. Continue Keflex for UTI. I have reviewed [facility] records- Urine culture not resulted. BP is mildly high- monitor for now. Given LE mild edema, we could consider gentle diuresis. No documented hx of HF. She is currently refusing PO meds- she did get a dose of Ceftriaxone at - we may need to change to injectable if she does not take the medication. We will plan to recheck Saturday. Will continue to follow with you. Thank you for the Consult. 07/21/17 11:29 Pt remains paranoid and delusional. Will start Haldol 0.5mg PO BID. 07/22/17 Psych: Continue Haldol 0.5mg PO BID. Discussed risks/benefits with and obtained informed consent to continue Haldol, which she has tolerated well before. Discussed with giving injections to ensure adherence and he agreed to give IM Haldol if patient refuses PO. Hospitalist treating UTI as above. Have asked nursing to provide prepackaged food/drink as available to ensure adequate PO intake and prevent dehydration. Monitor mood, behavior and response to treatment. 07/23/17 Psych: Continue current care with mouth checks and giving patient option between PO and IM antipsychotic. Monitor symptoms as patient is adherent with psychotropic meds. Continue steps to minimize risk of dehydration. 07/24/17 Psych: Have asked nursing staff to ensure IM administration of Haldol if patient refuses and to give make-up dose for missed dose this morning. May consider increasing total daily dose of Haldol tomorrow. Will discuss possible IM antibiotics with hospitalist as patient is refusing PO. 07/25/17 Psych: Need to ensure patient is eating/drinking adequately and make effort to provide as much prepackaged food as possible while she reliably gets Haldol (IM if PO refused). Hospitalist is not planning further antibiotic treatment. Monitor mood, behavior and response to treatment. 07/26/17 Psych: Patient has increased PO intake and is now eating some foods that are not prepackaged, which shows me Haldol is effective. Continue mouth checks and IM injections if necessary. Continue to monitor symptoms and may increase Haldol over weekend as she was previously stabilized on a total of 1.5mg daily. 07/27/17 Psych: Patient improving overall and increasing PO intake, not as perseverative/delusional on unit though continues to be with me. Will plan to increase Haldol tomorrow. 07/28/17 Psych: Increase Haldol to 0.5mg in AM and 1mg at HS; patient to be given IM meds if she refuses PO. Monitor mood, behavior and response. 07/29/17 Psych: Will give Cogentin 0.5mg PO x1 now to see if possible EPS resolves. Continue current care otherwise in the time being. If does have EPS, will need to decide whether to add concomitant Cogentin or change to 2nd generation antipsychotic. 07/30/17 Psych: Will again challenge with Cogentin and decide whether 2nd generation antipsychotic may be appropriate; will review all other possible medical records re: previous diagnoses, treatment. 07/31/17 Psych: Will continue current antipsychotic dose as still requiring IM at times though 2nd generation would be preferable if she were willingly adherent. Family has asked that we not put medications in food. Will schedule Cogentin 0.5mg PO BID and monitor for EPS. Will check EKG to monitor QTc for the time being. Patient improving as evidenced by willingness to eat some and engage more during interview, but progress is slow. Dose limited by possible EPS right now. 08/01/17 Psych: Increase Haldol to 1mg PO BID. Patient to be given IM if refuses PO. Will f/u on EKG ordered 07/31. 08/02/17 Psych: Continue Haldol 1mg PO BID as well as Cogentin 0.5mg PO BID due to EPS. Patient to be given IM if refuses PO. 08/03/17 10:23 Remains paranoid with poor appetite. Continue current care 08/04/17 10:43 Pt remains paranoid with poor appetite. Continue current care 08/04/17 17:05 Patient continues to have fairly significant HTN. Will start low dose metoprolol- unsure if she will take, It appears she may have a UTI, but urine is not a good clean catch. Will order another UA to confirm. She remains paranoid. Weight continues to trend down- encourage PO intake. Repeat labs in AM. 08/05/17 17:24 Eating better but remains paranoid. Continue current care 08/06/17 16:46 Remains paranoid. Continue current care 08/07/17 19:55 Remains paranoid. Continue Haldol 08/08/17 19:39 Pt remains paranoid. I do not want to increase Haldol at this time due to fear of increased EPS but will continue Haldol due to fear of compliance issues. Recommend Second Generation antipsychotic when compliance issues improve and as an OP 08/09/17 18:24 Continue current care 08/10/17 10:59 Pt remains paranoid. Continue current care 08/11/17 11:57 Remains paranoid. Continue Haldol and will look to switch to second generation when compliance improves 08/12/17 18:58 Remains paranoid but slightly improved today. Continue current care 08/13/17 BP is moderately elevated but improved from earlier in hospitalization. Continue low-dose amlodipine. No urinary sx per nsg staff. Weight is increasing since starting Megace. Recent labs are stable - hgb slightly low at 11.1. 08/13/17 18:56 Remains paranoid. Continue current care 08/14/17 18:05 Remaisn paranoid but improved. Continue current care 08/15/17 19:33 Improved slightly. Continue current care 08/16/17 18:52 Continues to improve. Continue current care 08/17/17 12:33 Contineus to improve. Continue current care 08/18/17 12:28 Continues to improve slightly. Continue current care 08/19/17 21:34 Continues to improve. Continue current care 08/20/17 BP has been increasing and now she has 1+ b/l edema - will give Lasix 20 mg PO + KDur 20 mEq today - start daily weights; consider increasing amlodipine but with LE swelling may want to opt for another antiHTN med. Repeat UA (one on the was not a clean catch (>[address] Pleitez's notes reviewed. 08/20/17 17:18 Doing well. Continue current care
[2017-08-21] MEDS: AMLODIPINE 2.5 MG TABLET PO SCH (09:40)
[2017-08-21] MEDS: BENZTROPINE 1 MG TABLET PO SCH ×2 (09:40→20:08)
[2017-08-21] MEDS: HALOPERIDOL 1 MG TABLET PO SCH (09:40)
[2017-08-21] MEDS ORDERED: HALOPERIDOL 5 MG/ML INJECTION IM PRN (19:06)
--- NOTE | 2017-08-21 19:41 | Neuropsych Progress Note ---
[facility] Subjective Date: 08/21/17 - Sujective/Severity of Illness Medications: Acetaminophen (Tylenol) 325 - 650 mg PO Q5H PRN PRN Reason: Discomfort Amlodipine Besylate (Norvasc) 2.5 mg PO DAILY [facility] Last Admin: 08/21/17 09:40 Dose: 2.5 mg Benztropine Mesylate (Cogentin) 0.5 mg PO BID [facility] Last Admin: 08/21/17 09:40 Dose: Not Given Bisacodyl (Dulcolax) 10 mg RECTALLY DAILY PRN PRN Reason: Constipation Last Admin: 07/24/17 17:28 Dose: 10 mg Bisacodyl (Dulcolax) 10 mg PO DAILY PRN PRN Reason: Constipation Last Admin: 08/09/17 13:14 Dose: 10 mg Haloperidol (Haldol) 0.5 mg PO Q6H PRN PRN Reason: Extreme agitation Haloperidol Decanoate (Haldol Liquid) 1 mg PO BID PRN PRN Reason: IF PT REQUESTS LIQUID Last Admin: 08/05/17 20:05 Dose: 1 mg Haloperidol Lactate (Haldol) 0.5 mg IM Q6H PRN PRN Reason: Extreme agitation Haloperidol Lactate (Haldol) 2 mg IM HS PRN Lorazepam (Ativan) 0.5 mg PO Q6H PRN PRN Reason: Extreme agitation Last Admin: 07/22/17 14:10 Dose: 0.5 mg Lorazepam (Ativan Inj) 0.5 mg IM Q6H PRN PRN Reason: Extreme agitation Risperidone (Risperdal) 2 mg PO DAILY [facility] Subjective: Patient seen and chart reviewed. Case discussed with treatment team. On interview, patient is pleasant with me but continues to be delusional, stating that the food is poisoned here. She eats it so that she doesn't starve. She has been mostly adherent with meds but now tells me she doesn't want to take them. She endorses continued AH of spirits telling her that the food is poisoned. Son Ulices was on the unit and patient was quite upset with him for "pretending like he didn't hear the spirits." She refused to eat dinner with him or talk with him further, instead asking him to leave. Had family meeting with Ulices and spoke with other son/DPOA Bill over the phone. All concerned that patient would not be adherent with meds at home and depot medication would be beneficial. Haldol dose limited by EPS - so decided to switch to Risperdal and they are in agreement with that plan. Patient denies any SI, HI or VH. Patient complains of stiffness and does have mild EPS on exam, even with Cogentin. Nursing staff report patient has been more cooperative overall though does refuse Cogentin at times. Patient slept 12 hours overnight. VSS. Patient is eating despite delusions. Psychotropic PRNs required in the past 24 hours: none. Start Time: 14:00 Stop Time: 14:20 Mental Status Exam Vitals: Last Vital Signs Temp 98.5 F 08/21/17 16:00 Pulse 97 08/21/17 16:00 Resp 20 08/21/17 16:00 BP 161/69 H 08/21/17 16:00 Pulse Ox 99 08/21/17 16:00 Height: 1.65 m Weight: 54.4 kg - Mental Status Exam Muscle Strength/Tone: Normal (with scheduled Cogentin) Dressing: Casual Grooming: Fair Attitude: Suspicious, Other (more cooperative than previously) Motor Activity: Retardation Eye Contact: Good Speech: Slowed Volume: Soft Rhythm: Appropriate Rhythm Orientation: Disoriented to situation, Oriented to person, Oriented to place, Oriented to time (Month and year only) Mood: Other (mood "pretty good", labile affect) Rate of Thoughts: Delayed Thought Organization: Perseverations (on being poisoned), [place] Associations: Illogical Abstract Reasoning: Poor abstract reasoning Thought Content: Delusions, Paranoia Perception/Psychotic: Psychotic Current Hallucinations: Auditory (continues to endorse; non-command) Language: Naming Impaired Fund of Knowledge: Poor fund of knowledge (will not participate in HeTexted - last documented HeTexted in October 2016) Memory: Poor-immediate Suicidal Ideation: Denies Homicidal Ideation: Denies Insight: Poor Judgement: Poor Impulse Control: Other (Limited) - Laboratory Result Diagrams: 08/19/17 07:05 08/21/17 06:39 Laboratory Results - last 24 hr 08/21/17 06:39 Turbidity < 20 Sodium 142 Potassium 3.5 L Chloride 109 H Carbon Dioxide 27 Anion Gap 6 BUN 16.0 Creatinine 0.6 L GFR Calculation 94 BUN/Creatinine Ratio 27 H Glucose 91 Calculated Osmolality 274 Calcium 8.9 Icterus Index < 2 Specimen Hemolysis < 15 Assessment and Plan (1) Major neurocognitive disorder Problem details: with behavioral disturbance, Alzheimer's, moderate severity Current visit: Yes Status: Acute Hospital Course Summary Disclaimer: The visit summary below is not to be considered part of the above Progress Note. Hospital Course: 07/20/17 11:57 07/20/17 Admit to [facility] under the care of psychiatry for evaluation and management of her mental health concerns. She is safe for unit activities. Continue Keflex for UTI. I have reviewed [facility] records- Urine culture not resulted. BP is mildly high- monitor for now. Given LE mild edema, we could consider gentle diuresis. No documented hx of HF. She is currently refusing PO meds- she did get a dose of Ceftriaxone at - we may need to change to injectable if she does not take the medication. We will plan to recheck Saturday. Will continue to follow with you. Thank you for the Consult. 07/21/17 11:29 Pt remains paranoid and delusional. Will start Haldol 0.5mg PO BID. 07/22/17 Psych: Continue Haldol 0.5mg PO BID. Discussed risks/benefits with and obtained informed consent to continue Haldol, which she has tolerated well before. Discussed with giving injections to ensure adherence and he agreed to give IM Haldol if patient refuses PO. Hospitalist treating UTI as above. Have asked nursing to provide prepackaged food/drink as available to ensure adequate PO intake and prevent dehydration. Monitor mood, behavior and response to treatment. 07/23/17 Psych: Continue current care with mouth checks and giving patient option between PO and IM antipsychotic. Monitor symptoms as patient is adherent with psychotropic meds. Continue steps to minimize risk of dehydration. 07/24/17 Psych: Have asked nursing staff to ensure IM administration of Haldol if patient refuses and to give make-up dose for missed dose this morning. May consider increasing total daily dose of Haldol tomorrow. Will discuss possible IM antibiotics with hospitalist as patient is refusing PO. 07/25/17 Psych: Need to ensure patient is eating/drinking adequately and make effort to provide as much prepackaged food as possible while she reliably gets Haldol (IM if PO refused). Hospitalist is not planning further antibiotic treatment. Monitor mood, behavior and response to treatment. 07/26/17 Psych: Patient has increased PO intake and is now eating some foods that are not prepackaged, which shows me Haldol is effective. Continue mouth checks and IM injections if necessary. Continue to monitor symptoms and may increase Haldol over weekend as she was previously stabilized on a total of 1.5mg daily. 07/27/17 Psych: Patient improving overall and increasing PO intake, not as perseverative/delusional on unit though continues to be with me. Will plan to increase Haldol tomorrow. 07/28/17 Psych: Increase Haldol to 0.5mg in AM and 1mg at HS; patient to be given IM meds if she refuses PO. Monitor mood, behavior and response. 07/29/17 Psych: Will give Cogentin 0.5mg PO x1 now to see if possible EPS resolves. Continue current care otherwise in the time being. If does have EPS, will need to decide whether to add concomitant Cogentin or change to 2nd generation antipsychotic. 07/30/17 Psych: Will again challenge with Cogentin and decide whether 2nd generation antipsychotic may be appropriate; will review all other possible medical records re: previous diagnoses, treatment. 07/31/17 Psych: Will continue current antipsychotic dose as still requiring IM at times though 2nd generation would be preferable if she were willingly adherent. Family has asked that we not put medications in food. Will schedule Cogentin 0.5mg PO BID and monitor for EPS. Will check EKG to monitor QTc for the time being. Patient improving as evidenced by willingness to eat some and engage more during interview, but progress is slow. Dose limited by possible EPS right now. 08/01/17 Psych: Increase Haldol to 1mg PO BID. Patient to be given IM if refuses PO. Will f/u on EKG ordered 07/31. 08/02/17 Psych: Continue Haldol 1mg PO BID as well as Cogentin 0.5mg PO BID due to EPS. Patient to be given IM if refuses PO. 08/03/17 10:23 Remains paranoid with poor appetite. Continue current care 08/04/17 10:43 Pt remains paranoid with poor appetite. Continue current care 08/04/17 17:05 Patient continues to have fairly significant HTN. Will start low dose metoprolol- unsure if she will take, It appears she may have a UTI, but urine is not a good clean catch. Will order another UA to confirm. She remains paranoid. Weight continues to trend down- encourage PO intake. Repeat labs in AM. 08/05/17 17:24 Eating better but remains paranoid. Continue current care 08/06/17 16:46 Remains paranoid. Continue current care 08/07/17 19:55 Remains paranoid. Continue Haldol 08/08/17 19:39 Pt remains paranoid. I do not want to increase Haldol at this time due to fear of increased EPS but will continue Haldol due to fear of compliance issues. Recommend Second Generation antipsychotic when compliance issues improve and as an OP 08/09/17 18:24 Continue current care 08/10/17 10:59 Pt remains paranoid. Continue current care 08/11/17 11:57 Remains paranoid. Continue Haldol and will look to switch to second generation when compliance improves 08/12/17 18:58 Remains paranoid but slightly improved today. Continue current care 08/13/17 BP is moderately elevated but improved from earlier in hospitalization. Continue low-dose amlodipine. No urinary sx per nsg staff. Weight is increasing since starting Megace. Recent labs are stable - hgb slightly low at 11.1. 08/13/17 18:56 Remains paranoid. Continue current care 08/14/17 18:05 Remaisn paranoid but improved. Continue current care 08/15/17 19:33 Improved slightly. Continue current care 08/16/17 18:52 Continues to improve. Continue current care 08/17/17 12:33 Contineus to improve. Continue current care 08/18/17 12:28 Continues to improve slightly. Continue current care 08/19/17 21:34 Continues to improve. Continue current care 08/20/17 BP has been increasing and now she has 1+ b/l edema - will give Lasix 20 mg PO + KDur 20 mEq today - start daily weights; consider increasing amlodipine but with LE swelling may want to opt for another antiHTN med. Repeat UA (one on the was not a clean catch (>[address] Pleitez's notes reviewed. 08/20/17 17:18 Doing well. Continue current care 08/21/17 Psych: Discontinue scheduled PO Haldol and start Risperdal 2mg PO q HS. Will give Haldol 2mg IM at HS if oral meds refused. Will monitor EPS and adjust Cogentin as necessary. Will order EKG to monitor QTc. Plan is to start depot Risperdal if well-tolerated.
[2017-08-21] MEDS: RisperiDONE 2 MG TABLET PO SCH (20:09)
[2017-08-22] MEDS: BENZTROPINE 1 MG TABLET PO SCH ×3 (08:54→20:38)
[2017-08-22] MEDS: AMLODIPINE 2.5 MG TABLET PO SCH (08:55)
[2017-08-22] MEDS: RisperiDONE 2 MG TABLET PO SCH (08:55)
--- NOTE | 2017-08-22 17:08 | Neuropsych Progress Note ---
[facility] Subjective Date: 08/22/17 - Sujective/Severity of Illness Medications: Acetaminophen (Tylenol) 325 - 650 mg PO Q5H PRN PRN Reason: Discomfort Amlodipine Besylate (Norvasc) 2.5 mg PO DAILY [facility] Last Admin: 08/22/17 08:55 Dose: 2.5 mg Benztropine Mesylate (Cogentin) 0.5 mg PO BID [facility] Last Admin: 08/22/17 08:54 Dose: 0.5 mg Bisacodyl (Dulcolax) 10 mg RECTALLY DAILY PRN PRN Reason: Constipation Last Admin: 07/24/17 17:28 Dose: 10 mg Bisacodyl (Dulcolax) 10 mg PO DAILY PRN PRN Reason: Constipation Last Admin: 08/09/17 13:14 Dose: 10 mg Haloperidol (Haldol) 0.5 mg PO Q6H PRN PRN Reason: Extreme agitation Last Admin: 08/22/17 04:38 Dose: 0.5 mg Haloperidol Decanoate (Haldol Liquid) 1 mg PO BID PRN PRN Reason: IF PT REQUESTS LIQUID Last Admin: 08/05/17 20:05 Dose: 1 mg Haloperidol Lactate (Haldol) 0.5 mg IM Q6H PRN PRN Reason: Extreme agitation Haloperidol Lactate (Haldol) 2 mg IM HS PRN Lorazepam (Ativan) 0.5 mg PO Q6H PRN PRN Reason: Extreme agitation Last Admin: 07/22/17 14:10 Dose: 0.5 mg Lorazepam (Ativan Inj) 0.5 mg IM Q6H PRN PRN Reason: Extreme agitation Risperidone (Risperdal) 2 mg PO DAILY [facility] Last Admin: 08/22/17 08:55 Dose: 2 mg Subjective: Patient seen and chart reviewed. Case discussed with treatment team. On interview, patient is pleasant and cooperative with me but continues to have contaminatory delusions and endorses AH of the spirits telling her that the food is poisoned. These seem to be less intense after receiving higher dose of antipsychotic last night. Still has mild EPS on exam. I spoke with outpatient provider, who prefers that patient be continued on Haldol and Haldol decanoate be considered and we manage EPS (as she has responded well to Haldol before). Discussed safety concerns with outpatient provider as well. Patient denies any SI or HI. Patient woke up overnight after medication changes and went back to sleep after PRN Haldol. VSS. Patient is eating well. Start Time: 15:20 Stop Time: 15:40 Mental Status Exam Vitals: Last Vital Signs Temp 98.0 F 08/22/17 16:00 Pulse 84 08/22/17 16:00 Resp 18 08/22/17 16:00 BP 133/67 08/22/17 16:00 Pulse Ox 99 08/22/17 16:00 Height: 1.65 m Weight: 53.6 kg - Mental Status Exam Muscle Strength/Tone: Normal (with scheduled Cogentin) Dressing: Casual Grooming: Fair Attitude: Suspicious, Other (more cooperative than previously) Motor Activity: Retardation Eye Contact: Good Speech: Slowed Volume: Soft Rhythm: Appropriate Rhythm Orientation: Disoriented to time, Disoriented to place, Disoriented to situation , Oriented to person Mood: Other (mood "okay," less hostile today) Rate of Thoughts: Delayed Thought Organization: Perseverations (on being poisoned), [place] Associations: Illogical Abstract Reasoning: Poor abstract reasoning Thought Content: Delusions, Paranoia Perception/Psychotic: Psychotic Current Hallucinations: Auditory (continues to endorse; non-command) Language: Naming Impaired Fund of Knowledge: Poor fund of knowledge (will not participate in Chorus - last documented Chorus in October 2016) Memory: Poor-immediate Suicidal Ideation: Denies Homicidal Ideation: Denies Insight: Poor Judgement: Poor Impulse Control: Other (Limited) - Laboratory Result Diagrams: 08/19/17 07:05 08/21/17 06:39 Assessment and Plan (1) Major neurocognitive disorder Problem details: with behavioral disturbance, Alzheimer's, moderate severity Current visit: Yes Status: Acute Hospital Course Summary Disclaimer: The visit summary below is not to be considered part of the above Progress Note. Hospital Course: 07/20/17 11:57 07/20/17 Admit to [facility] under the care of psychiatry for evaluation and management of her mental health concerns. She is safe for unit activities. Continue Keflex for UTI. I have reviewed [facility] records- Urine culture not resulted. BP is mildly high- monitor for now. Given LE mild edema, we could consider gentle diuresis. No documented hx of HF. She is currently refusing PO meds- she did get a dose of Ceftriaxone at - we may need to change to injectable if she does not take the medication. We will plan to recheck Saturday. Will continue to follow with you. Thank you for the Consult. 07/21/17 11:29 Pt remains paranoid and delusional. Will start Haldol 0.5mg PO BID. 07/22/17 Psych: Continue Haldol 0.5mg PO BID. Discussed risks/benefits with and obtained informed consent to continue Haldol, which she has tolerated well before. Discussed with giving injections to ensure adherence and he agreed to give IM Haldol if patient refuses PO. Hospitalist treating UTI as above. Have asked nursing to provide prepackaged food/drink as available to ensure adequate PO intake and prevent dehydration. Monitor mood, behavior and response to treatment. 07/23/17 Psych: Continue current care with mouth checks and giving patient option between PO and IM antipsychotic. Monitor symptoms as patient is adherent with psychotropic meds. Continue steps to minimize risk of dehydration. 07/24/17 Psych: Have asked nursing staff to ensure IM administration of Haldol if patient refuses and to give make-up dose for missed dose this morning. May consider increasing total daily dose of Haldol tomorrow. Will discuss possible IM antibiotics with hospitalist as patient is refusing PO. 07/25/17 Psych: Need to ensure patient is eating/drinking adequately and make effort to provide as much prepackaged food as possible while she reliably gets Haldol (IM if PO refused). Hospitalist is not planning further antibiotic treatment. Monitor mood, behavior and response to treatment. 07/26/17 Psych: Patient has increased PO intake and is now eating some foods that are not prepackaged, which shows me Haldol is effective. Continue mouth checks and IM injections if necessary. Continue to monitor symptoms and may increase Haldol over weekend as she was previously stabilized on a total of 1.5mg daily. 07/27/17 Psych: Patient improving overall and increasing PO intake, not as perseverative/delusional on unit though continues to be with me. Will plan to increase Haldol tomorrow. 07/28/17 Psych: Increase Haldol to 0.5mg in AM and 1mg at HS; patient to be given IM meds if she refuses PO. Monitor mood, behavior and response. 07/29/17 Psych: Will give Cogentin 0.5mg PO x1 now to see if possible EPS resolves. Continue current care otherwise in the time being. If does have EPS, will need to decide whether to add concomitant Cogentin or change to 2nd generation antipsychotic. 07/30/17 Psych: Will again challenge with Cogentin and decide whether 2nd generation antipsychotic may be appropriate; will review all other possible medical records re: previous diagnoses, treatment. 07/31/17 Psych: Will continue current antipsychotic dose as still requiring IM at times though 2nd generation would be preferable if she were willingly adherent. Family has asked that we not put medications in food. Will schedule Cogentin 0.5mg PO BID and monitor for EPS. Will check EKG to monitor QTc for the time being. Patient improving as evidenced by willingness to eat some and engage more during interview, but progress is slow. Dose limited by possible EPS right now. 08/01/17 Psych: Increase Haldol to 1mg PO BID. Patient to be given IM if refuses PO. Will f/u on EKG ordered 07/31. 08/02/17 Psych: Continue Haldol 1mg PO BID as well as Cogentin 0.5mg PO BID due to EPS. Patient to be given IM if refuses PO. 08/03/17 10:23 Remains paranoid with poor appetite. Continue current care 08/04/17 10:43 Pt remains paranoid with poor appetite. Continue current care 08/04/17 17:05 Patient continues to have fairly significant HTN. Will start low dose metoprolol- unsure if she will take, It appears she may have a UTI, but urine is not a good clean catch. Will order another UA to confirm. She remains paranoid. Weight continues to trend down- encourage PO intake. Repeat labs in AM. 08/05/17 17:24 Eating better but remains paranoid. Continue current care 08/06/17 16:46 Remains paranoid. Continue current care 08/07/17 19:55 Remains paranoid. Continue Haldol 08/08/17 19:39 Pt remains paranoid. I do not want to increase Haldol at this time due to fear of increased EPS but will continue Haldol due to fear of compliance issues. Recommend Second Generation antipsychotic when compliance issues improve and as an OP 08/09/17 18:24 Continue current care 08/10/17 10:59 Pt remains paranoid. Continue current care 08/11/17 11:57 Remains paranoid. Continue Haldol and will look to switch to second generation when compliance improves 08/12/17 18:58 Remains paranoid but slightly improved today. Continue current care 08/13/17 BP is moderately elevated but improved from earlier in hospitalization. Continue low-dose amlodipine. No urinary sx per nsg staff. Weight is increasing since starting Megace. Recent labs are stable - hgb slightly low at 11.1. 08/13/17 18:56 Remains paranoid. Continue current care 08/14/17 18:05 Remaisn paranoid but improved. Continue current care 08/15/17 19:33 Improved slightly. Continue current care 08/16/17 18:52 Continues to improve. Continue current care 08/17/17 12:33 Contineus to improve. Continue current care 08/18/17 12:28 Continues to improve slightly. Continue current care 08/19/17 21:34 Continues to improve. Continue current care 08/20/17 BP has been increasing and now she has 1+ b/l edema - will give Lasix 20 mg PO + KDur 20 mEq today - start daily weights; consider increasing amlodipine but with LE swelling may want to opt for another antiHTN med. Repeat UA (one on the was not a clean catch (>[address] Pleitez's notes reviewed. 08/20/17 17:18 Doing well. Continue current care 08/21/17 Psych: Discontinue scheduled PO Haldol and start Risperdal 2mg PO q HS. Will give Haldol 2mg IM at HS if oral meds refused. Will monitor EPS and adjust Cogentin as necessary. Will order EKG to monitor QTc. Plan is to start depot Risperdal if well-tolerated. 08/22/17 Psych: Will change back to Haldol after discussing with outpatient provider but increase dose to 1mg PO q AM and 2mg PO q HS; continue Cogentin for EPS and discuss this as well as decanoate injection with family. HH will be available to give injection.
[2017-08-22] MEDS ORDERED: HALOPERIDOL 5 MG/ML INJECTION IM PRN (17:11)
[2017-08-22] MEDS: HALOPERIDOL 1 MG TABLET PO SCH ×2 (19:38→20:38)
[2017-08-23] MEDS ORDERED: HALOPERIDOL 1 MG TABLET PO SCH (09:00)
--- NOTE | 2017-08-23 09:22 | Progress Note ---
- Date 08/23/17 Subjective: Anay was resting in bed, but awakened easily. Other than feeling tired, she had no other complaints. Nursing staff report that she's been calm and compliant with cares and meds, no mention of being poisoned. She's been eating/ drinking well & last BM was 08/21/17. Objective Vital signs: Temperature 98.4 F 08/22/17 21:19 Pulse Rate 85 08/22/17 21:19 Respiratory Rate 20 08/22/17 21:19 Blood Pressure 155/67 H 08/22/17 21:19 Pulse Oximetry 99 08/22/17 21:19 Height/Weight/BMI: Height 1.65 m Weight 54.8 kg Body Mass Index 20.2 - Constitutional Present: no acute distress, well nourished, well developed - Routine HEENT Exam ENT: Present: mucous membranes dry - Routine Respiratory Exam Present: CTA bilaterally - Routine Cardiovascular Exam Present: RRR, S1, S2 Comments: pacemaker left chest - Routine Abdominal Exam Present: soft, normoactive bowel sounds, non distended, non tender - Routine Extremities Exam Present: edema (trace b/l) - Routine Skin Exam Present: intact, dry, warm - Routine Neurological Exam Absent: alert (drowsy) - Routine Psychiatric Exam Present: unable to assess Results - Labs CBC & Chem 7: 08/22/17 17:57 08/22/17 17:57 Assessment and Plan (1) Dementia with behavioral disturbance Current visit: Yes Status: Acute (2) Paranoia Current visit: Yes Status: Acute (3) Auditory hallucinations Current visit: Yes Status: Acute (4) Insomnia Current visit: Yes Status: Chronic (5) UTI (urinary tract infection) Current visit: Yes Status: Acute Assessment and Plan: Impression Dementia with behavioral disturbance Paranoia Auditory hallucinations Hypertension Insomnia Mild normocytic anemia Plan LE edema improving; weight actually up 1.2 kg from last weigh-in but clinically doing well. BP with occasional higher readings but not persistent. Continue to monitor fluid status/weight; may ultimately need routine diuretic but given her hesitancy to take new meds will simply monitor for the time being. Repeat UA done on 08/20 was neg for UTI. Dr. Polanco's notes reviewed - still with mild EPS on exam and admitted to delusions; she discussed case with outpatient provider who recommended Haldol ( has responded favorably to this in the past). EKG done on 08/21/17 was reviewed - paced rhythm; essentially unchanged from EKG done at time of admission with minimal changes in QT. Hospital Course Summary Disclaimer: The visit summary below is not to be considered part of the above Progress Note. Hospital Course: 07/20/17 11:57 07/20/17 Admit to [facility] under the care of psychiatry for evaluation and management of her mental health concerns. She is safe for unit activities. Continue Keflex for UTI. I have reviewed [facility] records- Urine culture not resulted. BP is mildly high- monitor for now. Given LE mild edema, we could consider gentle diuresis. No documented hx of HF. She is currently refusing PO meds- she did get a dose of Ceftriaxone at - we may need to change to injectable if she does not take the medication. We will plan to recheck Saturday. Will continue to follow with you. Thank you for the Consult. 07/21/17 11:29 Pt remains paranoid and delusional. Will start Haldol 0.5mg PO BID. 07/22/17 Psych: Continue Haldol 0.5mg PO BID. Discussed risks/benefits with and obtained informed consent to continue Haldol, which she has tolerated well before. Discussed with giving injections to ensure adherence and he agreed to give IM Haldol if patient refuses PO. Hospitalist treating UTI as above. Have asked nursing to provide prepackaged food/drink as available to ensure adequate PO intake and prevent dehydration. Monitor mood, behavior and response to treatment. 07/23/17 Psych: Continue current care with mouth checks and giving patient option between PO and IM antipsychotic. Monitor symptoms as patient is adherent with psychotropic meds. Continue steps to minimize risk of dehydration. 07/24/17 Psych: Have asked nursing staff to ensure IM administration of Haldol if patient refuses and to give make-up dose for missed dose this morning. May consider increasing total daily dose of Haldol tomorrow. Will discuss possible IM antibiotics with hospitalist as patient is refusing PO. 07/25/17 Psych: Need to ensure patient is eating/drinking adequately and make effort to provide as much prepackaged food as possible while she reliably gets Haldol (IM if PO refused). Hospitalist is not planning further antibiotic treatment. Monitor mood, behavior and response to treatment. 07/26/17 Psych: Patient has increased PO intake and is now eating some foods that are not prepackaged, which shows me Haldol is effective. Continue mouth checks and IM injections if necessary. Continue to monitor symptoms and may increase Haldol over weekend as she was previously stabilized on a total of 1.5mg daily. 07/27/17 Psych: Patient improving overall and increasing PO intake, not as perseverative/delusional on unit though continues to be with me. Will plan to increase Haldol tomorrow. 07/28/17 Psych: Increase Haldol to 0.5mg in AM and 1mg at HS; patient to be given IM meds if she refuses PO. Monitor mood, behavior and response. 07/29/17 Psych: Will give Cogentin 0.5mg PO x1 now to see if possible EPS resolves. Continue current care otherwise in the time being. If does have EPS, will need to decide whether to add concomitant Cogentin or change to 2nd generation antipsychotic. 07/30/17 Psych: Will again challenge with Cogentin and decide whether 2nd generation antipsychotic may be appropriate; will review all other possible medical records re: previous diagnoses, treatment. 07/31/17 Psych: Will continue current antipsychotic dose as still requiring IM at times though 2nd generation would be preferable if she were willingly adherent. Family has asked that we not put medications in food. Will schedule Cogentin 0.5mg PO BID and monitor for EPS. Will check EKG to monitor QTc for the time being. Patient improving as evidenced by willingness to eat some and engage more during interview, but progress is slow. Dose limited by possible EPS right now. 08/01/17 Psych: Increase Haldol to 1mg PO BID. Patient to be given IM if refuses PO. Will f/u on EKG ordered 07/31. 08/02/17 Psych: Continue Haldol 1mg PO BID as well as Cogentin 0.5mg PO BID due to EPS. Patient to be given IM if refuses PO. 08/03/17 10:23 Remains paranoid with poor appetite. Continue current care 08/04/17 10:43 Pt remains paranoid with poor appetite. Continue current care 08/04/17 17:05 Patient continues to have fairly significant HTN. Will start low dose metoprolol- unsure if she will take, It appears she may have a UTI, but urine is not a good clean catch. Will order another UA to confirm. She remains paranoid. Weight continues to trend down- encourage PO intake. Repeat labs in AM. 08/05/17 17:24 Eating better but remains paranoid. Continue current care 08/06/17 16:46 Remains paranoid. Continue current care 08/07/17 19:55 Remains paranoid. Continue Haldol 08/08/17 19:39 Pt remains paranoid. I do not want to increase Haldol at this time due to fear of increased EPS but will continue Haldol due to fear of compliance issues. Recommend Second Generation antipsychotic when compliance issues improve and as an OP 08/09/17 18:24 Continue current care 08/10/17 10:59 Pt remains paranoid. Continue current care 08/11/17 11:57 Remains paranoid. Continue Haldol and will look to switch to second generation when compliance improves 08/12/17 18:58 Remains paranoid but slightly improved today. Continue current care 08/13/17 BP is moderately elevated but improved from earlier in hospitalization. Continue low-dose amlodipine. No urinary sx per ns staff. Weight is increasing since starting Megace. Recent labs are stable - hgb slightly low at 11.1. 08/13/17 18:56 Remains paranoid. Continue current care 08/14/17 18:05 Remaisn paranoid but improved. Continue current care 08/15/17 19:33 Improved slightly. Continue current care 08/16/17 18:52 Continues to improve. Continue current care 08/17/17 12:33 Contineus to improve. Continue current care 08/18/17 12:28 Continues to improve slightly. Continue current care 08/19/17 21:34 Continues to improve. Continue current care 08/20/17 BP has been increasing and now she has 1+ b/l edema - will give Lasix 20 mg PO + KDur 20 mEq today - start daily weights; consider increasing amlodipine but with LE swelling may want to opt for another antiHTN med. Repeat UA (one on the was not a clean catch (>[address] Pleitez's notes reviewed. 08/20/17 17:18 Doing well. Continue current care 08/21/17 Psych: Discontinue scheduled PO Haldol and start Risperdal 2mg PO q HS. Will give Haldol 2mg IM at HS if oral meds refused. Will monitor EPS and adjust Cogentin as necessary. Will order EKG to monitor QTc. Plan is to start depot Risperdal if well-tolerated. 08/22/17 Psych: Will change back to Haldol after discussing with outpatient provider but increase dose to 1mg PO q AM and 2mg PO q HS; continue Cogentin for EPS and discuss this as well as decanoate injection with family. HH will be available to give injection. 08/23/17 LE edema improving; weight actually up 1.2 kg from last weigh-in but clinically doing well. BP with occasional higher readings but not persistent. Continue to monitor fluid status/weight; may ultimately need routine diuretic but given her hesitancy to take new meds will simply monitor for the time being. Repeat UA done on 08/[address] was neg for UTI. Dr. Polanco's notes reviewed - still with mild EPS on exam and admitted to delusions; she discussed case with outpatient provider who recommended Haldol ( has responded favorably to this in the past). EKG done on 08/21/17 was reviewed - paced rhythm; essentially unchanged from EKG done at time of admission with minimal changes in QT.
[2017-08-23] MEDS: AMLODIPINE 2.5 MG TABLET PO SCH (10:28)
[2017-08-23] MEDS: BENZTROPINE 1 MG TABLET PO SCH ×2 (10:29→21:05)
--- NOTE | 2017-08-23 16:35 | Neuropsych Progress Note ---
[facility] Subjective Date: 08/23/17 - Sujective/Severity of Illness Medications: Acetaminophen (Tylenol) 325 - 650 mg PO Q5H PRN PRN Reason: Discomfort Amlodipine Besylate (Norvasc) 2.5 mg PO DAILY [facility] Last Admin: 08/23/17 10:28 Dose: 2.5 mg Benztropine Mesylate (Cogentin) 0.5 mg PO BID [facility] Last Admin: 08/23/17 10:29 Dose: 0.5 mg Bisacodyl (Dulcolax) 10 mg RECTALLY DAILY PRN PRN Reason: Constipation Last Admin: 07/24/17 17:28 Dose: 10 mg Bisacodyl (Dulcolax) 10 mg PO DAILY PRN PRN Reason: Constipation Last Admin: 08/09/17 13:14 Dose: 10 mg Haloperidol (Haldol) 0.5 mg PO Q6H PRN PRN Reason: Extreme agitation Last Admin: 08/22/17 04:38 Dose: 0.5 mg Haloperidol (Haldol) 2 mg PO HS [facility] Last Admin: 08/22/17 20:38 Dose: Not Given Haloperidol (Haldol) 1 mg PO DAILY [facility] Last Admin: 08/23/17 10:29 Dose: 1 mg Haloperidol Lactate (Haldol) 0.5 mg IM Q6H PRN PRN Reason: Extreme agitation Haloperidol Lactate (Haldol) 2 mg IM HS PRN Haloperidol Lactate (Haldol) 1 mg IM DAILY PRN Lorazepam (Ativan) 0.5 mg PO Q6H PRN PRN Reason: Extreme agitation Last Admin: 07/22/17 14:10 Dose: 0.5 mg Lorazepam (Ativan Inj) 0.5 mg IM Q6H PRN PRN Reason: Extreme agitation Subjective: Patient seen and chart reviewed. Case discussed with treatment team. On interview, patient is pleasant and cooperative with me but continues to have contaminatory delusions and endorses AH of the spirits telling her that the food is poisoned. These seem to be less intense after receiving higher dose of antipsychotic. Recently she will only share these with psychiatrist and family but deny to staff. Still has mild EPS on exam. I spoke with outpatient provider , who prefers that patient be continued on Haldol and we manage EPS (as she has responded well to Haldol before). Discussed safety concerns with outpatient provider as well. Would like to see patient taking Cogentin as scheduled prior to discharge. Patient denies any SI or HI. Patient slept 9+ hours overnight. VSS. Patient is eating well. Start Time: 14:20 Stop Time: 14:40 Mental Status Exam Vitals: Last Vital Signs Temp 97.9 F 08/23/17 16:00 Pulse 82 08/23/17 16:00 Resp 18 08/23/17 16:00 BP 125/65 08/23/17 16:00 Pulse Ox 99 08/23/17 16:00 Height: 1.65 m Weight: 54.8 kg - Mental Status Exam Muscle Strength/Tone: Normal (with scheduled Cogentin) Dressing: Casual Grooming: Fair Attitude: Suspicious, Other (more cooperative than previously) Motor Activity: Retardation Eye Contact: Good Speech: Slowed Volume: Soft Rhythm: Appropriate Rhythm Orientation: Disoriented to time, Disoriented to place, Disoriented to situation , Oriented to person Mood: Other (mood "okay," less hostile today) Rate of Thoughts: Delayed Thought Organization: Perseverations (on being poisoned), [place] Associations: Illogical Abstract Reasoning: Poor abstract reasoning Thought Content: Delusions, Paranoia Perception/Psychotic: Psychotic Current Hallucinations: Auditory (continues to endorse; non-command) Language: Naming Impaired Fund of Knowledge: Poor fund of knowledge (will not participate in [employer] - last documented [employer] in October 2016) Memory: Poor-immediate Suicidal Ideation: Denies Homicidal Ideation: Denies Insight: Poor Judgement: Poor Impulse Control: Other (Limited) - Laboratory Result Diagrams: 08/22/17 17:57 08/22/17 17:57 Laboratory Results - last 24 hr 08/22/17 08/22/17 17:57 17:57 WBC 5.0 RBC 3.93 L Hgb 11.9 L Hct 36.6 MCV 93.1 MCH 30.3 MCHC 32.5 RDW Std Deviation 48.1 Plt Count 200 MPV 10.5 Immature Gran % (Auto) 0.2 Neut % (Auto) 56.7 Lymph % (Auto) 28.6 [place] % (Auto) 11.7 H Eos % (Auto) 1.8 Baso % (Auto) 1.0 Neut # (Auto) 2.9 Lymph # (Auto) 1.4 [place] # (Auto) 0.6 Eos # (Auto) 0.1 Baso # (Auto) 0.1 Abs Immat Gran (auto) 0.01 Turbidity < 20 Sodium 139 Potassium 3.9 Chloride 104 Carbon Dioxide 28 Anion Gap 7 BUN 24.0 H D Creatinine 0.9 D GFR Calculation 59 BUN/Creatinine Ratio 27 H Glucose 113 H Calculated Osmolality 273 Calcium 9.2 Magnesium 1.8 Icterus Index < 2 Specimen Hemolysis < 15 Assessment and Plan (1) Major neurocognitive disorder Problem details: with behavioral disturbance, Alzheimer's, moderate severity Current visit: Yes Status: Acute Hospital Course Summary Disclaimer: The visit summary below is not to be considered part of the above Progress Note. Hospital Course: 07/20/17 11:57 07/20/17 Admit to [facility] under the care of psychiatry for evaluation and management of her mental health concerns. She is safe for unit activities. Continue Keflex for UTI. I have reviewed [facility] records- Urine culture not resulted. BP is mildly high- monitor for now. Given LE mild edema, we could consider gentle diuresis. No documented hx of HF. She is currently refusing PO meds- she did get a dose of Ceftriaxone at - we may need to change to injectable if she does not take the medication. We will plan to recheck Saturday. Will continue to follow with you. Thank you for the Consult. 07/21/17 11:29 Pt remains paranoid and delusional. Will start Haldol 0.5mg PO BID. 07/22/17 Psych: Continue Haldol 0.5mg PO BID. Discussed risks/benefits with and obtained informed consent to continue Haldol, which she has tolerated well before. Discussed with giving injections to ensure adherence and he agreed to give IM Haldol if patient refuses PO. Hospitalist treating UTI as above. Have asked nursing to provide prepackaged food/drink as available to ensure adequate PO intake and prevent dehydration. Monitor mood, behavior and response to treatment. 07/23/17 Psych: Continue current care with mouth checks and giving patient option between PO and IM antipsychotic. Monitor symptoms as patient is adherent with psychotropic meds. Continue steps to minimize risk of dehydration. 07/24/17 Psych: Have asked nursing staff to ensure IM administration of Haldol if patient refuses and to give make-up dose for missed dose this morning. May consider increasing total daily dose of Haldol tomorrow. Will discuss possible IM antibiotics with hospitalist as patient is refusing PO. 07/25/17 Psych: Need to ensure patient is eating/drinking adequately and make effort to provide as much prepackaged food as possible while she reliably gets Haldol (IM if PO refused). Hospitalist is not planning further antibiotic treatment. Monitor mood, behavior and response to treatment. 07/26/17 Psych: Patient has increased PO intake and is now eating some foods that are not prepackaged, which shows me Haldol is effective. Continue mouth checks and IM injections if necessary. Continue to monitor symptoms and may increase Haldol over weekend as she was previously stabilized on a total of 1.5mg daily. 07/27/17 Psych: Patient improving overall and increasing PO intake, not as perseverative/delusional on unit though continues to be with me. Will plan to increase Haldol tomorrow. 07/28/17 Psych: Increase Haldol to 0.5mg in AM and 1mg at HS; patient to be given IM meds if she refuses PO. Monitor mood, behavior and response. 07/29/17 Psych: Will give Cogentin 0.5mg PO x1 now to see if possible EPS resolves. Continue current care otherwise in the time being. If does have EPS, will need to decide whether to add concomitant Cogentin or change to 2nd generation antipsychotic. 07/30/17 Psych: Will again challenge with Cogentin and decide whether 2nd generation antipsychotic may be appropriate; will review all other possible medical records re: previous diagnoses, treatment. 07/31/17 Psych: Will continue current antipsychotic dose as still requiring IM at times though 2nd generation would be preferable if she were willingly adherent. Family has asked that we not put medications in food. Will schedule Cogentin 0.5mg PO BID and monitor for EPS. Will check EKG to monitor QTc for the time being. Patient improving as evidenced by willingness to eat some and engage more during interview, but progress is slow. Dose limited by possible EPS right now. 08/01/17 Psych: Increase Haldol to 1mg PO BID. Patient to be given IM if refuses PO. Will f/u on EKG ordered 07/31. 08/02/17 Psych: Continue Haldol 1mg PO BID as well as Cogentin 0.5mg PO BID due to EPS. Patient to be given IM if refuses PO. 08/03/17 10:23 Remains paranoid with poor appetite. Continue current care 08/04/17 10:43 Pt remains paranoid with poor appetite. Continue current care 08/04/17 17:05 Patient continues to have fairly significant HTN. Will start low dose metoprolol- unsure if she will take, It appears she may have a UTI, but urine is not a good clean catch. Will order another UA to confirm. She remains paranoid. Weight continues to trend down- encourage PO intake. Repeat labs in AM. 08/05/17 17:24 Eating better but remains paranoid. Continue current care 08/06/17 16:46 Remains paranoid. Continue current care 08/07/17 19:55 Remains paranoid. Continue Haldol 08/08/17 19:39 Pt remains paranoid. I do not want to increase Haldol at this time due to fear of increased EPS but will continue Haldol due to fear of compliance issues. Recommend Second Generation antipsychotic when compliance issues improve and as an OP 08/09/17 18:24 Continue current care 08/10/17 10:59 Pt remains paranoid. Continue current care 08/11/17 11:57 Remains paranoid. Continue Haldol and will look to switch to second generation when compliance improves 08/12/17 18:58 Remains paranoid but slightly improved today. Continue current care 08/13/17 BP is moderately elevated but improved from earlier in hospitalization. Continue low-dose amlodipine. No urinary sx per [facility] staff. Weight is increasing since starting Megace. Recent labs are stable - hgb slightly low at 11.1. 08/13/17 18:56 Remains paranoid. Continue current care 08/14/17 18:05 Remaisn paranoid but improved. Continue current care 08/15/17 19:33 Improved slightly. Continue current care 08/16/17 18:52 Continues to improve. Continue current care 08/17/17 12:33 Contineus to improve. Continue current care 08/18/17 12:28 Continues to improve slightly. Continue current care 08/19/17 21:34 Continues to improve. Continue current care 08/20/17 BP has been increasing and now she has 1+ b/l edema - will give Lasix 20 mg PO + KDur 20 mEq today - start daily weights; consider increasing amlodipine but with LE swelling may want to opt for another antiHTN med. Repeat UA (one on the was not a clean catch (>[address] Pleitez's notes reviewed. 08/20/17 17:18 Doing well. Continue current care 08/21/17 Psych: Discontinue scheduled PO Haldol and start Risperdal 2mg PO q HS. Will give Haldol 2mg IM at HS if oral meds refused. Will monitor EPS and adjust Cogentin as necessary. Will order EKG to monitor QTc. Plan is to start depot Risperdal if well-tolerated. 08/22/17 Psych: Will change back to Haldol after discussing with outpatient provider but increase dose to 1mg PO q AM and 2mg PO q HS; continue Cogentin for EPS and discuss this as well as decanoate injection with family. HH will be available to give injection. 08/23/17 LE edema improving; weight actually up 1.2 kg from last weigh-in but clinically doing well. BP with occasional higher readings but not persistent. Continue to monitor fluid status/weight; may ultimately need routine diuretic but given her hesitancy to take new meds will simply monitor for the time being. Repeat UA done on 08/20 was neg for UTI. Dr. Polanco's notes reviewed - still with mild EPS on exam and admitted to delusions; she discussed case with outpatient provider who recommended Haldol ( has responded favorably to this in the past). EKG done on 08/21/17 was reviewed - paced rhythm; essentially unchanged from EKG done at time of admission with minimal changes in QT. 08/23/17: Increase Haldol to 2mg PO BID; will determine whether Home Health will be available to administer IM Haldol q 2 weeks or monthly after discharge. Monitor mood, behavior and response to treatment.
[2017-08-23] MEDS ORDERED: HALOPERIDOL 5 MG/ML INJECTION IM PRN (16:37)
[2017-08-23] MEDS: HALOPERIDOL 1 MG TABLET PO SCH (21:05)
[2017-08-24] MEDS: BENZTROPINE 1 MG TABLET PO SCH ×3 (08:25→22:55)
[2017-08-24] MEDS: HALOPERIDOL 1 MG TABLET PO SCH ×3 (08:25→22:55)
[2017-08-24] MEDS: AMLODIPINE 2.5 MG TABLET PO SCH (08:25)
--- NOTE | 2017-08-24 12:05 | Neuropsych Progress Note ---
[facility] Subjective Date: 08/24/17 - Sujective/Severity of Illness Medications: Acetaminophen (Tylenol) 325 - 650 mg PO Q5H PRN PRN Reason: Discomfort Amlodipine Besylate (Norvasc) 2.5 mg PO DAILY [facility] Last Admin: 08/24/17 08:25 Dose: 2.5 mg Benztropine Mesylate (Cogentin) 0.5 mg PO BID [facility] Last Admin: 08/24/17 08:25 Dose: 0.5 mg Bisacodyl (Dulcolax) 10 mg RECTALLY DAILY PRN PRN Reason: Constipation Last Admin: 07/24/17 17:28 Dose: 10 mg Bisacodyl (Dulcolax) 10 mg PO DAILY PRN PRN Reason: Constipation Last Admin: 08/09/17 13:14 Dose: 10 mg Haloperidol (Haldol) 0.5 mg PO Q6H PRN PRN Reason: Extreme agitation Last Admin: 08/22/17 04:38 Dose: 0.5 mg Haloperidol (Haldol) 2 mg PO BID [facility] Last Admin: 08/24/17 08:25 Dose: 2 mg Haloperidol Lactate (Haldol) 0.5 mg IM Q6H PRN PRN Reason: Extreme agitation Haloperidol Lactate (Haldol) 2 mg IM BID PRN Lorazepam (Ativan) 0.5 mg PO Q6H PRN PRN Reason: Extreme agitation Last Admin: 07/22/17 14:10 Dose: 0.5 mg Lorazepam (Ativan Inj) 0.5 mg IM Q6H PRN PRN Reason: Extreme agitation Subjective: Pt seen and chart examined. Nursing reports pt is doing better. Sleeping well and appetite continues to improve. Compliant with meds. On face to face the pt is seen eating lunch. She is smiling and voices no concerns. Remains paranoid but she appears to be less troubled by it. Tolerating meds Start Time: 11:45 Stop Time: 12:00 Mental Status Exam Vitals: Last Vital Signs Temp 97.8 F 08/24/17 08:00 Pulse 86 08/24/17 08:00 Resp 16 08/24/17 08:00 BP 109/60 08/24/17 08:00 Pulse Ox 100 08/24/17 08:00 Height: 1.65 m Weight: 54 kg - Mental Status Exam Muscle Strength/Tone: Normal (with scheduled Cogentin) Dressing: Casual Grooming: Fair Attitude: Suspicious, Other (more cooperative than previously) Motor Activity: Retardation Eye Contact: Good Speech: Slowed Volume: Soft Rhythm: Appropriate Rhythm Orientation: Disoriented to time, Disoriented to place, Disoriented to situation , Oriented to person Mood: Other (mood "okay," less hostile today) Rate of Thoughts: Delayed Thought Organization: Perseverations (on being poisoned), [place] Associations: Illogical Abstract Reasoning: Poor abstract reasoning Thought Content: Delusions, Paranoia Perception/Psychotic: Psychotic Current Hallucinations: Auditory (continues to endorse; non-command) Language: Naming Impaired Fund of Knowledge: Poor fund of knowledge (will not participate in [employer] - last documented [employer] in October 2016) Memory: Poor-immediate Suicidal Ideation: Denies Homicidal Ideation: Denies Insight: Poor Judgement: Poor Impulse Control: Other (Limited) - Laboratory Result Diagrams: 08/22/17 17:57 08/22/17 17:57 Assessment and Plan (1) Major neurocognitive disorder Problem details: with behavioral disturbance, Alzheimer's, moderate severity Current visit: Yes Status: Acute Hospital Course Summary Disclaimer: The visit summary below is not to be considered part of the above Progress Note. Hospital Course: 07/20/17 11:57 07/20/17 Admit to [facility] under the care of psychiatry for evaluation and management of her mental health concerns. She is safe for unit activities. Continue Keflex for UTI. I have reviewed [facility] records- Urine culture not resulted. BP is mildly high- monitor for now. Given LE mild edema, we could consider gentle diuresis. No documented hx of HF. She is currently refusing PO meds- she did get a dose of Ceftriaxone at - we may need to change to injectable if she does not take the medication. We will plan to recheck Saturday. Will continue to follow with you. Thank you for the Consult. 07/21/17 11:29 Pt remains paranoid and delusional. Will start Haldol 0.5mg PO BID. 07/22/17 Psych: Continue Haldol 0.5mg PO BID. Discussed risks/benefits with and obtained informed consent to continue Haldol, which she has tolerated well before. Discussed with giving injections to ensure adherence and he agreed to give IM Haldol if patient refuses PO. Hospitalist treating UTI as above. Have asked nursing to provide prepackaged food/drink as available to ensure adequate PO intake and prevent dehydration. Monitor mood, behavior and response to treatment. 07/23/17 Psych: Continue current care with mouth checks and giving patient option between PO and IM antipsychotic. Monitor symptoms as patient is adherent with psychotropic meds. Continue steps to minimize risk of dehydration. 07/24/17 Psych: Have asked nursing staff to ensure IM administration of Haldol if patient refuses and to give make-up dose for missed dose this morning. May consider increasing total daily dose of Haldol tomorrow. Will discuss possible IM antibiotics with hospitalist as patient is refusing PO. 07/25/17 Psych: Need to ensure patient is eating/drinking adequately and make effort to provide as much prepackaged food as possible while she reliably gets Haldol (IM if PO refused). Hospitalist is not planning further antibiotic treatment. Monitor mood, behavior and response to treatment. 07/26/17 Psych: Patient has increased PO intake and is now eating some foods that are not prepackaged, which shows me Haldol is effective. Continue mouth checks and IM injections if necessary. Continue to monitor symptoms and may increase Haldol over weekend as she was previously stabilized on a total of 1.5mg daily. 07/27/17 Psych: Patient improving overall and increasing PO intake, not as perseverative/delusional on unit though continues to be with me. Will plan to increase Haldol tomorrow. 07/28/17 Psych: Increase Haldol to 0.5mg in AM and 1mg at HS; patient to be given IM meds if she refuses PO. Monitor mood, behavior and response. 07/29/17 Psych: Will give Cogentin 0.5mg PO x1 now to see if possible EPS resolves. Continue current care otherwise in the time being. If does have EPS, will need to decide whether to add concomitant Cogentin or change to 2nd generation antipsychotic. 07/30/17 Psych: Will again challenge with Cogentin and decide whether 2nd generation antipsychotic may be appropriate; will review all other possible medical records re: previous diagnoses, treatment. 07/31/17 Psych: Will continue current antipsychotic dose as still requiring IM at times though 2nd generation would be preferable if she were willingly adherent. Family has asked that we not put medications in food. Will schedule Cogentin 0.5mg PO BID and monitor for EPS. Will check EKG to monitor QTc for the time being. Patient improving as evidenced by willingness to eat some and engage more during interview, but progress is slow. Dose limited by possible EPS right now. 08/01/17 Psych: Increase Haldol to 1mg PO BID. Patient to be given IM if refuses PO. Will f/u on EKG ordered 07/31. 08/02/17 Psych: Continue Haldol 1mg PO BID as well as Cogentin 0.5mg PO BID due to EPS. Patient to be given IM if refuses PO. 08/03/17 10:23 Remains paranoid with poor appetite. Continue current care 08/04/17 10:43 Pt remains paranoid with poor appetite. Continue current care 08/04/17 17:05 Patient continues to have fairly significant HTN. Will start low dose metoprolol- unsure if she will take, It appears she may have a UTI, but urine is not a good clean catch. Will order another UA to confirm. She remains paranoid. Weight continues to trend down- encourage PO intake. Repeat labs in AM. 08/05/17 17:24 Eating better but remains paranoid. Continue current care 08/06/17 16:46 Remains paranoid. Continue current care 08/07/17 19:55 Remains paranoid. Continue Haldol 08/08/17 19:39 Pt remains paranoid. I do not want to increase Haldol at this time due to fear of increased EPS but will continue Haldol due to fear of compliance issues. Recommend Second Generation antipsychotic when compliance issues improve and as an OP 08/09/17 18:24 Continue current care 08/10/17 10:59 Pt remains paranoid. Continue current care 08/11/17 11:57 Remains paranoid. Continue Haldol and will look to switch to second generation when compliance improves 08/12/17 18:58 Remains paranoid but slightly improved today. Continue current care 08/13/17 BP is moderately elevated but improved from earlier in hospitalization. Continue low-dose amlodipine. No urinary sx per nsg staff. Weight is increasing since starting Megace. Recent labs are stable - hgb slightly low at 11.1. 08/13/17 18:56 Remains paranoid. Continue current care 08/14/17 18:05 Remaisn paranoid but improved. Continue current care 08/15/17 19:33 Improved slightly. Continue current care 08/16/17 18:52 Continues to improve. Continue current care 08/17/17 12:33 Contineus to improve. Continue current care 08/18/17 12:28 Continues to improve slightly. Continue current care 08/19/17 21:34 Continues to improve. Continue current care 08/20/17 BP has been increasing and now she has 1+ b/l edema - will give Lasix 20 mg PO + KDur 20 mEq today - start daily weights; consider increasing amlodipine but with LE swelling may want to opt for another antiHTN med. Repeat UA (one on the was not a clean catch (>[address] Pleitez's notes reviewed. 08/20/17 17:18 Doing well. Continue current care 08/21/17 Psych: Discontinue scheduled PO Haldol and start Risperdal 2mg PO q HS. Will give Haldol 2mg IM at HS if oral meds refused. Will monitor EPS and adjust Cogentin as necessary. Will order EKG to monitor QTc. Plan is to start depot Risperdal if well-tolerated. 08/22/17 Psych: Will change back to Haldol after discussing with outpatient provider but increase dose to 1mg PO q AM and 2mg PO q HS; continue Cogentin for EPS and discuss this as well as decanoate injection with family. HH will be available to give injection. 08/23/17 LE edema improving; weight actually up 1.2 kg from last weigh-in but clinically doing well. BP with occasional higher readings but not persistent. Continue to monitor fluid status/weight; may ultimately need routine diuretic but given her hesitancy to take new meds will simply monitor for the time being. Repeat UA done on 08/[address] UTI[address] Dr[address] Polanco's notes reviewed - still with mild EPS on exam and admitted to delusions; she discussed case with outpatient provider who recommended Haldol ( has responded favorably to this in the past). EKG done on 08/21/17 was reviewed - paced rhythm; essentially unchanged from EKG done at time of admission with minimal changes in QT. 08/23/17: Increase Haldol to 2mg PO BID; will determine whether Home Health will be available to administer IM Haldol q 2 weeks or monthly after discharge. Monitor mood, behavior and response to treatment. 08/24/17 12:04 Continues to improve. Continue current care
[2017-08-24] MEDS: ACETAMINOPHEN 325 MG TABLET PO PRN (16:19)
[2017-08-24] MEDS ORDERED: MAG-AL + SIM ORAL LIQUID 30ml PO PRN (16:20)
[2017-08-25] MEDS: HALOPERIDOL 1 MG TABLET PO SCH ×3 (08:52→23:33)
[2017-08-25] MEDS: AMLODIPINE 2.5 MG TABLET PO SCH (08:52)
[2017-08-25] MEDS: BENZTROPINE 1 MG TABLET PO SCH ×3 (08:52→23:33)
--- NOTE | 2017-08-25 11:18 | Neuropsych Progress Note ---
[facility] Subjective Date: 08/25/17 - Sujective/Severity of Illness Medications: Acetaminophen (Tylenol) 325 - 650 mg PO Q5H PRN PRN Reason: Discomfort Last Admin: 08/24/17 16:19 Dose: 650 mg Al Hydroxide/Mg Hydroxide (Maalox Plus) 30 ml PO Q6H PRN PRN Reason: Indigestion Last Admin: 08/24/17 16:22 Dose: 30 ml Amlodipine Besylate (Norvasc) 2.5 mg PO DAILY [facility] Last Admin: 08/25/17 08:52 Dose: 2.5 mg Benztropine Mesylate (Cogentin) 0.5 mg PO BID [facility] Last Admin: 08/25/17 08:52 Dose: 0.5 mg Bisacodyl (Dulcolax) 10 mg RECTALLY DAILY PRN PRN Reason: Constipation Last Admin: 07/24/17 17:28 Dose: 10 mg Bisacodyl (Dulcolax) 10 mg PO DAILY PRN PRN Reason: Constipation Last Admin: 08/09/17 13:14 Dose: 10 mg Haloperidol (Haldol) 0.5 mg PO Q6H PRN PRN Reason: Extreme agitation Last Admin: 08/22/17 04:38 Dose: 0.5 mg Haloperidol (Haldol) 2 mg PO BID [facility] Last Admin: 08/25/17 08:52 Dose: 2 mg Haloperidol Lactate (Haldol) 0.5 mg IM Q6H PRN PRN Reason: Extreme agitation Haloperidol Lactate (Haldol) 2 mg IM BID PRN Lorazepam (Ativan) 0.5 mg PO Q6H PRN PRN Reason: Extreme agitation Last Admin: 07/22/17 14:10 Dose: 0.5 mg Lorazepam (Ativan Inj) 0.5 mg IM Q6H PRN PRN Reason: Extreme agitation Subjective: Pt seen and chart examined. Nursing reports pt is doing well. Sleeping well and appetite has been good. Taking meds. On face to face the pt states she is doing well. She is smiling and states she gets to go home soon. She denies any S/I and paranoia appears improved. Tolerating meds Start Time: 11:00 Stop Time: 11:15 Mental Status Exam Vitals: Last Vital Signs Temp 97.8 F 08/25/17 08:00 Pulse 99 08/25/17 08:00 Resp 18 08/25/17 08:00 BP 144/88 H 08/25/17 08:00 Pulse Ox 99 08/25/17 08:00 Height: 1.65 m Weight: 54.8 kg - Mental Status Exam Muscle Strength/Tone: Normal (with scheduled Cogentin) Dressing: Casual Grooming: Fair Attitude: Suspicious, Other (more cooperative than previously) Motor Activity: Retardation Eye Contact: Good Speech: Slowed Volume: Soft Rhythm: Appropriate Rhythm Orientation: Disoriented to time, Disoriented to place, Disoriented to situation , Oriented to person Mood: Other (mood "okay," less hostile today) Rate of Thoughts: Delayed Thought Organization: Perseverations (on being poisoned), [place] Associations: Illogical Abstract Reasoning: Poor abstract reasoning Thought Content: Delusions, Paranoia Perception/Psychotic: Psychotic Current Hallucinations: Auditory (continues to endorse; non-command) Language: Naming Impaired Fund of Knowledge: Poor fund of knowledge (will not participate in [employer] - last documented [employer] in October 2016) Memory: Poor-immediate Suicidal Ideation: Denies Homicidal Ideation: Denies Insight: Poor Judgement: Poor Impulse Control: Other (Limited) - Laboratory Result Diagrams: 08/22/17 17:57 08/22/17 17:57 Assessment and Plan (1) Major neurocognitive disorder Problem details: with behavioral disturbance, Alzheimer's, moderate severity Current visit: Yes Status: Acute Hospital Course Summary Disclaimer: The visit summary below is not to be considered part of the above Progress Note. Hospital Course: 07/20/17 11:57 07/20/17 Admit to [facility] under the care of psychiatry for evaluation and management of her mental health concerns. She is safe for unit activities. Continue Keflex for UTI. I have reviewed [facility] records- Urine culture not resulted. BP is mildly high- monitor for now. Given LE mild edema, we could consider gentle diuresis. No documented hx of HF. She is currently refusing PO meds- she did get a dose of Ceftriaxone at - we may need to change to injectable if she does not take the medication. We will plan to recheck Saturday. Will continue to follow with you. Thank you for the Consult. 07/21/17 11:29 Pt remains paranoid and delusional. Will start Haldol 0.5mg PO BID. 07/22/17 Psych: Continue Haldol 0.5mg PO BID. Discussed risks/benefits with and obtained informed consent to continue Haldol, which she has tolerated well before. Discussed with giving injections to ensure adherence and he agreed to give IM Haldol if patient refuses PO. Hospitalist treating UTI as above. Have asked nursing to provide prepackaged food/drink as available to ensure adequate PO intake and prevent dehydration. Monitor mood, behavior and response to treatment. 07/23/17 Psych: Continue current care with mouth checks and giving patient option between PO and IM antipsychotic. Monitor symptoms as patient is adherent with psychotropic meds. Continue steps to minimize risk of dehydration. 07/24/17 Psych: Have asked nursing staff to ensure IM administration of Haldol if patient refuses and to give make-up dose for missed dose this morning. May consider increasing total daily dose of Haldol tomorrow. Will discuss possible IM antibiotics with hospitalist as patient is refusing PO. 07/25/17 Psych: Need to ensure patient is eating/drinking adequately and make effort to provide as much prepackaged food as possible while she reliably gets Haldol (IM if PO refused). Hospitalist is not planning further antibiotic treatment. Monitor mood, behavior and response to treatment. 07/26/17 Psych: Patient has increased PO intake and is now eating some foods that are not prepackaged, which shows me Haldol is effective. Continue mouth checks and IM injections if necessary. Continue to monitor symptoms and may increase Haldol over weekend as she was previously stabilized on a total of 1.5mg daily. 07/27/17 Psych: Patient improving overall and increasing PO intake, not as perseverative/delusional on unit though continues to be with me. Will plan to increase Haldol tomorrow. 07/28/17 Psych: Increase Haldol to 0.5mg in AM and 1mg at HS; patient to be given IM meds if she refuses PO. Monitor mood, behavior and response. 07/29/17 Psych: Will give Cogentin 0.5mg PO x1 now to see if possible EPS resolves. Continue current care otherwise in the time being. If does have EPS, will need to decide whether to add concomitant Cogentin or change to 2nd generation antipsychotic. 07/30/17 Psych: Will again challenge with Cogentin and decide whether 2nd generation antipsychotic may be appropriate; will review all other possible medical records re: previous diagnoses, treatment. 07/31/17 Psych: Will continue current antipsychotic dose as still requiring IM at times though 2nd generation would be preferable if she were willingly adherent. Family has asked that we not put medications in food. Will schedule Cogentin 0.5mg PO BID and monitor for EPS. Will check EKG to monitor QTc for the time being. Patient improving as evidenced by willingness to eat some and engage more during interview, but progress is slow. Dose limited by possible EPS right now. 08/01/17 Psych: Increase Haldol to 1mg PO BID. Patient to be given IM if refuses PO. Will f/u on EKG ordered 07/31. 08/02/17 Psych: Continue Haldol 1mg PO BID as well as Cogentin 0.5mg PO BID due to EPS. Patient to be given IM if refuses PO. 08/03/17 10:23 Remains paranoid with poor appetite. Continue current care 08/04/17 10:43 Pt remains paranoid with poor appetite. Continue current care 08/04/17 17:05 Patient continues to have fairly significant HTN. Will start low dose metoprolol- unsure if she will take, It appears she may have a UTI, but urine is not a good clean catch. Will order another UA to confirm. She remains paranoid. Weight continues to trend down- encourage PO intake. Repeat labs in AM. 08/05/17 17:24 Eating better but remains paranoid. Continue current care 08/06/17 16:46 Remains paranoid. Continue current care 08/07/17 19:55 Remains paranoid. Continue Haldol 08/08/17 19:39 Pt remains paranoid. I do not want to increase Haldol at this time due to fear of increased EPS but will continue Haldol due to fear of compliance issues. Recommend Second Generation antipsychotic when compliance issues improve and as an OP 08/09/17 18:24 Continue current care 08/10/17 10:59 Pt remains paranoid. Continue current care 08/11/17 11:57 Remains paranoid. Continue Haldol and will look to switch to second generation when compliance improves 08/12/17 18:58 Remains paranoid but slightly improved today. Continue current care 08/13/17 BP is moderately elevated but improved from earlier in hospitalization. Continue low-dose amlodipine. No urinary sx [place] [facility] [place]. Weight is increasing since starting Megace. Recent labs are stable - hgb slightly low at 11.1. 08/13/17 18:56 Remains paranoid. Continue current care 08/14/17 18:05 Remaisn paranoid but improved. Continue current care 08/15/17 19:33 Improved slightly. Continue current care 08/16/17 18:52 Continues to improve. Continue current care 08/17/17 12:33 Contineus to improve. Continue current care 08/18/17 12:28 Continues to improve slightly. Continue current care 08/19/17 21:34 Continues to improve. Continue current care 08/20/17 BP has been increasing and now she has 1+ b/l edema - will give Lasix 20 mg PO + KDur 20 mEq today - start daily weights; consider increasing amlodipine but with LE swelling may want to opt for another antiHTN med. Repeat UA (one on the was not a clean catch (>[address] Pleitez's notes reviewed. 08/20/17 17:18 Doing well. Continue current care 08/21/17 Psych: Discontinue scheduled PO Haldol and start Risperdal 2mg PO q HS. Will give Haldol 2mg IM at HS if oral meds refused. Will monitor EPS and adjust Cogentin as necessary. Will order EKG to monitor QTc. Plan is to start depot Risperdal if well-tolerated. 08/22/17 Psych: Will change back to Haldol after discussing with outpatient provider but increase dose to 1mg PO q AM and 2mg PO q HS; continue Cogentin for EPS and discuss this as well as decanoate injection with family. HH will be available to give injection. 08/23/17 LE edema improving; weight actually up 1.2 kg from last weigh-in but clinically doing well. BP with occasional higher readings but not persistent. Continue to monitor fluid status/weight; may ultimately need routine diuretic but given her hesitancy to take new meds will simply monitor for the time being. Repeat UA done on 08/[address] was neg for UTI. Dr. Polanco's notes reviewed - still with mild EPS on exam and admitted to delusions; she discussed case with outpatient provider who recommended Haldol ( has responded favorably to this in the past). EKG done on 08/21/17 was reviewed - paced rhythm; essentially unchanged from EKG done at time of admission with minimal changes in QT. 08/23/17: Increase Haldol to 2mg PO BID; will determine whether Home Health will be available to administer IM Haldol q 2 weeks or monthly after discharge. Monitor mood, behavior and response to treatment. 08/24/17 12:04 Continues to improve. Continue current care 08/25/17 11:18 Continues to improve. Continue current care
[2017-08-26] MEDS: AMLODIPINE 2.5 MG TABLET PO SCH (08:42)
[2017-08-26] MEDS: HALOPERIDOL 1 MG TABLET PO SCH ×2 (08:42→20:21)
[2017-08-26] MEDS: BENZTROPINE 1 MG TABLET PO SCH ×2 (08:42→20:20)
--- NOTE | 2017-08-26 19:03 | Neuropsych Progress Note ---
[facility] Subjective Date: 08/26/17 - Sujective/Severity of Illness Medications: Acetaminophen (Tylenol) 325 - 650 mg PO Q5H PRN PRN Reason: Discomfort Last Admin: 08/24/17 16:19 Dose: 650 mg Al Hydroxide/Mg Hydroxide (Maalox Plus) 30 ml PO Q6H PRN PRN Reason: Indigestion Last Admin: 08/24/17 16:22 Dose: 30 ml Amlodipine Besylate (Norvasc) 2.5 mg PO DAILY [facility] Last Admin: 08/26/17 08:42 Dose: 2.5 mg Benztropine Mesylate (Cogentin) 0.5 mg PO BID [facility] Last Admin: 08/26/17 08:42 Dose: 0.5 mg Bisacodyl (Dulcolax) 10 mg RECTALLY DAILY PRN PRN Reason: Constipation Last Admin: 07/24/17 17:28 Dose: 10 mg Bisacodyl (Dulcolax) 10 mg PO DAILY PRN PRN Reason: Constipation Last Admin: 08/09/17 13:14 Dose: 10 mg Haloperidol (Haldol) 0.5 mg PO Q6H PRN PRN Reason: Extreme agitation Last Admin: 08/22/17 04:38 Dose: 0.5 mg Haloperidol (Haldol) 2 mg PO BID [facility] Last Admin: 08/26/17 08:42 Dose: 2 mg Haloperidol Lactate (Haldol) 0.5 mg IM Q6H PRN PRN Reason: Extreme agitation Haloperidol Lactate (Haldol) 2 mg IM BID PRN Lorazepam (Ativan) 0.5 mg PO Q6H PRN PRN Reason: Extreme agitation Last Admin: 07/22/17 14:10 Dose: 0.5 mg Lorazepam (Ativan Inj) 0.5 mg IM Q6H PRN PRN Reason: Extreme agitation Subjective: Patient seen and chart reviewed. Case discussed with treatment team. On interview, patient is pleasant with me but insists the spirits are still here - she does not talk about her food being poisoned however. Delusions seem to have lessened in intensity and she is eating/drinking. Stiffness well controlled with Cogentin. Patient denies any SI, HI or AVH. Nursing staff report patient has been pleasant and cooperative with them, more engaging than previous. She varies on who she will discuss her delusions with. Patient slept well overnight but seems to be using the restroom frequently - will check UA. BP intermittently elevated - otherwise VSS. Patient is eating well. Psychotropic PRNs required in the past 24 hours: none. Start Time: 14:20 Stop Time: 15:00 (Care discussed with both sons separately as well as d/c planning) Mental Status Exam Vitals: Last Vital Signs Temp 98.6 F 08/26/17 16:00 Pulse 97 08/26/17 16:00 Resp 20 08/26/17 16:00 BP 177/78 H 08/26/17 16:00 Pulse Ox 99 08/26/17 16:00 Height: 1.65 m Weight: 54.8 kg - Mental Status Exam Muscle Strength/Tone: Normal (with scheduled Cogentin) Dressing: Casual Grooming: Good Attitude: Cooperative Motor Activity: Retardation Eye Contact: Good Speech: Slowed Volume: Soft Rhythm: Appropriate Rhythm Orientation: Disoriented to time, Disoriented to situation, Oriented to person Mood: Neutral (restricted affect) Rate of Thoughts: Delayed Thought Organization: Perseverations (on being poisoned - decreasing), [place] Associations: Illogical Abstract Reasoning: Poor abstract reasoning Thought Content: Delusions, Paranoia Perception/Psychotic: Psychotic Current Hallucinations: Auditory (continues to endorse; non-command) Language: Naming Impaired Fund of Knowledge: Poor fund of knowledge (will not participate in [employer] - last documented [employer] in October 2016) Memory: Poor-immediate Suicidal Ideation: Denies Homicidal Ideation: Denies Insight: Limited Judgement: Limited Impulse Control: Other (Limited) - Laboratory Result Diagrams: 08/22/17 17:57 08/22/17 17:57 Assessment and Plan (1) Major neurocognitive disorder Problem details: with behavioral disturbance, Alzheimer's, moderate severity Current visit: Yes Status: Acute Hospital Course Summary Disclaimer: The visit summary below is not to be considered part of the above Progress Note. Hospital Course: 07/20/17 11:57 07/20/17 Admit to [facility] under the care of psychiatry for evaluation and management of her mental health concerns. She is safe for unit activities. Continue Keflex for UTI. I have reviewed [facility] records- Urine culture not resulted. BP is mildly high- monitor for now. Given LE mild edema, we could consider gentle diuresis. No documented hx of HF. She is currently refusing PO meds- she did get a dose of Ceftriaxone at - we may need to change to injectable if she does not take the medication. We will plan to recheck Saturday. Will continue to follow with you. Thank you for the Consult. 07/21/17 11:29 Pt remains paranoid and delusional. Will start Haldol 0.5mg PO BID. 07/22/17 Psych: Continue Haldol 0.5mg PO BID. Discussed risks/benefits with and obtained informed consent to continue Haldol, which she has tolerated well before. Discussed with giving injections to ensure adherence and he agreed to give IM Haldol if patient refuses PO. Hospitalist treating UTI as above. Have asked nursing to provide prepackaged food/drink as available to ensure adequate PO intake and prevent dehydration. Monitor mood, behavior and response to treatment. 07/23/17 Psych: Continue current care with mouth checks and giving patient option between PO and IM antipsychotic. Monitor symptoms as patient is adherent with psychotropic meds. Continue steps to minimize risk of dehydration. 07/24/17 Psych: Have asked nursing staff to ensure IM administration of Haldol if patient refuses and to give make-up dose for missed dose this morning. May consider increasing total daily dose of Haldol tomorrow. Will discuss possible IM antibiotics with hospitalist as patient is refusing PO. 07/25/17 Psych: Need to ensure patient is eating/drinking adequately and make effort to provide as much prepackaged food as possible while she reliably gets Haldol (IM if PO refused). Hospitalist is not planning further antibiotic treatment. Monitor mood, behavior and response to treatment. 07/26/17 Psych: Patient has increased PO intake and is now eating some foods that are not prepackaged, which shows me Haldol is effective. Continue mouth checks and IM injections if necessary. Continue to monitor symptoms and may increase Haldol over weekend as she was previously stabilized on a total of 1.5mg daily. 07/27/17 Psych: Patient improving overall and increasing PO intake, not as perseverative/delusional on unit though continues to be with me. Will plan to increase Haldol tomorrow. 07/28/17 Psych: Increase Haldol to 0.5mg in AM and 1mg at HS; patient to be given IM meds if she refuses PO. Monitor mood, behavior and response. 07/29/17 Psych: Will give Cogentin 0.5mg PO x1 now to see if possible EPS resolves. Continue current care otherwise in the time being. If does have EPS, will need to decide whether to add concomitant Cogentin or change to 2nd generation antipsychotic. 07/30/17 Psych: Will again challenge with Cogentin and decide whether 2nd generation antipsychotic may be appropriate; will review all other possible medical records re: previous diagnoses, treatment. 07/31/17 Psych: Will continue current antipsychotic dose as still requiring IM at times though 2nd generation would be preferable if she were willingly adherent. Family has asked that we not put medications in food. Will schedule Cogentin 0.5mg PO BID and monitor for EPS. Will check EKG to monitor QTc for the time being. Patient improving as evidenced by willingness to eat some and engage more during interview, but progress is slow. Dose limited by possible EPS right now. 08/01/17 Psych: Increase Haldol to 1mg PO BID. Patient to be given IM if refuses PO. Will f/u on EKG ordered 07/31. 08/02/17 Psych: Continue Haldol 1mg PO BID as well as Cogentin 0.5mg PO BID due to EPS. Patient to be given IM if refuses PO. 08/03/17 10:23 Remains paranoid with poor appetite. Continue current care 08/04/17 10:43 Pt remains paranoid with poor appetite. Continue current care 08/04/17 17:05 Patient continues to have fairly significant HTN. Will start low dose metoprolol- unsure if she will take, It appears she may have a UTI, but urine is not a good clean catch. Will order another UA to confirm. She remains paranoid. Weight continues to trend down- encourage PO intake. Repeat labs in AM. 08/05/17 17:24 Eating better but remains paranoid. Continue current care 08/06/17 16:46 Remains paranoid. Continue current care 08/07/17 19:55 Remains paranoid. Continue Haldol 08/08/17 19:39 Pt remains paranoid. I do not want to increase Haldol at this time due to fear of increased EPS but will continue Haldol due to fear of compliance issues. Recommend Second Generation antipsychotic when compliance issues improve and as an OP 08/09/17 18:24 Continue current care 08/10/17 10:59 Pt remains paranoid. Continue current care 08/11/17 11:57 Remains paranoid. Continue Haldol and will look to switch to second generation when compliance improves 08/12/17 18:58 Remains paranoid but slightly improved today. Continue current care 08/13/17 BP is moderately elevated but improved from earlier in hospitalization. Continue low-dose amlodipine. No urinary sx per nsg staff. Weight is increasing since starting Megace. Recent labs are stable - hgb slightly low at 11.1. 08/13/17 18:56 Remains paranoid. Continue current care 08/14/17 18:05 Remaisn paranoid but improved. Continue current care 08/15/17 19:33 Improved slightly. Continue current care 08/16/17 18:52 Continues to improve. Continue current care 08/17/17 12:33 Contineus to improve. Continue current care 08/18/17 12:28 Continues to improve slightly. Continue current care 08/19/17 21:34 Continues to improve. Continue current care 08/20/17 BP has been increasing and now she has 1+ b/l edema - will give Lasix 20 mg PO + KDur 20 mEq today - start daily weights; consider increasing amlodipine but with LE swelling may want to opt for another antiHTN med. Repeat UA (one on the was not a clean catch (>[address] Pleitez's notes reviewed. 08/20/17 17:18 Doing well. Continue current care 08/21/17 Psych: Discontinue scheduled PO Haldol and start Risperdal 2mg PO q HS. Will give Haldol 2mg IM at HS if oral meds refused. Will monitor EPS and adjust Cogentin as necessary. Will order EKG to monitor QTc. Plan is to start depot Risperdal if well-tolerated. 08/22/17 Psych: Will change back to Haldol after discussing with outpatient provider but increase dose to 1mg PO q AM and 2mg PO q HS; continue Cogentin for EPS and discuss this as well as decanoate injection with family. HH will be available to give injection. 08/23/17 LE edema improving; weight actually up 1.2 kg from last weigh-in but clinically doing well. BP with occasional higher readings but not persistent. Continue to monitor fluid status/weight; may ultimately need routine diuretic but given her hesitancy to take new meds will simply monitor for the time being. Repeat UA done on 08/[address] was [address] UTI[address] Dr. Polanco's notes reviewed - still with mild EPS on exam and admitted to delusions; she discussed case with outpatient provider who recommended Haldol ( has responded favorably to this in the past). EKG done on 08/21/17 was reviewed - paced rhythm; essentially unchanged from EKG done at time of admission with minimal changes in QT. 08/23/17: Increase Haldol to 2mg PO BID; will determine whether Home Health will be available to administer IM Haldol q 2 weeks or monthly after discharge. Monitor mood, behavior and response to treatment. 08/24/17 12:04 Continues to improve. Continue current care 08/25/17 11:18 Continues to improve. Continue current care 08/26/17 Psych: Discussed with son but will discuss with DPOA - plan to give Haldol decanoate 25mg IM today and continue oral Haldol 2mg PO BID, likely d/c tomorrow (to home per family's wishes) with outpatient treatment through [facility]. Home Health will be able to give injections after discharge.
[2017-08-26] MEDS ORDERED: HALOPERIDOL DECANOATE 50 MG/ML IM ONE (19:17)
[2017-08-27 09:49] VITALS: BP 145/71; PULSE 99; RESP 16; TEMP 97; O2SAT 98
[2017-08-27] MEDS: HALOPERIDOL 1 MG TABLET PO SCH (10:14)
[2017-08-27] MEDS: AMLODIPINE 2.5 MG TABLET PO SCH (10:14)
[2017-08-27] MEDS: BENZTROPINE 1 MG TABLET PO SCH (10:15)
== END 2017-08-27 11:22 | disposition home health service (06) | DRG 57 ==
LOC: GEN 07-20 01:11
PROVIDERS: ADMIT Psychiatry & Neurology Psychiatry; ATTEND Psychiatry & Neurology Psychiatry